=== PATIENT | male | born 1950 | race American Indian/Alaskan Native ===

== ENCOUNTER → 2016-10-12 | Outpatient (CLI) | payer MEDICARE ==
[~2016-10-12] MED LIST: ALPR.5T PO; ASP81CT PO; CARV12.53; CARV3.12 PO; CLPD75T PO; HYDR-3583 PO; KCL; LASIX; LISI10TA PO; LISINOPRIL; METO-333 PO; NTR.4SL SL; OMEP40CA36 PO; PNT40TEC PO; PRAV80TA PO; SPRN25T PO; TICA90TA PO; [UNRECOGNIZED DRUG - OTHER]
== END ==
LOC: CARD 10:45
PROVIDERS: ATTEND Nurse Practitioner Family
DX: I25.5 Ischemic cardiomyopathy (principal); I25.10 Atherosclerotic heart disease of native coronary artery without angina pectoris; E78.4 Other hyperlipidemia; N18.2 Chronic kidney disease, stage 2 (mild)
CPT/HCPCS: 93306

== ENCOUNTER → 2017-02-06 | Outpatient (CLI) | payer MEDICARE | LOC: CARD 11:31 | PROVIDERS: ATTEND Nurse Practitioner Family | DX: I25.10 Atherosclerotic heart disease of native coronary artery without angina pectoris (principal); I25.5 Ischemic cardiomyopathy; E78.4 Other hyperlipidemia; N18.2 Chronic kidney disease, stage 2 (mild) | CPT/HCPCS: 93306 ==

== ENCOUNTER → 2017-02-28 | Outpatient (CLI) | payer MEDICARE ==
[~2017-02-28] MED LIST changes: +CATHETER FLUSH 10 ML SYR IV PRN; +HEParin (CENTRAL IV FLUSH) 500 UNIT/5 ML SYR ONE
--- NOTE | 2017-03-02 17:07 | STRESS TEST ---
DATE OF SERVICE: 02/28/2017 RADIONUCLIDE VENTRICULOGRAPHY CLINICAL DIAGNOSIS: Ischemic cardiomyopathy. Autologous red blood cells tagged with 27.1 mCi of [id number] were used for the study. The left ventricular ejection fraction is calculated to be 40%. There is justice-apical and septal hypokinesis. CONCLUSIONS: 1. Left ventricular ejection fraction 40%. 2. Justice-apical and septal hypokinesis. Job ID: [id number] DocumentID: [id number] Dictated Date: 03/01/2017 12:44:16 Bitumen Plant Operator Date: 03/01/2017 13:25:29 Dictated By: MARY SIMS MD, MA, FACP, FACC,
== END ==
LOC: CARD 13:38
PROVIDERS: ATTEND Nurse Practitioner Family
DX: I25.5 Ischemic cardiomyopathy (principal); I25.10 Atherosclerotic heart disease of native coronary artery without angina pectoris; E78.4 Other hyperlipidemia; N18.2 Chronic kidney disease, stage 2 (mild)
CPT/HCPCS: 78472

== ENCOUNTER 2018-04-08 03:40 | Emergency (ER) | payer MEDICARE ==
[~2018-04-08] VITALS: Ht 182.9 cm; Wt 105.7 kg
[~2018-04-08 03:40] MED LIST changes: -CATHETER FLUSH 10 ML SYR IV PRN; -HEParin (CENTRAL IV FLUSH) 500 UNIT/5 ML SYR ONE
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
--- OUTSIDE RECORDS SUMMARY | 2018-04-08 03:46 | XMS REPORT | Continuity of Care Document ---
Author Author [facility] Organization [facility] Address Unknown Phone Unavailable Allergies Active Description Code Type Severity Reaction Onset Reported/Identified Relationship to Patient Clinical Status Yes KEFLEX SEVERE DERMATOLOGICAL - JOSE LUIS Yes [id number] REDUCTASE INHIBITORS SEVERE IRREGULAR HEART RATE Yes cephalexin [id number] Drug Allergy Mild N/A 03/05/2009 Yes tramadol [id number] Drug Allergy Moderate N/A 08/16/2011 Medications There is no data. Problems Date Dx Coded Attending Type Code Diagnosis Diagnosed By 04/14/2011 Ot 272.4 04/14/2011 Ot 401.9 04/14/2011 Ot 414.00 04/14/2011 Ot 786.50 04/14/2011 Ot V45.81 04/18/2011 Ot 272.4 04/18/2011 Ot 401.9 04/18/2011 Ot 414.01 04/18/2011 Ot 786.50 04/18/2011 Ot V45.81 04/18/2011 Ot V58.66 04/18/2011 Ot V58.69 08/17/2011 Ot 427.89 CARDIAC DYSRHYTHMIAS NEC 08/17/2011 Ot 429.9 HEART DISEASE NOS 08/17/2011 Ot 458.9 HYPOTENSION NOS 08/17/2011 Ot 530.19 OTHER ESOPHAGITIS 08/17/2011 Ot 535.40 OT SPECIFIED GASTRITIS,W/O MENTION OF H 08/17/2011 Ot 574.00 CHOLELITH W AC CHOLECYST 08/17/2011 Ot 574.10 CHOLELITH W CHOLECYS NEC 2012 Ot 414.01 CORONARY ATHEROSCLEROSIS OF [place] CORON 2012 Ot 786.50 CHEST PAIN NOS 2012 Ot V45.81 AORTOCORONARY BYPASS 2012 Ot V45.82 PERCUTANEOUS TRANSLUM CORON ANGIOPLASTY 2012 Ot V58.66 LONG-TERM ( CURRENT) USE OF ASPIRIN 2012 Ot V58.69 OT MED,LT, CURRENT USE 10/21/2012 DORON ROSARIO FACC, [facility] CCDS Ot 272.4 HYPERLIPIDEMIA NEC/NOS 10/21/2012 [facility]ON [facility]ARIO FACC, [facility] Ot 401.9 HYPERTENSION NOS 10/21/2012 DORON ALFORD, [facility] Ot 530.81 ESOPHAGEAL REFLUX 10/21/[address] [facility] Ot 786.59 CHEST PAIN NEC 03/03/2013 PATRICK HUYNH APRN Ot 786.50 CHEST PAIN NOS 05/17/2015 Ot 414.00 05/17/2015 Ot V45.81 05/17/2015 Ot 530.81 05/17/2015 Ot 574.20 05/17/2015 Ot V72.63 05/17/2015 Ot V74.8 05/17/2015 Ot 429.2 05/17/2015 Ot 414.00 05/17/2015 Ot V45.81 05/17/2015 Ot 780.4 05/17/2015 Ot 786.05 05/17/2015 LAVELLE CRYSTAL M SCRAP DROP CRANE OPERATOR Ot 396.3 05/17/2015 LAVELLE, CRYSTAL M SCRAP DROP CRANE OPERATOR Ot 397.0 05/17/2015 LAVELLE, CRYSTAL M SCRAP DROP CRANE OPERATOR Ot 427.89 05/17/2015 LAVELLE, CRYSTAL M SCRAP DROP CRANE OPERATOR Ot 428.0 05/17/2015 LAVELLE, CRYSTAL M SCRAP DROP CRANE OPERATOR Ot 429.3 05/17/2015 LAVELLE, CRYSTAL M SCRAP DROP CRANE OPERATOR Ot 785.1 05/17/2015 LAVELLE, CRYSTAL M SCRAP DROP CRANE OPERATOR Ot 427.89 05/17/2015 LAVELLE, CRYSTAL M SCRAP DROP CRANE OPERATOR Ot 780.79 06/07/2015 SAFIA ESCOBAR L SCRAP DROP CRANE OPERATOR Ot E78.5 06/07/2015 PATEL ESCOBARHER L SCRAP DROP CRANE OPERATOR Ot I25.10 06/07/2015 SHAWN SAFIA L SCRAP DROP CRANE OPERATOR Ot I25.5 06/07/2015 SHAWN SAFIA L SCRAP DROP CRANE OPERATOR Ot I44.7 06/07/2015 PATEL ESCOBARHER L SCRAP DROP CRANE OPERATOR Ot R06.00 07/06/2015 SAFIA ESCOBAR L SCRAP DROP CRANE OPERATOR Ot E78.5 HYPERLIPIDEMIA, UNSPECIFIED 07/06/2015 SAFIA ESCOBAR L SCRAP DROP CRANE OPERATOR Ot I10 ESSENTIAL (PRIMARY) HYPERTENSION 07/06/2015 SAFIA ESCOBAR L SCRAP DROP CRANE OPERATOR Ot I25.10 ATHSCL HEART DISEASE OF [place] CORONARY 07/06/2015 SAFIA ESCOBAR SCRAP DROP CRANE OPERATOR Ot I25.5 ISCHEMIC CARDIOMYOPATHY 07/06/2015 SAFIA ESCOBAR SCRAP DROP CRANE OPERATOR Ot R06.09 OTHER FORMS OF DYSPNEA 07/26/2015 SAFIA ESCOBAR SCRAP DROP CRANE OPERATOR Ot E78.5 HYPERLIPIDEMIA, UNSPECIFIED 07/26/2015 SAFIA ESCOBAR SCRAP DROP CRANE OPERATOR Ot I10 ESSENTIAL (PRIMARY) HYPERTENSION 07/26/2015 SAFIA ESCOBAR L SCRAP DROP CRANE OPERATOR Ot I25.10 ATHSCL HEART DISEASE OF [place] CORONARY 07/26/2015 SAFIA ESCOBAR SCRAP DROP CRANE OPERATOR Ot I25.5 ISCHEMIC CARDIOMYOPATHY 07/26/2015 SAFIA ESCOBAR SCRAP DROP CRANE OPERATOR Ot R06.09 OTHER FORMS OF DYSPNEA 10/08/2016 Ot 414.00 CORON ATHEROSCLER NOS TYPE VESSEL, NATIV 10/08/2016 Ot V45.81 AORTOCORONARY BYPASS 10/08/2016 Ot 530.81 ESOPHAGEAL REFLUX 10/08/2016 Ot 574.20 CHOLELITHIASIS NOS 10/08/2016 Ot V72.63 PRE- PROCEDURAL LABORATORY EXAMINATION 10/08/2016 Ot V74.8 SCREEN- BACTERIAL DIS NEC 10/08/2016 Ot 429.2 ASCVD 10/08/2016 Ot 414.00 CORON ATHEROSCLER NOS TYPE VESSEL, NATIV 10/08/2016 Ot V45.81 AORTOCORONARY BYPASS 10/08/2016 Ot 780.4 DIZZINESS AND GIDDINESS 10/08/2016 Ot 786.05 SHORTNESS OF BREATH 10/08/2016 KADE VALDERRAMA SCRAP DROP CRANE OPERATOR Ot 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 10/08/2016 KADE VALDERRAMA SCRAP DROP CRANE OPERATOR Ot 397.0 TRICUSPID VALVE DISEASE 10/08/2016 KADE VALDERRAMA SCRAP DROP CRANE OPERATOR Ot 427.89 CARDIAC DYSRHYTHMIAS NEC 10/08/2016 KADE VALDERRAMA SCRAP DROP CRANE OPERATOR Ot 428.0 CONGESTIVE HEART FAILURE NOS 10/08/2016 KADE VALDERRAMA SCRAP DROP CRANE OPERATOR Ot 429.3 CARDIOMEGALY 10/08/2016 KADE VALDERRAMA SCRAP DROP CRANE OPERATOR Ot 785.1 PALPITATIONS 10/08/2016 KADE VALDERRAMA SCRAP DROP CRANE OPERATOR Ot 427.89 CARDIAC DYSRHYTHMIAS NEC 10/08/2016 KADE VALDERRAMA SCRAP DROP CRANE OPERATOR Ot 780.79 OTH MALAISE FATIGUE 10/08/2016 SAFIA ESCOBAR SCRAP DROP CRANE OPERATOR Ot E78.5 HYPERLIPIDEMIA, UNSPECIFIED 10/08/2016 FABRICESAFIA SAAB SCRAP DROP CRANE OPERATOR Ot I25.10 ATHSCL HEART DISEASE OF [place] CORONARY 10/08/2016 SAFIA ESCOBAR L SCRAP DROP CRANE OPERATOR Ot I25.5 ISCHEMIC CARDIOMYOPATHY 10/08/2016 SAFIA ESCOBAR SCRAP DROP CRANE OPERATOR Ot I44.7 LEFT BUNDLE-BRANCH BLOCK, UNSPECIFIED 10/08/2016 SAFIA ESCOBAR L SCRAP DROP CRANE OPERATOR Ot R06.00 DYSPNEA, UNSPECIFIED 10/08/2016 SAFIA ESCOBAR L SCRAP DROP CRANE OPERATOR Ot E78.5 HYPERLIPIDEMIA, UNSPECIFIED 10/08/2016 SHAWN SAFIA L SCRAP DROP CRANE OPERATOR Ot I10 ESSENTIAL (PRIMARY) HYPERTENSION 10/08/2016 SHAWN SAFIA L SCRAP DROP CRANE OPERATOR Ot I25.10 ATHSCL HEART DISEASE OF [place] CORONARY 10/08/2016 SAFIA ESCOBAR SCRAP DROP CRANE OPERATOR Ot I25.5 ISCHEMIC CARDIOMYOPATHY 10/08/2016 SAFIA ESCOBAR SCRAP DROP CRANE OPERATOR Ot R06.09 OTHER FORMS OF DYSPNEA 10/12/2016 Ot 414.00 CORON ATHEROSCLER NOS TYPE VESSEL, NATIV 10/12/2016 Ot V45.81 AORTOCORONARY BYPASS 10/12/2016 Ot 530.81 ESOPHAGEAL REFLUX 10/12/2016 Ot 574.20 CHOLELITHIASIS NOS 10/12/2016 Ot V72.63 PRE- PROCEDURAL LABORATORY EXAMINATION 10/12/2016 Ot V74.8 SCREEN- BACTERIAL DIS NEC 10/12/2016 Ot 429.2 ASCVD 10/12/2016 Ot 414.00 CORON ATHEROSCLER NOS TYPE VESSEL, NATIV 10/12/2016 Ot V45.81 AORTOCORONARY BYPASS 10/12/2016 Ot 780.4 DIZZINESS AND GIDDINESS 10/12/2016 Ot 786.05 SHORTNESS OF BREATH 10/12/2016 LAVELLE KADE Karlene SCRAP DROP CRANE OPERATOR Ot 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 10/12/2016 LAVELLE KADE Karlene SCRAP DROP CRANE OPERATOR Ot 397.0 TRICUSPID VALVE DISEASE 10/12/2016 LAVELLE KADE Karlene SCRAP DROP CRANE OPERATOR Ot 427.89 CARDIAC DYSRHYTHMIAS NEC 10/12/2016 KADE VALDERRAMA SCRAP DROP CRANE OPERATOR Ot 428.0 CONGESTIVE HEART FAILURE NOS 10/12/2016 KADE VALDERRAMA SCRAP DROP CRANE OPERATOR Ot 429.3 CARDIOMEGALY 10/12/2016 KADE VALDERRAMA SCRAP DROP CRANE OPERATOR Ot 785.1 PALPITATIONS 10/12/2016 LAVELLE KADE Karlene SCRAP DROP CRANE OPERATOR Ot 427.89 CARDIAC DYSRHYTHMIAS NEC 10/12/2016 LAVELLE KADE Karlene SCRAP DROP CRANE OPERATOR Ot 780.79 OTH MALAISE FATIGUE 10/12/2016 BAIMA, SAFIA L SCRAP DROP CRANE OPERATOR Ot E78.5 HYPERLIPIDEMIA, UNSPECIFIED 10/12/2016 BAIMA, SAFIA L SCRAP DROP CRANE OPERATOR Ot I25.10 ATHSCL HEART DISEASE OF [place] CORONARY 10/12/2016 BAIMA, SAFIA L SCRAP DROP CRANE OPERATOR Ot I25.5 ISCHEMIC CARDIOMYOPATHY 10/12/2016 BAIMA, SAFIA L SCRAP DROP CRANE OPERATOR Ot I44.7 LEFT BUNDLE-BRANCH BLOCK, UNSPECIFIED 10/12/2016 BAIMA, SAFIA L SCRAP DROP CRANE OPERATOR Ot R06.00 DYSPNEA, UNSPECIFIED 10/12/2016 BAIMA, SAFIA L SCRAP DROP CRANE OPERATOR Ot E78.5 HYPERLIPIDEMIA, UNSPECIFIED 10/12/2016 BAIMA, SAFIA L SCRAP DROP CRANE OPERATOR Ot I10 ESSENTIAL (PRIMARY) HYPERTENSION 10/12/2016 BAIMA, SAFIA L SCRAP DROP CRANE OPERATOR Ot I25.10 ATHSCL HEART DISEASE OF [place] CORONARY 10/12/2016 BAIMA, SAFIA L SCRAP DROP CRANE OPERATOR Ot I25.5 ISCHEMIC CARDIOMYOPATHY 10/12/2016 BAIMA, SAFIA L SCRAP DROP CRANE OPERATOR Ot R06.09 OTHER FORMS OF DYSPNEA 10/15/2016 BAIMA, SAFIA L SCRAP DROP CRANE OPERATOR Ot E78.4 OTHER HYPERLIPIDEMIA 10/15/2016 BAIMA, SAFIA L SCRAP DROP CRANE OPERATOR Ot I25.10 ATHSCL HEART DISEASE OF [place] CORONARY 10/15/2016 BAIMA, SAFIA L SCRAP DROP CRANE OPERATOR Ot I25.5 ISCHEMIC CARDIOMYOPATHY 10/15/2016 BAIMA, SAFIA L SCRAP DROP CRANE OPERATOR Ot N18.2 CHRONIC KIDNEY DISEASE, STAGE 2 (MILD) 10/16/2016 BAIMA, SAFIA L SCRAP DROP CRANE OPERATOR Ot E78.4 OTHER HYPERLIPIDEMIA 10/16/2016 BAIMA, SAFIA L SCRAP DROP CRANE OPERATOR Ot I25.10 ATHSCL HEART DISEASE OF [place] CORONARY 10/16/2016 BAIMA, SAFIA L SCRAP DROP CRANE OPERATOR Ot I25.5 ISCHEMIC CARDIOMYOPATHY 10/16/2016 BAIMA, SAFIA L SCRAP DROP CRANE OPERATOR Ot N18.2 CHRONIC KIDNEY DISEASE, STAGE 2 (MILD) 10/16/2016 BAIMA, SAFIA L SCRAP DROP CRANE OPERATOR Ot E78.4 OTHER HYPERLIPIDEMIA 10/16/2016 BAIMA, SAFIA L SCRAP DROP CRANE OPERATOR Ot I25.10 ATHSCL HEART DISEASE OF [place] CORONARY 10/16/2016 BAIMA, SAFIA L SCRAP DROP CRANE OPERATOR Ot I25.5 ISCHEMIC CARDIOMYOPATHY 10/16/2016 BAIMA, SAFIA L SCRAP DROP CRANE OPERATOR Ot N18.2 CHRONIC KIDNEY DISEASE, STAGE 2 (MILD) 10/16/2016 BAIMA, SAFIA L SCRAP DROP CRANE OPERATOR Ot E78.4 OTHER HYPERLIPIDEMIA 10/16/2016 BAIMA, SAFIA L SCRAP DROP CRANE OPERATOR Ot I25.10 ATHSCL HEART DISEASE OF [place] CORONARY 10/16/2016 BAIMA, SAFIA L SCRAP DROP CRANE OPERATOR Ot I25.5 ISCHEMIC CARDIOMYOPATHY 10/16/2016 BAIMA, SAFIA L SCRAP DROP CRANE OPERATOR Ot N18.2 CHRONIC KIDNEY DISEASE, STAGE 2 (MILD) 11/09/2016 BAIMA, SAFIA L SCRAP DROP CRANE OPERATOR Ot E78.4 OTHER HYPERLIPIDEMIA 11/09/2016 BAIMA, SAFIA L SCRAP DROP CRANE OPERATOR Ot I25.10 ATHSCL HEART DISEASE OF [place] CORONARY 11/09/2016 BAIMA, SAFIA L SCRAP DROP CRANE OPERATOR Ot I25.5 ISCHEMIC CARDIOMYOPATHY 11/09/2016 BAIMA, SAFIA L SCRAP DROP CRANE OPERATOR Ot N18.2 CHRONIC KIDNEY DISEASE, STAGE 2 (MILD) 02/08/2017 BAIMA, SAFIA L SCRAP DROP CRANE OPERATOR Ot E78.4 OTHER HYPERLIPIDEMIA 02/08/2017 BAIMA, SAFIA L SCRAP DROP CRANE OPERATOR Ot I25.10 ATHSCL HEART DISEASE OF [place] CORONARY 02/08/2017 BAIMA, SAFIA L SCRAP DROP CRANE OPERATOR Ot I25.5 ISCHEMIC CARDIOMYOPATHY 02/08/2017 BAIMA, SAFIA L SCRAP DROP CRANE OPERATOR Ot N18.2 CHRONIC KIDNEY DISEASE, STAGE 2 (MILD) 02/12/2017 BAIMA, SAFIA L SCRAP DROP CRANE OPERATOR Ot E78.4 OTHER HYPERLIPIDEMIA 02/12/2017 BAIMA, SAFIA L SCRAP DROP CRANE OPERATOR Ot I25.10 ATHSCL HEART DISEASE OF [place] CORONARY 02/12/2017 BAIMA, SAFIA L SCRAP DROP CRANE OPERATOR Ot I25.5 ISCHEMIC CARDIOMYOPATHY 02/12/2017 BAIMA, SAFIA L SCRAP DROP CRANE OPERATOR Ot N18.2 CHRONIC KIDNEY DISEASE, STAGE 2 (MILD) 02/27/2017 BAIMA, SAFIA L SCRAP DROP CRANE OPERATOR Ot I25.5 ISCHEMIC CARDIOMYOPATHY 02/28/2017 BAIMA, SAFIA L SCRAP DROP CRANE OPERATOR Ot E78.4 OTHER HYPERLIPIDEMIA 02/28/2017 BAIMA, SAFIA L SCRAP DROP CRANE OPERATOR Ot I25.10 ATHSCL HEART DISEASE OF [place] CORONARY 02/28/2017 BAIMA, SAFIA L SCRAP DROP CRANE OPERATOR Ot I25.5 ISCHEMIC CARDIOMYOPATHY 02/28/2017 BAIMA, SAFIA L SCRAP DROP CRANE OPERATOR Ot N18.2 CHRONIC KIDNEY DISEASE, STAGE 2 (MILD) 03/03/2017 BAIMA, SAFIA L SCRAP DROP CRANE OPERATOR Ot E78.4 OTHER HYPERLIPIDEMIA 03/03/2017 BAIMA, SAFIA L SCRAP DROP CRANE OPERATOR Ot I25.10 ATHSCL HEART DISEASE OF [place] CORONARY 03/03/2017 BAIMA, SAFIA L SCRAP DROP CRANE OPERATOR Ot I25.5 ISCHEMIC CARDIOMYOPATHY 03/03/2017 BAIMA, SAFIA L SCRAP DROP CRANE OPERATOR Ot N18.2 CHRONIC KIDNEY DISEASE, STAGE 2 (MILD) 03/21/2017 BAIMA, SAFIA L SCRAP DROP CRANE OPERATOR Ot E78.4 OTHER HYPERLIPIDEMIA 03/21/2017 BAIMA, SAFIA L SCRAP DROP CRANE OPERATOR Ot I25.10 ATHSCL HEART DISEASE OF [place] CORONARY 03/21/2017 BAIMA, SAFIA L SCRAP DROP CRANE OPERATOR Ot I25.5 ISCHEMIC CARDIOMYOPATHY 03/21/2017 BAIMA, SAFIA L SCRAP DROP CRANE OPERATOR Ot N18.2 CHRONIC KIDNEY DISEASE, STAGE 2 (MILD) 05/31/2017 Jada Steiner R89.9 UNSPECIFIED ABNORMAL FINDING IN SPECIMENS FROM OTHER ORGANS, SYSTEMS AND TISSUES 05/31/2017 Jada Steiner 250.80 DIABETES MELLITUS WITH OTHER SPECIFIED MANIFESTATIONS, TYPE II OR UNSPECIFIED TYPE, NOT STATED UNCONTROLLED 05/31/2017 Jada Steiner E11.65 TYPE 2 DIABETES MELLITUS WITH HYPERGLYCEMIA 05/31/2017 Jada Steiner R89.9 UNSPECIFIED ABNORMAL FINDING IN SPECIMENS FROM OTHER ORGANS, SYSTEMS AND TISSUES 05/31/2017 Jada Steiner 250.80 DIABETES MELLITUS WITH OTHER SPECIFIED MANIFESTATIONS, TYPE II OR UNSPECIFIED TYPE, NOT STATED UNCONTROLLED 05/31/2017 Jada Steiner E11.65 TYPE 2 DIABETES MELLITUS WITH HYPERGLYCEMIA 05/31/2017 Jada Steiner R89.9 UNSPECIFIED ABNORMAL FINDING IN SPECIMENS FROM OTHER ORGANS, SYSTEMS AND TISSUES 01/31/2018 Jada Steiner 401.0 MALIGNANT ESSENTIAL HYPERTENSION 01/31/2018 Jada Steiner 429.2 CARDIOVASCULAR DISEASE, UNSPECIFIED 01/31/2018 Jada Steiner I10 ESSENTIAL (PRIMARY) HYPERTENSION 01/31/2018 Jada Steiner I25.10 ATHEROSCLEROTIC HEART DISEASE OF [place] CORONARY ARTERY WITHOUT ANGINA PECTORIS 01/31/2018 Jada Steiner 250.80 DIABETES MELLITUS WITH OTHER SPECIFIED MANIFESTATIONS, TYPE II OR UNSPECIFIED TYPE, NOT STATED UNCONTROLLED 01/31/2018 Jada Steiner 401.0 MALIGNANT ESSENTIAL HYPERTENSION 01/31/2018 Jada Steiner 429.2 CARDIOVASCULAR DISEASE, UNSPECIFIED 01/31/2018 Jada Steiner E11.65 TYPE 2 DIABETES MELLITUS WITH HYPERGLYCEMIA 01/31/2018 Jada Steiner I10 ESSENTIAL (PRIMARY) HYPERTENSION 01/31/2018 Jada Steiner I25.10 ATHEROSCLEROTIC HEART DISEASE OF [place] CORONARY ARTERY WITHOUT ANGINA PECTORIS 01/31/2018 Jada Steiner 250.80 DIABETES MELLITUS WITH OTHER SPECIFIED MANIFESTATIONS, TYPE II OR UNSPECIFIED TYPE, NOT STATED UNCONTROLLED 01/31/2018 Jada Steiner 401.0 MALIGNANT ESSENTIAL HYPERTENSION 01/31/2018 Jada Steiner 429.2 CARDIOVASCULAR DISEASE, UNSPECIFIED 01/31/2018 Jada Steiner E11.65 TYPE 2 DIABETES MELLITUS WITH HYPERGLYCEMIA 01/31/2018 Jada Steiner I10 ESSENTIAL (PRIMARY) HYPERTENSION 01/31/2018 Jada Steiner I25.10 ATHEROSCLEROTIC HEART DISEASE OF [place] CORONARY ARTERY WITHOUT ANGINA PECTORIS Procedures There is no data. Results Test Result Range PSA Yearly Screen - 03/28/16 06:50 PSA TOTAL 0.6 ng/mL 0.0-4.0 Comprehensive Metabolic Panel - 07/04/16 12:01 Albumin 4.0 g/dL 3.6-5.1 ALP 92 U/L 35-130 ALT 31 U/L 6-45 Anion Gap 15 6-14 AST 20 U/L 2-40 BUN 26 mg/dL 5-25 Calcium 9.5 mg/dL 8.3-10.4 Chloride 102 mmol/L 95-114 CO2 25 mEq/L 22-33 Creat 1.30 mg/dL 0.50-1.50 eGFR 55 mL/min/1.73m2 >59 Globulin 2.7 g/dL 2.3-3.5 Glucose 256 mg/dL 70-110 Osmo 295 280-295 Potassium 4.7 mmol/L 3.5-5.3 Sodium 137 mmol/L 134-148 TBil 0.5 mg/dL 0.2-1.2 TP 6.7 g/dL 6.0-8.3 Thyroid Stimulating Hormone - 11/13/16 09:44 TSH 1.64 mIU/mL 0.32-5.00 Hemoglobin A1C - 11/13/16 09:44 % A1C 7.50 % 5.40-6.60 AvGlu 190 mg/dL 70-110 BNP - 01/03/17 08:38 BNP 90.10 pg/ml 0.00-100.00 BMP - 03/22/17 08:58 Anion Gap 13 6-14 BUN 21 mg/dL 5-25 Calcium 9.7 mg/dL 8.3-10.4 Chloride 103 mmol/L 95-114 CO2 29 mEq/L 22-33 Creat 1.45 mg/dL 0.50-1.50 eGFR 48 mL/min/1.73m2 >59 Glucose 202 mg/dL 70-110 Osmo 297 280-295 Potassium 5.1 mmol/L 3.5-5.3 Sodium 140 mmol/L 134-148 Magnesium - 05/16/17 08:57 Mg++ 2.1 mg/dL 1.6-2.6 BMP - 05/31/17 07:05 Anion Gap 17 6-14 BUN 31 mg/dL 5-25 Calcium 9.6 mg/dL 8.3-10.4 Chloride 103 mmol/L 95-114 CO2 26 mEq/L 22-33 Creat 1.56 mg/dL 0.50-1.50 eGFR 44 mL/min/1.73m2 >59 Glucose 155 mg/dL 70-110 Osmo 300 280-295 Potassium 4.5 mmol/L 3.5-5.3 Sodium 141 mmol/L 134-148 Hemoglobin A1C - 01/31/18 06:59 % A1C 7.40 % 5.40-6.60 AvGlu 186 mg/dL 70-110 Encounters ACCT No. Visit Date/Time Discharge Status Pt. Type Provider Facility Loc./Unit Complaint [id number] 02/28/2017 13:38:00 02/28/2017 23:59:59 CLS Outpatient SAFIA ESCOBAR SCRAP DROP CRANE OPERATOR [facility] CARD I25.5 ISCHEMIC CARDIOMYOPATHY [id number] 02/06/2017 11:31:00 02/06/2017 23:59:59 CLS Outpatient BAISAFIA SAAB L SCRAP DROP CRANE OPERATOR [facility] CARD I25.10 CAD [id number] 10/12/2016 10:45:00 10/12/2016 23:59:59 CLS Outpatient SAFIA ESCOBAR L SCRAP DROP CRANE OPERATOR [facility] CARD CAD I25.10,HLP E78.4 [id number] 07/05/2015 07:16:00 07/05/2015 23:59:59 CLS Outpatient SAFIA ESCOBAR SCRAP DROP CRANE OPERATOR [facility] CARD ISCHEMIC CARDIOMYOPATHY [id number] 06/23/2015 07:45:00 06/23/2015 23:59:59 CLS Preadmit SAFIA ESCOBAR [employer] [facility] CARD [id number] 05/17/2015 14:42:00 05/17/2015 23:59:59 CLS Outpatient SAFIA ESCOBAR [employer]PER[employer] [facility] CARD CAD,ISCHMIC CARDIOPATHY [id number] 03/03/2013 16:39:00 03/03/2013 18:34:00 DIS Emergency PATRICK HUYNH [employer]ATE [facility] ER CHEST PAIN [id number] 10/21/2012 11:13:00 10/21/2012 18:45:00 DIS Inpatient DORON ROSARIO FACCMARIO FACP CCDS [facility] CSD CHEST PAIN [id number] 10/20/2012 07:43:00 10/20/2012 23:59:59 CLS Outpatient KADE VALDERRAMA [employer] [facility] CARD CRADYCARDIA, PALPITATIONS,CHF [id number] 08/21/2012 08:18:00 08/21/2012 23:59:59 CLS Outpatient KADE VALDERRAMA [employer] [facility] CARD BRADYCARDIA,FATIGUE [id number] 05/17/2015 14:42:00 Document Registration [id number] 05/17/2015 14:42:00 Document Registration [id number] 05/27/2012 14:07:00 Document Registration [id number] 04/21/2012 06:54:00 Document Registration [id number] 04/04/2012 07:37:00 Document Registration [id number] 08/21/2011 12:21:00 Document Registration [id number] 08/16/2011 05:51:00 Document Registration [id number] 08/09/2011 09:42:00 Document Registration [id number] 04/24/2011 13:30:00 Document Registration [id number] 04/18/2011 09:22:00 Document Registration [id number] 04/13/2011 21:48:00 Document Registration [id number] 01/31/2018 06:50:00 01/31/2018 23:59:00 DIS Outpatient Jatin, Jada [id number] 05/31/2017 07:01:00 05/31/2017 23:59:00 DIS Outpatient Jatin, Jada [id number] 05/16/2017 08:47:00 05/16/2017 23:59:00 DIS Outpatient Jatin, Jada [id number] 03/22/2017 08:39:00 03/22/2017 23:59:00 DIS Outpatient JatinJada [id number] 01/03/2017 08:34:00 01/03/2017 23:59:00 DIS Outpatient DoronMario [id number] 11/13/2016 09:40:00 11/13/2016 23:59:00 DIS Outpatient JatinJada [id number] 07/04/2016 11:46:00 07/04/2016 23:59:00 DIS Outpatient Jatin Jada [id number] 03/28/2016 06:49:00 03/28/2016 23:59:00 DIS Outpatient Jatin, Jada [id number] 05/16/2017 08:47:00 Document Registration
[2018-04-08] MEDS ORDERED: RT-ALBUTEROL/IPRATROPIUM 3 ML (DUONEB) VIAL INH ONE ×2 (04:00→04:45)
[2018-04-08 04:07] LABS: BASOPHILS % (AUTO) 0 % (0-10); EOSINOPHILS # (AUTO) 0.1 10^3/uL (0.0-0.3); EOSINOPHILS % (AUTO) 1 % (0-10); HEMATOCRIT 45 % (40-54); HEMOGLOBIN 15.8 G/DL (13.3-17.7); LYMPHOCYTES # (AUTO) 1.2 X 10^3 (1.0-4.0); LYMPHOCYTES % (AUTO) 16 % (12-44); MEAN CORPUSCULAR HEMOGLOBIN 32 PG (25-34); MEAN CORPUSCULAR HGB CONC 35 G/DL (32-36); MEAN CORPUSCULAR VOLUME 92 FL (80-99); MEAN PLATELET VOLUME 11.1 FL (7.4-10.4); MONOCYTES # (AUTO) 0.9 X 10^3 (0.0-1.0); MONOCYTES % (AUTO) 12 % (0-12); NEUTROPHILS # (AUTO) 5.4 X 10^3 (1.8-7.8); NEUTROPHILS % (AUTO) 72 % (42-75); PLATELET COUNT 122 10^3/uL (130-400); RED CELL DISTRIBUTION WIDTH 12.8 % (10.0-14.5); WHITE BLOOD COUNT 7.5 10^3/uL (4.3-11.0)
[2018-04-08 04:25] LABS: ALBUMIN 4.2 GM/DL (3.2-4.5); CALCIUM 9.2 MG/DL (8.5-10.1); CREATININE SERUM 1.23 MG/DL (0.60-1.30); POTASSIUM 4.3 MMOL/L (3.6-5.0); TOTAL PROTEIN 6.6 GM/DL (6.4-8.2)
[2018-04-08] MEDS ORDERED: methylPREDNISolone 125 MG (Solu-MEDROL) VIAL IVP ONE (04:45)
[2018-04-08] MEDS ORDERED: OXYMETAZOLINE (AFRIN) 0.05% NA 15 ML BTL ONE (04:48)
--- NOTE | 2018-04-08 04:54 | ED General ---
General Chief Complaint: Cough/Cold/Flu Symptoms Stated Complaint: CONGESTION,COUGH Nursing Triage Note: AMBULATORY TO ED C/O FEELING "HARD TO BREATHE FOR 3 DAYS AND LUNGS FEEL LIKE THEY'RE ON FIRE." Nursing Sepsis Screen: No Definite Risk Source of Information: Patient, EMS Notes Reviewed Exam Limitations: No Limitations History of Present Illness Date Seen by Provider: Apr 08, 2018 Time Seen by Provider: 03:46 Initial Comments This 67-year-old gentleman presents to the emergency room accompanied by his via private vehicle with complaints of dyspnea for the past few days. Part of his difficulty breathing is due to nasal congestion. He has pleuritic chest discomfort as well. He denies fever or significant cough. He does have COPD and uses a Ventolin inhaler. He also has history of diabetes and heart disease. He is on Lasix and spironolactone therapy. He has chronic fluctuating lower extremity edema without any exacerbation recently. Allergies and Home Medications Allergies Coded Allergies: cephalexin (Unverified Allergy, Mild, 03/05/09) tramadol (Unverified Adverse Reaction, Intermediate, 08/16/11) medication caused pt to experience hypertensive episodes Home Medications Albuterol Sulfate 2.5 Mg/3 Ml Vial.neb, 2.5 MG INH Q4H PRN for SHORTNESS OF BREATH Prescribed by: EDGAR LI on 04/08/18456 Aspirin 81 Mg Chew, 81 MG PO DAILY, (Reported) Clopidogrel 75 Mg Tablet, 75 MG PO DAILY, (Reported) Lisinopril 10 Mg Tablet, 5 MG PO BID, (Reported) TAKES 1/2 TAB IN AM AND 1/2 TAB AT HS Pantoprazole Sodium 40 Mg Tablet.dr, 40 MG PO DAILY, (Reported) Pravastatin Sodium 80 Mg Tablet, 80 MG PO HS, (Reported) Prednisone 20 Mg Tab, 1 TAB PO DAILY Prescribed by: EDGAR LI on 04/08/18 0455 Patient Home Medication List Home Medication List Reviewed: Yes Review of Systems Review of Systems Constitutional: no symptoms reported EENTM: see HPI Respiratory: see HPI Cardiovascular: no symptoms reported Gastrointestinal: no symptoms reported Genitourinary: no symptoms reported Musculoskeletal: no symptoms reported Skin: no symptoms reported Psychiatric/Neurological: No Symptoms Reported Hematologic/Lymphatic: No Symptoms Reported Immunological/Allergic: no symptoms reported Past Eymapde-Lwfypd-Cxisqm Hx Past Med/Social Hx: Reviewed and Corrections made Patient Social History Alcohol Use: Denies Use Recreational Drug Use: No Smoking Status: Never a Smoker Recent Foreign Travel: No Contact w/Someone Who Travel: No Recent Infectious Disease Expo: No Recent Hopitalizations: No Immunizations Up To Date Date of Pneumonia Vaccine: Apr 03, 2018 Date of Influenza Vaccine: Nov 18, 2017 Past Medical History Surgeries: Yes (R SHOULDER ) CABG, Coronary Stent Respiratory: Yes COPD Cardiac: Yes (CHF, L BBB, 3 CORONARY STENTS) Coronary Artery Disease Neurological: No Reproductive Disorders: No Kidney Stones Gastrointestinal: Yes Hemorrhoids, Gall Bladder Disease Musculoskeletal: Yes Rheumatoid Arthritis Endocrine: Yes Diabetes, Non-Insulin dep HEENT: No Cancer: No Psychosocial: No Integumentary: No Blood Disorders: No Family Medical History No Pertinent Family Hx Physical Exam Vital Signs Vital Signs - First Documented 04/08/18 04:00 Pulse Ox 96 O2 Delivery Room Air Capillary Refill : Less Than 3 Seconds Height, Weight, BMI Height: 6'0.00" Weight: 233lbs. 0oz. 105.684022dx; 34.0 BMI Method:Stated General Appearance: WD/WN, Mild Distress HEENT: PERRL/EOMI, Normal ENT Inspection Neck: Normal Inspection Respiratory: No Accessory Muscle Use, No Respiratory Distress, Decreased Breath Sounds, Wheezing Cardiovascular: Regular Rate, Rhythm, No Murmur Gastrointestinal: Non Tender, Soft Extremity: Normal Capillary Refill, Normal Inspection Neurologic/Psychiatric: Alert, Oriented x3, No Motor/Sensory Deficits, Normal Mood/Affect, first leveler II-XII Norm as Tested Skin: Normal Color, Warm/Dry Progress/Results/Core Measures Suspected Sepsis Recent Fever Within 48 Hours: No Infection Criteria Present: Suspected New Infection New/Unexplained Altered Menta: No Sepsis Screen: No Definite Risk SIRS Temperature:99.8 Pulse: 87 Respiratory Rate: 20 Laboratory Tests 04/08/18 03:55: White Blood Count 7.5 Blood Pressure 149 /89 Mean: 109 Laboratory Tests 04/08/18 03:55: Creatinine 1.23, Platelet Count 122L, Total Bilirubin 1.0 Results/Orders Lab Results Laboratory Tests Test 04/08/18 03:55 Range/Units White Blood Count 7.5 4.3-11.0 10^3/uL Red Blood Count 4.90 4.35-5.85 10^6/uL Hemoglobin 15.8 13.3-17.7 G/DL Hematocrit 45 40-54 % Mean Corpuscular Volume 92 80-99 FL Mean Corpuscular Hemoglobin 32 25-34 PG Mean Corpuscular Hemoglobin Concent 35 32-36 G/DL Red Cell Distribution Width 12.8 10.0-14.5 % Platelet Count 122 L 130-400 10^3/uL Mean Platelet Volume 11.1 H 7.4-10.4 FL Neutrophils (%) (Auto) 72 42-75 % Lymphocytes (%) (Auto) 16 12-44 % Monocytes (%) (Auto) 12 0-12 % Eosinophils (%) (Auto) 1 0-10 % Basophils (%) (Auto) 0 0-10 % Neutrophils # (Auto) 5.4 1.8-7.8 X 10^3 Lymphocytes # (Auto) 1.2 1.0-4.0 X 10^3 Monocytes # (Auto) 0.9 0.0-1.0 X 10^3 Eosinophils # (Auto) 0.1 0.0-0.3 10^3/uL Basophils # (Auto) 0.0 0.0-0.1 10^3/uL Sodium Level 137 135-145 MMOL/L Potassium Level 4.3 3.6-5.0 MMOL/L Chloride Level 102 98-107 MMOL/L Carbon Dioxide Level 24 21-32 MMOL/L Anion Gap 11 5-14 MMOL/L Blood Urea Nitrogen 15 7-18 MG/DL Creatinine 1.23 0.60-1.30 MG/DL Estimat Glomerular Filtration Rate 59 BUN/Creatinine Ratio 12 Glucose Level 152 H 70-105 MG/DL Calcium Level 9.2 8.5-10.1 MG/DL Corrected Calcium 9.0 8.5-10.1 MG/DL Total Bilirubin 1.0 0.1-1.0 MG/DL Aspartate Amino Transf (AST/SGOT) 22 5-34 U/L Alanine Aminotransferase (ALT/SGPT) 32 0-55 U/L Alkaline Phosphatase 69 40-136 U/L C-Reactive Protein High Sensitivity 0.89 H 0.00-0.50 MG/DL B-Type Natriuretic Peptide 251.0 H <100.0 PG/ML Total Protein 6.6 6.4-8.2 GM/DL Albumin 4.2 3.2-4.5 GM/DL Micro Results Microbiology 04/08/18 Influenza Types A,B Antigen (BERT) - Final, Complete My Orders Orders - EDGAR ZHANG MD BNP (04/08/18 03:52) Cbc With Automated Diff (04/08/18 03:52) Comprehensive Metabolic Panel (04/08/18 03:52) Hs C Reactive Protein (04/08/18 03:52) Influenza A And B Antigens (04/08/18 03:52) Saline Lock/Iv-Start (04/08/18 03:52) Chest Pa/Lat (2 View) (04/08/18 03:52) Albuterol/Ipra Inhalation Soln (Duoneb I (04/08/18 04:00) Svn Small Volume Nebulizer (04/08/18 03:52) Oxymetazoline 0.05% Nasal [place] (Afrin 0. (04/08/18 09:00) Methylprednisolone Sod Succ (Solu-Medrol (04/08/18 04:45) Albuterol/Ipra Inhalation Soln (Duoneb I (04/08/18 04:45) Svn Small Volume Nebulizer (04/08/18 04:45) Oxymetazoline 0.05% Nasal [place] (Afrin 0. (04/08/18 04:48) Medications Given in ED Current Medications Medications Dose Ordered Sig/Eusebio Route Start Time Stop Time Status Last Admin Dose Admin Albuterol/ Ipratropium 3 ml ONCE ONCE INH 04/08/18 04:00 04/08/18 04:01 DC 04/08/18 04:09 3 ML Albuterol/ Ipratropium 3 ml ONCE ONCE INH 04/08/18 04:45 04/08/18 04:48 DC 04/08/18 05:08 3 ML Methylprednisolone Sodium Succinate 62.5 mg ONCE ONCE IVP 04/08/18 04:45 04/08/18 04:48 DC 04/08/18 04:51 62.5 MG Vital Signs/I&O 04/08/18 04/08/18 04/08/18 04/08/18 04:00 04:05 04:05 04:55 Temp 99.8 Pulse 87 Resp 20 B/P (MAP) 149/89 (109) Pulse Ox 96 94 O2 Delivery Room Air Room Air Room Air 04/08/18 05:04 Temp 99.8 Pulse 95 Resp 20 B/P (MAP) 125/85 (98) Pulse Ox 96 O2 Delivery Room Air Capillary Refill : Less Than 3 Seconds Blood Pressure Mean: 109 Progress Note : Progress Note Patient was given DuoNeb treatment 2 with acceptable improvement in wheezing and respiratory effort. Chest x-ray showed some increased pulmonary venous congestion when compared with prior. There were no focal infiltrates or consolidations. Labs were unremarkable. Solu-Medrol 62.5 mg was administered by IV route. See discharge instructions. Patient was thought to be mildly fluid overloaded based on appearance of chest x-ray and mildly elevated BNP. He was advised to take a double dose of Lasix (80 mg) this morning. He was given a prescription for nebulizer machine. Afrin was dispensed for treatment of his nasal congestion. Diagnostic Imaging Diagonstic Imaging: Xray Plain Films/CT/US/NM/MRI: chest Comments Chest x-ray viewed by me. Report not yet available. There appears to be increased pulmonary venous congestion when compared with prior. No focal infiltrate or consolidation appreciated. Departure Impression Primary Impression: COPD exacerbation Additional Impressions: Fluid overload Qualified Codes: E87.70 - Fluid overload, unspecified Nasal congestion Disposition: 01 HOME, SELF-CARE Condition: Improved Departure-Patient Inst. Decision time for Depature: 04:49 Referrals: SOPHIA JACKSON MD (PCP/Family) Primary Care Physician Patient Instructions: Chronic Obstructive Pulmonary Disease (COPD), Including Emphysema Add. Discharge Instructions: Take a double dose of Lasix (80 mg) this morning promptly upon returning home. Take prednisone as prescribed and watch your blood sugars closely while taking prednisone. If your blood sugars are consistently over 200, increase glimepiride to 4 mg daily. You may divide this dose into 2 mg doses, once in the morning and once in the evening. Obtain a nebulizer machine and use your albuterol in the nebulizer every 4 hours as needed for shortness of breath. Follow-up with your primary care provider within 48 hours. For nasal congestion you may use the Afrin provided up to 2 sprays in each side twice daily. Do not use for more than 3 days. Return to the emergency room if symptoms worsen. All discharge instructions reviewed with patient and/or family. Voiced understanding. Scripts Albuterol Sulfate (Albuterol Sulfate) 2.5 Mg/3 Ml Vial.neb 2.5 MG INH Q4H PRN for SHORTNESS OF BREATH, #20 EA Prov: EDGAR ZHANG MD 04/08/18 Prednisone (Prednisone) 20 Mg Tab 1 TAB PO DAILY, #4 TAB Prov: EDGAR ZHANG MD 04/08/18 Copy Copies To 1: SOPHIA JACKSON MD, JOSHUA T MD Apr 08, 2018 04:54
[2018-04-08] MEDS ORDERED: PRD20T PO (04:55)
[2018-04-08] MEDS ORDERED: ALBU2.5V4 INH (04:57)
[2018-04-08 05:04] VITALS: BP 125/85
--- NOTE | 2018-04-08 07:25 | Diagnostic Imaging Report ---
Indication: Cough and congestion. Comparison: 03/03/2013. Findings: Cardiomegaly is again noted status post CABG. Central vascular congestion has developed. Ill-defined nodular opacity in the right apex is more conspicuous. No pleural effusion. No pneumothorax. Impression: Cardiomegaly with worsening interstitial edema and new ill-defined nodular opacity in the right apex. Findings may relate to pulmonary edema. Infectious process could be present in the appropriate setting. Dictated by: Dictated on workstation # [id number]
[2018-04-08] MEDS ORDERED: OXYMETAZOLINE (AFRIN) 0.05% NA 15 ML BTL SCH (09:00)
== END 2018-04-08 05:05 | disposition home or self-care (01) ==
LOC: EDUNIT# 03:40 → ER 03:42
DX: J44.1 Chronic obstructive pulmonary disease with (acute) exacerbation (principal); E87.70 Fluid overload, unspecified; I25.10 Atherosclerotic heart disease of native coronary artery without angina pectoris; E11.9 Type 2 diabetes mellitus without complications; I50.9 Heart failure, unspecified; M06.9 Rheumatoid arthritis, unspecified; Z88.6 Allergy status to analgesic agent; Z88.1 Allergy status to other antibiotic agents; Z79.51 Long term (current) use of inhaled steroids; Z87.19 Personal history of other diseases of the digestive system; Z79.82 Long term (current) use of aspirin; Z79.52 Long term (current) use of systemic steroids; Z79.02 Long term (current) use of antithrombotics/antiplatelets; Z95.5 Presence of coronary angioplasty implant and graft; Z95.1 Presence of aortocoronary bypass graft
CPT/HCPCS: 36415; 71046; 80053; 83880; 85025; 86141; 87804; 94640

== ENCOUNTER → 2019-03-16 | Outpatient (CLI) | payer MEDICARE ==
[~2019-03-16] MED LIST changes: +ALBU2.5V4 INH; +PRD20T PO
== END ==
LOC: CARD 08:28
PROVIDERS: ATTEND Internal Medicine Cardiovascular Disease
DX: I25.10 Atherosclerotic heart disease of native coronary artery without angina pectoris (principal); N18.2 Chronic kidney disease, stage 2 (mild); E11.9 Type 2 diabetes mellitus without complications; K21.9 Gastro-esophageal reflux disease without esophagitis; E78.5 Hyperlipidemia, unspecified; I25.5 Ischemic cardiomyopathy
CPT/HCPCS: 93306

== ENCOUNTER → 2019-04-03 | Outpatient (CLI) | payer MEDICARE ==
[~2019-04-03] MED LIST changes: +CATHETER FLUSH 10 ML SYR IV PRN; +HEParin (CENTRAL IV FLUSH) 500 UNIT/5 ML SYR ONE
--- NOTE | 2019-04-07 15:16 | STRESS TEST ---
DATE OF SERVICE: 04/03/2019 RADIONUCLIDE VENTRICULOGRAPHY ORDERING PHYSICIAN: Veronica Velasco APRN PRIMARY PHYSICIAN: Dr. Steiner. CLINICAL DIAGNOSIS: Ischemic cardiomyopathy. Autologous red blood cells tagged with 30.1 mCi of technetium-99m were used for the study. Review of images indicates anteroseptal akinesis. There is impairment of global left ventricular systolic function. Ejection fraction is calculated to be 24%. CONCLUSIONS: 1. Impairment of left ventricular systolic function with a calculated ejection fraction of 24%. 2. Anteroseptal akinesis. Job ID: [id number] DocumentID: [id number] Dictated Date: 04/07/2019 12:34:41 Media Sales Consultant Date: 04/07/2019 14:58:50 Dictated By: MARY SIMS MD, MA, FACP, FACC,
== END ==
LOC: CARD 08:41
PROVIDERS: ATTEND Nurse Practitioner Family
DX: I25.5 Ischemic cardiomyopathy (principal); R29.898 Other symptoms and signs involving the musculoskeletal system
CPT/HCPCS: 78472

== ENCOUNTER 2019-05-05 07:46 | Day surgery (SDC) | payer MEDICARE ==
[~2019-05-05] VITALS: Ht 182 cm; Wt 105.0 kg
[2019-05-05] VITALS (11 sets, daily range): BP systolic 104–123; BP diastolic 53–75
[~2019-05-05 07:46] MED LIST changes: -CATHETER FLUSH 10 ML SYR IV PRN; -HEParin (CENTRAL IV FLUSH) 500 UNIT/5 ML SYR ONE
[2019-05-05] MEDS ORDERED: LIDOCAINE 1% INJ 20 ML 20 ML VIAL ONE (07:47)
[2019-05-05] MEDS ORDERED: NS IV 1000 ML 1,000 ML ONE (07:47)
[2019-05-05] MEDS ORDERED: HEParin (CATH LAB) 2,000 ML IV ONE (07:47)
[2019-05-05] MEDS ORDERED: NS IV 1000 ML 1,000 ML IV SCH (08:00)
[2019-05-05 08:39] LABS: HEMOGLOBIN 15.6 G/DL (13.3-17.7); MEAN PLATELET VOLUME 11.9 FL (7.4-10.4); RED CELL DISTRIBUTION WIDTH 12.6 % (10.0-14.5); WHITE BLOOD COUNT 7.9 10^3/uL (4.3-11.0)
[2019-05-05] MEDS ORDERED: FURO40TA4 PO (08:53)
[2019-05-05] MEDS ORDERED: MTP25TSR PO (08:53)
[2019-05-05] MEDS ORDERED: SPIR25TA PO (08:53)
[2019-05-05] MEDS ORDERED: ALPR0.5T PO (08:53)
[2019-05-05] MEDS ORDERED: GLIM2TAB2 PO (08:53)
[2019-05-05 08:59] LABS: PROTHROMBIN TIME PATIENT 13.2 SEC (12.2-14.7)
[2019-05-05 09:03] LABS: ALBUMIN 4.1 GM/DL (3.2-4.5); BILIRUBIN,TOTAL 0.8 MG/DL (0.1-1.0); CALCIUM 9.3 MG/DL (8.5-10.1); CREATININE SERUM 1.33 MG/DL (0.60-1.30); TOTAL PROTEIN 6.9 GM/DL (6.4-8.2)
[2019-05-05] MEDS ORDERED: MIDAZOLAM 5 MG/5 ML (VERSED) VIAL ONE (09:09)
[2019-05-05] MEDS ORDERED: fentaNYL INJECTION 100 MCG/2 ML AMP ONE (09:09)
[2019-05-05] MEDS ORDERED: HEParin 1000 UNIT/ML (10ML VIAL) FOR BOLUS ONE (09:47)
[2019-05-05] MEDS ORDERED: EPTIFIBATIDE BOLUS 10 ML IV ONE ×2 (09:48)
[2019-05-05] MEDS ORDERED: NITRO DRIP 25000 MCG/D5W 250 ML IV ONE (09:51)
[2019-05-05] MEDS ORDERED: CLOPIDOGREL 300 MG (PLAVIX) TABLET PO ONE (10:07)
--- NOTE | 2019-05-05 10:42 | Cardiac Procedure Note-CS/ASA ---
Pre-Procedure Note Pre-Op Procedure Note H&P Reviewed The H&P was reviewed, patient examined and no changes noted. Date H&P Reviewed: May 05, 2019 Time H&P Reviewed: 09:30 Conscious Sedation Pre-Proced Time 09:30 ASA Score 3 For ASA 3 and 4: Consider anesthesia and medical clearance. Also, for patients with a history of failed moderate sedation consider anesthesia. Airway Lungs Heart ASA score ASA 1: a normal healthy patient ASA 2: a patient with a mild systemic disease (mid diabetes, controlled hypertension, obesity ASA 3: a patient with a severe systemic disease that limits activity (angina, COPD, prior Myocardial infarction) ASA 4: a patient with an incapacitating disease that is a constant threat to life (CHF, renal failure) ASA 5: a moribund patient not expected to survive 24 hrs. (ruptured aneurysm) ASA 6: a declared brain- patient whose organs are being harvested. For emergent operations, add the letter E after the classification Mallampati Classification Grade 2 Sedation Plan Analgesia, Amnesia, Plan communicated to team members, Discussed options with patient/fam, Discussed risks with patient/fam The patient is an appropriate candidate to undergo the planned procedure, sedation, and anesthesia. The patient immediately re-assessed prior to indication. MARY SIMS MD FACP FAC CCDS May 05, 2019 10:42
[2019-05-05] MEDS ORDERED: PATIENT MAY USE OWN MEDS, ALL PO SCH (10:45)
--- NOTE | 2019-05-05 11:28 | OPERATIVE REPORT ---
DATE OF SERVICE: 05/05/2019 CARDIAC CATHETERIZATION CORONARY INTERVENTION REPORT The patient is a 69-year-old man who is known to have coronary artery disease and who has had a bypass surgery to the left anterior descending artery and subsequent percutaneous interventions to the left circumflex and the right coronary artery. He has ischemic cardiomyopathy. A recent MUGA scan showed an ejection fraction of 24% and anteroseptal akinesis. He refuses defibrillator. He did agree to optimization of the coronary status. He has been experiencing increasing shortness of breath, which appears to be related to ischemic cardiomyopathy and to an angina equivalent. Informed consent was obtained for cardiac catheterization and ad hoc coronary intervention, if needed. DESCRIPTION OF PROCEDURE: He was brought to the cardiac catheterization laboratory in a fasting state. Right groin was prepared and draped in the usual sterile fashion. Lidocaine 1% for local anesthesia. Modified Seldinger technique was used to advance a 5-[place] sheath in right femoral artery, 5-[place] JL4 catheter for left coronary angiography, 5-[place] JR4 catheter for right coronary angiography, 5-[place] IM catheter was used for angiography of the left internal mammary artery graft to left anterior descending. Subsequently, percutaneous intervention was carried out through the left anterior descending artery beyond the insertion of the left internal mammary artery graft that is described below. Following completion of that procedure, we carried out left ventricular angiography with 5-[place]ine[place] pigtail catheter. At the end of the procedure, angiography of the right femoral artery was carried out through the sheath. Mynx was used to achieve hemostasis. He tolerated the procedure well. PERCUTANEOUS INTERVENTION TO THE DISTAL LEFT ANTERIOR DESCENDING: The distal left anterior descending artery was exhibiting 80% stenosis beyond the insertion of the left internal mammary artery graft to the left anterior descending. This portion of the vessel then bifurcates and one limb of the bifurcation is very small in caliber and has severe disease, but is not amenable to intervention because of the small vessel caliber size. We did carry out intervention to the lesion proximal to the bifurcation, which was approximately 80% stenosis. We exchanged the sheath over a wire for a 6-[place]inean sheath and used a 6-[place] [facility] guide catheter to engage the left internal mammary artery graft to left anterior descending. We advanced a [employer] floppy wire across the lesion in the left anterior descending. We carried out balloon angioplasty with Emerge 2.0 x 20 mm balloon. Multiple balloon inflations were carried out up to 10 atmospheres. The balloon was then removed. Subsequent angiography revealed less than 30% stenosis at the previous site of 80% stenosis in the distal left anterior descending artery at the site of balloon angioplasty. As stated, a smaller limb of a bifurcation distal to the angioplasty site is of a small caliber and not amenable to intervention that was not intervened on. HEMODYNAMICS: Left ventricular end-diastolic pressure following coronary angiography was 15 mmHg. There is no significant pressure gradient on pullback across the aortic valve. Ascending aortic pressure was 104/55 with a mean of 73 mmHg. LEFT VENTRICULAR ANGIOGRAPHY: Left ventricular angiography was carried out in the right anterior oblique projection only. There is anterolateral hypokinesis. Ejection fraction is approximately 40%. CORONARY ANGIOGRAPHY: Left main coronary artery is free of significant disease. Left anterior descending artery is occluded in its midportion following the origin of a diagonal branch. Left circumflex artery has a widely patent stent in its main obtuse marginal branch. This is known to be Taxus 3.0 x 20 mm and a Taxus 3.0 x 32 mm stents. The right coronary artery is dominant and has a patent stent in its proximal portion that is known to be Promus element 2.75 x 20 mm stent. The distal right coronary artery has 40% to 50% stenosis. LEFT INTERNAL MAMMARY ARTERY GRAFT ANGIOGRAPHY: Left internal mammary artery graft to left anterior descending artery is widely patent. There was 80% stenosis in the left anterior descending just following the insertion of the graft into the distal left anterior descending. To this, successful balloon angioplasty was carried out, which reduced the stenosis to less than 30%. Further distally, the vessel bifurcates into smaller limb has severe disease, but is not amenable to intervention on account of small vessel caliber size. CONCLUSIONS: 1. Mid vessel occlusion of the left anterior descending. The distal vessel is protected by a patent left internal mammary artery graft, but there was 80% stenosis distal to the insertion of the graft to which successful balloon angioplasty was carried out with reduction of stenosis to 30% . More distally, the vessel bifurcates and the smaller limb has severe disease, but is not amenable to intervention on account of small vessel caliber. 2. Long patent stented segment in the main obtuse marginal branch of the left circumflex. These stents are known to be Taxus 3.0 x 20 and 3.0 x 32 mm stents. 3. Dominant right coronary with a patent stented segment in the proximal portion. This is known to be Promus element 2.75 x 20 mm stent. 4. Impairment of global left ventricular systolic function with anterolateral hypokinesis and left ventricular ejection fraction of approximately 40%. 5. Mild elevation of left ventricular end-diastolic pressure. DISCUSSION AND RECOMMENDATIONS: His coronary regimen is being continued. He is being hospitalized for overnight observation. Job ID: [id number] DocumentID: [id number] Dictated Date: 05/05/2019 10:30:13 Auditing Control Clerk Date: 05/05/2019 11:27:29 Dictated By: MARY SIMS MD, MA, FACP, FACC, MTDD
[2019-05-05] MEDS: NS IV 1000 ML 1,000 ML IV SCH (12:38)
[2019-05-05] MEDS ORDERED: ALPRAZolam 0.5 MG (XANAX) TAB PO SCH (21:00)
[2019-05-05] MEDS: lisINopril 5 MG (PRINIVIL) TABLET PO SCH (21:11)
[2019-05-06] MEDS: NS IV 1000 ML 1,000 ML IV SCH (00:07)
[2019-05-06 03:53] LABS: HEMOGLOBIN 13.5 G/DL (13.3-17.7); MEAN PLATELET VOLUME 11.5 FL (7.4-10.4); RED CELL DISTRIBUTION WIDTH 12.1 % (10.0-14.5); WHITE BLOOD COUNT 6.7 10^3/uL (4.3-11.0)
[2019-05-06 04:00] VITALS: BP 132/73
[2019-05-06 04:14] LABS: BUN/CREATININE RATIO 15; CALCIUM 8.4 MG/DL (8.5-10.1); CARBON DIOXIDE 22 MMOL/L (21-32); CHLORIDE 106 MMOL/L (98-107); GFR ESTIMATED > 60; GLUCOSE 119 MG/DL (70-105); POTASSIUM 3.9 MMOL/L (3.6-5.0); SODIUM 139 MMOL/L (135-145)
[2019-05-06 07:38] VITALS: BP 132/68
--- NOTE | 2019-05-06 08:16 | Progress Note - Cardiology ---
Cardiology SOAP Progress Note Subjective: Sitting up in a recliner at the bedside. States he feels well. No c/o groin discomfort. No c/o CP, dyspnea, palpitations, syncope or near syncope. Objective: I&O/Vital Signs Weight (Pounds): 233 Weight (Ounces): 0 Weight (Calculated Kilograms): 105.475727 Side: right Condition: DP/PT pulses palpable, extremity w/d/p Bruising: mild bruising Constitutional: AAO x 3 Respiratory: No accessory muscle use, No respiratory distress; chest expansion is symmetric, chest is bilaterally symmetric, lungs clear to auscultation, other (prolonged expiratory phase) Cardiovascular: regular rate-rhythm; No JVD; S1 and S2 Gastrointestional: No tender; soft, audible bowel sounds Extremities: no lower extremity edema bilateral Neurologic/Psychiatric: grossly intact (moves all extremities) Skin: No rash on exposed areas, No ulcerations on exposed areas Results/Procedures: Labs Microbiology 05/05/19 MRSA Screen - Final, Complete MRSA not isolated A/P: Assessment: Card cath of April 2019 Mid vessel occlusion of the left anterior descending. The distal vessel is protected by a patent left internal mammary artery graft, but there was 80% stenosis distal to the insertion of the graft to which successful balloon angioplasty was carried out with reduction of stenosis to 30% . More distally, the vessel bifurcates and the smaller limb has severe disease, but is not amenable to intervention on account of small vessel caliber. Long patent stented segment in the main obtuse marginal branch of the left circumflex. These stents are known to be Taxus 3.0 x 20 and 3.0 x 32 mm stents. Dominant right coronary with a patent stented segment in the proximal portion. This is known to be Promus element 2.75 x 20 mm stent. Impairment of global left ventricular systolic function with anterolateral hypokinesis and left ventricular ejection fraction of approximately 40%. Mild elevation of left ventricular end-diastolic pressure. Persistent ischemic cardiomyopathy Coronary artery disease with a history of coronary artery bypass surgery. He has left internal mammary to left anterior descending placed several years ago. MPI of 07/05/15 showed LVEF 23%, global hypo, more marked in the anteroapical wall Echocardiogram of Mar 16, 2019 showed LVEF 25-30%. Akinesis of the anteroseptal myocardium and apical myocardium. LA mod dilated. Trivial MR. RVSP 28 mmHg MUGA scan of April 03, 2019 shows LVEF 24%; anteroseptal akinesis Refuses defib implant; aware of the implications of his decision DM II CKD stage 3 No evidence of decompensated CHF. NYHA class I Hyperlipidemia Quit smoking in Feb 2009. Advised to continue to refrain from smoking Intolerance to statins on account of muscle cramps. He also reports nonspecific intolerance to fibrates but does not recall the symptoms. Followed by Dr. Steiner Gastroesophageal reflux. Hypertension, under good control. History of mild intermittent anxiety, currently stable. History of carotid artery disease, reportedly mild, being followed by Dr. mSith office. Reports considerable bruising on dual antiplatelet therapy. Exertional dyspnea Chronic intermittent LBBB TSH normal on 11/13/16 Plan: Ok to discharge home today Renal function improved following IVF hydration Continue current medication regimen Out pt f/u SAFIA ESCOBAR May 06, 2019 08:16
--- NOTE | 2019-05-06 08:42 | Discharge Inst-Cardiology ---
Discharge Inst-Cardiac Discharge Medications Continued Medications: Alprazolam (Xanax) 0.5 Mg Tablet 0.5 MG PO HS, TAB Aspirin (Aspirin 81 Mg Chew Tab) 81 Mg Chew 81 MG PO DAILY, 0 Refills Clopidogrel (Plavix) 75 Mg Tablet 75 MG PO DAILY Furosemide (Furosemide) 40 Mg Tablet 40 MG PO DAILY, TAB Glimepiride (Glimepiride) 2 Mg Tablet 2 MG PO DAILY, TAB Lisinopril (Zestril) 10 Mg Tablet 5 MG PO BID TAKES 1/2 TAB IN AM AND 1/2 TAB AT HS Metoprolol Succinate (Metoprolol Succinate) 25 Mg Tab.er.24h 25 MG PO DAILY, TAB Pantoprazole Sodium (Protonix) 40 Mg Tablet.dr 40 MG PO DAILY Spironolactone (Aldactone) 25 Mg Tablet 25 MG PO DAILY, TAB Patient Instructions Patient Instructions: Please schedule follow up appointment to see Dr. Sal next week SAFIA ESCOBAR May 06, 2019 08:42
[2019-05-06] MEDS ORDERED: FUROSEMIDE 40 MG (LASIX) TAB PO SCH (09:00)
[2019-05-06] MEDS ORDERED: ASPIRIN 81 MG CHEW (CHILDREN'S ASA) PO SCH (09:00)
[2019-05-06] MEDS ORDERED: CLOPIDOGREL 75 MG (PLAVIX) TABLET PO SCH (09:00)
[2019-05-06] MEDS ORDERED: SPIRONOLACTONE 25 MG (ALDACTONE) TAB PO SCH (09:00)
[2019-05-06] MEDS ORDERED: GLIMEPIRIDE 2 MG (AMARYL) TAB PO SCH (09:00)
[2019-05-06] MEDS ORDERED: PANTOPRAZOLE 40 MG (PROTONIX) TAB PO SCH (09:00)
[2019-05-06] MEDS: lisINopril 5 MG (PRINIVIL) TABLET PO SCH (09:35)
--- NOTE | 2019-05-06 10:45 | NUR ---
pt dc to pov. pt refused wc. pt had all belongings with self
--- NOTE | 2019-05-06 19:02 | Progress Note - Cardiology ---
Cardiology SOAP Progress Note Subjective: No cp or palp or syncope or shortness of breath or leg/groin discomfort No leg swelling No n/v/d No weakness/malaise/focal weakness Objective: I&O/Vital Signs 05/06/19 05/06/19 07:38 08:00 Temp 36.2 Pulse 80 Resp 18 B/P (MAP) 132/68 (89) Pulse Ox 97 O2 Delivery Room Air Room Air 05/06/19 00:00 Intake Total 500 ml Balance 500 ml Weight (Pounds): 233 Weight (Ounces): 0 Weight (Calculated Kilograms): [id number] Side: right Condition: DP/PT pulses palpable, extremity w/d/p Bruising: mild bruising Constitutional: AAO x 3 Respiratory: No accessory muscle use, No respiratory distress; chest expansion is symmetric, chest is bilaterally symmetric, lungs clear to auscultation, other (prolonged expiratory phase) Cardiovascular: regular rate-rhythm; No JVD; S1 and S2 Gastrointestional: No tender; soft, audible bowel sounds Extremities: no lower extremity edema bilateral Neurologic/Psychiatric: grossly intact (moves all extremities) Skin: No rash on exposed areas, No ulcerations on exposed areas Results/Procedures: Labs Laboratory Tests 05/06/19 03:38: White Blood Count 6.7, Red Blood Count 4.27L, Hemoglobin 13.5, Hematocrit 39L, Mean Corpuscular Volume 92, Mean Corpuscular Hemoglobin 32, Mean Corpuscular Hemoglobin Concent 34, Red Cell Distribution Width 12.1, Platelet Count 119L, Mean Platelet Volume 11.5H, Sodium Level 139, Potassium Level 3.9, Chloride Level 106, Carbon Dioxide Level 22, Anion Gap 11, Blood Urea Nitrogen 17, Creatinine 1.10, Estimat Glomerular Filtration Rate > 60, BUN/Creatinine Ratio 15, Glucose Level 119H, Calcium Level 8.4L Microbiology 05/05/19 MRSA Screen - Final, Complete MRSA not isolated Laboratory Tests 05/05/19 08:17 05/06/19 03:38 A/P: Assessment: Card cath of April 2019 Mid vessel occlusion of the left anterior descending. The distal vessel is protected by a patent left internal mammary artery graft, but there was 80% stenosis distal to the insertion of the graft to which successful balloon angioplasty was carried out with reduction of stenosis to 30% . More distally, the vessel bifurcates and the smaller limb has severe disease, but is not amenable to intervention on account of small vessel caliber. Long patent stented segment in the main obtuse marginal branch of the left circumflex. These stents are known to be Taxus 3.0 x 20 and 3.0 x 32 mm stents. Dominant right coronary with a patent stented segment in the proximal portion. This is known to be Promus element 2.75 x 20 mm stent. Impairment of global left ventricular systolic function with anterolateral hypokinesis and left ventricular ejection fraction of approximately 40%. Mild elevation of left ventricular end-diastolic pressure Ischemic cardiomyopathy Coronary artery disease with a history of coronary artery bypass surgery. He has left internal mammary to left anterior descending placed several years ago. MPI of 07/05/15 showed LVEF 23%, global hypo, more marked in the anteroapical wall Echocardiogram of Mar 16, 2019 showed LVEF 25-30%. Akinesis of the anteroseptal myocardium and apical myocardium. LA mod dilated. Trivial MR. RVSP 28 mmHg MUGA scan of April 03, 2019 shows LVEF 24%; anteroseptal akinesis Refuses defib implant; aware of the implications of his decision DM II CKD stage 3 No evidence of decompensated CHF. NYHA class I Hyperlipidemia Quit smoking in Feb 2009. Advised to continue to refrain from smoking Intolerance to statins on account of muscle cramps. He also reports nonspecific intolerance to fibrates but does not recall the symptoms. Followed by Dr. Steiner Gastroesophageal reflux. Hypertension, under good control. History of mild intermittent anxiety, currently stable. History of carotid artery disease, reportedly mild, being followed by Dr. Page ers office. Reports considerable bruising on dual antiplatelet therapy. Exertional dyspnea Chronic intermittent LBBB TSH normal on 11/13/16 Plan: * I discussed cath findings and intervention undertaken and further treatment plan in detail with him and his family and answered questions * Ok to discharge home today * Renal function improved following IVF hydration * Continue current medication regimen MARY SIMS MD FACP FAC CCDS May 06, 2019 19:02
== END 2019-05-06 10:45 | disposition home or self-care (01) ==
LOC: CATH 07:46 → CSD 10:52 → CATH 05-06 10:45
PROVIDERS: ATTEND Nurse Practitioner Family
DX: I25.10 Atherosclerotic heart disease of native coronary artery without angina pectoris (principal); I77.1 Stricture of artery; I44.7 Left bundle-branch block, unspecified; I12.9 Hypertensive chronic kidney disease with stage 1 through stage 4 chronic kidney disease, or unspecified chronic kidney disease; I25.5 Ischemic cardiomyopathy; K21.9 Gastro-esophageal reflux disease without esophagitis; M19.90 Unspecified osteoarthritis, unspecified site; E66.9 Obesity, unspecified; E11.22 Type 2 diabetes mellitus with diabetic chronic kidney disease; E78.5 Hyperlipidemia, unspecified; N18.3 Chronic kidney disease, stage 3 (moderate); F41.9 Anxiety disorder, unspecified; Z68.31 Body mass index [BMI] 31.0-31.9, adult; Z88.8 Allergy status to other drugs, medicaments and biological substances; Z87.891 Personal history of nicotine dependence; Z79.02 Long term (current) use of antithrombotics/antiplatelets; Z88.5 Allergy status to narcotic agent; Z79.899 Other long term (current) drug therapy; Z79.82 Long term (current) use of aspirin; Z82.49 Family history of ischemic heart disease and other diseases of the circulatory system; Z80.9 Family history of malignant neoplasm, unspecified
CPT/HCPCS: 36415; 80048; 80053; 80061; 85027; 85610; 85730; 87081; 93005; 93459

== ENCOUNTER → 2019-05-11 | Outpatient (CLI) | payer MEDICARE ==
[~2019-05-11] MED LIST changes: +ALPR0.5T PO; +FURO40TA4 PO; +GLIM2TAB4 PO; +MTP25TSR PO; +SPIR25TA PO
[2019-05-11 09:38] LABS: BASOPHILS % (AUTO) 1 % (0-10); EOSINOPHILS # (AUTO) 0.2 10^3/uL (0.0-0.3); EOSINOPHILS % (AUTO) 2 % (0-10); HEMATOCRIT 45 % (40-54); HEMOGLOBIN 15.8 G/DL (13.3-17.7); LYMPHOCYTES # (AUTO) 2.9 X 10^3 (1.0-4.0); LYMPHOCYTES % (AUTO) 33 % (12-44); MEAN CORPUSCULAR HEMOGLOBIN 32 PG (25-34); MEAN CORPUSCULAR HGB CONC 35 G/DL (32-36); MEAN CORPUSCULAR VOLUME 90 FL (80-99); MEAN PLATELET VOLUME 11.8 FL (7.4-10.4); MONOCYTES # (AUTO) 0.7 X 10^3 (0.0-1.0); MONOCYTES % (AUTO) 8 % (0-12); NEUTROPHILS # (AUTO) 4.9 X 10^3 (1.8-7.8); NEUTROPHILS % (AUTO) 57 % (42-75); PLATELET COUNT 158 10^3/uL (130-400); RED CELL DISTRIBUTION WIDTH 12.6 % (10.0-14.5); WHITE BLOOD COUNT 8.7 10^3/uL (4.3-11.0)
[2019-05-11 09:58] LABS: CALCIUM 9.7 MG/DL (8.5-10.1); CREATININE SERUM 1.33 MG/DL (0.60-1.30); POTASSIUM 3.9 MMOL/L (3.6-5.0)
== END ==
LOC: LAB 09:18
PROVIDERS: ATTEND Nurse Practitioner Family
DX: D69.6 Thrombocytopenia, unspecified (principal); N18.2 Chronic kidney disease, stage 2 (mild)
CPT/HCPCS: 36415; 80048; 85025

== ENCOUNTER 2020-09-30 08:49 | Outpatient (RCR) | payer MEDICARE ==
[2020-09-06 14:31] LABS: BASOPHILS # (AUTO) 0.1 10^3/uL (0.0-0.1); BASOPHILS % (AUTO) 1 % (0-10); EOSINOPHILS # (AUTO) 0.1 10^3/uL (0.0-0.3); EOSINOPHILS % (AUTO) 1 % (0-10); HEMATOCRIT 41 % (40-54); LYMPHOCYTES # (AUTO) 2.9 X 10^3 (1.0-4.0); LYMPHOCYTES % (AUTO) 32 % (12-44); MEAN CORPUSCULAR HEMOGLOBIN 31 pg (25-34); MEAN CORPUSCULAR HGB CONC 34 g/dL (32-36); MEAN CORPUSCULAR VOLUME 91 fL (80-99); MEAN PLATELET VOLUME 11.3 fL (9.0-12.2); MONOCYTES # (AUTO) 0.6 X 10^3 (0.0-1.0); MONOCYTES % (AUTO) 7 % (0-12); NEUTROPHILS # (AUTO) 5.3 X 10^3 (1.8-7.8); NEUTROPHILS % (AUTO) 59 % (42-75); PLATELET COUNT 142 10^3/uL (130-400)
[2020-09-06 14:51] LABS: ALANINE AMINOTRANSFERASE 15 U/L (0-55); ALBUMIN 3.8 GM/DL (3.2-4.5); ALKALINE PHOSPHATASE 58 U/L (40-136); BILIRUBIN,TOTAL 0.9 MG/DL (0.1-1.0); BUN/CREATININE RATIO 16; CALCIUM 8.9 MG/DL (8.5-10.1); CARBON DIOXIDE 29 MMOL/L (21-32); CHLORIDE 105 MMOL/L (98-107); GFR ESTIMATED > 60; GLUCOSE 88 MG/DL (70-105); POTASSIUM 3.3 MMOL/L (3.6-5.0); SODIUM 141 MMOL/L (135-145); TOTAL PROTEIN 6.4 GM/DL (6.4-8.2)
[2020-09-14 15:05] LABS: BASOPHILS % (AUTO) 0 % (0-10); EOSINOPHILS % (AUTO) 0 % (0-10); HEMATOCRIT 42 % (40-54); HEMOGLOBIN 14.7 g/dL (13.3-17.7); LYMPHOCYTES # (AUTO) 1.1 10^3/uL (1.0-4.0); LYMPHOCYTES % (AUTO) 11 % (12-44); MEAN CORPUSCULAR HEMOGLOBIN 32 pg (25-34); MEAN CORPUSCULAR HGB CONC 35 g/dL (32-36); MEAN CORPUSCULAR VOLUME 91 fL (80-99); MEAN PLATELET VOLUME 12.4 fL (9.0-12.2); MONOCYTES # (AUTO) 0.2 10^3/uL (0.0-1.0); MONOCYTES % (AUTO) 2 % (0-12); NEUTROPHILS # (AUTO) 8.8 10^3/uL (1.8-7.8); NEUTROPHILS % (AUTO) 87 % (42-75); PLATELET COUNT 143 10^3/uL (130-400); WHITE BLOOD COUNT 10.1 10^3/uL (4.3-11.0)
[2020-09-14 15:25] LABS: ALANINE AMINOTRANSFERASE 18 U/L (0-55); ALBUMIN 3.9 GM/DL (3.2-4.5); ALKALINE PHOSPHATASE 59 U/L (40-136); BILIRUBIN,TOTAL 0.5 MG/DL (0.1-1.0); BUN/CREATININE RATIO 19; CARBON DIOXIDE 23 MMOL/L (21-32); CHLORIDE 105 MMOL/L (98-107); CREATININE SERUM 1.06 MG/DL (0.60-1.30); GFR ESTIMATED > 60; GLUCOSE 271 MG/DL (70-105); POTASSIUM 3.7 MMOL/L (3.6-5.0); SODIUM 140 MMOL/L (135-145); TOTAL PROTEIN 6.8 GM/DL (6.4-8.2)
[2020-09-14 15:34] LABS: MAGNESIUM 1.1 MG/DL (1.6-2.4)
[2020-09-21 09:14] LABS: BASOPHILS % (AUTO) 0 % (0-10); EOSINOPHILS % (AUTO) 0 % (0-10); HEMATOCRIT 43 % (40-54); HEMOGLOBIN 14.4 g/dL (13.3-17.7); LYMPHOCYTES # (AUTO) 0.5 10^3/uL (1.0-4.0); LYMPHOCYTES % (AUTO) 10 % (12-44); MEAN CORPUSCULAR HEMOGLOBIN 32 pg (25-34); MEAN CORPUSCULAR HGB CONC 34 g/dL (32-36); MEAN CORPUSCULAR VOLUME 94 fL (80-99); MEAN PLATELET VOLUME 12.2 fL (9.0-12.2); MONOCYTES % (AUTO) 1 % (0-12); NEUTROPHILS # (AUTO) 4.5 10^3/uL (1.8-7.8); NEUTROPHILS % (AUTO) 88 % (42-75); PLATELET COUNT 150 10^3/uL (130-400); WHITE BLOOD COUNT 5.1 10^3/uL (4.3-11.0)
[2020-09-21 09:38] LABS: ALANINE AMINOTRANSFERASE 23 U/L (0-55); ALKALINE PHOSPHATASE 64 U/L (40-136); BILIRUBIN,TOTAL 0.7 MG/DL (0.1-1.0); BUN/CREATININE RATIO 23; CALCIUM 9.3 MG/DL (8.5-10.1); CARBON DIOXIDE 23 MMOL/L (21-32); CHLORIDE 105 MMOL/L (98-107); CREATININE SERUM 1.08 MG/DL (0.60-1.30); GFR ESTIMATED > 60; GLUCOSE 281 MG/DL (70-105); MAGNESIUM 1.5 MG/DL (1.6-2.4); POTASSIUM 4.6 MMOL/L (3.6-5.0); SODIUM 137 MMOL/L (135-145); TOTAL PROTEIN 6.9 GM/DL (6.4-8.2)
[2020-09-27 08:34] LABS: BASOPHILS % (AUTO) 0 % (0-10); EOSINOPHILS % (AUTO) 0 % (0-10); MONOCYTES % (AUTO) 2 % (0-12); NEUTROPHILS # (AUTO) 2.1 10^3/uL (1.8-7.8)
[2020-09-27 08:36] LABS: HEMATOCRIT 41 % (40-54); LYMPHOCYTES # (AUTO) 0.4 10^3/uL (1.0-4.0); LYMPHOCYTES % (AUTO) 17 % (12-44); MEAN CORPUSCULAR HEMOGLOBIN 32 pg (25-34); MEAN CORPUSCULAR HGB CONC 34 g/dL (32-36); MEAN CORPUSCULAR VOLUME 93 fL (80-99); MEAN PLATELET VOLUME 11.6 fL (9.0-12.2); NEUTROPHILS % (AUTO) 81 % (42-75); PLATELET COUNT 134 10^3/uL (130-400); WHITE BLOOD COUNT 2.6 10^3/uL (4.3-11.0)
[2020-09-27 09:10] LABS: BILIRUBIN,TOTAL 0.8 MG/DL (0.1-1.0); CALCIUM 9.2 MG/DL (8.5-10.1); CREATININE SERUM 1.2 MG/DL (0.60-1.30); MAGNESIUM 1.3 MG/DL (1.6-2.4); POTASSIUM 4.9 MMOL/L (3.6-5.0); TOTAL PROTEIN 6.9 GM/DL (6.4-8.2)
[~2020-09-30] VITALS: Ht 182.9 cm; Wt 90.3 kg
[~2020-09-30 08:49] MED LIST changes: +CARBOPLATIN IV SCH; +D5W IV SCH; +FAMOTIDINE 20MG/2ML IV (CANCER CTR) IV SCH; +MAGNESIUM SULFATE (CANCER CTR) 2 GM in NS (IVPB) CANCER CENTER 50 ML IV ONE; +NORMAL SALINE IV SCH; +NS IV 1000 ML (CANCER CTR) IV SCH; +PACLITAXEL IV SCH; +diphenhydrAMINE 25 MG TAB (BENADRYL) CANCER CENTER PO ONE; +diphenhydrAMINE 50 MG/ML INJ (CANCER CENTER) IV PRN
== END 2020-09-30 13:05 | disposition home or self-care (01) ==
LOC: ONC 08:49
PROVIDERS: ATTEND Internal Medicine Hematology & Oncology
DX: C34.11 Malignant neoplasm of upper lobe, right bronchus or lung (principal); I25.10 Atherosclerotic heart disease of native coronary artery without angina pectoris; E11.9 Type 2 diabetes mellitus without complications; E78.5 Hyperlipidemia, unspecified; E66.01 Morbid (severe) obesity due to excess calories
CPT/HCPCS: 36415; 77280; 77290; 77295; 77300; 77307; 77334; 77336; 77417; 77470; 80053; 83735; 85025; 96365; 96375; 96413; 96417; 99204; 99213; 99214

== ENCOUNTER 2020-10-14 19:11 | Inpatient (IN) | payer MEDICARE ==
[~2020-10-14] VITALS: Ht 183 cm; Wt 87.7 kg
[~2020-10-14 19:11] MED LIST changes: -CARBOPLATIN IV SCH; -D5W IV SCH; -FAMOTIDINE 20MG/2ML IV (CANCER CTR) IV SCH; -MAGNESIUM SULFATE (CANCER CTR) 2 GM in NS (IVPB) CANCER CENTER 50 ML IV ONE; -NORMAL SALINE IV SCH; -NS IV 1000 ML (CANCER CTR) IV SCH; -PACLITAXEL IV SCH; -diphenhydrAMINE 25 MG TAB (BENADRYL) CANCER CENTER PO ONE; -diphenhydrAMINE 50 MG/ML INJ (CANCER CENTER) IV PRN
[2020-10-14] MEDS ORDERED: ACETAMINOPHEN 325 MG TABLET PO ONE (19:30)
[2020-10-14] MEDS ORDERED: NS IV 1000 ML 1,000 ML IV SCH ×2 (19:30→21:15)
[2020-10-14] MEDS ORDERED: ASPIRIN 81 MG CHEW (CHILDREN'S ASA) PO ONE (19:30)
[2020-10-14 19:56] LABS: BASOPHILS % (AUTO) 1 % (0-10); EOSINOPHILS % (AUTO) 1 % (0-10); HEMATOCRIT 34 % (40-54); HEMOGLOBIN 11.9 g/dL (13.3-17.7); LYMPHOCYTES # (AUTO) 0.7 10^3/uL (1.0-4.0); LYMPHOCYTES % (AUTO) 21 % (12-44); MEAN CORPUSCULAR HEMOGLOBIN 32 pg (25-34); MEAN CORPUSCULAR HGB CONC 35 g/dL (32-36); MEAN CORPUSCULAR VOLUME 91 fL (80-99); MEAN PLATELET VOLUME 11.9 fL (9.0-12.2); MONOCYTES # (AUTO) 0.3 10^3/uL (0.0-1.0); MONOCYTES % (AUTO) 9 % (0-12); NEUTROPHILS # (AUTO) 2.4 10^3/uL (1.8-7.8); NEUTROPHILS % (AUTO) 69 % (42-75); PLATELET COUNT 93 10^3/uL (130-400); WHITE BLOOD COUNT 3.5 10^3/uL (4.3-11.0)
[2020-10-14 20:00] LABS: ALBUMIN 3.8 GM/DL (3.2-4.5); POTASSIUM 4.9 MMOL/L (3.6-5.0)
[2020-10-14 20:01] LABS: CALCIUM 8.8 MG/DL (8.5-10.1)
[2020-10-14 20:03] LABS: TOTAL PROTEIN 6.5 GM/DL (6.4-8.2)
[2020-10-14 20:04] LABS: BILIRUBIN,TOTAL 0.5 MG/DL (0.1-1.0); MAGNESIUM 1.5 MG/DL (1.6-2.4)
[2020-10-14 20:06] LABS: CREATININE SERUM 1.37 MG/DL (0.60-1.30)
[2020-10-14 20:09] LABS: FIBRIN DEGRADATION PRODUCTS 1.27 UG/ML (0.00-0.49); INR 0.9 (0.8-1.4); PROTHROMBIN TIME PATIENT 12.9 SEC (12.2-14.7)
--- NOTE | 2020-10-14 20:09 | Diagnostic Imaging Report ---
INDICATION: Chest pain. COMPARISON: 03/03/2013. TECHNIQUE: Single frontal radiograph of the chest dated October 14, 2020. FINDINGS: Postsurgical changes of a CABG. The cardiac silhouette is within normal limits in size. No significant pulmonary vascular congestion. The left lung is clear. Mild opacities are noted within the right upper lung with associated 1.6 cm nodular density. No significant pleural effusion. No pneumothorax. No acute osseous abnormality. IMPRESSION: Right upper lung opacities with associated more focal 1.6 cm nodular density. Findings may relate to an underlying infectious infiltrate. However, radiographic follow-up in 7-10 days is recommended to ensure resolution. If this does not resolve, then a CT of the chest would be indicated for further evaluation as this could relate to a pulmonary nodule/neoplasm. Dictated by: Dictated on workstation # [id number]
--- NOTE | 2020-10-14 20:22 | Consultation-Cardiology ---
HPI-Cardiology Cardiology Consultation: Date of Consultation 10/14/2020 Date of Admission 10/14/2020 Attending Physician Laurent Wells Jr, MD Admitting Physician Jada Steiner MD Consulting Physician LAURENT WELLS JR, MD HPI: Time Seen by a Provider: 20:16 Chief Complaint: Reason for consultation: Possible STEMIIzabela Roy is a 70-year-old male with an extensive past cardiac history with previous coronary stents as well as coronary bypass surgery with a single left internal mammary artery graft to his left anterior descending coronary artery as well as ischemic cardiomyopathy with chronic systolic heart failure coupled with paroxysmal atrial fibrillation. He also has metastatic lung cancer and is curr ently undergoing radiation and chemotherapy. The main tumor is in the right upper lung. For the past week or so he has been having with problems with his blood pressures going up and down. For about the past 4 days he has been having some intermittent left-sided chest pain. He thought this was related to the lung cancer and his labile blood pressures. He was actually seen in our office yesterday by his regular foreign exchange position clerk, Dr. Sal. He told Dr. Sal about the labile blood pressures and he was instructed to decrease his dose of metoprolol and stop his spironolactone. However, he did not tell Dr. Sal that he had been having chest pain. Since receiving chemotherapy and radiation he has had increasing dyspnea. He also has dyspnea when he gets the chest pain. He has not taken any nitroglycerin because he does not have a fresh bottle at home. He denies paroxysmal nocturnal dyspnea, orthopnea, palpitations, lightheadedness, syncope, or lower extremity edema. Certain portions of this document may have been dictated utilizing voice recognition technology. Inherent to this technology, typographical and grammatical errors may exist. As much as I am diligent to identify and correct these mistakes, some errors may remain in the document. Review of Systems-Cardiology Review of Systems Other comments Review of 10 organ systems is as per the history of present illness, otherwise negative. HNI-Xnzhaa-Mhpnqe Hx Patient Social History Smoking Status: Former Smoker Have you traveled recently?: No Alcohol Use?: No Pt feels they are or have been: No Immunizations Up To Date Tetanus Booster (TDap): Unknown Date of Pneumonia Vaccine: Apr 03, 2018 Date of Influenza Vaccine: Nov 18, 2017 Past Medical History PMH As described under Assessment. Family Medical History Family Medical History: The patient does not know of any family history of premature coronary artery disease. Allergies and Home Medications Allergies Coded Allergies: cephalexin (Unverified Allergy, Mild, 03/05/09) tramadol (Unverified Adverse Reaction, Intermediate, 08/16/11) medication caused pt to experience hypertensive episodes Home Medications Alprazolam 0.5 Mg Tablet, 0.5 MG PO HS, (Reported) Aspirin 81 Mg Chew, 81 MG PO DAILY, (Reported) Clopidogrel 75 Mg Tablet, 75 MG PO DAILY, (Reported) Furosemide 40 Mg Tablet, 40 MG PO DAILY, (Reported) Glimepiride 2 Mg Tablet, 2 MG PO DAILY, (Reported) Lisinopril 10 Mg Tablet, 5 MG PO BID, (Reported) TAKES 1/2 TAB IN AM AND 1/2 TAB AT HS Metoprolol Succinate 25 Mg Tab.er.24h, 25 MG PO DAILY, (Reported) Pantoprazole Sodium 40 Mg Tablet.dr, 40 MG PO DAILY, (Reported) Spironolactone 25 Mg Tablet, 25 MG PO DAILY, (Reported) Patient Home Medication List Home Medication List Reviewed: Yes Exam Vital Signs Vital Signs Date Time Temp Pulse Resp B/P (MAP) Pulse Ox O2 Delivery O2 Flow Rate FiO2 10/14/20 19:16 36.1 110 16 84/58 (67) 100 Room Air Physical Exam General: Alert. He appears to be in mild distress from the chest pain. Well nourished and appears stated age. He is tremulous. Eye: Extraocular movements are intact. Conjunctivae are clear. There are no xanthelasma. HENT: Normocephalic. Atraumatic. Carotid pulsations 2/2 without bruits. Neck: Jugular venous pressure does not appear elevated. No thyromegaly appreciated. Respiratory: Lungs are clear to auscultation. Respirations are non-labored. Breath sounds are equal. Symmetrical chest wall expansion. Cardiovascular: Normal rate. Regular rhythm. No murmur. No gallop. Point of maximal impulse is not appear displaced. Good pulses equal in all extremities. No edema. Gastrointestinal: Soft. Normal bowel sounds. Skin: Skin turgor is normal. There is no pallor. Musculoskeletal: No kyphosis or scoliosis appreciated. Neurologic: Alert and oriented to person, place, time. Cranial nerves 3-12 appear grossly intact. The patient has good motor tone strength in the upper and lower extremities bilaterally. Psychiatric: Cooperative. Appropriate mood & affect. Labs Laboratory Tests Test 10/14/20 19:25 Range/Units White Blood Count 3.5 L 4.3-11.0 10^3/uL Red Blood Count 3.71 L 4.30-5.52 10^6/uL Hemoglobin 11.9 L 13.3-17.7 g/dL Hematocrit 34 L 40-54 % Mean Corpuscular Volume 91 80-99 fL Mean Corpuscular Hemoglobin 32 25-34 pg Mean Corpuscular Hemoglobin Concent 35 32-36 g/dL Red Cell Distribution Width 12.4 10.0-14.5 % Platelet Count 93 L 130-400 10^3/uL Mean Platelet Volume 11.9 9.0-12.2 fL Immature Granulocyte % (Auto) 0 % Neutrophils (%) (Auto) 69 42-75 % Lymphocytes (%) (Auto) 21 12-44 % Monocytes (%) (Auto) 9 0-12 % Eosinophils (%) (Auto) 1 0-10 % Basophils (%) (Auto) 1 0-10 % Neutrophils # (Auto) 2.4 1.8-7.8 10^3/uL Lymphocytes # (Auto) 0.7 L 1.0-4.0 10^3/uL Monocytes # (Auto) 0.3 0.0-1.0 10^3/uL Eosinophils # (Auto) 0.0 0.0-0.3 10^3/uL Basophils # (Auto) 0.0 0.0-0.1 10^3/uL Immature Granulocyte # (Auto) 0.0 0.0-0.1 10^3/uL Sodium Level 138 135-145 MMOL/L Potassium Level 4.9 3.6-5.0 MMOL/L Chloride Level 102 98-107 MMOL/L Carbon Dioxide Level 22 21-32 MMOL/L Anion Gap 14 5-14 MMOL/L Blood Urea Nitrogen 32 H 7-18 MG/DL Creatinine 1.37 H 0.60-1.30 MG/DL Estimat Glomerular Filtration Rate 51 BUN/Creatinine Ratio 23 Glucose Level 199 H 70-105 MG/DL Lactic Acid Level 1.68 0.50-2.00 MMOL/L Calcium Level 8.8 8.5-10.1 MG/DL Corrected Calcium 9.0 8.5-10.1 MG/DL Magnesium Level 1.5 L 1.6-2.4 MG/DL Total Bilirubin 0.5 0.1-1.0 MG/DL Aspartate Amino Transf (AST/SGOT) 11 5-34 U/L Alanine Aminotransferase (ALT/SGPT) 15 0-55 U/L Alkaline Phosphatase 66 40-136 U/L Lactate Dehydrogenase 144 125-220 U/L Total Creatine Kinase 28 L 30-200 U/L Myoglobin 62.2 10.0-92.0 NG/ML C-Reactive Protein High Sensitivity 0.41 0.00-0.50 MG/DL Total Protein 6.5 6.4-8.2 GM/DL Albumin 3.8 3.2-4.5 GM/DL ECG Impression ECG Comment Sinus rhythm with left bundle branch block with profound anterior ST elevation V1-V3. He does have chronic anterior ST elevation but today's ST elevation appears much more pronounced. Diagnosis/Problems Diagnosis/Problems (1) ST elevation myocardial infarction (STEMI) of anterior wall Assessment & Plan: He appears to be having a possible anterior ST elevation myocardial infarction. His first troponin level is borderline elevated. He continues to have chest pain in the emergency room. As such, we will proceed with emergency cardiac catheterization. I have explained the benefits and risks of the procedure to the patient and his and both are in agreement to proceed. (2) Cardiomyopathy Assessment & Plan: His most recent echocardiogram from March 2019 showed severe left ventricular systolic dysfunction. He then underwent a cardiac catheterization in April 2019 and his left ventriculogram showed an ejection fraction of 40%. He has chronic systolic heart failure. He did have to recently adjust his medications for the cardiomyopathy due to low blood pressures. We will need to monitor his blood pressures closely. (3) Chronic systolic (congestive) heart failure Assessment & Plan: His chest x-ray does not show any overt pulmonary edema. We will resume his outpatient medications with the recent adjustments that were made yesterday. (4) Chronic kidney disease, stage 3 Assessment & Plan: We will need to watch his renal function closely after the cardiac catheterization. He did receive 1 L of normal saline in the emergency room prior to my arrival. (5) Coronary artery disease with unstable angina pectoris Assessment & Plan: As above. (6) Essential hypertension Assessment & Plan: He had been having some low blood pressures at home and on arrival had very low blood pressure here in the emergency room. His blood pressure is now improved after 1 L of normal saline. We will need to watch his blood pressures closely and for the time being, I will hold off on resuming his outpatient medication. (7) Metastatic malignant neoplasm to lung Assessment & Plan: Despite this diagnosis, he wants to proceed with emergency cardiac catheterization. LAURENT WELLS JR, MD Oct 14, 2020 20:22
[2020-10-14] MEDS ORDERED: VERAPAMIL 5 MG/2 ML (CALAN) VIAL IV ONE (20:27)
[2020-10-14] MEDS ORDERED: fentaNYL INJ 100 MCG/2 ML AMP ONE (20:28)
[2020-10-14] MEDS ORDERED: morphine INJ 10 MG/ML 1ML (SYR OR VIAL) IVP STA (20:30)
[2020-10-14] MEDS ORDERED: HEParin 1000 UNIT/ML (10ML VIAL) FOR BOLUS ONE (20:30)
[2020-10-14] MEDS ORDERED: MIDAZOLAM 5 MG/5 ML (VERSED) VIAL ONE (20:30)
[2020-10-14] MEDS ORDERED: LIDOCAINE 1% INJ 20 ML 20 ML VIAL ONE (20:30)
[2020-10-14] MEDS ORDERED: HEParin (CATH LAB) 2,000 ML IV ONE (20:31)
[2020-10-14] MEDS ORDERED: NS IV 1000 ML 1,000 ML ONE (20:31)
[2020-10-14] MEDS ORDERED: NITRO DRIP 25000 MCG/D5W 250 ML IV ONE (20:31)
[2020-10-14] MEDS ORDERED: NS IV 1000 ML 1,000 ML IV ONE (20:45)
[2020-10-14] MEDS ORDERED: PATIENT MAY USE OWN MEDS, ALL PO SCH (21:15)
--- NOTE | 2020-10-14 21:27 | Cardiac Cath Report ---
CARDIAC CATHETERIZATION DATE OF PROCEDURE: 10/14/2020 INDICATION: Possible anterior ST elevation myocardial infarction. HISTORY: The patient is a 70 year old male With a known history of coronary artery disease with previous coronary stents in the left anterior descending, left circumflex, and right coronary arteries, as well as coronary artery bypass surgery with a left internal mammary artery graft to left anterior descending coronary artery followed by plain old balloon angioplasty to the distal left anterior descending coronary artery in March 2019. He has been having chest pain off and on for the past 4 days. This evening he finally decided to come to the emergency room for further evaluation. He has a chronic left bundle on his electrocardiogram with some anterior ST elevation. However, today's electrocardiogram and emergency room showed much more pronounced anterior ST elevation. As such, a code STEMI was called. We subsequently elected to proceed with emergency cardiac catheterization. PROCEDURES PERFORMED: 1. Diagnostic minto coronary angiography. 2. Diagnostic bypass graft angiography. PROCEDURE DESCRIPTION: Left heart catheterization was performed through the right femoral artery utilizing a 6 Romanian system by percutaneous approach. Standard Sheyla catheters were utilized for the diagnostic portion of the procedure. All catheters were exchanged over a guidewire. RESULTS: HEMODYNAMICS: The aortic pressure was 83/44 mmHg. The aortic valve was not crossed. CORONARY ANGIOGRAPHY: Left main coronary artery: Free of significant disease. Left anterior descending coronary artery: There was a stent in the proximal segment which was widely patent. The vessel was totally occluded in the mid segment just distal to the takeoff of a large diagonal branch. The large diagonal branch was free of significant disease. Left circumflex coronary artery: This was effectively a very large first obtuse marginal branch which contained a stent from the proximal down to the midportion of the vessel and was widely patent. Right coronary artery: Dominant and there was a stent in the proximal segment which was widely patent. There was a 50% stenosis in the midsegment with ISIDRA-3 flow. GRAFT ANGIOGRAPHY: Left internal mammary artery graft to left anterior descending coronary artery: Widely patent with good distal runoff. IMPRESSION: 1. Cardiogenic shock. 2. Patent stents in the first obtuse marginal branch and proximal right coronary arteries outlined above. 3. Patent stent in the proximal left anterior descending coronary artery followed by a chronic total occlusion in the midsegment with a widely patent melisa gonal branch just proximal to the occlusion of the main branch. 4. Patent left internal mammary artery graft to left anterior descending coronary artery. MELISSA ESPINAL JR, MD Oct 14, 2020 21:27
[2020-10-14 21:30] VITALS: BP 100/33
[2020-10-14] MEDS: DOPamine DRIP 250 ML IV SCH (21:30)
[2020-10-14] MEDS ORDERED: ALPRAZolam 0.5 MG (XANAX) TAB PO SCH (21:30)
[2020-10-14] MEDS ORDERED: PANTOPRAZOLE 40 MG (PROTONIX) TAB PO ONE (21:30)
--- NOTE | 2020-10-14 21:54 | ED Chest Pain ---
General Chief Complaint: Cardiac/General Problems Stated Complaint: CORONARY ARTERY DISEASE WITH UNSTABLE ANGINA Nursing Triage Note: c/o intermittant hypotension x5 days with intermittant chest pain x3 days. Source: patient Exam Limitations: no limitations History of Present Illness Date Seen by Provider: Oct 14, 2020 Time Seen by Provider: 19:22 Initial Comments This is a 70 yo male who presented to the ER with c/o intermittent left-sided chest pain x4 days. States he is currently being treated at the cancer center for lung cancer with radiation 5x a week and chemo. Over the past week he has been experiencing multiple episodes of low BP. 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 Chest pain is intermittent, describes as a "bruised" feeling in his chest. States pain is worse after radiation. No fever, chills, cough, shortness of breath, nausea/vomiting, abdominal pain. Allergies and Home Medications Allergies Coded Allergies: cephalexin (Unverified Allergy, Mild, Angioedema, 10/14/20) Ucooair-Uzv-Ksi Reductase Inhibitor (Verified Allergy, Unknown, 10/14/20) tramadol (Unverified Adverse Reaction, Intermediate, 08/16/11) medication caused pt to experience hypertensive episodes Home Medications Alprazolam 0.5 Mg Tablet, 0.5 MG PO HS, (Reported) Aspirin 81 Mg Chew, 81 MG PO DAILY, (Reported) Last Action: Last Taken Edited Furosemide 40 Mg Tablet, 40 MG PO DAILY, (Reported) Last Action: Last Taken Edited Glimepiride 2 Mg Tablet, 2 MG PO DAILY, (Reported) Last Action: Last Taken Edited Lisinopril 10 Mg Tablet, 5 MG PO BID, (Reported) TAKES 1/2 TAB IN AM AND 1/2 TAB AT HS Last Action: Last Taken Edited Metoprolol Succinate 25 Mg Tab.er.24h, 25 MG PO DAILY, (Reported) Last Action: Last Taken Edited Pantoprazole Sodium 40 Mg Tablet.dr, 40 MG PO DAILY, (Reported) Last Action: Last Taken Edited Patient Home Medication List Home Medication List Reviewed: Yes Review of Systems Review of Systems Constitutional: no symptoms reported EENTM: No Symptoms Reported Respiratory: See HPI Cardiovascular: See HPI Genitourinary: No Symptoms Reported Musculoskeletal: no symptoms reported Skin: no symptoms reported Psychiatric/Neurological: No Symptoms Reported Endocrine: No Symptoms Reported Hematologic/Lymphatic: Easy Bruising Past Sesggdo-Xydyot-Tymoae Hx Patient Social History Tobacco Use?: No Smoking Status: Former Smoker Substance use?: No Alcohol Use?: No Pt feels they are or have been: No Immunizations Up To Date Tetanus Booster (TDap): Unknown Past Medical History Surgeries: Yes (R SHOULDER ) CABG, Coronary Stent, Gallbladder Respiratory: Yes COPD Cardiac: Yes (CHF, L BBB, 3 CORONARY STENTS) Coronary Artery Disease Neurological: No Reproductive Disorders: No Genitourinary: Yes Kidney Stones Gastrointestinal: Yes Hemorrhoids, Gall Bladder Disease Musculoskeletal: Yes Rheumatoid Arthritis Endocrine: Yes Diabetes, Non-Insulin dep HEENT: No Cancer: No Psychosocial: No Integumentary: No Blood Disorders: No Family Medical History No Pertinent Family Hx Physical Exam Vital Signs Vital Signs - First Documented 10/14/20 19:16 Temp 36.1 Pulse 110 Resp 16 B/P (MAP) 84/58 (67) Pulse Ox 100 O2 Delivery Room Air Capillary Refill : Less Than 3 Seconds Height, Weight, BMI Height: 6'0.00" Weight: 233lbs. 0oz. 105.348637la; 24.00 BMI Method:Stated General Appearance: WD/WN, Anxious HEENT: PERRL/EOMI, Normal ENT Inspection, Moist Mucous Membranes Neck: Full Range of Motion, Normal Inspection, Supple Respiratory: Lungs Clear, Normal Breath Sounds Cardiovascular: Regular Rate, Rhythm, No Edema, No Gallop, Normal Peripheral Pulses Gastrointestinal: Normal Bowel Sounds, Non Tender, Soft Extremity: Normal Inspection, Normal Range of Motion, No Pedal Edema Neurologic/Psychiatric: Alert, Oriented x3, No Motor/Sensory Deficits, Normal Mood/Affect Skin: Normal Color, Warm/Dry Focused Exam Lactate Level 10/14/20 19:25: Lactic Acid Level 1.68 Lactic Acid Level Laboratory Tests Test 10/14/20 19:25 Lactic Acid Level 1.68 MMOL/L (0.50-2.00) Progress/Results/Core Measures Results/Orders Lab Results Laboratory Tests Test 10/14/20 19:25 Range/Units White Blood Count 3.5 L 4.3-11.0 10^3/uL Red Blood Count 3.71 L 4.30-5.52 10^6/uL Hemoglobin 11.9 L 13.3-17.7 g/dL Hematocrit 34 L 40-54 % Mean Corpuscular Volume 91 80-99 fL Mean Corpuscular Hemoglobin 32 25-34 pg Mean Corpuscular Hemoglobin Concent 35 32-36 g/dL Red Cell Distribution Width 12.4 10.0-14.5 % Platelet Count 93 L 130-400 10^3/uL Mean Platelet Volume 11.9 9.0-12.2 fL Immature Granulocyte % (Auto) 0 % Neutrophils (%) (Auto) 69 42-75 % Lymphocytes (%) (Auto) 21 12-44 % Monocytes (%) (Auto) 9 0-12 % Eosinophils (%) (Auto) 1 0-10 % Basophils (%) (Auto) 1 0-10 % Neutrophils # (Auto) 2.4 1.8-7.8 10^3/uL Lymphocytes # (Auto) 0.7 L 1.0-4.0 10^3/uL Monocytes # (Auto) 0.3 0.0-1.0 10^3/uL Eosinophils # (Auto) 0.0 0.0-0.3 10^3/uL Basophils # (Auto) 0.0 0.0-0.1 10^3/uL Immature Granulocyte # (Auto) 0.0 0.0-0.1 10^3/uL Prothrombin Time 12.9 12.2-14.7 SEC INR Comment 0.9 0.8-1.4 Activated Partial Thromboplast Time 27 24-35 SEC D-Dimer 1.27 H 0.00-0.49 UG/ML Sodium Level 138 135-145 MMOL/L Potassium Level 4.9 3.6-5.0 MMOL/L Chloride Level 102 98-107 MMOL/L Carbon Dioxide Level 22 21-32 MMOL/L Anion Gap 14 5-14 MMOL/L Blood Urea Nitrogen 32 H 7-18 MG/DL Creatinine 1.37 H 0.60-1.30 MG/DL Estimat Glomerular Filtration Rate 51 BUN/Creatinine Ratio 23 Glucose Level 199 H 70-105 MG/DL Lactic Acid Level 1.68 0.50-2.00 MMOL/L Calcium Level 8.8 8.5-10.1 MG/DL Corrected Calcium 9.0 8.5-10.1 MG/DL Magnesium Level 1.5 L 1.6-2.4 MG/DL Total Bilirubin 0.5 0.1-1.0 MG/DL Aspartate Amino Transf (AST/SGOT) 11 5-34 U/L Alanine Aminotransferase (ALT/SGPT) 15 0-55 U/L Alkaline Phosphatase 66 40-136 U/L Lactate Dehydrogenase 144 125-220 U/L Total Creatine Kinase 28 L 30-200 U/L Myoglobin 62.2 10.0-92.0 NG/ML Troponin I 0.029 H <0.028 NG/ML C-Reactive Protein High Sensitivity 0.41 0.00-0.50 MG/DL Total Protein 6.5 6.4-8.2 GM/DL Albumin 3.8 3.2-4.5 GM/DL My Orders Orders - REBECA OSAMN APRN Vital Signs: Every 4 Hours (Or (10/14/20 19:22) Monitor-Rhythm Ecg Trace Only (10/14/20 19:22) Cbc With Automated Diff (10/14/20 19:22) Comprehensive Metabolic Panel (10/14/20 19:22) Ferritin (10/14/20 19:22) LDH (10/14/20 19:22) Hs C Reactive Protein (10/14/20 19:22) Troponin I (10/14/20 19:22) Lactic Acid Analyzer (10/14/20 19:22) Protime With Inr (10/14/20 19:22) Partial Thromboplastin Time (10/14/20 19:22) Fibrin Degradation Products (10/14/20 19:22) Ekg Tracing (10/14/20 19:22) Chest 1 View, Ap/Pa Only (10/14/20 19:22) Acetaminophen Tablet/Caplet (Tylenol T (10/14/20 19:30) Magnesium (10/14/20 19:22) Myoglobin Serum (10/14/20 19:22) O2 (10/14/20 19:22) Creatine Kinase (10/14/20 19:22) Aspirin Chewable Tablet (Baby Aspirin Ch (10/14/20 19:30) Blood Culture (10/14/20 19:22) Urinalysis (10/14/20 19:22) Urine Culture (10/14/20 19:22) Ns Iv 1000 Ml (Sodium Chloride 0.9%) (10/14/20 19:30) Medications Given in ED Vital Signs/I&O 10/14/20 19:16 Temp 36.1 Pulse 110 Resp 16 B/P (MAP) 84/58 (67) Pulse Ox 100 O2 Delivery Room Air 10/15/20 00:00 Intake Total 1000 ml Balance 1000 ml Blood Pressure Mean: 67 Progress Progress Note : Progress Note Patient examined. He is grabbing at his left chest, breathing fast, and complaining of chest pain. Cardiac workup initiated. Initial EKG shows LBBB and possible anterior STEMI. EKG reviewed with Dr. Wells with cardiology, requested laboratory manager activation for STEMI. concession supervisor notified and laboratory manager activated. Orders placed for ASA 324mg PO and NS 1L, no nitro given at this time d/t severe hypotension. Reviewed findings with patient and recommendations for cardiac cath, he is agreeable with procedure. Dr. Wells presented to ED to further evaluate patient. Orders given for MS 2mg IVP for pain. Initial ECG Impression Date: Oct 14, 2020 Initial ECG Impression Time: 19:31 Initial ECG Rate: 105 Initial ECG Rhythm: S.Tach Initial ECG Intervals Sinus Tach, LBBB, ST elevation anterior leads. Initial ECG Impression: Acute [place] CP/AMI: Aspirin, ECG Departure Communication (Admissions) Time/Spoke to Admitting Phy: 19:39 Impression Primary Impression: Acute ST elevation myocardial infarction (STEMI) Additional Impressions: Chest pain Hypotension Disposition: ADMITTED INPATIENT Condition: Stable Admissions Decision to Admit Reason: Admit from ER (General) Decision to Admit/Date: Oct 14, 2020 Time/Decision to Admit Time: 19:38 Departure-Patient Inst. Referrals: SOPHIA JACKSON MD (PCP) Primary Care Physician REBECA OSMAN BUSINESS DATABASE ANALYST Oct 14, 2020 21:53
--- NOTE | 2020-10-14 22:05 | Tele-ICU Consult ---
Progress Note Patient appears to have stemi and was taken to [facility] that demonstrated vessels/stents where patent with exception of chronic blockage per cardiology cath report, patient diagnosis was then cardiogenic shock Currently resting in ICU on dobutamine awake Vital Signs Date Time Temp Pulse Resp B/P (MAP) Pulse Ox O2 Delivery O2 Flow Rate FiO2 10/14/20 19:16 36.1 110 16 84/58 (67) 100 Room Air Laboratory Tests 10/14/20 19:25 Vital Signs Date Time Temp Pulse Resp B/P (MAP) Pulse Ox O2 Delivery O2 Flow Rate FiO2 10/14/20 20:35 36.7 94 24 73/50 95 Room Air 10/14/20 19:16 36.1 110 16 84/58 (67) 100 Room Air Laboratory Tests 10/14/20 19:25: Troponin I 0.029 Laboratory Tests 10/14/20 19:25: Prothrombin Time 12.9, INR Comment 0.9, Activated Partial Thromboplast Time 27, D-Dimer 1.27 Allergies Coded Allergies cephalexin (Unverified Allergy, Mild, 03/05/09) tramadol (Unverified Adverse Reaction, Intermediate, 08/16/11) medication caused pt to experience hypertensive episodes PE PATIENT CURRENTLY RESTING COMFORTABLY, NO ACUTE DISTRESS PATIENT HEART RATE 105, 119/65, SATS 99, RESP RATE 17, ON DOBUTAMINE OF 5 A/P PAITENT CARDIOGENIC SHOCK CONTINUE DOBUTAMINE CARDIOLOGY ON CONSULT Focused Exam Lactate Level 10/14/20 19:25: Lactic Acid Level 1.68 Height, Weight, BMI Height: 6'0.00" Weight: 233lbs. 0oz. 105.384548dk; 24.00 BMI Method:Stated Lactic Acid Level Laboratory Tests Test 10/14/20 19:25 Lactic Acid Level 1.68 MMOL/L (0.50-2.00) DEIDRE VELAZCO MD Oct 14, 2020 22:05
[2020-10-14] MEDS ORDERED: ONDANSETRON 4 MG/2 ML (SDV) Z0FRAN ONE (22:35)
[2020-10-14] MEDS ORDERED: ONDANSETRON 4 MG/2 ML (SDV) Z0FRAN IVP PRN (22:45)
[2020-10-15 03:39] LABS: HEMOGLOBIN 10.4 g/dL (13.3-17.7); MEAN PLATELET VOLUME 10.7 fL (9.0-12.2); WHITE BLOOD COUNT 2.7 10^3/uL (4.3-11.0)
[2020-10-15 03:52] LABS: POTASSIUM 4.6 MMOL/L (3.6-5.0)
[2020-10-15 03:53] LABS: CALCIUM 8.3 MG/DL (8.5-10.1)
[2020-10-15 03:58] LABS: CREATININE SERUM 0.97 MG/DL (0.60-1.30)
[2020-10-15 05:15] LABS: PHOSPHORUS 2.9 MG/DL (2.3-4.7)
[2020-10-15 05:17] LABS: MAGNESIUM 1.5 MG/DL (1.6-2.4)
--- NOTE | 2020-10-15 06:10 | Diagnostic Imaging Report ---
EXAMINATION: Chest 1 view HISTORY: Heart failure COMPARISON: 10/14/2020 FINDINGS: The lungs are clear without edema or pneumonia. No pleural effusion or pneumothorax. Heart size is normal. Median sternotomy wires are aligned. IMPRESSION: 1. Clear lungs. Dictated by: Dictated on workstation # [id number]
[2020-10-15] MEDS ORDERED: MAGNESIUM 1 GM/100 ML IVPB 200 ML IV ONE (06:42)
[2020-10-15] MEDS: MAGNESIUM 1 GM/100 ML IVPB 100 ML IV SCH ×2 (06:54→08:43)
[2020-10-15] MEDS: PANTOPRAZOLE 40 MG (PROTONIX) TAB PO SCH (08:43)
[2020-10-15] MEDS: ASPIRIN E.C. 81 MG (ECOTRIN) TAB PO SCH (08:43)
--- NOTE | 2020-10-15 09:12 | Cardiology Progress Note ---
Progress Note-Cardiology Events since last exam Date Seen by Provider: Oct 15, 2020 Time Seen by Provider: 09:06 Events since last exam Overnight his chest discomfort improved but did not completely resolve. He is sitting up in bed. His shortness of breath is improved. He denies palpitations, syncope, or ankle edema. I spoke to the patient's and also his nurse at the bedside. Certain portions of this document may have been dictated utilizing voice recognition technology. Inherent to this technology, typographical and grammatical errors may exist. As much as I am diligent to identify and correct these mistakes, some errors may remain in the document. Vitals Last set of Vitals Signs Vital Signs 10/15/20 10/15/20 10/15/20 10/15/20 06:00 08:00 08:08 08:15 Temp 36.0 Resp 22 B/P (MAP) 134/107 (114) Pulse Ox 98 O2 Delivery Room Air Labs Labs Laboratory Tests 10/14/20 19:25 10/15/20 03:18 Exam Vital Signs Vital Signs Date Time Temp Pulse Resp B/P (MAP) Pulse Ox O2 Delivery O2 Flow Rate FiO2 10/15/20 08:15 36.0 10/15/20 08:08 98 Room Air 10/15/20 08:00 134/107 (114) 10/15/20 07:00 94 10/15/20 06:00 22 Physical Exam General: Alert. No acute distress. Eye: No xanthelasma. HENT: Normocephalic. Neck: Jugular venous pressure does not appear elevated. Respiratory: Lungs have scattered wheezes. Respirations are non-labored. Breath sounds are equal. Symmetrical chest wall expansion. Cardiovascular: Normal rate. Regular rhythm. No murmur. No gallop. No edema. Gastrointestinal: Soft. Normal bowel sounds. Skin: Warm. Dry. Neurologic: Alert and oriented to person, place, time. Cranial nerves 3-11 grossly intact. Psychiatric: Cooperative. Appropriate mood & affect. Labs Laboratory Tests Test 10/14/20 19:25 10/15/20 03:18 Range/Units White Blood Count 3.5 L 2.7 L 4.3-11.0 10^3/uL Red Blood Count 3.71 L 3.28 L 4.30-5.52 10^6/uL Hemoglobin 11.9 L 10.4 L 13.3-17.7 g/dL Hematocrit 34 L 30 L 40-54 % Mean Corpuscular Volume 91 91 80-99 fL Mean Corpuscular Hemoglobin 32 32 25-34 pg Mean Corpuscular Hemoglobin Concent 35 35 32-36 g/dL Red Cell Distribution Width 12.4 12.4 10.0-14.5 % Platelet Count 93 L 73 L 130-400 10^3/uL Mean Platelet Volume 11.9 10.7 9.0-12.2 fL Immature Granulocyte % (Auto) 0 % Neutrophils (%) (Auto) 69 42-75 % Lymphocytes (%) (Auto) 21 12-44 % Monocytes (%) (Auto) 9 0-12 % Eosinophils (%) (Auto) 1 0-10 % Basophils (%) (Auto) 1 0-10 % Neutrophils # (Auto) 2.4 1.8-7.8 10^3/uL Lymphocytes # (Auto) 0.7 L 1.0-4.0 10^3/uL Monocytes # (Auto) 0.3 0.0-1.0 10^3/uL Eosinophils # (Auto) 0.0 0.0-0.3 10^3/uL Basophils # (Auto) 0.0 0.0-0.1 10^3/uL Immature Granulocyte # (Auto) 0.0 0.0-0.1 10^3/uL Prothrombin Time 12.9 12.2-14.7 SEC INR Comment 0.9 0.8-1.4 Activated Partial Thromboplast Time 27 24-35 SEC D-Dimer 1.27 H 0.00-0.49 UG/ML Sodium Level 138 140 135-145 MMOL/L Potassium Level 4.9 4.6 3.6-5.0 MMOL/L Chloride Level 102 108 H 98-107 MMOL/L Carbon Dioxide Level 22 21 21-32 MMOL/L Anion Gap 14 11 5-14 MMOL/L Blood Urea Nitrogen 32 H 27 H 7-18 MG/DL Creatinine 1.37 H 0.97 0.60-1.30 MG/DL Estimat Glomerular Filtration Rate 51 76 BUN/Creatinine Ratio 23 28 Glucose Level 199 H 108 H 70-105 MG/DL Lactic Acid Level 1.68 0.50-2.00 MMOL/L Calcium Level 8.8 8.3 L 8.5-10.1 MG/DL Corrected Calcium 9.0 8.5-10.1 MG/DL Magnesium Level 1.5 L 1.5 L 1.6-2.4 MG/DL Total Bilirubin 0.5 0.1-1.0 MG/DL Aspartate Amino Transf (AST/SGOT) 11 5-34 U/L Alanine Aminotransferase (ALT/SGPT) 15 0-55 U/L Alkaline Phosphatase 66 40-136 U/L Lactate Dehydrogenase 144 125-220 U/L Total Creatine Kinase 28 L 30-200 U/L Myoglobin 62.2 10.0-92.0 NG/ML Troponin I 0.029 H 0.036 H <0.028 NG/ML C-Reactive Protein High Sensitivity 0.41 0.00-0.50 MG/DL Total Protein 6.5 6.4-8.2 GM/DL Albumin 3.8 3.2-4.5 GM/DL Percent Immature Platelet Fraction 5.1 0.0-7.6 % Phosphorus Level 2.9 2.3-4.7 MG/DL Triglycerides Level 130 <150 MG/DL Cholesterol Level 110 < 200 MG/DL LDL Cholesterol Direct 66 1-129 MG/DL VLDL Cholesterol 26 5-40 MG/DL HDL Cholesterol 28 L 40-60 MG/DL Radiology PORTABLE CHEST X-RAY: Lungs are clear. Diagnosis/Problems Diagnosis/Problems (1) Cardiogenic shock Assessment & Plan: He remains on low-dose dopamine infusion. We will attempt to wean this off this morning. If we cannot get this weaned to off in the next few hours, I will start him on low-dose midodrine. (2) Non-ST elevation myocardial infarction (NSTEMI), initial care episode Assessment & Plan: His cardiac catheterization from last night did not show any acute thrombotic occlusion. This is a probable type II NSTEMI related to chronic respiratory failure. I have resumed aspirin. He is intolerant to statin medications. No beta-farzaneh due to cardiogenic shock. (3) Cardiomyopathy Assessment & Plan: His most recent echocardiogram from March 2019 showed severe left ventricular systolic dysfunction. He then underwent a cardiac catheterization in April 2019 and his left ventriculogram showed an ejection fraction of 40%. I will obtain a follow-up echocardiogram this morning. We cannot give him any of his guideline directed medical therapy until his blood pressure improves. He is not a candidate for a biventricular pacemaker or defibrillator or other advanced left ventricular support measures due to his metastatic lung cancer. (4) Chronic systolic (congestive) heart failure Assessment & Plan: His chest x-ray from this morning was clear. I will stop his IV fluids. As above, we cannot give him any guideline directed medical therapy until his cardiogenic shock resolves. (5) Coronary artery disease with unstable angina pectoris Assessment & Plan: As above. (6) Essential hypertension Assessment & Plan: All antihypertensive medication is now on hold due to persistent cardiogenic shock. (7) Metastatic malignant neoplasm to lung Assessment & Plan: Despite this diagnosis, he wants to continue full supportive measures. (8) Acute kidney injury superimposed on chronic kidney disease Assessment & Plan: Improved with IV fluids. We will need to follow his renal function closely. (9) Type 2 diabetes mellitus with complication Assessment & Plan: I will restart his glimepiride and order fingersticks for monitoring. MELISSA ESPINAL JR, MD Oct 15, 2020 09:12
[2020-10-15] MEDS ORDERED: GLIMEPIRIDE 2 MG (AMARYL) TAB PO ONE (09:15)
[2020-10-15] MEDS: ENOXAPARIN 40 MG/0.4 ML (LOVENOX) SYR SC SCH (09:53)
--- NOTE | 2020-10-15 11:03 | Tele-ICU Progress Note ---
Subjective Date Seen by a Provider: Oct 15, 2020 Time Seen by a Provider: 08:00 Subjective/Events-last exam This is a virtual visit which was conducted using real time audio/video. Thank you for asking us to see this patient for respiratory distress due to recent cardiogenic shock.. HPC: Recent events: Dobutamine stopped earlier. Cardiac cath w chronic blockages. PMH: CAD HTN CKD. metastatic lung CA S/P 5 cycles of chemo. SH: smoking history Y FH: Non-contributory ROS: no new complaints per RN. PE: resting comfortably in bed. VSS HR 78 BP 122/60 RR 18 97% O2 sat on RA HEENT: No obvious masses, adenopathy or JVD. Chest: clear to auscultation. CV: RRR S1 S2 No murmur or added sounds. Abd: Non-tender. Bowel sounds Y. : Unremarkable. Pires N. BARTENDER/psychiatric: Alert and oriented, grossly intact. No obvious focal findings. Extremities: No edema. Capillary refill < 3 seconds. Skin: unremarkable. Results: Elevated BUN 27. Decreased WCC 2.7, Hb 10.4. A/P: Respiratory insufficiency/distress: resolved Available chart/ vitals / labs /images reviewed. Video assessment done using teleICU camera, rest of exam as per RN. Monitor for low BP off Dobutamine. Possible transfer in AM if bed available. Critical Care: critically ill patient. Discussed with LIANET Swenson. Asked RN to reach out to eICU if any questions or concerns later. Time spent with patient/coordination of care with other health professionals (mins): 15 Sepsis Event Evaluation Height, Weight, BMI Height: 6'0.00" Weight: 233lbs. 0oz. 105.740246ss; 24.90 BMI Method:Stated Focused Exam Lactate Level 10/14/20 19:25: Lactic Acid Level 1.68 Exam Exam Patient acknowledged, consented, and participated in this virtual visit which was conducted using real time audio/video Vital Signs Date Time Temp Pulse Resp B/P (MAP) Pulse Ox O2 Delivery O2 Flow Rate FiO2 10/15/20 10:00 83 11 104/73 (83) 95 Room Air 10/15/20 09:00 83 26 112/91 (98) 99 Room Air 10/15/20 08:15 36.0 10/15/20 08:08 98 Room Air 10/15/20 08:00 134/107 (114) 99 Room Air 10/15/20 07:00 94 10/15/20 07:00 96 129/89 (110) 97 Room Air 10/15/20 06:00 90 22 121/62 (81) 99 Room Air 10/15/20 05:00 91 24 135/89 (104) 99 Room Air 10/15/20 04:00 92 20 116/64 (81) 95 Room Air 10/15/20 04:00 36.2 10/15/20 03:00 91 12 90/59 (69) 94 Room Air 10/15/20 02:00 104 12 114/58 (76) 97 Room Air 10/15/20 01:37 102 10/15/20 01:00 97 9 125/84 (98) 99 Room Air 10/15/20 00:00 100 Room Air 10/15/20 00:00 92 21 94/63 (73) 98 Room Air 10/14/20 23:17 36.3 10/14/20 23:00 108 20 118/74 (89) 98 Room Air 10/14/20 22:30 106 18 103/67 (79) 95 Room Air 10/14/20 22:15 109 26 124/68 (86) 95 Room Air 10/14/20 22:00 103 17 119/69 (86) 97 Room Air 10/14/20 21:45 93 15 131/79 (96) 100 Room Air 10/14/20 21:30 94 Room Air 10/14/20 21:30 100/33 10/14/20 21:30 36.4 20 100/33 (55) 100 Room Air 10/14/20 21:22 69 10/14/20 20:35 36.7 94 24 73/50 95 Room Air 10/14/20 19:16 36.1 110 16 84/58 (67) 100 Room Air I & O 10/15/20 07:00 Intake Total 1150 ml Output Total 750 ml Balance 400 ml Height & Weight Height: 6'0.00" Weight: 233lbs. 0oz. 105.326782gv; 24.90 BMI Method:Stated General Appearance: WD/WN, Anxious HEENT: PERRL/EOMI, Normal ENT Inspection, Moist Mucous Membranes Neck: Full Range of Motion, Normal Inspection, Supple Respiratory: Lungs Clear, Normal Breath Sounds Cardiovascular: Regular Rate, Rhythm, No Edema, No Gallop, Normal Peripheral Pulses Capillary Refill: Less Than 3 Seconds Extremity: Normal Inspection, Normal Range of Motion, No Pedal Edema Neurologic/Psychiatric: Alert, Oriented x3, No Motor/Sensory Deficits, Normal Mood/Affect Skin: Normal Color, Warm/Dry Results Lab Laboratory Tests 10/14/20 19:25 10/15/20 03:18 Assessment/Plan Assessment/Plan see free text Critical Care: Critically Ill Patient Time spent on discussion(mins): 0 CASSIUS RAMÍREZ MD Oct 15, 2020 11:03
[2020-10-15] MEDS: DOPamine DRIP 250 ML IV SCH (23:07)
[2020-10-16 04:31] LABS: BASOPHILS % (AUTO) 0 % (0-10); EOSINOPHILS % (AUTO) 2 % (0-10); HEMATOCRIT 28 % (40-54); HEMOGLOBIN 9.8 g/dL (13.3-17.7); LYMPHOCYTES # (AUTO) 0.7 X 10^3 (1.0-4.0); LYMPHOCYTES % (AUTO) 25 % (12-44); MEAN CORPUSCULAR HEMOGLOBIN 33 pg (25-34); MEAN CORPUSCULAR HGB CONC 36 g/dL (32-36); MEAN CORPUSCULAR VOLUME 93 fL (80-99); MEAN PLATELET VOLUME 11.3 fL (9.0-12.2); MONOCYTES # (AUTO) 0.2 X 10^3 (0.0-1.0); MONOCYTES % (AUTO) 6 % (0-12); NEUTROPHILS # (AUTO) 1.8 X 10^3 (1.8-7.8); NEUTROPHILS % (AUTO) 67 % (42-75); PLATELET COUNT 63 10^3/uL (130-400); WHITE BLOOD COUNT 2.7 10^3/uL (4.3-11.0)
[2020-10-16 04:54] LABS: CALCIUM 8.5 MG/DL (8.5-10.1); CREATININE SERUM 0.81 MG/DL (0.60-1.30); POTASSIUM 4.6 MMOL/L (3.6-5.0)
[2020-10-16] MEDS ORDERED: MAGNESIUM 1 GM/100 ML IVPB 100 ML IV SCH (06:00)
[2020-10-16] MEDS ORDERED: KCL 20 MEQ TAB (K-DUR) PO SCH (06:00)
[2020-10-16] MEDS ORDERED: POTASSIUM CL 10MEQ/50ML IVPB 50 ML IV SCH (06:00)
[2020-10-16] MEDS ORDERED: GLIMEPIRIDE 2 MG (AMARYL) TAB PO SCH (06:30)
[2020-10-16 07:26] LABS: MAGNESIUM 1.5 MG/DL (1.6-2.4); PHOSPHORUS 3.1 MG/DL (2.3-4.7)
[2020-10-16] MEDS ORDERED: DOPamine DRIP 250 ML IV ONE (07:26)
[2020-10-16] MEDS: ASPIRIN E.C. 81 MG (ECOTRIN) TAB PO SCH (08:05)
[2020-10-16] MEDS: PANTOPRAZOLE 40 MG (PROTONIX) TAB PO SCH (08:05)
[2020-10-16] MEDS: ENOXAPARIN 40 MG/0.4 ML (LOVENOX) SYR SC SCH (08:06)
--- NOTE | 2020-10-16 08:53 | Cardiology Discharge Summary ---
Discharge Summary Hospital Course Problems Reviewed?: Yes Hospital Course Date of Admission: Oct 14, 2020 at 21:00 Admission Diagnosis : Family Physician/Provider: Jada Steiner MD Date of Discharge: 10/16/20 Discharge Diagnosis: [ ] Hospital Course: [ ] Labs and Pending Lab Test: Laboratory Tests 10/15/20 11:20: Glucometer 117H 10/15/20 15:21: Glucometer 144H 10/15/20 23:21: Glucometer 109 10/16/20 04:04: White Blood Count 2.7L, Red Blood Count 2.98L, Hemoglobin 9.8L, Hematocrit 28L, Mean Corpuscular Volume 93, Mean Corpuscular Hemoglobin 33, Mean Corpuscular Hemoglobin Concent 36, Red Cell Distribution Width 12.6, Platelet Count 63L, Mean Platelet Volume 11.3, Immature Granulocyte % (Auto) 0, Neutrophils (%) (Auto) 67, Lymphocytes (%) (Auto) 25, Monocytes (%) (Auto) 6, Eosinophils (%) (Auto) 2, Basophils (%) (Auto) 0, Neutrophils # (Auto) 1.8, Lymphocytes # (Auto) 0.7L, Monocytes # (Auto) 0.2, Eosinophils # (Auto) 0.0, Basophils # (Auto) 0.0, Immature Granulocyte # (Auto) 0.0, Sodium Level 135, Potassium Level 4.6, Chloride Level 109H, Carbon Dioxide Level 20L, Anion Gap 6, Blood Urea Nitrogen 20H, Creatinine 0.81, Estimat Glomerular Filtration Rate 94, BUN/Creatinine Ratio 25, Glucose Level 64L, Calcium Level 8.5, Phosphorus Level 3.1, Magnesium Level 1.5L 10/16/20 06:36: Glucometer 89 Microbiology 10/14/20 MRSA Screen - Final, Complete 10/14/20 Blood Culture - Preliminary, Resulted No growth Home Meds Active Reported Xanax (Alprazolam) 0.5 Mg Tablet 0.5 Mg PO HS Glimepiride 2 Mg Tablet 2 Mg PO DAILY Metoprolol Succinate 25 Mg Tab.er.24h 25 Mg PO DAILY Furosemide 40 Mg Tablet 40 Mg PO DAILY Protonix (Pantoprazole Sodium) 40 Mg Tablet.dr 40 Mg PO DAILY Zestril (Lisinopril) 10 Mg Tablet 5 Mg PO BID TAKES 1/2 TAB IN AM AND 1/2 TAB AT HS Aspirin 81 Mg Chew Tab (Aspirin) 81 Mg Chew 81 Mg PO DAILY The patient presented to the emergency room with chest pain. He was found to have anterior ST elevation more prominent than his resting electrocardiogram. His first troponin level was elevated. As such, a code STEMI was called and the patient was taken for emergent cardiac catheterization. He was not found to have any acute thrombotic coronary occlusions. As such, it was determined that this was a non-ST elevation myocardial infarction, probably type II related to acute on chronic respiratory failure from his chronic systolic heart failure. He was also in cardiogenic shock in the emergency room and dopamine was started in the cardiac catheterization laboratory. This was weaned by the following day. A follow-up chest x-ray at this following day showed clear lungs. His guideline directed medical therapy for heart failure was held due to hypotension. On the day of discharge, he was ambulating without any significant shortness of breath. He denied recurrent chest discomfort. He denied palpitations, syncope, or lower extremity edema. FINAL DIAGNOSES: 1.Cardiogenic shock. 2. Non-ST elevation myocardial infarction, acute. 3. Cardiomyopathy. 4. Chronic systolic heart failure. 5. Coronary artery disease with unstable angina. 6. Essential hypertension. 7. Metastatic malignant neoplasm to lung. 8. Acute kidney injury superimposed on chronic kidney disease. 9. Type 2 diabetes mellitus with complications. 10. Overweight. 11. Thrombocytopenia. Over 30 minutes was spent in direct mhfe-uu-xrug contact with the patient and his and preparing this discharge summary. Assessment/Pt DC Instructions See discharge instructions. Discharge Diet: ADA Diet, Cardiac Diet Activity as Tolerated: Yes Discharge Physical Examination Allergies: Coded Allergies: cephalexin (Unverified Allergy, Mild, Angioedema, 10/14/20) Dxefqwg-Anl-Vdl Reductase Inhibitor (Verified Allergy, Unknown, 10/14/20) tramadol (Unverified Adverse Reaction, Intermediate, 08/16/11) medication caused pt to experience hypertensive episodes Vitals & I&Os General: Alert. No acute distress. Eye: No xanthelasma. HENT: Normocephalic. Neck: Jugular venous pressure does not appear elevated. Respiratory: Lungs are clear to auscultation. Respirations are non-labored. Breath sounds are equal. Symmetrical chest wall expansion. Cardiovascular: Normal rate. Regular rhythm. No murmur. No gallop. No edema. Gastrointestinal: Soft. Normal bowel sounds. Skin: Warm. Dry. Neurologic: Alert and oriented to person, place, time. Cranial nerves 3-11 gr ossly intact. Psychiatric: Cooperative. Appropriate mood & affect. Clinical Quality Measures End of Life/Advance Care Plan: Advance Care discuss with: patient, family member (s), surrogate Admission Status Admission Dx Non-ST elevation myocardial infarction. Admission Status: Inpatient Order (span 2 midnights) Reason for Inpatient Admission: Non-ST elevation myocardial infarction. AMI/AHF: Ejection Fraction %: 25 Ejection Fraction: <40 (ARTHUR/ARB Indicated) D/C Inst. for HF given: Yes MELISSA ESPINAL JR, MD Oct 16, 2020 08:53
== END 2020-10-16 10:35 | disposition home or self-care (01) | DRG 280 ==
LOC: EDUNIT# 19:11 → ER 19:13 → CATH 20:04 → ICU 21:00
PROVIDERS: ADMIT Internal Medicine Cardiovascular Disease; ATTEND Internal Medicine Cardiovascular Disease
PROC: 4A023N7 Measurement of Cardiac Sampling and Pressure, Left Heart, Percutaneous Approach (ICD-10-PCS; principal; 2020-10-14)
PROC: B2111ZZ Fluoroscopy of Multiple Coronary Arteries using Low Osmolar Contrast (ICD-10-PCS; 2020-10-14)
PROC: B2131ZZ Fluoroscopy of Multiple Coronary Artery Bypass Grafts using Low Osmolar Contrast (ICD-10-PCS; 2020-10-14)
DX: I21.09 ST elevation (STEMI) myocardial infarction involving other coronary artery of anterior wall (principal); R57.0 Cardiogenic shock; J96.20 Acute and chronic respiratory failure, unspecified whether with hypoxia or hypercapnia; I13.0 Hypertensive heart and chronic kidney disease with heart failure and stage 1 through stage 4 chronic kidney disease, or unspecified chronic kidney disease; C34.90 Malignant neoplasm of unspecified part of unspecified bronchus or lung; I50.22 Chronic systolic (congestive) heart failure; N17.9 Acute kidney failure, unspecified; I42.9 Cardiomyopathy, unspecified; I25.110 Atherosclerotic heart disease of native coronary artery with unstable angina pectoris; J44.9 Chronic obstructive pulmonary disease, unspecified; M06.9 Rheumatoid arthritis, unspecified; I95.9 Hypotension, unspecified; E11.22 Type 2 diabetes mellitus with diabetic chronic kidney disease; I48.0 Paroxysmal atrial fibrillation; N18.30 Chronic kidney disease, stage 3 unspecified; E66.3 Overweight; D69.6 Thrombocytopenia, unspecified; Z92.21 Personal history of antineoplastic chemotherapy; Z79.82 Long term (current) use of aspirin; Z79.899 Other long term (current) drug therapy; Z87.891 Personal history of nicotine dependence; Z95.1 Presence of aortocoronary bypass graft; Z95.5 Presence of coronary angioplasty implant and graft; Z68.26 Body mass index [BMI] 26.0-26.9, adult
CPT/HCPCS: 36415; 71045; 80048; 80053; 80061; 82550; 82728; 82947; 83605; 83615; 83735; 83874; 83880; 84100; 84484; 85025; 85027; 85379; 85610; 85730; 86141; 87040; 87081; 93005; 93041; 93306; 93454

== ENCOUNTER → 2020-12-13 | Outpatient (CLI) | payer MEDICARE, MEDICAID ==
[~2020-12-13] MED LIST changes: +CATHETER FLUSH 10 ML SYR IV PRN; +HOLD METFORMIN - RECEIVED CONTRAST 20 ML VIAL IV SCH; +IOHEXOL 350 MG/ML 100 ML (OMNIPAQUE 350) VIAL IV ONE; +NS 100 ML (IVPB) BAG IV ONE
[2020-12-13] MEDS: CATHETER FLUSH 10 ML SYR IV PRN ×2 (12:08→12:25)
--- NOTE | 2020-12-13 14:44 | Diagnostic Imaging Report ---
PROCEDURE: CT chest with contrast, CT abdomen and pelvis with and without contrast. TECHNIQUE: Pre and post intravenous contrast axial imaging of the abdomen and pelvis and post contrast axial imaging of the chest were performed. Auto Exposure Controls were utilized during the CT exam to meet ALARA standards for radiation dose reduction. INDICATION: Lung cancer in right upper lobe with metastatic disease to the left adrenal gland. COMPARISON: Exam is compared with an outside chest CT performed on 07/26/2020 at [facility]. FINDINGS: CHEST: An irregular mass in the right upper lobe today is 2.9 x 1.8 cm, previously measuring 3.3 x 2.5 cm. Its central gaseous cavitary component is no longer found. Lower right paratracheal adenopathy is much less dense and more fatty with the abnormal tissue measuring 1.9 x 1.3 cm. I was unable to measure this on the prior but it is at least somewhat smaller and clearly much less dense. Subcarinal tissue now measures short axis 1 cm, previously about 2 cm and also less dense. Subsegmental atelectatic changes in the medial right middle lobe have improved. We now visualize a small nodule within that segment measuring 7 mm, previously likely obscured. Few scattered benign calcified pulmonary granulomata, chronic. No other noncalcified chest mass. No effusion. No pneumothorax. No suspicious lytic or sclerotic bony lesion. Supraclavicular fossa is unremarkable. ABDOMEN AND PELVIS: Left adrenal nodule today is 2.3 x 1.8 cm, previously approximately 2.7 x 2.1 cm, decreased. The right adrenal is negative. No liver mass. The gallbladder is surgically absent. No pathological distention of bile ducts. There are bilateral simple benign renal cortical cysts showing no obvious complexity or change. There are nonobstructing calcifications within left renal lower pole, unchanged. The atherosclerotic aorta shows fusiform mild aneurysmal dilatation of 3 cm, unchanged and unruptured. Pelvic sidewalls and ilioinguinal lymph node chains are unremarkable. There is no suspicious lytic or sclerotic bony lesion. IMPRESSION: 1. When correlated with the available images from outside chest CT, right upper lobe lung mass and thoracic lymphadenopathy have improved and there is reduction in left adrenal mass. 2. No adverse interval development. 3. Unruptured 3 cm atherosclerotic fusiform infrarenal abdominal aortic aneurysm, coronary atherosclerotic calcifications, and benign renal cysts. Dictated by: Dictated on workstation # [id number]
--- NOTE | 2020-12-13 15:47 | Diagnostic Imaging Report ---
INDICATION: Lung carcinoma. TECHNIQUE: The patient was administered 26.4 mCi of technetium 99m MDP intravenously and whole-body imaging was performed after a 3 hour delay. COMPARISON: No prior bone scans are available for comparison. FINDINGS: There is normal uptake of radio labeled phosphate into the axial and appendicular skeleton. There is uptake by both kidneys with excretion into the urinary bladder. No suspicious foci of tracer accumulation is seen to suggest osseous metastatic disease. IMPRESSION: No scintigraphic evidence of osseous metastatic disease. Dictated by: Dictated on workstation # [id number]
== END ==
LOC: CARD 12:00
PROVIDERS: ATTEND Nurse Practitioner Adult Health
DX: I71.4 Abdominal aortic aneurysm, without rupture (principal); I25.10 Atherosclerotic heart disease of native coronary artery without angina pectoris; N28.1 Cyst of kidney, acquired; C34.11 Malignant neoplasm of upper lobe, right bronchus or lung; C79.72 Secondary malignant neoplasm of left adrenal gland
CPT/HCPCS: 71260; 74178; 78306; A9503

== ENCOUNTER 2020-12-27 09:31 | Outpatient (RCR) | payer MEDICARE, MEDICAID, OTHER ==
[2020-10-05 09:24] LABS: BASOPHILS % (AUTO) 1 % (0-10); EOSINOPHILS # (AUTO) 0.1 10^3/uL (0.0-0.3); EOSINOPHILS % (AUTO) 1 % (0-10); HEMATOCRIT 38 % (40-54); HEMOGLOBIN 12.8 g/dL (13.3-17.7); LYMPHOCYTES # (AUTO) 1.1 10^3/uL (1.0-4.0); LYMPHOCYTES % (AUTO) 27 % (12-44); MEAN CORPUSCULAR HEMOGLOBIN 32 pg (25-34); MEAN CORPUSCULAR HGB CONC 34 g/dL (32-36); MEAN CORPUSCULAR VOLUME 95 fL (80-99); MEAN PLATELET VOLUME 11.5 fL (9.0-12.2); MONOCYTES # (AUTO) 0.6 10^3/uL (0.0-1.0); MONOCYTES % (AUTO) 15 % (0-12); NEUTROPHILS # (AUTO) 2.3 10^3/uL (1.8-7.8); NEUTROPHILS % (AUTO) 55 % (42-75); PLATELET COUNT 131 10^3/uL (130-400); WHITE BLOOD COUNT 4.2 10^3/uL (4.3-11.0)
[2020-10-05 09:42] LABS: CALCIUM 9.2 MG/DL (8.5-10.1); CREATININE SERUM 1.36 MG/DL (0.60-1.30); MAGNESIUM 1.7 MG/DL (1.6-2.4)
[2020-10-11 09:29] LABS: MEAN CORPUSCULAR VOLUME 94 fL (80-99)
[2020-10-11 09:31] LABS: BASOPHILS # (AUTO) 0.1 10^3/uL (0.0-0.1); BASOPHILS % (AUTO) 1 % (0-10); EOSINOPHILS % (AUTO) 1 % (0-10); HEMATOCRIT 37 % (40-54); HEMOGLOBIN 12.7 g/dL (13.3-17.7); LYMPHOCYTES # (AUTO) 0.9 10^3/uL (1.0-4.0); LYMPHOCYTES % (AUTO) 21 % (12-44); MEAN CORPUSCULAR HEMOGLOBIN 33 pg (25-34); MEAN CORPUSCULAR HGB CONC 35 g/dL (32-36); MEAN PLATELET VOLUME 11.2 fL (9.0-12.2); MONOCYTES # (AUTO) 0.5 10^3/uL (0.0-1.0); MONOCYTES % (AUTO) 12 % (0-12); NEUTROPHILS # (AUTO) 2.6 10^3/uL (1.8-7.8); NEUTROPHILS % (AUTO) 64 % (42-75); PLATELET COUNT 107 10^3/uL (130-400)
[2020-10-11 09:48] LABS: ALBUMIN 3.9 GM/DL (3.2-4.5); CALCIUM 9.7 MG/DL (8.5-10.1); CREATININE SERUM 1.33 MG/DL (0.60-1.30); MAGNESIUM 1.4 MG/DL (1.6-2.4); POTASSIUM 5.4 MMOL/L (3.6-5.0); TOTAL PROTEIN 6.9 GM/DL (6.4-8.2)
[2020-10-12 09:55] LABS: CALCIUM 9.1 MG/DL (8.5-10.1); CREATININE SERUM 1.13 MG/DL (0.60-1.30); MAGNESIUM 1.3 MG/DL (1.6-2.4); POTASSIUM 5.2 MMOL/L (3.6-5.0)
[2020-10-18 10:09] LABS: MEAN CORPUSCULAR HEMOGLOBIN 32 pg (25-34); MEAN CORPUSCULAR HGB CONC 36 g/dL (32-36)
[2020-10-18 10:10] LABS: BASOPHILS % (AUTO) 1 % (0-10); EOSINOPHILS % (AUTO) 1 % (0-10); HEMATOCRIT 29 % (40-54); HEMOGLOBIN 10.5 g/dL (13.3-17.7); LYMPHOCYTES # (AUTO) 0.7 10^3/uL (1.0-4.0); LYMPHOCYTES % (AUTO) 20 % (12-44); MEAN CORPUSCULAR VOLUME 91 fL (80-99); MEAN PLATELET VOLUME 11.4 fL (9.0-12.2); MONOCYTES # (AUTO) 0.4 10^3/uL (0.0-1.0); MONOCYTES % (AUTO) 10 % (0-12); NEUTROPHILS # (AUTO) 2.3 10^3/uL (1.8-7.8); NEUTROPHILS % (AUTO) 67 % (42-75); PLATELET COUNT 83 10^3/uL (130-400); WHITE BLOOD COUNT 3.5 10^3/uL (4.3-11.0)
[2020-10-18 10:25] LABS: ALBUMIN 3.6 GM/DL (3.2-4.5); BILIRUBIN,TOTAL 0.7 MG/DL (0.1-1.0); CALCIUM 9.1 MG/DL (8.5-10.1); CREATININE SERUM 1.06 MG/DL (0.60-1.30); MAGNESIUM 1.7 MG/DL (1.6-2.4); POTASSIUM 4.2 MMOL/L (3.6-5.0); TOTAL PROTEIN 6.2 GM/DL (6.4-8.2)
[2020-10-26 09:16] LABS: BASOPHILS % (AUTO) 1 % (0-10); EOSINOPHILS # (AUTO) 0.1 10^3/uL (0.0-0.3); EOSINOPHILS % (AUTO) 2 % (0-10); HEMATOCRIT 32 % (40-54); HEMOGLOBIN 11.1 g/dL (13.3-17.7); LYMPHOCYTES # (AUTO) 0.7 10^3/uL (1.0-4.0); LYMPHOCYTES % (AUTO) 21 % (12-44); MEAN CORPUSCULAR HEMOGLOBIN 33 pg (25-34); MEAN CORPUSCULAR HGB CONC 35 g/dL (32-36); MEAN CORPUSCULAR VOLUME 96 fL (80-99); MEAN PLATELET VOLUME 10.8 fL (9.0-12.2); MONOCYTES # (AUTO) 0.4 10^3/uL (0.0-1.0); MONOCYTES % (AUTO) 14 % (0-12); NEUTROPHILS % (AUTO) 62 % (42-75); PLATELET COUNT 106 10^3/uL (130-400); WHITE BLOOD COUNT 3.2 10^3/uL (4.3-11.0)
[2020-10-26 09:43] LABS: ALBUMIN 3.7 GM/DL (3.2-4.5); BILIRUBIN,TOTAL 0.6 MG/DL (0.1-1.0); CALCIUM 9.4 MG/DL (8.5-10.1); CREATININE SERUM 0.93 MG/DL (0.60-1.30); MAGNESIUM 2.2 MG/DL (1.6-2.4); TOTAL PROTEIN 6.7 GM/DL (6.4-8.2)
[2020-11-02 09:27] LABS: BASOPHILS % (AUTO) 1 % (0-10); EOSINOPHILS # (AUTO) 0.1 10^3/uL (0.0-0.3); EOSINOPHILS % (AUTO) 1 % (0-10); HEMATOCRIT 30 % (40-54); HEMOGLOBIN 10.5 g/dL (13.3-17.7); LYMPHOCYTES # (AUTO) 0.8 10^3/uL (1.0-4.0); LYMPHOCYTES % (AUTO) 22 % (12-44); MEAN CORPUSCULAR HEMOGLOBIN 34 pg (25-34); MEAN CORPUSCULAR HGB CONC 35 g/dL (32-36); MEAN CORPUSCULAR VOLUME 96 fL (80-99); MEAN PLATELET VOLUME 10.6 fL (9.0-12.2); MONOCYTES # (AUTO) 0.4 10^3/uL (0.0-1.0); MONOCYTES % (AUTO) 12 % (0-12); NEUTROPHILS # (AUTO) 2.2 10^3/uL (1.8-7.8); NEUTROPHILS % (AUTO) 63 % (42-75); PLATELET COUNT 149 10^3/uL (130-400); WHITE BLOOD COUNT 3.5 10^3/uL (4.3-11.0)
[2020-11-02 09:44] LABS: ALBUMIN 3.8 GM/DL (3.2-4.5); BILIRUBIN,TOTAL 0.6 MG/DL (0.1-1.0); CALCIUM 9.6 MG/DL (8.5-10.1); CREATININE SERUM 0.93 MG/DL (0.60-1.30); POTASSIUM 4.4 MMOL/L (3.6-5.0); TOTAL PROTEIN 6.3 GM/DL (6.4-8.2)
[2020-11-09 09:44] LABS: BASOPHILS % (AUTO) 1 % (0-10); EOSINOPHILS % (AUTO) 1 % (0-10); HEMATOCRIT 30 % (40-54); HEMOGLOBIN 10.6 g/dL (13.3-17.7); LYMPHOCYTES # (AUTO) 0.7 10^3/uL (1.0-4.0); LYMPHOCYTES % (AUTO) 18 % (12-44); MEAN CORPUSCULAR HEMOGLOBIN 34 pg (25-34); MEAN CORPUSCULAR HGB CONC 35 g/dL (32-36); MEAN CORPUSCULAR VOLUME 98 fL (80-99); MONOCYTES # (AUTO) 0.6 10^3/uL (0.0-1.0); MONOCYTES % (AUTO) 15 % (0-12); NEUTROPHILS # (AUTO) 2.4 10^3/uL (1.8-7.8); NEUTROPHILS % (AUTO) 65 % (42-75); PLATELET COUNT 163 10^3/uL (130-400); WHITE BLOOD COUNT 3.8 10^3/uL (4.3-11.0)
[2020-11-09 10:02] LABS: ALBUMIN 3.7 GM/DL (3.2-4.5); BILIRUBIN,TOTAL 0.6 MG/DL (0.1-1.0); CALCIUM 9.6 MG/DL (8.5-10.1); CREATININE SERUM 1.4 MG/DL (0.60-1.30); MAGNESIUM 1.6 MG/DL (1.6-2.4); POTASSIUM 4.5 MMOL/L (3.6-5.0); TOTAL PROTEIN 6.2 GM/DL (6.4-8.2)
[2020-11-22 13:04] LABS: HEMOGLOBIN 11.1 g/dL (13.3-17.7); MEAN CORPUSCULAR VOLUME 103 fL (80-99)
[2020-11-22 13:05] LABS: BASOPHILS % (AUTO) 1 % (0-10); EOSINOPHILS % (AUTO) 1 % (0-10); HEMATOCRIT 33 % (40-54); LYMPHOCYTES # (AUTO) 0.9 10^3/uL (1.0-4.0); LYMPHOCYTES % (AUTO) 16 % (12-44); MEAN CORPUSCULAR HEMOGLOBIN 35 pg (25-34); MEAN CORPUSCULAR HGB CONC 33 g/dL (32-36); MEAN PLATELET VOLUME 11.2 fL (9.0-12.2); MONOCYTES # (AUTO) 0.8 10^3/uL (0.0-1.0); MONOCYTES % (AUTO) 13 % (0-12); NEUTROPHILS % (AUTO) 69 % (42-75); PLATELET COUNT 108 10^3/uL (130-400); WHITE BLOOD COUNT 5.9 10^3/uL (4.3-11.0)
[2020-11-22 13:29] LABS: ALBUMIN 3.6 GM/DL (3.2-4.5); BILIRUBIN,TOTAL 0.4 MG/DL (0.1-1.0); CALCIUM 9.5 MG/DL (8.5-10.1); CREATININE SERUM 0.91 MG/DL (0.60-1.30); MAGNESIUM 1.5 MG/DL (1.6-2.4); POTASSIUM 3.8 MMOL/L (3.6-5.0); TOTAL PROTEIN 6.1 GM/DL (6.4-8.2)
[2020-12-16 14:57] LABS: BASOPHILS % (AUTO) 0 % (0-10); EOSINOPHILS # (AUTO) 0.1 10^3/uL (0.0-0.3); EOSINOPHILS % (AUTO) 1 % (0-10); HEMATOCRIT 37 % (40-54); HEMOGLOBIN 12.7 g/dL (13.3-17.7); LYMPHOCYTES # (AUTO) 1.1 10^3/uL (1.0-4.0); LYMPHOCYTES % (AUTO) 12 % (12-44); MEAN CORPUSCULAR HEMOGLOBIN 35 pg (25-34); MEAN CORPUSCULAR HGB CONC 34 g/dL (32-36); MEAN CORPUSCULAR VOLUME 102 fL (80-99); MEAN PLATELET VOLUME 11.4 fL (9.0-12.2); MONOCYTES # (AUTO) 0.8 10^3/uL (0.0-1.0); MONOCYTES % (AUTO) 9 % (0-12); NEUTROPHILS # (AUTO) 6.7 10^3/uL (1.8-7.8); NEUTROPHILS % (AUTO) 77 % (42-75); PLATELET COUNT 117 10^3/uL (130-400); WHITE BLOOD COUNT 8.7 10^3/uL (4.3-11.0)
[2020-12-16 15:14] LABS: ALBUMIN 3.8 GM/DL (3.2-4.5); BILIRUBIN,TOTAL 0.7 MG/DL (0.1-1.0); CALCIUM 9.6 MG/DL (8.5-10.1); CREATININE SERUM 1.18 MG/DL (0.60-1.30); TOTAL PROTEIN 6.5 GM/DL (6.4-8.2)
[~2020-12-27] VITALS: Ht 182.9 cm; Wt 87.1 kg
[~2020-12-27 09:31] MED LIST changes: +CARBOPLATIN IV SCH; +CARBOplatin 420 MG in D5W 50 ML IV(CANCER CTR) 50 ML IV SCH; -CATHETER FLUSH 10 ML SYR IV PRN; +CYANOCOBALAMIN INJ 1000 MCG/ML (CANCER CENTER) ONE; +D5W IV SCH; +FAMOTIDINE 20MG/2ML IV (CANCER CTR) IV SCH; +FOSAPREPITANT (CANCER CENTER) 150 MG in NS (IVPB) CANCER CENTER ONLY 150 ML IV SCH; -HOLD METFORMIN - RECEIVED CONTRAST 20 ML VIAL IV SCH; -IOHEXOL 350 MG/ML 100 ML (OMNIPAQUE 350) VIAL IV ONE; +MAGNESIUM SULFATE (CANCER CTR) 2 GM in NS (IVPB) CANCER CENTER 100 ML IV ONE; +NORMAL SALINE IV SCH; -NS 100 ML (IVPB) BAG IV ONE; +NS IV 1000 ML (CANCER CTR) IV SCH; +NS IV 500 ML (CANCER CENTER) 500 ML ONE; +PACLITAXEL IV SCH; +PEMBROLIZUMAB 200 MG in NS (IVPB) CANCER CENTER 50 ML IV SCH; +PEMETREXED DISODIUM 1,000 MG in NS (IVPB) CANCER CENTER 100 ML IV SCH; +diphenhydrAMINE 25 MG TAB (BENADRYL) CANCER CENTER PO ONE; +diphenhydrAMINE 50 MG/ML INJ (CANCER CENTER) IV PRN
[2020-12-27 09:50] LABS: BASOPHILS % (AUTO) 1 % (0-10); EOSINOPHILS # (AUTO) 0.2 10^3/uL (0.0-0.3); EOSINOPHILS % (AUTO) 4 % (0-10); HEMATOCRIT 36 % (40-54); HEMOGLOBIN 12.5 g/dL (13.3-17.7); LYMPHOCYTES # (AUTO) 0.7 10^3/uL (1.0-4.0); LYMPHOCYTES % (AUTO) 15 % (12-44); MEAN CORPUSCULAR HEMOGLOBIN 35 pg (25-34); MEAN CORPUSCULAR HGB CONC 34 g/dL (32-36); MEAN CORPUSCULAR VOLUME 103 fL (80-99); MEAN PLATELET VOLUME 10.9 fL (9.0-12.2); MONOCYTES # (AUTO) 0.3 10^3/uL (0.0-1.0); MONOCYTES % (AUTO) 6 % (0-12); NEUTROPHILS # (AUTO) 3.5 10^3/uL (1.8-7.8); NEUTROPHILS % (AUTO) 75 % (42-75); PLATELET COUNT 83 10^3/uL (130-400); WHITE BLOOD COUNT 4.7 10^3/uL (4.3-11.0)
[2020-12-27 10:01] LABS: CALCIUM 9.5 MG/DL (8.5-10.1); CREATININE SERUM 0.87 MG/DL (0.60-1.30); MAGNESIUM 1.6 MG/DL (1.6-2.4)
== END 2021-01-01 | disposition home or self-care (01) ==
LOC: ONC 09:31
PROVIDERS: ATTEND Internal Medicine Hematology & Oncology
DX: Z51.11 Encounter for antineoplastic chemotherapy (principal); Z51.0 Encounter for antineoplastic radiation therapy; C34.11 Malignant neoplasm of upper lobe, right bronchus or lung; E83.42 Hypomagnesemia; I25.10 Atherosclerotic heart disease of native coronary artery without angina pectoris; E11.9 Type 2 diabetes mellitus without complications; E78.5 Hyperlipidemia, unspecified; E66.9 Obesity, unspecified
CPT/HCPCS: 36415; 36591; 77280; 77307; 77334; 77336; 77417; 80048; 80053; 83735; 85025; 96360; 96361; 96365; 96367; 96372; 96375; 96411; 96413; 96417; 99213

== ENCOUNTER 2021-02-27 14:03 | Observation (INO) | payer MEDICARE, MEDICAID ==
[~2021-02-27] VITALS: Ht 183 cm; Wt 90.7 kg
[~2021-02-27 14:03] MED LIST changes: -CARBOPLATIN IV SCH; -CARBOplatin 420 MG in D5W 50 ML IV(CANCER CTR) 50 ML IV SCH; -CYANOCOBALAMIN INJ 1000 MCG/ML (CANCER CENTER) ONE; -D5W IV SCH; -FAMOTIDINE 20MG/2ML IV (CANCER CTR) IV SCH; -FOSAPREPITANT (CANCER CENTER) 150 MG in NS (IVPB) CANCER CENTER ONLY 150 ML IV SCH; -MAGNESIUM SULFATE (CANCER CTR) 2 GM in NS (IVPB) CANCER CENTER 100 ML IV ONE; -NORMAL SALINE IV SCH; -NS IV 1000 ML (CANCER CTR) IV SCH; -NS IV 500 ML (CANCER CENTER) 500 ML ONE; -PACLITAXEL IV SCH; -PEMBROLIZUMAB 200 MG in NS (IVPB) CANCER CENTER 50 ML IV SCH; -PEMETREXED DISODIUM 1,000 MG in NS (IVPB) CANCER CENTER 100 ML IV SCH; -diphenhydrAMINE 25 MG TAB (BENADRYL) CANCER CENTER PO ONE; -diphenhydrAMINE 50 MG/ML INJ (CANCER CENTER) IV PRN
[2021-02-27 15:11] LABS: BASOPHILS % (AUTO) 0 % (0-10); EOSINOPHILS # (AUTO) 0.1 10^3/uL (0.0-0.3); EOSINOPHILS % (AUTO) 1 % (0-10); HEMATOCRIT 32 % (40-54); HEMOGLOBIN 10.9 g/dL (13.3-17.7); LYMPHOCYTES # (AUTO) 0.7 X 10^3 (1.0-4.0); LYMPHOCYTES % (AUTO) 13 % (12-44); MEAN CORPUSCULAR HEMOGLOBIN 35 pg (25-34); MEAN CORPUSCULAR HGB CONC 35 g/dL (32-36); MEAN CORPUSCULAR VOLUME 102 fL (80-99); MEAN PLATELET VOLUME 11.4 fL (9.0-12.2); MONOCYTES # (AUTO) 0.2 X 10^3 (0.0-1.0); MONOCYTES % (AUTO) 4 % (0-12); NEUTROPHILS # (AUTO) 4.1 X 10^3 (1.8-7.8); NEUTROPHILS % (AUTO) 81 % (42-75); PLATELET COUNT 92 10^3/uL (130-400)
[2021-02-27 15:12] VITALS: BP_SYST 74; BP_SYST 85; BP_SYST 86; BP_DIAS 55; BP_DIAS 60
[2021-02-27 15:15] LABS: ALBUMIN 3.8 GM/DL (3.2-4.5); POTASSIUM 4.5 MMOL/L (3.6-5.0)
[2021-02-27] MEDS ORDERED: ASPIRIN 81 MG CHEW (CHILDREN'S ASA) PO ONE (15:15)
[2021-02-27 15:16] LABS: CALCIUM 9.6 MG/DL (8.5-10.1)
[2021-02-27 15:17] LABS: INR 0.9 (0.8-1.4)
[2021-02-27 15:18] LABS: TOTAL PROTEIN 6.4 GM/DL (6.4-8.2)
[2021-02-27 15:19] LABS: BILIRUBIN,TOTAL 0.8 MG/DL (0.1-1.0)
[2021-02-27 15:21] LABS: CREATININE SERUM 1.42 MG/DL (0.60-1.30)
[2021-02-27 15:24] LABS: MAGNESIUM 1.4 MG/DL (1.6-2.4)
--- NOTE | 2021-02-27 15:26 | ED Chest Pain ---
General Chief Complaint: Cardiac/General Problems Stated Complaint: LOW BP Nursing Triage Note: PT AMB TO RM 6 W REPORTS OF LOW BP, FATIGUE, GENERALIZED NOT FEELING WELL, DIZZINESS, AND CP ACROSS CHEST SX APPROX 1300 TODAY. PT A&OX4. Source: patient Exam Limitations: no limitations ([employer] STUDENT) History of Present Illness Date Seen by Provider: Feb 27, 2021 Time Seen by Provider: 15:10 Initial Comments Kirill is a 70 yo M with a history of lung cancer who presents to the ED for an episode of chest pain, headache, photophobia, and pre-syncope. Pt states he was out working on his car and about 15 minutes after going inside he had an onset of headache, photophobia, chest pain, and dizziness. His took his temperature and said it was 50/30 during the episode. Pt states he has had simil ar episodes in the past after his chemo, and last chemo was last Saturday. Pt also admits to only having 2 cups of coffee to drink today and feeling dehydrated. His only symptom currently is weakness, and he is also concerned about his low blood pressure which has persisted. Timing/Duration: resolved prior to arrival Severity/Quality: moderate Location: substernal Radiation: no radiation Activities at Onset: none Associated Symptoms: dizziness, fatigue, weakness ([employer] STUDENT) Allergies and Home Medications Allergies Coded Allergies: cephalexin (Unverified Allergy, Mild, Angioedema, 10/14/20) Igrjuig-Brk-Nwm Reductase Inhibitor (Verified Allergy, Unknown, 10/14/20) tramadol (Unverified Adverse Reaction, Intermediate, 08/16/11) medication caused pt to experience hypertensive episodes Patient Home Medication List Home Medication List Reviewed: Yes (LUIS FREGOSO) Alprazolam (Xanax) 0.5 Mg Tablet, 0.5 MG PO HS, (Reported) Entered as Reported by: KINGSLEY FREEMAN on 05/05/19 0853 Aspirin (Aspirin 81 Mg Chew Tab) 81 Mg Chew, 81 MG PO DAILY, (Reported) Entered as Reported by: ANAHY RANDOLPH on 03/05/09 2336 Furosemide (Furosemide) 40 Mg Tablet, 40 MG PO DAILY, (Reported) Entered as Reported by: KINGSLEY FREEMAN on 05/05/19 0853 Glimepiride (Glimepiride) 2 Mg Tablet, 2 MG PO DAILY, (Reported) Entered as Reported by: KINGSLEY FREEMAN on 05/05/19 0853 Lisinopril (Zestril) 10 Mg Tablet, 5 MG PO BID, (Reported) Entered as Reported by: ANAHY RANDOLPH on 04/13/111932 Metoprolol Succinate (Metoprolol Succinate) 25 Mg Tab.er.24h, 25 MG PO DAILY, (Reported) Entered as Reported by: KINGSLEY FREEMAN on 05/05/19 0853 Pantoprazole Sodium (Protonix) 40 Mg Tablet.dr, 40 MG PO DAILY, (Reported) Entered as Reported by: UMM REZA on 10/21/12 1700 Review of Systems Review of Systems Constitutional: No chills, No fever EENTM: No Blurred Vision, No Double Vision; Other (photophobia) Respiratory: Denies Cough, Denies Orthopnea Cardiovascular: Chest Pain, Lightheadedness Gastrointestinal: Denies Abdomen Distended, Denies Abdominal Pain Genitourinary: Denies Burning, Denies Discharge Musculoskeletal: No back pain, No joint pain Skin: No change in color, No change in hair/nails Psychiatric/Neurological: Headache, Weakness Endocrine: Denies Excessive Sweating, Denies Flushing ([employer] STUDENT) Past Kchwstf-Jypqko-Vyhfgp Hx Patient Social History Tobacco Use?: No Smoking Status: Former Smoker Use of E-Cig and/or Vaping dev: No Substance use?: No Alcohol Use?: No ([employer] STUDENT) Immunizations Up To Date Tetanus Booster (TDap): Unknown Influenza Vaccine Up-to-Date: Yes; Up-to-Date First/Initial COVID19 Vaccinat: 2020 Second COVID19 Vaccination Lyle: 2020 Third COVID19 Vaccination Date: 2020 COVID19 Vaccine Medical Cash Poster: MODERNA ([employer] STUDENT) Past Medical History Surgery/Hospitalization HX: LBBB, LUNG CA, BEGAN CHEMO 4 MONTHS AGO, AFIB, 3 STENTS Surgeries: Yes (R SHOULDER ) CABG, Coronary Stent, Gallbladder Respiratory: Yes COPD Cardiac: Yes (CHF, L BBB, 3 CORONARY STENTS) Coronary Artery Disease Neurological: No Reproductive Disorders: No Genitourinary: Yes Kidney Stones Gastrointestinal: Yes Hemorrhoids, Gall Bladder Disease Musculoskeletal: Yes Rheumatoid Arthritis Endocrine: Yes Diabetes, Non-Insulin dep HEENT: No Cancer: No Psychosocial: No Integumentary: No Blood Disorders: No ([employer] STUDENT) Family Medical History No Pertinent Family Hx ([employer] STUDENT) Physical Exam Vital Signs Vital Signs - First Documented 02/27/21 14:18 Temp 36.0 Pulse 88 Resp 20 B/P (MAP) 79/66 (70) Pulse Ox 97 O2 Delivery Room Air (LUIS FREGOSO) Vital Signs Capillary Refill : Less Than 3 Seconds ([employer] STUDENT) Height, Weight, BMI Height: 6'0.00" Weight: 233lbs. 0oz. 105.137393ut; 27.00 BMI Method:Stated General Appearance: No Apparent Distress, Chronically ill HEENT: PERRL/EOMI, TMs Normal, Normal ENT Inspection Neck: Full Range of Motion, Normal Inspection, Non Tender, Supple Respiratory: Chest Non Tender, Lungs Clear, Normal Breath Sounds, No Accessory Muscle Use, No Respiratory Distress Cardiovascular: Regular Rate, Rhythm, No Edema, No Gallop, No JVD, No Murmur, Normal Peripheral Pulses Gastrointestinal: Normal Bowel Sounds, No Organomegaly, No Pulsatile Mass, Non Tender, Soft Extremity: Normal Capillary Refill, Normal Inspection, Normal Range of Motion, Non Tender, No Calf Tenderness Neurologic/Psychiatric: Alert, Oriented x3, No Motor/Sensory Deficits, Normal Mood/Affect Skin: Normal Color, Warm/Dry ([employer] STUDENT) Progress/Results/Core Measures Results/Orders Lab Results Laboratory Tests Test 02/27/21 14:30 Range/Units White Blood Count 5.0 4.3-11.0 10^3/uL Red Blood Count 3.10 L 4.30-5.52 10^6/uL Hemoglobin 10.9 L 13.3-17.7 g/dL Hematocrit 32 L 40-54 % Mean Corpuscular Volume 102 H 80-99 fL Mean Corpuscular Hemoglobin 35 H 25-34 pg Mean Corpuscular Hemoglobin Concent 35 32-36 g/dL Red Cell Distribution Width 15.4 H 10.0-14.5 % Platelet Count 92 L 130-400 10^3/uL Mean Platelet Volume 11.4 9.0-12.2 fL Immature Granulocyte % (Auto) 0 % Neutrophils (%) (Auto) 81 H 42-75 % Lymphocytes (%) (Auto) 13 12-44 % Monocytes (%) (Auto) 4 0-12 % Eosinophils (%) (Auto) 1 0-10 % Basophils (%) (Auto) 0 0-10 % Neutrophils # (Auto) 4.1 1.8-7.8 X 10^3 Lymphocytes # (Auto) 0.7 L 1.0-4.0 X 10^3 Monocytes # (Auto) 0.2 0.0-1.0 X 10^3 Eosinophils # (Auto) 0.1 0.0-0.3 10^3/uL Basophils # (Auto) 0.0 0.0-0.1 10^3/uL Immature Granulocyte # (Auto) 0.0 0.0-0.1 10^3/uL Prothrombin Time 13.0 12.2-14.7 SEC INR Comment 0.9 0.8-1.4 Activated Partial Thromboplast Time 25 24-35 SEC D-Dimer 1.66 H 0.00-0.49 UG/ML Sodium Level 138 135-145 MMOL/L Potassium Level 4.5 3.6-5.0 MMOL/L Chloride Level 101 98-107 MMOL/L Carbon Dioxide Level 27 21-32 MMOL/L Anion Gap 10 5-14 MMOL/L Blood Urea Nitrogen 26 H 7-18 MG/DL Creatinine 1.42 H 0.60-1.30 MG/DL Estimat Glomerular Filtration Rate 49 BUN/Creatinine Ratio 18 Glucose Level 134 H 70-105 MG/DL Calcium Level 9.6 8.5-10.1 MG/DL Corrected Calcium 9.8 8.5-10.1 MG/DL Magnesium Level 1.4 L 1.6-2.4 MG/DL Total Bilirubin 0.8 0.1-1.0 MG/DL Aspartate Amino Transf (AST/SGOT) 18 5-34 U/L Alanine Aminotransferase (ALT/SGPT) 21 0-55 U/L Alkaline Phosphatase 66 40-136 U/L Myoglobin 93.8 H 10.0-92.0 NG/ML Troponin I 0.029 H <0.028 NG/ML B-Type Natriuretic Peptide 199.5 H <100.0 PG/ML Total Protein 6.4 6.4-8.2 GM/DL Albumin 3.8 3.2-4.5 GM/DL Lipase 30 8-78 U/L (LUIS FREGOSO) My Orders Orders - LUIS FREGOSO Cbc With Automated Diff (02/27/21 15:) Magnesium (02/27/21 15:) Chest 1 View, Ap/Pa Only (02/27/21 15:) Ekg Tracing (02/27/21 15:) Comprehensive Metabolic Panel (02/27/21 15:) Myoglobin Serum (02/27/21:) Protime With Inr (02/27/21:) Partial Thromboplastin Time (02/27/21 15:) O2 (02/27/21:) Monitor-Rhythm Ecg Trace Only (02/27/21:) Lipid Panel (02/28/21 06:00) Ed Iv/Invasive Line Start (02/27/21 15:) Lipase (02/27/21 15:) Bnp [place] (02/27/21 15:) Fibrin Degradation Products (02/27/21:) Troponin I [place] (02/27/21 15:) Aspirin Chewable Tablet (Baby Aspirin Ch (02/27/21 15:15) Orthostatic Vital Signs (Adult (02/27/21 15:01) Ed Iv/Invasive Line Start (02/27/21 15:17) Ns Iv 1000 Ml (Sodium Chloride 0.9%) (02/27/21 15:30) Ns Iv 1000 Ml (Sodium Chloride 0.9%) (02/27/21 15:30) Magnesium 1 Gm/100 Ml Ivpb (Magnesium Ramos (02/27/21 15:45) (LUIS FREGOSO) Medications Given in ED Current Medications Medications Dose Ordered Sig/Eusebio Route Start Time Stop Time Status Last Admin Dose Admin Aspirin 324 mg ONCE ONCE PO 02/27/21 15:15 02/27/21 15:16 DC 02/27/21 15:22 324 MG Magnesium Sulfate/ Dextrose 100 ml @ 100 mls/hr ONCE ONCE IV 02/27/21 15:45 02/27/21 16:44 02/27/21 15:50 100 MLS/HR Sodium Chloride 1,000 ml @ 0 mls/hr Q0M ONCE IV 02/27/21 15:30 02/27/21 15:31 DC 02/27/21 15:22 0 MLS/HR (LUIS FREGOSO) Vital Signs/I&O 02/27/21 02/27/21 14:18 15:12 Temp 36.0 Pulse 88 77 83 91 Resp 20 B/P (MAP) 79/66 (70) 86/60 (69) 85/55 (65) 74/55 (61) Pulse Ox 97 O2 Delivery Room Air (LUIS FREGOSO) Blood Pressure Mean: 61 Progress Progress Note : Time: 15:50 Progress Note I attest that I saw this patient alongside the medical student and agree with his documented history, physical exam and review of systems except as otherwise noted. Patient missed only drinking couple cups of coffee today has had poor fluid intake over the past couple days and has been working in the garage. 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 He comes in with transiently low blood pressures so we will give him a liter of fluids. He takes furosemide so we will give him a liter. He has an LATONIA and some electrolyte derangements which we will address. We will discuss the case with cardiology about an observation for his hypotension. (LUIS FREGOSO) Initial ECG Impression Date: Feb 27, 2021 Initial ECG Impression Time: 14:21 Initial ECG Rate: 86 Initial ECG Rhythm: Normal Sinus Initial ECG Intervals: Normal Initial ECG Impression: Normal Comment Normal sinus rhythm without clinically relevant ST elevation or depression. (LUIS FREGOSO) Diagnostic Imaging Diagonstic Imaging: Xray Plain Films/CT/US/NM/MRI: chest Comments [facility], [place] NAME: KIRILL CAREY [facility] REC#: [id number] PT STATUS: REG ER : 1950 PHYSICIAN: LUIS FREGOSO MD ADMIT DATE: 02/27/21/ER Draft Date of Exam:02/27/21 CHEST 1 VIEW, AP/PA ONLY INDICATION: Chest pain. COMPARISON: CT chest dated 11/23/2020. FINDINGS: A single frontal view of the chest demonstrates normal heart size and pulmonary vascularity. Evaluation of the lung edward demonstrates a 2.4 cm subtle nodular opacity within the right upper lung. This is felt to correspond to the soft tissue nodule seen on the previous CT. Otherwise, the lungs are clear. There is no large effusion or pneumothorax. Sternotomy wires are noted. IMPRESSION: 1. Redemonstration of a nodular lesion in the right upper lobe. 2. No evidence of failure or focal infiltrate. Dictated on workstation # [id number] Dict: 02/27/21 1525 Trans: 02/27/21 1528 [id number] Interpreted by: CATHY SANABRIA MD Electronically signed by: Reviewed: Reviewed by Me (LUIS FREGOSO) Departure Communication (Admissions) Time/Spoke to Admitting Phy: 16:[address] Christine 1610: Discussed the case with Dr. Christine she agrees to accept the patient on observation with a call to eICU. eICU would asked that if his pressures are not improving after the first couple liters of fluid then they would like to have a central line placement Time/Spoke to Consulting Phy: 15:55 Discussed the case with Dr. Sal who agrees with holding onto him overnight on an observation with medicine and IV fluids. (LUIS FREGOSO) Impression Primary Impression: Chest pain Qualified Codes: R07.9 - Chest pain, unspecified Additional Impressions: ACS (acute coronary syndrome) Near syncope Dehydration LATONIA (acute kidney injury) Disposition: ADMITTED INPATIENT Condition: Stable Admissions Decision to Admit Reason: Admit from ER (General) Decision to Admit/Date: Feb 27, 2021 Time/Decision to Admit Time: 15:55 (LUIS FREGOSO) Departure-Patient Inst. Referrals: SOPHIA JACKSON MD (PCP/Family) Primary Care Physician [employer] STUDENT Feb 27, 2021 15:26 LUIS FREGOSO Feb 27, 2021 15:55
--- NOTE | 2021-02-27 15:29 | Diagnostic Imaging Report ---
INDICATION: Chest pain. COMPARISON: CT chest dated 11/23/2020. FINDINGS: A single frontal view of the chest demonstrates normal heart size and pulmonary vascularity. Evaluation of the lung edward demonstrates a 2.4 cm subtle nodular opacity within the right upper lung. This is felt to correspond to the soft tissue nodule seen on the previous CT. Otherwise, the lungs are clear. There is no large effusion or pneumothorax. Sternotomy wires are noted. IMPRESSION: 1. Redemonstration of a nodular lesion in the right upper lobe. 2. No evidence of failure or focal infiltrate. Dictated by: Dictated on workstation # [id number]
[2021-02-27] MEDS ORDERED: NS IV 1000 ML 1,000 ML IV ONE (15:30)
[2021-02-27] MEDS ORDERED: NS IV 1000 ML 1,000 ML IV SCH ×2 (15:30→17:45)
[2021-02-27] MEDS ORDERED: MAGNESIUM 1 GM/100 ML IVPB 100 ML IV ONE (15:45)
--- NOTE | 2021-02-27 16:07 | Consultation-Cardiology ---
HPI-Cardiology Cardiology Consultation: Date of Consultation 02/27/21 Time Seen by a Provider: 16:05 Date of Admission 02-27-21 Attending Physician Admitting Physician Jada Steiner MD Consulting Physician Mario Sal MD HPI: Chief Complaint: Hypotension Mr. Carey is a 70 yr old male being admitted from the ED with hypotension. He reports he was sitting in his chair at home when he had a sudden onset of dizziness. He reports he felt as though he may "pass out", but did not. He reports he developed pressure across his chest which lasted for approx 10 minutes. No assoc symptoms. He reports the discomfort eased up gradually on its own and has since resolved. He reports feeling tired and weak. No c/o palpitations. He has chronic mild to mod SOB with occ productive cough. This is unchanged. No c/o fever or chills. No c/o LE swelling. No c/o n/v/d. He is currently sitting up on the side of the bed and feels ok, other than being tired. He reports his took his BP at home and noted it to be 50 systolic. He reports his last chemo dose was a a week ago. He reports he has had multiple changes in his antihypertensive regimen recently. Review of Systems-Cardiology Review of Systems Constitutional: No chills, No fever; lightheadedness, malaise Eyes: No vision change Ears/Nose/Throat: No epistaxis, No recent hearing loss Respiratory: As described under HPI Cardiovascular: As described under HPI Gastrointestinal: As described under HPI Genitourinary: No dysuria, No hematuria Musculoskeletal: no symptoms reported Skin: No rash on exposed areas, No ulcerations on exposed areas Psychiatric/Neurological: No anxiety, No depression, No seizure, No focal weakness, No syncope Hematologic: No bleeding abnormalities EAK-Noyaxs-Qvzxhs Hx Patient Social History Smoking Status: Former Smoker Have you traveled recently?: No Alcohol Use?: No Immunizations Up To Date Tetanus Booster (TDap): Unknown Date of Pneumonia Vaccine: Apr 03, 2018 Date of Influenza Vaccine: Nov 18, 2017 Past Medical History PMH As described under Assessment. Family Medical History Family Medical History: The patient does not know of any family history of premature coronary artery disease. Allergies and Home Medications Allergies Coded Allergies: cephalexin (Unverified Allergy, Mild, Angioedema, 10/14/20) Ckflbrt-HOS-FkB Reductase Inhibitor (Verified Allergy, Unknown, 10/14/20) tramadol (Unverified Adverse Reaction, Intermediate, 08/16/11) medication caused pt to experience hypertensive episodes Patient Home Medication List Alprazolam (Xanax) 0.5 Mg Tablet, 0.5 MG PO HS, (Reported) Entered as Reported by: KINGSLEY FREEMAN on 05/05/19 0853 Aspirin (Aspirin 81 Mg Chew Tab) 81 Mg Chew, 81 MG PO DAILY, (Reported) Entered as Reported by: ANAHY RANDOLPH on 03/05/09 2336 Furosemide (Furosemide) 40 Mg Tablet, 40 MG PO DAILY, (Reported) Entered as Reported by: KINGSLEY FREEMAN on 05/05/19 0853 Glimepiride (Glimepiride) 2 Mg Tablet, 2 MG PO DAILY, (Reported) Entered as Reported by: KINGSLEY FREEMAN on 05/05/19 0853 Lisinopril (Zestril) 10 Mg Tablet, 5 MG PO BID, (Reported) Entered as Reported by: ANAHY RANDOLPH on 04/13/11 1933 Metoprolol Succinate (Metoprolol Succinate) 25 Mg Tab.er.24h, 25 MG PO DAILY, (Reported) Entered as Reported by: KINGSLEY FREEMAN on 05/05/19 0853 Pantoprazole Sodium (Protonix) 40 Mg Tablet.dr, 40 MG PO DAILY, (Reported) Entered as Reported by: UMM REZA on 10/21/12 1700 Physical Exam-Cardiology Physical Exam Vital Signs/I&O 02/27/21 02/27/21 02/27/21 02/27/21 21:00 21:58 22:00 23:00 Pulse 63 75 65 Resp 20 31 16 B/P (MAP) 94/58 104/51 86/32 Pulse Ox 94 97 93 O2 Delivery Room Air Room Air Room Air Room Air 02/28/21 02/28/21 02/28/21 02/28/21 00:00 00:00 00:00 01:00 Temp 36.8 Pulse 63 80 Resp 12 B/P (MAP) 100/43 Pulse Ox 93 O2 Delivery Room Air Room Air 02/28/21 02/28/21 02/28/21 02/28/21 01:00 02:00 03:00 04:00 Pulse 59 61 62 61 Resp 16 10 25 15 B/P (MAP) 118/69 109/63 109/55 96/43 Pulse Ox 99 98 99 90 O2 Delivery Room Air Room Air Room Air Room Air 02/28/21 02/28/21 02/28/21 02/28/21 04:00 05:00 06:00 07:45 Temp 36.6 Pulse 63 75 Resp 11 21 B/P (MAP) 118/66 113/56 Pulse Ox 99 97 O2 Delivery Room Air Room Air Room Air 02/28/21 00:00 Intake Total 2322 ml Output Total 300 ml Balance 2022 ml Capillary Refill : Less Than 3 Seconds Constitutional: AAO x 3, well-developed, well-nourished HEENT: hearing is well preserved, oral hygience is good Neck: No carotid bruit; carotid pulses are 2 + bilaterally Respiratory: No accessory muscle use, No respiratory distress; chest expansion is symmetric, chest is bilaterally symmetric, rhonchi (scattered), other (prolonged expiratory phase) Cardiovascular: regular rate-rhythm; No JVD; S1 and S2 Gastrointestinal: audible bowel sounds Extremities: no lower extremity edema bilateral Neurologic/Psychiatric: grossly intact (moves all extremities) Data Review Labs Laboratory Tests 02/27/21 14:30: White Blood Count 5.0, Red Blood Count 3.10L, Hemoglobin 10.9L, Hematocrit 32L, Mean Corpuscular Volume 102H, Mean Corpuscular Hemoglobin 35H, Mean Corpuscular Hemoglobin Concent 35, Red Cell Distribution Width 15.4H, Platelet Count 92L, Mean Platelet Volume 11.4, Immature Granulocyte % (Auto) 0, Neutrophils (%) (Auto) 81H, Lymphocytes (%) (Auto) 13, Monocytes (%) (Auto) 4, Eosinophils (%) (Auto) 1, Basophils (%) (Auto) 0, Neutrophils # (Auto) 4.1, Lymphocytes # (Auto) 0.7L, Monocytes # (Auto) 0.2, Eosinophils # (Auto) 0.1, Basophils # (Auto) 0.0, Immature Granulocyte # (Auto) 0.0, Prothrombin Time 13.0, INR Comment 0.9, Activated Partial Thromboplast Time 25, D-Dimer 1.66H, Sodium Level 138, Potassium Level 4.5, Chloride Level 101, Carbon Dioxide Level 27, Anion Gap 10, Blood Urea Nitrogen 26H, Creatinine 1.42H, Estimat Glomerular Filtration Rate 49, BUN/Creatinine Ratio 18, Glucose Level 134H, Calcium Level 9.6, Corrected Calcium 9.8, Magnesium Level 1.4L, Total Bilirubin 0.8, Aspartate Amino Transf (AST/SGOT) 18, Alanine Aminotransferase (ALT/SGPT) 21, Alkaline Phosphatase 66, Myoglobin 93.8H, Troponin I 0.029H, B-Type Natriuretic Peptide 199.5H, Total Protein 6.4, Albumin 3.8, Lipase 30 02/27/21 18:53: Troponin I < 0.028, Lactic Acid Level 0.71 02/27/21 22:09: Urine Color YELLOW, Urine Clarity CLEAR, Urine pH 5.5, Urine Specific [place] 1.020, Urine Protein NEGATIVE, Urine Glucose (UA) NEGATIVE, Urine Ketones NEGATIVE, Urine Nitrite NEGATIVE, Urine Bilirubin NEGATIVE, Urine Urobilinogen 0.2, Urine Leukocyte Esterase NEGATIVE, Urine RBC (Auto) NEGATIVE, Urine RBC NONE, Urine WBC 2-5, Urine Crystals NONE, Urine Bacteria FEWH, Urine Casts PRESENT, Urine Hyaline Casts 5-10H, Urine Granular Casts 0-2H, Urine Mucus LARGEH, Urine Culture Indicated YES 02/28/21 04:21: White Blood Count 2.4L, Red Blood Count 2.63L, Hemoglobin 9.1#L, Hematocrit 27L, Mean Corpuscular Volume 102H, Mean Corpuscular Hemoglobin 35H, Mean Corpuscular Hemoglobin Concent 34, Red Cell Distribution Width 15.0H, Platelet Count 60L, Mean Platelet Volume 11.6, Immature Granulocyte % (Auto) 0, Neutrophils (%) (Auto) 58, Lymphocytes (%) (Auto) 30, Monocytes (%) (Auto) 8, Eosinophils (%) (Auto) 2, Basophils (%) (Auto) 1, Neutrophils # (Auto) 1.4L, Lymphocytes # (Auto) 0.7L, Monocytes # (Auto) 0.2, Eosinophils # (Auto) 0.1, Basophils # (Auto) 0.0, Immature Granulocyte # (Auto) 0.0, Sodium Level 137, Potassium Level 4.4, Chloride Level 106, Carbon Dioxide Level 21, Anion Gap 10, Blood Urea Nitrogen 27H, Creatinine 1.00, Estimat Glomerular Filtration Rate 74, BUN/Creatinine Ratio 27, Glucose Level 82, Calcium Level 8.3L, Corrected Calcium 9.0, Total Bilirubin 0.6, Aspartate Amino Transf (AST/SGOT) 17, Alanine Aminotransferase (ALT/SGPT) 16, Alkaline Phosphatase 56, Total Protein 5.2L, Albumin 3.1L, Percent Immature Platelet Fraction 4.6, Triglycerides Level 93, Cholesterol Level 127, LDL Cholesterol Direct 80, VLDL Cholesterol 19, HDL Cholesterol 38L Radiology NAME: NICOLETTE CAREY MED REC#: [id number] PT STATUS: REG ER : 1950 PHYSICIAN: LUIS FREGOSO MD ADMIT DATE: 02/27/21/ER Draft Date of Exam:02/27/21 CHEST 1 VIEW, AP/PA ONLY INDICATION: Chest pain. COMPARISON: CT chest dated 11/23/2020. FINDINGS: A single frontal view of the chest demonstrates normal heart size and pulmonary vascularity. Evaluation of the lung edward demonstrates a 2.4 cm subtle nodular opacity within the right upper lung. This is felt to correspond to the soft tissue nodule seen on the previous CT. Otherwise, the lungs are clear. There is no large effusion or pneumothorax. Sternotomy wires are noted. IMPRESSION: 1. Redemonstration of a nodular lesion in the right upper lobe. 2. No evidence of failure or focal infiltrate. Dictated on workstation # [id number] Dict: 02/27/21 1525 Trans: 02/27/21 1528 [id number] Interpreted by: CATHY SANABRIA MD Electronically signed by: ECG Impression ECG Comment SR with LBBB and PAC's A/P-Cardiology Assessment/Admission Diagnosis Hypotension - etiology unclear - consider sepsis Minimal troponin elevation - likely Type 2 SC secondary to hypotension CAD - Coronary artery disease with a history of coronary artery bypass surgery. He has left internal mammary to left anterior descending placed several years ago. 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 The distal vessel is protected by a patent left internal mammary artery graft, but there was 80% stenosis distal to the insertion of the graft to which successful balloon angioplasty was carried out with reduction of stenosis to 30% . More distally, the vessel bifurcates and the smaller limb has severe disease, but is not amenable to intervention on account of small vessel caliber. Long patent stented segment in the main obtuse marginal branch of the left circumflex. These stents are known to be Taxus 3.0 x 20 and 3.0 x 32 mm stents. Dominant right coronary with a patent stented segment in the proximal portion. This is known to be Promus element 2.75 x 20 mm stent. Impairment of global left ventricular systolic function with anterolateral hypokinesis and left ventricular ejection fraction of approximately 40%. Mild elevation of left ventricular end-diastolic pressure Ischemic cardiomyopathy. - No evidence of decompensated CHF. NYHA class I - Echocardiogram of Mar 16, 2019 showed LVEF 25-30%. Akinesis of the anteroseptal myocardium and apical myocardium. LA mod dilated. Trivial MR. RVSP 28 mmHg - MUGA scan of April 03, 2019 shows LVEF 24%; anteroseptal akinesis - Refuses defib implant; aware of the implications of his decision DM II - followed by PCP CKD stage 3 Hyperlipidemia - Intolerance to statins on account of muscle cramps. - He also reports nonspecific intolerance to fibrates but does not recall the symptoms. - Followed by Dr. Steiner H/O tobaccoism: - Quit smoking in Feb 2009. - Advised to continue to refrain from smoking Gastroesophageal reflux. -managed by PCP Hypertension - under good control. History of mild intermittent anxiety - currently stable. Carotid dz: - History of carotid artery disease, reportedly mild, being followed by Dr. Smith office. Reports considerable bruising on dual antiplatelet therapy. Chronic intermittent LBBB Lung cancer (adenoCA) with mets - managed by Cancer center Discussion and Recomendations Hypotension etiology unclear - consider sepsis Hold all antihypertensives Continue ASA Monitor lab Replace electrolytes - hypomag at this time Echocardiogram Further recs will be based on his hospital course We would like to thank medical services for this consult SAFIA ESCOBAR Feb 27, 2021 16:07
--- NOTE | 2021-02-27 16:53 | Consultation-Cardiology ---
HPI-Cardiology Cardiology Consultation: Date of Consultation 02/27/21 Time Seen by a Provider: 16:25 Date of Admission Attending Physician Admitting Physician Jada Steiner MD Consulting Physician MARY SIMS MD, MA, FACP, FACC, [facility], [facility] HPI: Chief Complaint: Reason for Cardiology consultation: Mildly elevated troponin, hypotension Mr. Hoffman is a 70 yr old male being admitted from the ED with hypotension. He reports he was sitting in his chair at home when he had a sudden onset of dizziness. He reports he felt as though he may "pass out", but did not. He reports he developed pressure across his chest which lasted for approx 10 minutes. No assoc symptoms. He reports the discomfort eased up gradually on its own and has since resolved. He reports feeling tired and weak. No c/o palpitations. He has chronic mild to mod SOB with occ productive cough. This is unchanged. No c/o fever or chills. No c/o LE swelling. No c/o n/v/d. He is currently sitting up on the side of the bed and feels ok, other than being tired. He reports his took his BP at home and noted it to be 50 systolic. He reports his last chemo dose was a a week ago. He reports he has had multiple changes in his antihypertensive regimen recently. Review of Systems-Cardiology Review of Systems Constitutional: No chills, No fever; lightheadedness, malaise Eyes: No vision change Ears/Nose/Throat: No epistaxis, No recent hearing loss Respiratory: As described under HPI Cardiovascular: As described under HPI Gastrointestinal: As described under HPI Genitourinary: No dysuria, No hematuria Musculoskeletal: no symptoms reported Skin: No rash on exposed areas, No ulcerations on exposed areas Psychiatric/Neurological: No anxiety, No depression, No seizure, No focal weakness, No syncope Hematologic: No bleeding abnormalities XLS-Esenam-Lvthei Hx Patient Social History Smoking Status: Former Smoker Have you traveled recently?: No Alcohol Use?: No Immunizations Up To Date Tetanus Booster (TDap): Unknown Date of Pneumonia Vaccine: Apr 03, 2018 Date of Influenza Vaccine: Nov 18, 2017 Past Medical History PMH As described under Assessment. Family Medical History Family Medical History: The patient does not know of any family history of premature coronary artery disease. Allergies and Home Medications Allergies Coded Allergies: cephalexin (Unverified Allergy, Mild, Angioedema, 10/14/20) Pmwudft-KMF-EjB Reductase Inhibitor (Verified Allergy, Unknown, 10/14/20) tramadol (Unverified Adverse Reaction, Intermediate, 08/16/11) medication caused pt to experience hypertensive episodes Patient Home Medication List Home Medication List Reviewed: Yes Alprazolam (Xanax) 0.5 Mg Tablet, 0.5 MG PO HS, (Reported) Entered as Reported by: KINGSLEY FREEMAN on 05/05/19 0853 Aspirin (Aspirin 81 Mg Chew Tab) 81 Mg Chew, 81 MG PO DAILY, (Reported) Entered as Reported by: ANAHY RANDOLPH on 03/05/09 2336 Furosemide (Furosemide) 40 Mg Tablet, 40 MG PO DAILY, (Reported) Entered as Reported by: KINGSLEY FREEMAN on 05/05/19 0853 Glimepiride (Glimepiride) 2 Mg Tablet, 2 MG PO DAILY, (Reported) Entered as Reported by: KINGSLEY FREEMAN on 05/05/19 0853 Lisinopril (Zestril) 10 Mg Tablet, 5 MG PO BID, (Reported) Entered as Reported by: ANAHY RANDOLPH on 04/13/11 1933 Metoprolol Succinate (Metoprolol Succinate) 25 Mg Tab.er.24h, 25 MG PO DAILY, (Reported) Entered as Reported by: KINGSLEY FREEMAN on 05/05/19 0853 Pantoprazole Sodium (Protonix) 40 Mg Tablet.dr, 40 MG PO DAILY, (Reported) Entered as Reported by: UMM REZA on 10/21/12 1700 Physical Exam-Cardiology Physical Exam Vital Signs/I&O 02/27/21 02/27/21 14:18 15:12 Temp 36.0 Pulse 88 77 83 91 Resp 20 B/P (MAP) 79/66 (70) 86/60 (69) 85/55 (65) 74/55 (61) Pulse Ox 97 O2 Delivery Room Air Capillary Refill : Less Than 3 Seconds Constitutional: AAO x 3, well-developed, well-nourished HEENT: hearing is well preserved, oral hygience is good Neck: No carotid bruit; carotid pulses are 2 + bilaterally Respiratory: No accessory muscle use, No respiratory distress; chest expansion is symmetric, chest is bilaterally symmetric, rhonchi (scattered), other (prolonged expiratory phase) Cardiovascular: regular rate-rhythm; No JVD; S1 and S2 Gastrointestinal: audible bowel sounds Extremities: no lower extremity edema bilateral Neurologic/Psychiatric: grossly intact (moves all extremities) Data Review Labs Laboratory Tests 02/27/21 14:30: White Blood Count 5.0, Red Blood Count 3.10L, Hemoglobin 10.9L, Hematocrit 32L, Mean Corpuscular Volume 102H, Mean Corpuscular Hemoglobin 35H, Mean Corpuscular Hemoglobin Concent 35, Red Cell Distribution Width 15.4H, Platelet Count 92L, Mean Platelet Volume 11.4, Immature Granulocyte % (Auto) 0, Neutrophils (%) (Auto) 81H, Lymphocytes (%) (Auto) 13, Monocytes (%) (Auto) 4, Eosinophils (%) (Auto) 1, Basophils (%) (Auto) 0, Neutrophils # (Auto) 4.1, Lymphocytes # (Auto) 0.7L, Monocytes # (Auto) 0.2, Eosinophils # (Auto) 0.1, Basophils # (Auto) 0.0, Immature Granulocyte # (Auto) 0.0, Prothrombin Time 13.0, INR Comment 0.9, Activated Partial Thromboplast Time 25, D-Dimer 1.66H, Sodium Level 138, Potassium Level 4.5, Chloride Level 101, Carbon Dioxide Level 27, Anion Gap 10, Blood Urea Nitrogen 26H, Creatinine 1.42H, Estimat Glomerular Filtration Rate 49, BUN/Creatinine Ratio 18, Glucose Level 134H, Calcium Level 9.6, Corrected Calcium 9.8, Magnesium Level 1.4L, Total Bilirubin 0.8, Aspartate Amino Transf (AST/SGOT) 18, Alanine Aminotransferase (ALT/SGPT) 21, Alkaline Phosphatase 66, Myoglobin 93.8H, Troponin I 0.029H, B-Type Natriuretic Peptide 199.5H, Total Protein 6.4, Albumin 3.8, Lipase 30 A/P-Cardiology Assessment/Admission Diagnosis Hypotension - etiology unclear - consider sepsis Minimal troponin elevation - likely Type 2 TN secondary to hypotension CAD - Coronary artery disease with a history of coronary artery bypass surgery. He has left internal mammary to left anterior descending placed several years ago. - MPI of 07/05/15 showed LVEF 23%, global hypo, more marked in the anteroapical wall - Card cath of April 2019 Mid vessel occlusion of the left anterior descen ding. The distal vessel is protected by a patent left internal mammary artery graft, but there was 80% stenosis distal to the insertion of the graft to which successful balloon angioplasty was carried out with reduction of stenosis to 30% . More distally, the vessel bifurcates and the smaller limb has severe disease, but is not amenable to intervention on account of small vessel caliber. Long patent stented segment in the main obtuse marginal branch of the left circumflex. These stents are known to be Taxus 3.0 x 20 and 3.0 x 32 mm stents. Dominant right coronary with a patent stented segment in the proximal portion. This is known to be Promus element 2.75 x 20 mm stent. Impairment of global left ventricular systolic function with anterolateral hypokinesis and left ventricular ejection fraction of approximately 40%. Mild elevation of left ventricular end-diastolic pressure Ischemic cardiomyopathy. - No evidence of decompensated CHF. NYHA class I - Echocardiogram of Mar 16, 2019 showed LVEF 25-30%. Akinesis of the anteroseptal myocardium and apical myocardium. LA mod dilated. Trivial MR. RVSP 28 mmHg - MUGA scan of April 03, 2019 shows LVEF 24%; anteroseptal akinesis - Refuses defib implant; aware of the implications of his decision DM II - followed by PCP CKD stage 3 Hyperlipidemia - Intolerance to statins on account of muscle cramps. - He also reports nonspecific intolerance to fibrates but does not recall the symptoms. - Followed by Dr. Steiner H/O tobaccoism: - Quit smoking in Feb 2009. - Advised to continue to refrain from smoking Gastroesophageal reflux. -managed by PCP History of mild intermittent anxiety - currently stable. Carotid dz: - History of carotid artery disease, reportedly mild, being followed by Dr. Smith office. Reports considerable bruising on dual antiplatelet therapy. Chronic intermittent LBBB Lung cancer (adenoCA) with mets - managed by Cancer center Discussion and Recomendations Hypotension etiology unclear - consider sepsis Hold all antihypertensives Continue ASA Monitor lab Replace electrolytes - hypomag at this time Echocardiogram Further recs will be based on his hospital course We would like to thank Medical services for this consult MARY SIMS MD FACP [facility] Feb 27, 2021 16:53
[2021-02-27] MEDS ORDERED: ONDANSETRON 4 MG (ZOFRAN) ORAL DISSOLVE TAB PO PRN (17:45)
[2021-02-27] MEDS ORDERED: ALPRAZolam 0.25 MG (XANAX) TAB PO PRN (17:45)
[2021-02-27] MEDS ORDERED: ACETAMINOPHEN 500 MG TAB (TYLENOL) PO PRN (17:45)
[2021-02-27] MEDS ORDERED: DOCUSATE SODIUM 100 MG (COLACE) CAP PO PRN (17:45)
[2021-02-27] MEDS ORDERED: diphenhydrAMINE 25 MG TAB (BENADRYL) PO PRN (17:45)
[2021-02-27] MEDS ORDERED: CALCIUM CARBONATE 500 MG (TUMS) TAB.CHEW PO PRN (17:45)
[2021-02-27] MEDS ORDERED: MELATONIN 3 MG TABLET PO PRN (17:45)
[2021-02-27] MEDS ORDERED: HYDROcodone/APAP 5 MG/325 MG (LORTAB) TAB PO PRN (17:45)
[2021-02-27] MEDS: SENNA W/DOCUSATE (SENOKOT S) TABLET PO SCH (17:58)
[2021-02-27] MEDS: polyethylene glycoL POWDER 17 GM (MIRALAX) PACK PO SCH (17:58)
[2021-02-27] MEDS ORDERED: ACETAMINOPHEN 325 MG TABLET PO PRN (18:00)
[2021-02-27] MEDS ORDERED: ENOXAPARIN 40 MG/0.4 ML (LOVENOX) SYR SC SCH (18:00)
[2021-02-27] MEDS: NS IV 1000 ML 1,000 ML IV SCH (18:03)
[2021-02-27 18:22] VITALS: BP 79/66
[2021-02-27] MEDS ORDERED: RT-ALBUTEROL/IPRATROPIUM 3 ML (DUONEB) VIAL INH PRN (18:30)
--- NOTE | 2021-02-27 20:56 | History & Physical-Hospitalist ---
History of Present Illness HPI/Chief Complaint Chief complaint: Chest pain with hypotension History present illness: This is a 70-year-old white male with history of bypass surgery and lung cancer undergoing chemotherapy most recent session was last week by Dr. Pickering who presented to the ER with abrupt onset of chest pain after a very heated phone conversation with the dealership about something wrong with his car. His is at the bedside. He is a former smoker. He was found to be hypotensive requiring aggressive IV fluid. Dr. 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 He was placed in the ICU and given IV fluid resuscitation. Source: patient, family Exam Limitations: no limitations Date Seen 02/27/21 Time Seen by a Provider: 19:00 Attending Physician Yuliana Sunshine Lisa A MD Referring Physician Date of Admission Feb 27, 2021 at 16:32 Home Medications & Allergies Home Medications Reviewed patient Home Medication Reconciliation performed by pharmacy medication reconciliations integration technician and/or nursing. Patients Allergies have been reviewed. 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) Tobacco Use?: No Tobacco type used: Cigarettes Smoking Status: Former Smoker Use of E-Cig and/or Vaping dev: No Substance use?: No Alcohol Use?: No Pt feels they are or have been: No Immunizations Up To Date Date of Influenza Vaccine: Nov 18, 2017 First/Initial COVID19 Vaccinat: 2020 Second COVID19 Vaccination Lyle: 2020 Tetanus Booster (TDap): Unknown Date of Pneumonia Vaccine: Apr 03, 2018 Current Status Advance Directives: No Communicates: Verbally Primary Language: Montserratian Preferred Spoken Language: Montserratian Is interpretation needed?: No Implanted or Applied Medical D: Stents Past Medical History Surgeries: CABG, Coronary Stent, Gallbladder COPD Coronary Artery Disease Kidney Stones Hemorrhoids, Gall Bladder Disease Rheumatoid Arthritis Diabetes, Non-Insulin dep Blood Disorders: No Family Medical History No Pertinent Family Hx Review of Systems Constitutional: see HPI EENTM: no symptoms reported Respiratory: no symptoms reported Cardiovascular: chest pain Gastrointestinal: no symptoms reported Genitourinary: decreased output Musculoskeletal: no symptoms reported Skin: no symptoms reported Psychiatric/Neurological: No Symptoms Reported All Other Systems Reviewed Negative Unless Noted: Yes Physical Exam Physical Exam Vital Signs Vital Signs - First Documented 02/27/21 02/27/21 14:18 18:22 Temp 36.0 Pulse 88 Resp 20 B/P (MAP) 79/66 (70) Pulse Ox 97 O2 Delivery Room Air FiO2 21 Capillary Refill : Less Than 3 Seconds Height, Weight, BMI Height: 6'0.00" Weight: 233lbs. 0oz. 105.248467zy; 27.08 BMI Method:Stated General Appearance: Anxious, Chronically ill, Obese Eyes: Right Eye Normal Inspection, Right Eye PERRL HEENT: PERRL/EOMI, Normal ENT Inspection, Pharynx Normal, Moist Mucous Me mbranes Neck: Full Range of Motion, Normal Inspection, Non Tender Respiratory: Chest Non Tender, Lungs Clear, Normal Breath Sounds, No Accessory Muscle Use, No Respiratory Distress Cardiovascular: Regular Rate, Rhythm, No Edema, No Gallop, No JVD, No Murmur, Normal Peripheral Pulses Gastrointestinal: Normal Bowel Sounds, No Organomegaly, No Pulsatile Mass, Non Tender, Soft Back: Normal Inspection, No CVA Tenderness, No Vertebral Tenderness Extremity: Normal Capillary Refill, Normal Inspection, Normal Range of Motion, Non Tender, No Calf Tenderness, No Pedal Edema Neurologic/Psychiatric: Alert, Oriented x3, No Motor/Sensory Deficits, Normal Mood/Affect Skin: Normal Color, Warm/Dry Lymphatic: No Adenopathy Results Results/Procedures Labs Laboratory Tests 02/27/21 14:30 02/28/21 04:21 Patient resulted labs reviewed. Assessment/Plan Admission Diagnosis Assessment: Chest pain Hypertension Plan depletion Lung cancer on chemotherapy most recent session last week Acute kidney injury CABG Pretension COPD Former smoker Plan: ICU admission Cardiology consult IV fluids Admission Status: Observation Diagnosis/Problems Diagnosis/Problems (1) Chest pain Status: Acute Qualifiers: Chest pain type: unspecified Qualified Codes: R07.9 - Chest pain, unspecified (2) Hypotension Status: Acute YULIANA SUNSHINE DO Feb 27, 2021 20:56
[2021-02-27] MEDS: inSUlin ASPART (NovoLOG) 1 UNIT/0.01 ML (CHARGE PER UNIT) SC SCH (21:01)
--- NOTE | 2021-02-27 21:27 | Tele-ICU Progress Note ---
Progress Note (Tele-ICU Physician , consultation) Available chart/ vitals / labs / Images reviewed H&P is from ER notes Patient's information available about PMH, Shx, Fhx allergy reviewed in EMR. ROS as per chart and RN report Video assessment done using teleICU camera, rest of exam as per RN Discussed with RN. Consultants: deisi Hospital course: 02/27 - presented with CP , hypotension A/P Hypotension, presyncope -dehydration suspected - cont IVF fluid , with CM will need carefully assess needs for pressors. Currently HD stable off pressors. Will monitor for recurrence of hypotension. -with h/o chemo - monitor for possible infection Elevated trop -Ischemic cardiomyopathy - LVEF 24% - card on consult Lung CA - chemo recently CKD- monitor DM II - ISS Focused Exam Lactate Level 02/27/21 18:53: Lactic Acid Level 0.71 Height, Weight, BMI Height: 6'0.00" Weight: 233lbs. 0oz. 105.099601pl; 27.08 BMI Method:Stated Lactic Acid Level Laboratory Tests Test 02/27/21 18:53 Lactic Acid Level 0.71 MMOL/L (0.50-2.00) ALFONZO MORENO MD Feb 27, 2021 21:27
[2021-02-27 22:24] LABS: BILIRUBIN,URINE NEGATIVE (NEGATIVE); CLARITY,URINE CLEAR; COLOR,URINE YELLOW; GLUCOSE, URINE (UA) NEGATIVE (NEGATIVE); KETONES,URINE NEGATIVE (NEGATIVE); LEUKOCYTE ESTERASE ,URINE NEGATIVE (NEGATIVE); NITRITE,URINE NEGATIVE (NEGATIVE); PH,URINE 5.5 (5-9); PROTEIN,URINE NEGATIVE (NEGATIVE)
[2021-02-27 22:39] LABS: BACTERIA,URINE FEW /HPF; GRANULAR CASTS,URINE 0-2 /LPF
[2021-02-28] MEDS: NS IV 1000 ML 1,000 ML IV SCH (02:01)
[2021-02-28 04:36] LABS: MEAN CORPUSCULAR VOLUME 102 fL (80-99)
[2021-02-28 04:38] LABS: BASOPHILS % (AUTO) 1 % (0-10); EOSINOPHILS # (AUTO) 0.1 10^3/uL (0.0-0.3); EOSINOPHILS % (AUTO) 2 % (0-10); HEMATOCRIT 27 % (40-54); HEMOGLOBIN 9.1 g/dL (13.3-17.7); LYMPHOCYTES # (AUTO) 0.7 10^3/uL (1.0-4.0); LYMPHOCYTES % (AUTO) 30 % (12-44); MEAN CORPUSCULAR HEMOGLOBIN 35 pg (25-34); MEAN CORPUSCULAR HGB CONC 34 g/dL (32-36); MEAN PLATELET VOLUME 11.6 fL (9.0-12.2); MONOCYTES # (AUTO) 0.2 10^3/uL (0.0-1.0); MONOCYTES % (AUTO) 8 % (0-12); NEUTROPHILS # (AUTO) 1.4 10^3/uL (1.8-7.8); NEUTROPHILS % (AUTO) 58 % (42-75); PLATELET COUNT 60 10^3/uL (130-400); WHITE BLOOD COUNT 2.4 10^3/uL (4.3-11.0)
[2021-02-28 04:52] LABS: ALBUMIN 3.1 GM/DL (3.2-4.5); POTASSIUM 4.4 MMOL/L (3.6-5.0)
[2021-02-28 04:54] LABS: CALCIUM 8.3 MG/DL (8.5-10.1)
[2021-02-28 04:55] LABS: TOTAL PROTEIN 5.2 GM/DL (6.4-8.2)
[2021-02-28 04:57] LABS: BILIRUBIN,TOTAL 0.6 MG/DL (0.1-1.0)
[2021-02-28] MEDS: inSUlin ASPART (NovoLOG) 1 UNIT/0.01 ML (CHARGE PER UNIT) SC SCH ×2 (06:20→11:53)
[2021-02-28] MEDS: SENNA W/DOCUSATE (SENOKOT S) TABLET PO SCH (08:35)
[2021-02-28] MEDS: polyethylene glycoL POWDER 17 GM (MIRALAX) PACK PO SCH (08:35)
[2021-02-28] MEDS ORDERED: FOLI1TAB33 PO (08:57)
[2021-02-28] MEDS ORDERED: DEXA4TAB PO (08:57)
[2021-02-28] MEDS ORDERED: LISI5TAB20 PO (08:57)
[2021-02-28] MEDS ORDERED: ALPR0.5T7 PO (08:57)
[2021-02-28] MEDS ORDERED: MGX400T PO (08:57)
[2021-02-28] MEDS ORDERED: PANT40TA52 PO (08:57)
[2021-02-28] MEDS ORDERED: ASPI-1238 PO (08:57)
[2021-02-28] MEDS ORDERED: ASPIRIN 81 MG CHEW (CHILDREN'S ASA) PO SCH (09:00)
[2021-02-28] MEDS ORDERED: FOLIC ACID 1 MG TAB PO SCH (09:37)
[2021-02-28] MEDS ORDERED: PANTOPRAZOLE 40 MG (PROTONIX) TAB PO SCH (09:38)
--- NOTE | 2021-02-28 09:42 | Progress Note - Cardiology ---
Cardiology SOAP Progress Note Subjective: Sitting up in bed States he feels much better today No c/o CP, palpitations, syncope or near syncope Objective: I&O/Vital Signs 02/27/21 02/27/21 02/27/21 02/28/21 21:58 22:00 23:00 00:00 Temp 36.8 Pulse 75 65 Resp 31 16 B/P (MAP) 104/51 86/32 Pulse Ox 97 93 O2 Delivery Room Air Room Air Room Air 02/28/21 02/28/21 02/28/21 02/28/21 00:00 00:00 01:00 01:00 Pulse 63 80 59 Resp 12 16 B/P (MAP) 100/43 118/69 Pulse Ox 93 99 O2 Delivery Room Air Room Air Room Air 02/28/21 02/28/21 02/28/21 02/28/21 02:00 03:00 04:00 04:00 Pulse 61 62 61 Resp 10 25 15 B/P (MAP) 109/63 109/55 96/43 Pulse Ox 98 99 90 O2 Delivery Room Air Room Air Room Air Room Air 02/28/21 02/28/21 02/28/21 02/28/21 05:00 06:00 07:45 08:00 Temp 36.6 Pulse 63 75 Resp 11 21 B/P (MAP) 118/66 113/56 Pulse Ox 99 97 O2 Delivery Room Air Room Air Room Air 02/28/21 00:00 Intake Total 2322 ml Output Total 300 ml Balance 2022 ml Weight (Pounds): 233 Weight (Ounces): 0 Weight (Calculated Kilograms): 105.050380 Constitutional: AAO x 3, well-developed, well-nourished Respiratory: No accessory muscle use, No respiratory distress; chest expansion is symmetric, chest is bilaterally symmetric, rhonchi (scattered), other (prolonged expiratory phase) Cardiovascular: regular rate-rhythm; No JVD; S1 and S2 Gastrointestional: audible bowel sounds Extremities: no lower extremity edema bilateral Neurologic/Psychiatric: grossly intact (moves all extremities) Results/Procedures: Labs Laboratory Tests 02/27/21 14:30: White Blood Count 5.0, Red Blood Count 3.10L, Hemoglobin 10.9L, Hematocrit 32L, Mean Corpuscular Volume 102H, Mean Corpuscular Hemoglobin 35H, Mean Corpuscular Hemoglobin Concent 35, Red Cell Distribution Width 15.4H, Platelet Count 92L, Mean Platelet Volume 11.4, Immature Granulocyte % (Auto) 0, Neutrophils (%) (Auto) 81H, Lymphocytes (%) (Auto) 13, Monocytes (%) (Auto) 4, Eosinophils (%) (Auto) 1, Basophils (%) (Auto) 0, Neutrophils # (Auto) 4.1, Lymphocytes # (Auto) 0.7L, Monocytes # (Auto) 0.2, Eosinophils # (Auto) 0.1, Basophils # (Auto) 0.0, Immature Granulocyte # (Auto) 0.0, Prothrombin Time 13.0, INR Comment 0.9, Activated Partial Thromboplast Time 25, D-Dimer 1.66H, Sodium Level 138, Potassium Level 4.5, Chloride Level 101, Carbon Dioxide Level 27, Anion Gap 10, Blood Urea Nitrogen 26H, Creatinine 1.42H, Estimat Glomerular Filtration Rate 49, BUN/Creatinine Ratio 18, Glucose Level 134H, Calcium Level 9.6, Corrected Calcium 9.8, Magnesium Level 1.4L, Total Bilirubin 0.8, Aspartate Amino Transf (AST/SGOT) 18, Alanine Aminotransferase (ALT/SGPT) 21, Alkaline Phosphatase 66, Myoglobin 93.8H, Troponin I 0.029H, B-Type Natriuretic Peptide 199.5H, Total Protein 6.4, Albumin 3.8, Lipase 30 02/27/21 18:53: Troponin I < 0.028, Lactic Acid Level 0.71 02/27/21 22:09: Urine Color YELLOW, Urine Clarity CLEAR, Urine pH 5.5, Urine Specific [place] 1.020, Urine Protein NEGATIVE, Urine Glucose (UA) NEGATIVE, Urine Ketones NEGATIVE, Urine Nitrite NEGATIVE, Urine Bilirubin NEGATIVE, Urine Urobilinogen 0.2, Urine Leukocyte Esterase NEGATIVE, Urine RBC (Auto) NEGATIVE, Urine RBC NONE, Urine WBC 2-5, Urine Crystals NONE, Urine Bacteria FEWH, Urine Casts PRESENT, Urine Hyaline Casts 5-10H, Urine Granular Casts 0-2H, Urine Mucus LARGEH, Urine Culture Indicated YES 02/28/21 04:21: White Blood Count 2.4L, Red Blood Count 2.63L, Hemoglobin 9.1#L, Hematocrit 27L, Mean Corpuscular Volume 102H, Mean Corpuscular Hemoglobin 35H, Mean Corpuscular Hemoglobin Concent 34, Red Cell Distribution Width 15.0H, Platelet Count 60L, Mean Platelet Volume 11.6, Immature Granulocyte % (Auto) 0, Neutrophils (%) (Au to) 58, Lymphocytes (%) (Auto) 30, Monocytes (%) (Auto) 8, Eosinophils (%) (Auto) 2, Basophils (%) (Auto) 1, Neutrophils # (Auto) 1.4L, Lymphocytes # (Auto) 0.7L, Monocytes # (Auto) 0.2, Eosinophils # (Auto) 0.1, Basophils # (Auto) 0.0, Immature Granulocyte # (Auto) 0.0, Sodium Level 137, Potassium Level 4.4, Chloride Level 106, Carbon Dioxide Level 21, Anion Gap 10, Blood Urea Nitrogen 27H, Creatinine 1.00, Estimat Glomerular Filtration Rate 74, BUN/Creatinine Ratio 27, Glucose Level 82, Calcium Level 8.3L, Corrected Calcium 9.0, Total Bilirubin 0.6, Aspartate Amino Transf (AST/SGOT) 17, Alanine Aminotransferase (ALT/SGPT) 16, Alkaline Phosphatase 56, Total Protein 5.2L, Alb umin 3.1L, Percent Immature Platelet Fraction 4.6, Triglycerides Level 93, Cholesterol Level 127, LDL Cholesterol Direct 80, VLDL Cholesterol 19, HDL Cholesterol 38L Laboratory Tests 02/27/21 14:30 02/28/21 04:21 A/P: Assessment: Hypotension - etiology unclear - consider sepsis UTI - management per medical services Minimal troponin elevation - likely Type 2 [place] secondary to hypotension CAD - Coronary artery disease with a history of coronary artery bypass surgery. He has left internal mammary to left anterior descending placed several years ago. 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 The distal vessel is protected by a patent left internal mammary artery graft, but there was 80% stenosis distal to the insertion of the graft to which successful balloon angioplasty was carried out with reduction of stenosis to 30% . More distally, the vessel bifurcates and the smaller limb has severe disease, but is not amenable to intervention on account of small vessel caliber. Long patent stented segment in the main obtuse marginal branch of the left circumflex. These stents are known to be Taxus 3.0 x 20 and 3.0 x 32 mm stents. Dominant right coronary with a patent stented segment in the proximal portion. This is known to be Promus element 2.75 x 20 mm stent. Impairment of global left ventricular systolic function with anterolateral hypokinesis and left ventricular ejection fraction of approximately 40%. Mild elevation of left ventricular end-diastolic pressure Ischemic cardiomyopathy. - No evidence of decompensated CHF. NYHA class I - Echocardiogram of Mar 16, 2019 showed LVEF 25-30%. Akinesis of the anteroseptal myocardium and apical myocardium. LA mod dilated. Trivial MR. RVSP 28 mmHg - MUGA scan of April 03, 2019 shows LVEF 24%; anteroseptal akinesis - Refuses defib implant; aware of the implications of his decision DM II - followed by PCP CKD stage 3 Hyperlipidemia - Intolerance to statins on account of muscle cramps. - He also reports nonspecific intolerance to fibrates but does not recall the symptoms. - Followed by Dr. Steiner H/O tobaccoism: - Quit smoking in Feb 2009. - Advised to continue to refrain from smoking Gastroesophageal reflux. -managed by PCP History of mild intermittent anxiety - currently stable. Carotid dz: - History of carotid artery disease, reportedly mild, being followed by Dr. Smith office. Reports considerable bruising on dual antiplatelet therapy. Chronic intermittent LBBB Lung cancer (adenoCA) with mets - managed by Cancer center Plan: Hypotension etiology unclear - consider sepsis UTI - management per medical services Continue to hold all antihypertensives Continue ASA Monitor lab Replace electrolytes as indicated Echocardiogram today SAFIA ESCOBAR Feb 28, 2021 09:42
--- NOTE | 2021-02-28 12:17 | Progress Note - Hospitalist ---
JARON QUINTANA MED STUDENT 02/28/21 1217: Subjective HPI/CC On Admission Date Seen by Provider: Feb 28, 2021 Time Seen by Provider: 08:35 Chief complaint: Chest pain with hypotension History present illness: This is a 70-year-old white male with history of bypass surgery and lung cancer undergoing chemotherapy most recent session was last week by Dr. Pickering who presented to the ER with abrupt onset of chest pain after a very heated phone conversation with the dealership about something wrong with his car. His is at the bedside. He is a former smoker. He was found to be hypotensive requiring aggressive IV fluid. 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 He was placed in the ICU and given IV fluid resuscitation. Subjective/Events-last exam Mr. Hoffman is a 70 yo male with a hx of lung ca that was admitted to ICU yesterday from ER due to CP, BUNN, Photophobia, and presyncope that he was experiencing. He stated that he had been working on his car and had also gotten off a heated phone call with the car dealership and that is when he started to feel this way. He has had similar episodes in the past after he has gotten chemo treatments and his last one was last Saturday. His checked his blood pressure and reported it to be 50/30 He states that he does feel dehydrated. Cardiology has been consulted and plan to work him up and get an echo. In the meantime, he has his antihypertensives stopped and is taking ASA. This morning he reports that he is feeling much better and his not having any more symptoms and does has not had another episode. He has been eating without any difficulties, LBM was yesterday and he does not report and bowel/bladder problem s. Has not had PT but can walk around on his own. He does not have any concerns this morning. Review of Systems General: No Chills, No Night Sweats HEENT: No Head Aches, No Visual Changes, No Dysphasia Pulmonary: No Dyspnea, No Cough Cardiovascular: No: Chest Pain, Palpitations, Edema Gastrointestinal: No: Nausea, Vomiting, Abdominal Pain, Diarrhea, Constipation, Melena, Hematochezia Genitourinary: No Dysuria, No Frequency, No Hematuria Musculoskeletal: No: leg pain Neurological: No: Weakness, Numbness Focused Exam Lactate Level 02/27/21 18:53: Lactic Acid Level 0.71 Objective Exam Vital Signs Vital Signs Date Time Temp Pulse Resp B/P (MAP) Pulse Ox O2 Delivery O2 Flow Rate FiO2 02/28/21 11:48 36.2 66 20 125/65 99 Room Air 02/27/21 18:22 21 Capillary Refill : Less Than 3 Seconds General Appearance: No Apparent Distress, WD/WN HEENT: PERRL/EOMI, Moist Mucous Membranes Neck: Supple Respiratory: Chest Non Tender, Lungs Clear, Normal Breath Sounds, No Accessory Muscle Use, No Respiratory Distress Cardiovascular: Regular Rate, Rhythm, No Edema, No Murmur, Normal Peripheral Pulses Gastrointestinal: Normal Bowel Sounds, No Organomegaly, No Pulsatile Mass, Non Tender, Soft Rectal: Deferred Extremity: Normal Capillary Refill, Normal Inspection, Non Tender, No Calf Tenderness, No Pedal Edema Neurologic/Psychiatric: Alert, Oriented x3, Normal Mood/Affect Skin: Normal Color, Warm/Dry Results/Procedures Lab Laboratory Tests 02/27/21 14:30 02/28/21 04:21 Patient resulted labs reviewed. Assessment/Plan Assessment and Plan Assess & Plan/Chief Complaint Chest Pain Presyncope Hypertension -Had elevated troponin -Cardiology consulted -Holding his HTN meds and has echo scheduled -BP was 113/56 this morning LATONIA -Improved today -Creat 1 today from 1.42 -Continue to monitor, daily labs Thrombocytopenia Lung Ca -Likely low due to chemo -last chemo was about a week ago Pt was stable enough to move to 4th floor Supervisory-Addendum Brief Verification & Attestation Participated in pt care: history, physical Personally performed: exam Care discussed with: Medical Student Procedures: n/a n/a YULIANA SUNSHINE DO 03/01/21 0517: Subjective Subjective/Events-last exam See discharge summary Review of Systems General: Fatigue, Malaise Objective Exam General Appearance: No Apparent Distress, WD/WN, Anxious, Chronically ill Respiratory: Lungs Clear Cardiovascular: Regular Rate, Rhythm Assessment/Plan Assessment and Plan Assess & Plan/Chief Complaint Discharge home Supervisory-Addendum Brief Verification & Attestation Participated in pt care: history, MDM, physical Personally performed: exam, history, MDM, supervision of care Care discussed with: Medical Student Procedures: n/a Results interpretation: Verified all documentation Verification and Attestation of Medical Student E/M Service A medical student performed and documented this service in my presence. I reviewed and verified all information documented by the medical student and made modifications to such information, when appropriate. I personally performed the physical exam and medical decision making. Yuliana Sunshine, Mar 01, 2021,05:17 JARON QUINTANA MED STUDENT Feb 28, 2021 12:17 YULIANA SUNSHINE DO Mar 01, 2021 05:17
[2021-02-28] MEDS ORDERED: LISI2.5T13 PO (14:35)
--- NOTE | 2021-02-28 14:47 | Progress Note - Cardiology ---
Cardiology SOAP Progress Note Subjective: No cp or palp or syncope or shortness of breath No n/v/d Weakness has resolved. Wishes to go home Objective: I&O/Vital Signs 02/28/21 02/28/21 02/28/21 02/28/21 03:00 04:00 04:00 05:00 Pulse 62 61 63 Resp 25 15 11 B/P (MAP) 109/55 96/43 118/66 Pulse Ox 99 90 99 O2 Delivery Room Air Room Air Room Air Room Air 02/28/21 02/28/21 02/28/21 02/28/21 06:00 07:00 07:45 08:00 Temp 36.6 Pulse 75 64 Resp 21 B/P (MAP) 113/56 Pulse Ox 97 O2 Delivery Room Air Room Air 02/28/21 11:48 Temp 36.2 Pulse 66 Resp 20 B/P (MAP) 125/65 Pulse Ox 99 O2 Delivery Room Air 02/28/21 00:00 Intake Total 2322 ml Output Total 300 ml Balance 2022 ml Weight (Pounds): 233 Weight (Ounces): 0 Weight (Calculated Kilograms): 105.160195 Constitutional: AAO x 3, well-developed, well-nourished Respiratory: No accessory muscle use, No respiratory distress; chest expansion is symmetric, chest is bilaterally symmetric, rhonchi (scattered), other (prolonged expiratory phase) Cardiovascular: regular rate-rhythm; No JVD; S1 and S2 Gastrointestional: audible bowel sounds Extremities: no lower extremity edema bilateral Neurologic/Psychiatric: grossly intact (moves all extremities) Results/Procedures: Labs Laboratory Tests 02/27/21 18:53: Lactic Acid Level 0.71, Troponin I < 0.028 02/27/21 22:09: Urine Color YELLOW, Urine Clarity CLEAR, Urine pH 5.5, Urine Specific [place] 1.020, Urine Protein NEGATIVE, Urine Glucose (UA) NEGATIVE, Urine Ketones NEGATIVE, Urine Nitrite NEGATIVE, Urine Bilirubin NEGATIVE, Urine Urobilinogen 0.2, Urine Leukocyte Esterase NEGATIVE, Urine RBC (Auto) NEGATIVE, Urine RBC NONE, Urine WBC 2-5, Urine Crystals NONE, Urine Bacteria FEWH, Urine Casts PRESENT, Urine Hyaline Casts 5-10H, Urine Granular Casts 0-2H, Urine Mucus LARGEH, Urine Culture Indicated YES 02/28/21 04:21: White Blood Count 2.4L, Red Blood Count 2.63L, Hemoglobin 9.1#L, Hematocrit 27L, Mean Corpuscular Volume 102H, Mean Corpuscular Hemoglobin 35H, Mean Corpuscular Hemoglobin Concent 34, Red Cell Distribution Width 15.0H, Platelet Count 60L, Mean Platelet Volume 11.6, Immature Granulocyte % (Auto) 0, Neutrophils (%) (Auto) 58, Lymphocytes (%) (Auto) 30, Monocytes (%) (Auto) 8, Eosinophils (%) (Auto) 2, Basophils (%) (Auto) 1, Neutrophils # (Auto) 1.4L, Lymphocytes # (Auto) 0.7L, Monocytes # (Auto) 0.2, Eosinophils # (Auto) 0.1, Basophils # (Auto) 0.0, Immature Granulocyte # (Auto) 0.0, Percent Immature Platelet Fraction 4.6, Sodium Level 137, Potassium Level 4.4, Chloride Level 106, Carbon Dioxide Level 21, Anion Gap 10, Blood Urea Nitrogen 27H, Creatinine 1.00, Estimat Glomerular Filtration Rate 74, BUN/Creatinine Ratio 27, Glucose Level 82, Calcium Level 8.3L, Corrected Calcium 9.0, Total Bilirubin 0.6, Aspartate Amino Transf (AST/SGOT) 17, Alanine Aminotransferase (ALT/SGPT) 16, Alkaline Phosphatase 56, Total Protein 5.2L, Albumin 3.1L, Triglycerides Level 93, Cholesterol Level 127, LDL Cholesterol Direct 80, VLDL Cholesterol 19, HDL Cholesterol 38L 02/28/21 10:24: Glucometer 98 Microbiology 02/27/21 Urine Culture - Preliminary, Resulted Culture In Progress 02/27/21 MRSA Screen - Final, Complete MRSA not isolated Laboratory Tests 02/27/21 14:30 02/28/21 04:21 A/P: Assessment: Hypotension - etiology unclear - resolved with careful hydration Possible UTI - management per Dr Christine Minimal troponin elevation - likely Type 2 [place] secondary to hypotension CAD - Coronary artery disease with a history of coronary artery bypass surgery. He has left internal mammary to left anterior descending placed several years ago. 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 The distal vessel is protected by a patent left internal mammary artery graft, but there was 80% stenosis distal to the insertion of the graft to which successful balloon angioplasty was carried out with reduction of stenosis to 30% . More distally, the vessel bifurcates and the smaller limb has severe disease, but is not amenable to intervention on account of small vessel caliber. Long patent stented segment in the main obtuse marginal branch of the left circumflex. These stents are known to be Taxus 3.0 x 20 and 3.0 x 32 mm stents. Dominant right coronary with a patent stented segment in the proximal portion. This is known to be Promus element 2.75 x 20 mm stent. Impairment of global left ventricular systolic function with anterolateral hypokinesis and left ventricular ejection fraction of approximately 40%. Mild elevation of left ve ntricular end-diastolic pressure Ischemic cardiomyopathy. - No evidence of decompensated CHF. NYHA class I - Echocardiogram of Mar 16, 2019, unchanged on 02/28/21: LVEF 25-30%. Akinesis of the anteroseptal myocardium and apical myocardium. LA mod dilated. Trivial MR - MUGA scan of April 03, 2019 shows LVEF 24%; anteroseptal akinesis - Refuses defib implant; aware of the implications of his decision DM II - followed by PCP CKD stage 3 Hyperlipidemia - Intolerance to statins on account of muscle cramps. - He also reports nonspecific intolerance to fibrates but does not recall the symptoms. - Followed by Dr. Steiner H/O tobaccoism: - Quit smoking in Feb 2009. - Advised to continue to refrain from smoking Gastroesophageal reflux. -managed by PCP History of mild intermittent anxiety - currently stable. Carotid dz: - History of carotid artery disease, reportedly mild, being followed by Dr. Smith office. Reports considerable bruising on dual antiplatelet therapy. Chronic intermittent LBBB Lung cancer (adenoCA) with mets - managed by Cancer center Plan: Ok to d/c from cardiac standpoint Outpt cardiac f/u advised MARY SIMS MD FACP [facility] Feb 28, 2021 14:47
--- NOTE | 2021-02-28 15:51 | Discharge Summary ---
Discharge Summary Hospital Course Was the Problem List Reviewed?: Yes Problems/Dx: (1) Chest pain Status: Acute Qualifiers: Qualified Codes: R07.9 - Chest pain, unspecified (2) Hypotension Status: Acute Hospital Course Date of Admission: Feb 27, 2021 at 16:32 Admission Diagnosis : Family Physician/Provider: Jada Steiner MD Date of Discharge: 02/28/21 Discharge Diagnosis: Chest pain without evidence of ACS, profound dehydration, hypotension, acute kidney injury Hospital Course: Hospital course: Pt had an uneventful hospital course, he was admitted for hypotension and acute kidney injury, required IV fluids and cardiology consult for chest pain. Echocardiogram obtained, IV fluids completed with resolution of kidney injury, creatinine 1.0. Overall he did very well and was able to discharged with cardiology approval. Labs and Pending Lab Test: Laboratory Tests 02/27/21 18:53: Lactic Acid Level 0.71, Troponin I < 0.028 02/27/21 22:09: Urine Color YELLOW, Urine Clarity CLEAR, Urine pH 5.5, Urine Specific [place] 1.020, Urine Protein NEGATIVE, Urine Glucose (UA) NEGATIVE, Urine Ketones NE GATIVE, Urine Nitrite NEGATIVE, Urine Bilirubin NEGATIVE, Urine Urobilinogen 0.2, Urine Leukocyte Esterase NEGATIVE, Urine RBC (Auto) NEGATIVE, Urine RBC NONE, Urine WBC 2-5, Urine Crystals NONE, Urine Bacteria FEWH, Urine Casts PRESENT, Urine Hyaline Casts 5-10H, Urine Granular Casts 0-2H, Urine Mucus LARGEH, Urine Culture Indicated YES 02/28/21 04:21: White Blood Count 2.4L, Red Blood Count 2.63L, Hemoglobin 9.1#L, Hematocrit 27L, Mean Corpuscular Volume 102H, Mean Corpuscular Hemoglobin 35H, Mean Corpuscular Hemoglobin Concent 34, Red Cell Distribution Width 15.0H, Platelet Count 60L, Mean Platelet Volume 11.6, Immature Granulocyte % (Auto) 0, Neutrophils (%) (Auto) 58, Lymphocytes (%) (Auto) 30, Monocytes (%) (Auto) 8, Eosinophils (%) (Auto) 2, Basophils (%) (Auto) 1, Neutrophils # (Auto) 1.4L, Lymphocytes # (Auto) 0.7L, Monocytes # (Auto) 0.2, Eosinophils # (Auto) 0.1, Basophils # (Auto) 0.0, Immature Granulocyte # (Auto) 0.0, Percent Immature Platelet Fraction 4.6, Sodium Level 137, Potassium Level 4.4, Chloride Level 106, Carbon Dioxide Level 21, Anion Gap 10, Blood Urea Nitrogen 27H, Creatinine 1.00, Estimat Glomerular Filtration Rate 74, BUN/Creatinine Ratio 27, Glucose Level 82, Calcium Level 8.3L, Corrected Calcium 9.0, Total Bilirubin 0.6, Aspartate Amino Transf (AST/SGOT) 17, Alanine Aminotransferase (ALT/SGPT) 16, Alkaline Phosphatase 56, Total Protein 5.2L, Albumin 3.1L, Triglycerides Level 93, Cholesterol Level 127, LDL Cholesterol Direct 80, VLDL Cholesterol 19, HDL Cholesterol 38L 02/28/21 10:24: Glucometer 98 Microbiology 02/27/21 Urine Culture - Preliminary, Resulted Culture In Progress 02/27/21 MRSA Screen - Final, Complete MRSA not isolated Home Meds Active Lisinopril 2.5 Mg Tablet 2.5 Mg PO DAILY Reported Pantoprazole Sodium 40 Mg Tablet.dr 40 Mg PO DAILY Dexamethasone 4 Mg Tablet 4 Mg PO BID PRN Lisinopril 5 Mg Tablet 5 Mg PO DAILY Magnesium Oxide 400 Mg Tablet 400 Mg PO BID Folic Acid 1 Mg Tablet 1 Mg PO DAILY Alprazolam 0.5 Mg Tablet 0.5 Mg PO HS Aspirin EC (Aspirin) 81 Mg Tablet.dr 81 Mg PO DAILY Glimepiride 2 Mg Tablet 1 Mg PO BID TAKES OF A 2MG TAB Metoprolol Succinate 25 Mg Tab.er.24h 12.5 Mg PO DAILY TAKES OF A 25MG TAB Furosemide 40 Mg Tablet 40 Mg PO Q72H Assessment/Pt Instructions PCP in 1 week Discharge Planning: <30 minutes discharge planning Discharge Instructions Discharge Diet: No Restrictions Activity as Tolerated: Yes Discharge Physical Examination Vital Signs Vital Signs Date Time Temp Pulse Resp B/P (MAP) Pulse Ox O2 Delivery O2 Flow Rate FiO2 02/28/21 11:48 36.2 66 20 125/65 99 Room Air 02/27/21 18:22 21 General Appearance: No Apparent Distress, WD/WN, Chronically ill Allergies: Coded Allergies: cephalexin (Unverified Allergy, Mild, Angioedema, 10/14/20) Hwcimae-GST-DmM Reductase Inhibitor (Verified Allergy, Unknown, 10/14/20) tramadol (Unverified Adverse Reaction, Intermediate, 08/16/11) medication caused pt to experience hypertensive episodes Discharge Summary Date of Admission Feb 27, 2021 at 16:32 Date of Discharge Discharge Date: Feb 28, 2021 Admission Diagnosis Assessment: Chest pain Hypertension Plan depletion Lung cancer on chemotherapy most recent session last week Acute kidney injury CABG Pretension COPD Former smoker Plan: ICU admission Cardiology consult IV fluids Discharge Diagnosis (1) Chest pain Status: Acute Qualifiers: Qualified Codes: R07.9 - Chest pain, unspecified (2) Hypotension Status: Acute REJI SUNSHINE DO Feb 28, 2021 15:51
[2021-02-28] MEDS ORDERED: MAGNESIUM OXIDE (MAG-OX)400 MG TAB PO SCH (18:00)
[2021-02-28] MEDS ORDERED: ALPRAZolam 0.5 MG (XANAX) TAB PO SCH (21:00)
[2021-03-01] MEDS ORDERED: ASPIRIN E.C. 81 MG (ECOTRIN) TAB PO SCH (09:00)
== END 2021-02-28 16:00 | disposition home or self-care (01) ==
LOC: EDUNIT# 14:03 → ER 14:04 → ICU 16:32 → 4TH 02-28 10:42
PROVIDERS: ADMIT Internal Medicine; ATTEND Internal Medicine
DX: R07.9 Chest pain, unspecified (principal); I95.9 Hypotension, unspecified; I12.9 Hypertensive chronic kidney disease with stage 1 through stage 4 chronic kidney disease, or unspecified chronic kidney disease; N17.9 Acute kidney failure, unspecified; E86.0 Dehydration; C34.90 Malignant neoplasm of unspecified part of unspecified bronchus or lung; J44.9 Chronic obstructive pulmonary disease, unspecified; I49.1 Atrial premature depolarization; I44.7 Left bundle-branch block, unspecified; I25.10 Atherosclerotic heart disease of native coronary artery without angina pectoris; I25.5 Ischemic cardiomyopathy; E11.22 Type 2 diabetes mellitus with diabetic chronic kidney disease; N18.30 Chronic kidney disease, stage 3 unspecified; E78.5 Hyperlipidemia, unspecified; K21.9 Gastro-esophageal reflux disease without esophagitis; F41.9 Anxiety disorder, unspecified; I65.29 Occlusion and stenosis of unspecified carotid artery; D69.6 Thrombocytopenia, unspecified; M06.9 Rheumatoid arthritis, unspecified; I24.9 Acute ischemic heart disease, unspecified; Z79.899 Other long term (current) drug therapy; Z79.82 Long term (current) use of aspirin; Z79.84 Long term (current) use of oral hypoglycemic drugs; Z95.1 Presence of aortocoronary bypass graft; Z87.891 Personal history of nicotine dependence
CPT/HCPCS: 36415; 71045; 80053; 80061; 81000; 82947; 83605; 83690; 83735; 83874; 83880; 84484; 85025; 85379; 85610; 85730; 87081; 87088; 93005; 93041; 93306; G0378

== ENCOUNTER 2021-03-14 13:06 | Outpatient (RCR) | payer MEDICARE, MEDICAID, OTHER ==
[2021-01-03 11:37] LABS: BASOPHILS % (AUTO) 0 % (0-10); EOSINOPHILS # (AUTO) 0.1 10^3/uL (0.0-0.3); EOSINOPHILS % (AUTO) 2 % (0-10); HEMATOCRIT 33 % (40-54); HEMOGLOBIN 11.6 g/dL (13.3-17.7); LYMPHOCYTES # (AUTO) 0.8 10^3/uL (1.0-4.0); LYMPHOCYTES % (AUTO) 21 % (12-44); MEAN CORPUSCULAR HEMOGLOBIN 36 pg (25-34); MEAN CORPUSCULAR HGB CONC 35 g/dL (32-36); MEAN CORPUSCULAR VOLUME 103 fL (80-99); MEAN PLATELET VOLUME 11.8 fL (9.0-12.2); MONOCYTES # (AUTO) 0.5 10^3/uL (0.0-1.0); MONOCYTES % (AUTO) 15 % (0-12); NEUTROPHILS # (AUTO) 2.3 10^3/uL (1.8-7.8); NEUTROPHILS % (AUTO) 62 % (42-75); PLATELET COUNT 63 10^3/uL (130-400); WHITE BLOOD COUNT 3.7 10^3/uL (4.3-11.0)
[2021-01-03 11:54] LABS: CALCIUM 9.5 MG/DL (8.5-10.1); CREATININE SERUM 1.11 MG/DL (0.60-1.30); MAGNESIUM 1.5 MG/DL (1.6-2.4); POTASSIUM 4.1 MMOL/L (3.6-5.0)
[2021-01-10 15:07] LABS: BASOPHILS % (AUTO) 0 % (0-10); EOSINOPHILS % (AUTO) 0 % (0-10); HEMATOCRIT 31 % (40-54); HEMOGLOBIN 10.6 g/dL (13.3-17.7); LYMPHOCYTES # (AUTO) 0.5 X 10^3 (1.0-4.0); LYMPHOCYTES % (AUTO) 9 % (12-44); MEAN CORPUSCULAR HEMOGLOBIN 36 pg (25-34); MEAN CORPUSCULAR HGB CONC 35 g/dL (32-36); MEAN CORPUSCULAR VOLUME 103 fL (80-99); MONOCYTES # (AUTO) 0.6 X 10^3 (0.0-1.0); MONOCYTES % (AUTO) 10 % (0-12); NEUTROPHILS % (AUTO) 80 % (42-75); PLATELET COUNT 122 10^3/uL (130-400); WHITE BLOOD COUNT 6.2 10^3/uL (4.3-11.0)
[2021-01-10 15:27] LABS: ALBUMIN 3.6 GM/DL (3.2-4.5); BILIRUBIN,TOTAL 0.2 MG/DL (0.1-1.0); CALCIUM 9.1 MG/DL (8.5-10.1); CREATININE SERUM 0.87 MG/DL (0.60-1.30); MAGNESIUM 1.9 MG/DL (1.6-2.4); POTASSIUM 3.9 MMOL/L (3.6-5.0); TOTAL PROTEIN 6.1 GM/DL (6.4-8.2)
[2021-01-17 09:55] LABS: BASOPHILS % (AUTO) 0 % (0-10); EOSINOPHILS % (AUTO) 1 % (0-10); HEMATOCRIT 35 % (40-54); HEMOGLOBIN 12.2 g/dL (13.3-17.7); LYMPHOCYTES # (AUTO) 0.8 10^3/uL (1.0-4.0); LYMPHOCYTES % (AUTO) 27 % (12-44); MEAN CORPUSCULAR HEMOGLOBIN 35 pg (25-34); MEAN CORPUSCULAR HGB CONC 35 g/dL (32-36); MEAN CORPUSCULAR VOLUME 102 fL (80-99); MEAN PLATELET VOLUME 10.7 fL (9.0-12.2); MONOCYTES # (AUTO) 0.2 10^3/uL (0.0-1.0); MONOCYTES % (AUTO) 7 % (0-12); NEUTROPHILS # (AUTO) 1.9 10^3/uL (1.8-7.8); NEUTROPHILS % (AUTO) 65 % (42-75); PLATELET COUNT 75 10^3/uL (130-400); WHITE BLOOD COUNT 2.9 10^3/uL (4.3-11.0)
[2021-01-17 10:07] LABS: CALCIUM 9.2 MG/DL (8.5-10.1); CREATININE SERUM 1.02 MG/DL (0.60-1.30); MAGNESIUM 1.5 MG/DL (1.6-2.4); POTASSIUM 4.1 MMOL/L (3.6-5.0)
[2021-01-24 10:01] LABS: HEMATOCRIT 31 % (40-54); LYMPHOCYTES # (AUTO) 0.8 10^3/uL (1.0-4.0); MEAN CORPUSCULAR VOLUME 101 fL (80-99)
[2021-01-24 10:03] LABS: BASOPHILS % (AUTO) 0 % (0-10); EOSINOPHILS % (AUTO) 1 % (0-10); HEMOGLOBIN 10.9 g/dL (13.3-17.7); LYMPHOCYTES % (AUTO) 23 % (12-44); MEAN CORPUSCULAR HEMOGLOBIN 35 pg (25-34); MEAN CORPUSCULAR HGB CONC 35 g/dL (32-36); MEAN PLATELET VOLUME 11.9 fL (9.0-12.2); MONOCYTES # (AUTO) 0.7 10^3/uL (0.0-1.0); MONOCYTES % (AUTO) 19 % (0-12); NEUTROPHILS # (AUTO) 2.1 10^3/uL (1.8-7.8); NEUTROPHILS % (AUTO) 57 % (42-75); PLATELET COUNT 51 10^3/uL (130-400); WHITE BLOOD COUNT 3.6 10^3/uL (4.3-11.0)
[2021-01-24 10:21] LABS: CALCIUM 9.2 MG/DL (8.5-10.1); CREATININE SERUM 0.92 MG/DL (0.60-1.30); MAGNESIUM 1.5 MG/DL (1.6-2.4); POTASSIUM 3.8 MMOL/L (3.6-5.0)
[2021-01-31 11:25] LABS: BASOPHILS % (AUTO) 0 % (0-10); EOSINOPHILS % (AUTO) 0 % (0-10); HEMATOCRIT 31 % (40-54); HEMOGLOBIN 11.1 g/dL (13.3-17.7); LYMPHOCYTES # (AUTO) 0.3 10^3/uL (1.0-4.0); LYMPHOCYTES % (AUTO) 8 % (12-44); MEAN CORPUSCULAR HEMOGLOBIN 36 pg (25-34); MEAN CORPUSCULAR HGB CONC 36 g/dL (32-36); MEAN CORPUSCULAR VOLUME 101 fL (80-99); MONOCYTES # (AUTO) 0.2 10^3/uL (0.0-1.0); MONOCYTES % (AUTO) 6 % (0-12); NEUTROPHILS # (AUTO) 3.4 10^3/uL (1.8-7.8); NEUTROPHILS % (AUTO) 85 % (42-75); PLATELET COUNT 141 10^3/uL (130-400)
[2021-01-31 11:42] LABS: ALBUMIN 3.8 GM/DL (3.2-4.5); BILIRUBIN,TOTAL 0.4 MG/DL (0.1-1.0); CALCIUM 9.4 MG/DL (8.5-10.1); CREATININE SERUM 0.99 MG/DL (0.60-1.30); MAGNESIUM 1.6 MG/DL (1.6-2.4); POTASSIUM 4.3 MMOL/L (3.6-5.0); TOTAL PROTEIN 6.5 GM/DL (6.4-8.2)
[2021-02-07 09:52] LABS: EOSINOPHILS % (AUTO) 1 % (0-10); MEAN CORPUSCULAR VOLUME 102 fL (80-99); MONOCYTES # (AUTO) 0.4 10^3/uL (0.0-1.0)
[2021-02-07 09:54] LABS: BASOPHILS % (AUTO) 1 % (0-10); HEMATOCRIT 34 % (40-54); HEMOGLOBIN 11.8 g/dL (13.3-17.7); LYMPHOCYTES # (AUTO) 0.9 10^3/uL (1.0-4.0); LYMPHOCYTES % (AUTO) 26 % (12-44); MEAN CORPUSCULAR HEMOGLOBIN 36 pg (25-34); MEAN CORPUSCULAR HGB CONC 35 g/dL (32-36); MONOCYTES % (AUTO) 12 % (0-12); NEUTROPHILS % (AUTO) 59 % (42-75); PLATELET COUNT 78 10^3/uL (130-400); WHITE BLOOD COUNT 3.4 10^3/uL (4.3-11.0)
[2021-02-07 10:15] LABS: CALCIUM 9.6 MG/DL (8.5-10.1); CREATININE SERUM 0.88 MG/DL (0.60-1.30)
[2021-02-07 10:29] LABS: MAGNESIUM 1.2 MG/DL (1.6-2.4)
[2021-02-14 10:06] LABS: EOSINOPHILS % (AUTO) 1 % (0-10); LYMPHOCYTES # (AUTO) 0.9 10^3/uL (1.0-4.0); LYMPHOCYTES % (AUTO) 20 % (12-44)
[2021-02-14 10:08] LABS: BASOPHILS % (AUTO) 1 % (0-10); HEMATOCRIT 31 % (40-54); HEMOGLOBIN 10.8 g/dL (13.3-17.7); MEAN CORPUSCULAR HEMOGLOBIN 35 pg (25-34); MEAN CORPUSCULAR HGB CONC 35 g/dL (32-36); MEAN CORPUSCULAR VOLUME 101 fL (80-99); MEAN PLATELET VOLUME 11.6 fL (9.0-12.2); MONOCYTES # (AUTO) 0.8 10^3/uL (0.0-1.0); MONOCYTES % (AUTO) 20 % (0-12); NEUTROPHILS # (AUTO) 2.5 10^3/uL (1.8-7.8); NEUTROPHILS % (AUTO) 59 % (42-75); PLATELET COUNT 46 10^3/uL (130-400); WHITE BLOOD COUNT 4.3 10^3/uL (4.3-11.0)
[2021-02-14 10:30] LABS: CALCIUM 9.5 MG/DL (8.5-10.1); CREATININE SERUM 1.02 MG/DL (0.60-1.30); MAGNESIUM 1.5 MG/DL (1.6-2.4); POTASSIUM 3.9 MMOL/L (3.6-5.0)
[2021-02-21 13:21] LABS: BASOPHILS % (AUTO) 1 % (0-10); HEMOGLOBIN 11.4 g/dL (13.3-17.7); MEAN PLATELET VOLUME 10.9 fL (9.0-12.2)
[2021-02-21 13:23] LABS: EOSINOPHILS # (AUTO) 0.1 10^3/uL (0.0-0.3); EOSINOPHILS % (AUTO) 2 % (0-10); HEMATOCRIT 33 % (40-54); LYMPHOCYTES # (AUTO) 0.8 10^3/uL (1.0-4.0); LYMPHOCYTES % (AUTO) 17 % (12-44); MEAN CORPUSCULAR HEMOGLOBIN 36 pg (25-34); MEAN CORPUSCULAR HGB CONC 35 g/dL (32-36); MEAN CORPUSCULAR VOLUME 103 fL (80-99); MONOCYTES # (AUTO) 0.8 10^3/uL (0.0-1.0); MONOCYTES % (AUTO) 17 % (0-12); NEUTROPHILS % (AUTO) 63 % (42-75); PLATELET COUNT 126 10^3/uL (130-400); WHITE BLOOD COUNT 4.8 10^3/uL (4.3-11.0)
[2021-02-21 13:46] LABS: ALBUMIN 3.8 GM/DL (3.2-4.5); BILIRUBIN,TOTAL 0.4 MG/DL (0.1-1.0); CALCIUM 9.5 MG/DL (8.5-10.1); CREATININE SERUM 1.09 MG/DL (0.60-1.30); MAGNESIUM 1.6 MG/DL (1.6-2.4); TOTAL PROTEIN 6.6 GM/DL (6.4-8.2)
[2021-03-07 08:53] LABS: BASOPHILS % (AUTO) 0 % (0-10); MEAN CORPUSCULAR VOLUME 105 fL (80-99); MONOCYTES # (AUTO) 0.7 10^3/uL (0.0-1.0)
[2021-03-07 08:54] LABS: EOSINOPHILS % (AUTO) 1 % (0-10); HEMATOCRIT 30 % (40-54); HEMOGLOBIN 10.1 g/dL (13.3-17.7); LYMPHOCYTES # (AUTO) 0.9 10^3/uL (1.0-4.0); LYMPHOCYTES % (AUTO) 23 % (12-44); MEAN CORPUSCULAR HEMOGLOBIN 35 pg (25-34); MEAN CORPUSCULAR HGB CONC 34 g/dL (32-36); MEAN PLATELET VOLUME 11.8 fL (9.0-12.2); MONOCYTES % (AUTO) 19 % (0-12); NEUTROPHILS # (AUTO) 2.3 10^3/uL (1.8-7.8); NEUTROPHILS % (AUTO) 57 % (42-75)
[2021-03-07 08:58] LABS: PLATELET COUNT 37 10^3/uL (130-400)
[2021-03-07 09:10] LABS: CALCIUM 9.1 MG/DL (8.5-10.1); CREATININE SERUM 1.06 MG/DL (0.60-1.30); POTASSIUM 3.9 MMOL/L (3.6-5.0)
[~2021-03-14 13:06] MED LIST changes: +ALPR0.5T7 PO; +ASPI-1238 PO; +CARBOPLATIN IV SCH; +CARBOplatin 420 MG in D5W 50 ML IV(CANCER CTR) 50 ML IV SCH; +CYANOCOBALAMIN INJ 1000 MCG/ML (CANCER CENTER) ONE; +D5W IV SCH; +DEXA4TAB PO; +FOLI1TAB33 PO; +FOSAPREPITANT (CANCER CENTER) 150 MG in NS (IVPB) CANCER CENTER ONLY 150 ML IV SCH; +LISI2.5T13 PO; +LISI5TAB20 PO; +MAGNESIUM SULFATE IV ONE; +MGX400T PO; +NS IV 1000 ML (CANCER CTR) IV SCH; +NS IV ONE; +PANT40TA52 PO; +PEMBROLIZUMAB 200 MG in NS (IVPB) CANCER CENTER 50 ML IV SCH; +PEMETREXED DISODIUM 1,000 MG in NS (IVPB) CANCER CENTER 100 ML IV SCH; +PEMETREXED DISODIUM 500 MG, PEMETREXED DISODIUM 400 MG in NS (IVPB) CANCER CENTER 100 ML IV SCH
[2021-03-14 13:40] LABS: BASOPHILS % (AUTO) 0 % (0-10); EOSINOPHILS % (AUTO) 0 % (0-10); HEMATOCRIT 30 % (40-54); HEMOGLOBIN 10.2 g/dL (13.3-17.7); LYMPHOCYTES # (AUTO) 0.6 10^3/uL (1.0-4.0); LYMPHOCYTES % (AUTO) 11 % (12-44); MEAN CORPUSCULAR HEMOGLOBIN 36 pg (25-34); MEAN CORPUSCULAR HGB CONC 34 g/dL (32-36); MEAN CORPUSCULAR VOLUME 104 fL (80-99); MEAN PLATELET VOLUME 11.6 fL (9.0-12.2); MONOCYTES # (AUTO) 0.6 10^3/uL (0.0-1.0); MONOCYTES % (AUTO) 12 % (0-12); NEUTROPHILS # (AUTO) 4.2 10^3/uL (1.8-7.8); NEUTROPHILS % (AUTO) 76 % (42-75); PLATELET COUNT 100 10^3/uL (130-400); WHITE BLOOD COUNT 5.5 10^3/uL (4.3-11.0)
[2021-03-14 14:08] LABS: ALBUMIN 4.1 GM/DL (3.2-4.5); BILIRUBIN,TOTAL 0.4 MG/DL (0.1-1.0); CALCIUM 9.8 MG/DL (8.5-10.1); CREATININE SERUM 1.02 MG/DL (0.60-1.30); MAGNESIUM 1.5 MG/DL (1.6-2.4); POTASSIUM 4.2 MMOL/L (3.6-5.0)
== END 2021-03-17 | disposition home or self-care (01) ==
LOC: ONC 13:06
PROVIDERS: ATTEND Internal Medicine Hematology & Oncology
DX: Z51.11 Encounter for antineoplastic chemotherapy (principal); C34.11 Malignant neoplasm of upper lobe, right bronchus or lung; E83.42 Hypomagnesemia; I25.10 Atherosclerotic heart disease of native coronary artery without angina pectoris; E11.9 Type 2 diabetes mellitus without complications; E78.5 Hyperlipidemia, unspecified; E66.9 Obesity, unspecified; Z92.21 Personal history of antineoplastic chemotherapy; Z92.3 Personal history of irradiation
CPT/HCPCS: 36415; 80048; 80053; 83735; 84443; 85025; 96365; 96367; 96375; 96411; 96413; 96417; 99213

== ENCOUNTER → 2021-03-21 | Outpatient (CLI) | payer MEDICARE, MEDICAID ==
[~2021-03-21] MED LIST changes: -CARBOPLATIN IV SCH; -CARBOplatin 420 MG in D5W 50 ML IV(CANCER CTR) 50 ML IV SCH; -CYANOCOBALAMIN INJ 1000 MCG/ML (CANCER CENTER) ONE; -D5W IV SCH; -FOSAPREPITANT (CANCER CENTER) 150 MG in NS (IVPB) CANCER CENTER ONLY 150 ML IV SCH; +HOLD METFORMIN - RECEIVED CONTRAST 20 ML VIAL IV SCH; +IOHEXOL 350 MG/ML 100 ML (OMNIPAQUE 350) VIAL IV ONE; -MAGNESIUM SULFATE IV ONE; +NS 100 ML (IVPB) BAG IV ONE; -NS IV 1000 ML (CANCER CTR) IV SCH; -NS IV ONE; -PEMBROLIZUMAB 200 MG in NS (IVPB) CANCER CENTER 50 ML IV SCH; -PEMETREXED DISODIUM 1,000 MG in NS (IVPB) CANCER CENTER 100 ML IV SCH; -PEMETREXED DISODIUM 500 MG, PEMETREXED DISODIUM 400 MG in NS (IVPB) CANCER CENTER 100 ML IV SCH
[2021-03-21] MEDS: CATHETER FLUSH 10 ML SYR IV PRN ×2 (12:04→12:16)
--- NOTE | 2021-03-21 13:42 | Diagnostic Imaging Report ---
EXAMINATION: CT chest with intravenous contrast, CT abdomen and pelvis without and with intravenous contrast. TECHNIQUE: Pre and post intravenous contrast axial imaging of the abdomen and pelvis and post contrast axial imaging of the chest were performed. All CT scans use one or more of the following dose optimizing techniques: automated exposure control, MA and/or KvP adjustment based on patient size and exam type or iterative reconstruction. HISTORY: Lung cancer. COMPARISON: 12/13/2020 FINDINGS: There is no edema or pneumonia. No pleural effusion. No pneumothorax. A 2.7 x 1.8 cm right upper lobe nodule is unchanged previously measuring 2.8 x 1.7 cm. A 12 x 7 mm right middle lobe nodule is stable. There is no axillary or supraclavicular lymphadenopathy. Soft tissue thickening in the mediastinum and right hilum is similar to prior exam. The right lower paratracheal lymph node measuring 16 mm in short axis is unchanged. There has been coronary artery bypass grafting. Left ventricle is dilated. There are severe coronary artery calcifications. No pericardial effusion. Aorta is normal in caliber. The liver is normal without focal lesion. There is no biliary ductal dilation. Gallbladder is surgically absent. Pancreas is normal. Spleen is normal. There is a stable 18 x 23 mm left adrenal nodule. There are simple cysts in the kidneys. There are bilateral nonobstructing renal stones. There is no hydronephrosis. Urinary bladder is normal. Bowel is normal in caliber without obstruction or inflammation. There is diverticulosis without diverticulitis. No free fluid or air. No abdominal or pelvic lymphadenopathy. There is a stable 3.1 cm infrarenal abdominal aortic aneurysm. There are no suspicious osseous lesions. IMPRESSION: 1. Stable right upper lobe and right middle lobe nodules and stable mediastinal lymphadenopathy and left adrenal nodule. Dictated by: Dictated on workstation # [id number]
--- NOTE | 2021-03-21 17:12 | Diagnostic Imaging Report ---
INDICATION: New onset right shoulder pain. History of lung carcinoma. TECHNIQUE: The patient was administered 25.0 mCi technetium 99m MDP intravenously. After an approximately three-hour delay, anterior and posterior whole-body planar images are obtained. CORRELATION STUDY: 12/13/2020. FINDINGS: Very slight asymmetric uptake over the maxilla may be periodontal in nature and likely of no significance. Bony calvarium is unremarkable. There is asymmetrically elevated left shoulder compared to the right shoulder. There is no asymmetric regional uptake along either shoulder girdles, which appears symmetric and unremarkable. The ribs and sternum are unremarkable. The cervical, thoracic, and lumbar spine are overall unremarkable. Bilateral hemipelves appear symmetric. Bilateral hip joints and lower extremities are unremarkable. IMPRESSION: 1. Negative appearing bone scan. Dictated by: Dictated on workstation # [id number]
== END ==
LOC: CARD 12:00
PROVIDERS: ATTEND Nurse Practitioner Adult Health
DX: C34.11 Malignant neoplasm of upper lobe, right bronchus or lung (principal); M25.011 Hemarthrosis, right shoulder; C79.52 Secondary malignant neoplasm of bone marrow; E27.8 Other specified disorders of adrenal gland; R91.8 Other nonspecific abnormal finding of lung field; R59.0 Localized enlarged lymph nodes
CPT/HCPCS: 71260; 74178; 78306; A9503

== ENCOUNTER 2021-03-29 09:17 | Outpatient (RCR) | payer MEDICARE, MEDICAID, OTHER ==
[2021-03-22 10:02] LABS: BASOPHILS % (AUTO) 0 % (0-10); EOSINOPHILS % (AUTO) 0 % (0-10); HEMATOCRIT 34 % (40-54); HEMOGLOBIN 11.8 g/dL (13.3-17.7); LYMPHOCYTES # (AUTO) 0.4 10^3/uL (1.0-4.0); LYMPHOCYTES % (AUTO) 6 % (12-44); MEAN CORPUSCULAR HEMOGLOBIN 36 pg (25-34); MEAN CORPUSCULAR HGB CONC 35 g/dL (32-36); MEAN CORPUSCULAR VOLUME 105 fL (80-99); MEAN PLATELET VOLUME 11.5 fL (9.0-12.2); MONOCYTES # (AUTO) 0.3 10^3/uL (0.0-1.0); MONOCYTES % (AUTO) 5 % (0-12); NEUTROPHILS % (AUTO) 89 % (42-75); PLATELET COUNT 110 10^3/uL (130-400); WHITE BLOOD COUNT 6.7 10^3/uL (4.3-11.0)
[2021-03-22 10:20] LABS: ALBUMIN 4.2 GM/DL (3.2-4.5); BILIRUBIN,TOTAL 0.6 MG/DL (0.1-1.0); CALCIUM 9.6 MG/DL (8.5-10.1); CREATININE SERUM 1.02 MG/DL (0.60-1.30); MAGNESIUM 1.7 MG/DL (1.6-2.4); POTASSIUM 4.2 MMOL/L (3.6-5.0); TOTAL PROTEIN 7.1 GM/DL (6.4-8.2)
[~2021-03-29 09:17] MED LIST changes: +CARBOPLATIN IV SCH; +CYANOCOBALAMIN INJ 1000 MCG/ML (CANCER CENTER) ONE; +D5W IV SCH; +FOSAPREPITANT (CANCER CENTER) 150 MG in NS (IVPB) CANCER CENTER ONLY 150 ML IV SCH; -HOLD METFORMIN - RECEIVED CONTRAST 20 ML VIAL IV SCH; -IOHEXOL 350 MG/ML 100 ML (OMNIPAQUE 350) VIAL IV ONE; -NS 100 ML (IVPB) BAG IV ONE; +NS IV 1000 ML (CANCER CTR) IV SCH; +PEMBROLIZUMAB 200 MG in NS (IVPB) CANCER CENTER 50 ML IV SCH; +PEMETREXED DISODIUM 500 MG, PEMETREXED DISODIUM 400 MG in NS (IVPB) CANCER CENTER 100 ML IV SCH
[2021-03-29 09:44] LABS: EOSINOPHILS % (AUTO) 0 % (0-10); HEMATOCRIT 33 % (40-54)
[2021-03-29 09:46] LABS: BASOPHILS % (AUTO) 1 % (0-10); LYMPHOCYTES # (AUTO) 0.9 10^3/uL (1.0-4.0); LYMPHOCYTES % (AUTO) 17 % (12-44); MEAN CORPUSCULAR HEMOGLOBIN 36 pg (25-34); MEAN CORPUSCULAR HGB CONC 34 g/dL (32-36); MEAN CORPUSCULAR VOLUME 108 fL (80-99); MEAN PLATELET VOLUME 11.5 fL (9.0-12.2); MONOCYTES # (AUTO) 0.6 10^3/uL (0.0-1.0); MONOCYTES % (AUTO) 12 % (0-12); NEUTROPHILS # (AUTO) 3.6 10^3/uL (1.8-7.8); NEUTROPHILS % (AUTO) 70 % (42-75); PLATELET COUNT 75 10^3/uL (130-400); WHITE BLOOD COUNT 5.1 10^3/uL (4.3-11.0)
[2021-03-29 10:01] LABS: CALCIUM 9.4 MG/DL (8.5-10.1); POTASSIUM 3.9 MMOL/L (3.6-5.0)
== END 2021-04-17 | disposition home or self-care (01) ==
LOC: ONC 09:17
PROVIDERS: ATTEND Internal Medicine Hematology & Oncology
DX: Z51.11 Encounter for antineoplastic chemotherapy (principal); Z45.2 Encounter for adjustment and management of vascular access device; C34.11 Malignant neoplasm of upper lobe, right bronchus or lung; E83.42 Hypomagnesemia; I25.10 Atherosclerotic heart disease of native coronary artery without angina pectoris; E11.9 Type 2 diabetes mellitus without complications; E78.5 Hyperlipidemia, unspecified; E89.0 Postprocedural hypothyroidism; E66.9 Obesity, unspecified; K21.9 Gastro-esophageal reflux disease without esophagitis; Z92.21 Personal history of antineoplastic chemotherapy; Z92.3 Personal history of irradiation
CPT/HCPCS: 80053; 83735; 84443; 85025; 96372; 96375; 96409; 96413; G0463; 80048

== ENCOUNTER 2021-05-30 05:30 | Outpatient (CLI) | payer MEDICARE, MEDICAID ==
[~2021-05-30] VITALS: Ht 182.9 cm; Wt 94.0 kg
[~2021-05-30 05:30] MED LIST changes: -CARBOPLATIN IV SCH; -CYANOCOBALAMIN INJ 1000 MCG/ML (CANCER CENTER) ONE; -D5W IV SCH; -FOSAPREPITANT (CANCER CENTER) 150 MG in NS (IVPB) CANCER CENTER ONLY 150 ML IV SCH; -NS IV 1000 ML (CANCER CTR) IV SCH; -PEMBROLIZUMAB 200 MG in NS (IVPB) CANCER CENTER 50 ML IV SCH; -PEMETREXED DISODIUM 500 MG, PEMETREXED DISODIUM 400 MG in NS (IVPB) CANCER CENTER 100 ML IV SCH
[2021-05-30] MEDS ORDERED: MTP25TSR PO (10:18)
[2021-05-30] MEDS ORDERED: LEVO25TA5 PO (10:18)
== END 2021-05-30 10:44 ==
LOC: PREOP 05:30
PROVIDERS: ATTEND Surgery
DX: Z01.818 Encounter for other preprocedural examination (principal)

== ENCOUNTER 2021-06-01 08:11 | Day surgery (SDC) | payer MEDICARE, MEDICAID ==
[2021-06-01] VITALS (8 sets, daily range): BP systolic 98–121; BP diastolic 65–86
[~2021-06-01] VITALS: Ht 182.9 cm; Wt 94.0 kg
[~2021-06-01 08:11] MED LIST changes: +LEVO25TA5 PO
[2021-06-01] MEDS ORDERED: 0.9% SODIUM CHLORIDE PF INJ 20 ML VIAL ONE (08:22)
[2021-06-01] MEDS ORDERED: HEParin (CENTRAL IV FLUSH) 500 UNIT/5 ML SYR ONE (08:22)
[2021-06-01] MEDS ORDERED: LIDOCAINE/EPI 1%-1:200,000 (XYLOCAINE) 30 ML VIAL ONE (08:22)
--- NOTE | 2021-06-01 08:50 | Progress Note-Pre Operative ---
Pre-Operative Progress Note H&P Reviewed The H&P was reviewed, patient examined and no changes noted. Date Seen by Provider: Jun 01, 2021 Time Seen by Provider: 08:50 Date H&P Reviewed: Jun 01, 2021 Time H&P Reviewed: 08:45 Pre-Operative Diagnosis: Right lung cancer MYLES ZAPATA APRN Jun 01, 2021 08:50
[2021-06-01] MEDS ORDERED: HYDR-3817 PO (08:53)
--- NOTE | 2021-06-01 08:54 | Discharge Inst-Surgical ---
D/C Lap Instructions-KIDO Reconcile Patient Problems Problems Reviewed?: Yes New, Converted, or Re-Newed RX: RX on Chart Follow Up Appt as needed Activity as tolerated No driving for 24 hours No driving while on pain medications Incentive Spirometry use every 2 hours while awake Regular Diet Symptoms to Report: Fever over 101 degree F, Nausea/Vomiting Infection Signs and Symptoms to report: Increased redness, Foul odor of wound, Increased drainage Bathing instructions: May shower Operative Area Clean/Dry; Keep incision clean/dry If any problems/questions: Contact your physician or go to Emergency Room MYLES ZAPATA APRN Jun 01, 2021 08:54
[2021-06-01] MEDS ORDERED: LACTATED RINGERS 1,000 ML IV PRN (09:00)
[2021-06-01] MEDS ORDERED: ONDANSETRON 4 MG/2 ML (SDV) Z0FRAN IVP PRN ×2 (09:00→11:15)
[2021-06-01] MEDS ORDERED: morphine INJ 10 MG/ML 1ML (SYR OR VIAL) IVP PRN (09:00)
[2021-06-01] MEDS ORDERED: ACETAMINOPHEN 325 MG TABLET PO PRN (09:00)
[2021-06-01] MEDS ORDERED: CLINDAMYCIN 600 MG/50 ML IVPB 50 ML IV ONE (09:00)
[2021-06-01] MEDS ORDERED: HYDROcodone/APAP 5 MG/325 MG (LORTAB) TAB PO ONE (09:00)
[2021-06-01] MEDS ORDERED: MIDAZOLAM 2 MG/2 ML (VERSED) VIAL ONE (09:57)
[2021-06-01] MEDS ORDERED: LIDOCAINE PF 2% 5 ML (XYLOCAINE) VIAL ONE (10:15)
[2021-06-01] MEDS ORDERED: proPOfol 200 MG/20 ML (DIPRIVAN) VIAL IV ONE (10:15)
--- NOTE | 2021-06-01 10:39 | Progress Note-Post Operative ---
Post-Operative Progess Note Surgeon (s)/House Manager (s) Surgeon CADE DIMAS MD House Manager: mary ann diaz [employer] Pre-Operative Diagnosis Right lung cancer Post-Operative Diagnosis same Procedure & Operative Findings Date of Procedure 06/01/21 Procedure Performed/Findings placement left subclavian groshong implantable catheter under flouroscopy. Anesthesia Type mac with local Estimated Blood Loss Estimated blood loss (mL): minimal Specimens/Packing Specimens Removed none CADE DIMAS MD Jun 01, 2021 10:38
--- NOTE | 2021-06-01 11:05 | Anesthesia-General Post-Op ---
MAC Patient Condition Mental Status/LOC: Same as Preop Cardiovascular: Satisfactory Nausea/Vomiting: Absent Respiratory: Satisfactory Pain: Controlled Complications: Absent Post Op Complications Complications None Follow Up Care/Instructions Patient Instructions None needed. Anesthesiology Discharge Order Discharge Order Patient is doing well, no complaints, stable vital signs, no apparent adverse anesthesia problems. ABILIO SAXENA DO Jun 01, 2021 11:05
--- NOTE | 2021-06-01 11:10 | Diagnostic Imaging Report ---
INDICATION: Fluoroscopy for Groshong catheter placement. Fluoroscopy was provided in the OR during Groshong catheter placement. 17 seconds of fluoroscopic time was utilized. A single image was obtained demonstrating a left-sided catheter with tip overlying the upper SVC. IMPRESSION: Fluoroscopy for Groshong catheter placement. Dictated by: Dictated on workstation # [id number]
[2021-06-01] MEDS ORDERED: morphine INJ 10 MG/ML 1ML (SYR OR VIAL) IVP ONE (11:15)
--- NOTE | 2021-06-01 11:23 | Diagnostic Imaging Report ---
INDICATION: Groshong catheter placement. TECHNIQUE/COMPARISON: A frontal chest was obtained at 11:22 AM and compared to 02/27/2021. FINDINGS: There is post sternotomy change. The heart is mildly enlarged. There is central vascular congestion with chronic appearing increased interstitial markings. There is a nodular density overlying the right upper lobe which is similar to the prior study. There is a new Port-A-Cath over the left chest with the catheter entering the left subclavian vein and catheter tip overlying the mid SVC. There is no pneumothorax or pleural fluid. IMPRESSION: Cardiomegaly with central vascular congestion and chronic changes. Unchanged nodular density overlying the right upper lobe. New Port-A-Cath in place as above. There is no pneumothorax or pleural fluid following device placement. Dictated by: Dictated on workstation # [id number]
--- NOTE | 2021-06-01 15:21 | OPERATIVE REPORT ---
DATE OF SERVICE: 06/01/2021 ATTENDING PRIMARY CARE PHYSICIAN: aJda Steiner MD PREOPERATIVE DIAGNOSIS: Metastatic right lung cancer. POSTOPERATIVE DIAGNOSIS: Metastatic right lung cancer. PROCEDURE: Placement of left subclavian Groshong implantable catheter under fluoroscopy. SURGEON: Cade Dimas MD VIDEO COORDINATOR: Wesley Chicas APRN ANESTHESIA: Monitored anesthesia care with local. ESTIMATED BLOOD LOSS: Minimal. FINDINGS: Catheter tip at superior vena cava -- right atrial junction. DISPOSITION: The patient tolerated the procedure well. INDICATIONS: The patient is a 71-year-old male who had pulmonary issues and was eventually found to have a lesion of the right lung, which was consistent with lung cancer. Upon further examination, he was found to have lymph node involvement as well as metastasis to the right adrenal gland. Since his diagnosis, he has undergone radiation therapy as well as chemotherapy. He will require a Groshong implantable catheter for further IV access for chemotherapy as well as for frequent blood draws. DESCRIPTION OF PROCEDURE: The patient was brought to the operating room, laid supine on the table. After adequate IV pain and sedative medications and monitored anesthesia care, the chest and neck were prepped and draped in standard surgical fashion. A 0.5% Marcaine with epinephrine was then used to anesthetize the overlying skin in the left upper abdominal quadrant. The left subclavian vein was then cannulated with drawing of venous blood. The guidewire was then inserted under fluoroscopy. The cannulating needle removed and a skin incision made using a 15 blade. The dilator and sheath were then introduced over the guidewire. The guidewire and dilator were then removed and the Groshong catheter placed until the catheter tip was at the superior vena caval -- right atrial junction. The sheath was then removed. Inner wire within the catheter was then removed. The catheter cut down to size and port placed onto the catheter. The chest reservoir was then created by extending the incision laterally after the skin and subcutaneous tissue were anesthetized using 0.5% Marcaine with epinephrine. A plane was created between the subcutaneous fat and the anterior pectoralis fascia using blunt dissection as well as electrocautery. Good hemostasis was observed and the port was placed into the chest reservoir and sutured to the anterior pectoralis fascia using interrupted 3-0 Vicryl sutures. Subcutaneous tissue was then reapproximated using 3-0 Vicryl interrupted sutures. Skin was closed using 4-0 Monocryl running subcuticular suture. Wound was then cleaned and covered with Dermabond. Port was accessed and venous blood drawn and heparinized saline pushed in without any resistance. The patient tolerated the procedure well. We will get a post-procedure chest x-ray once confirmation of placement of the port may be accessed and used any time. Job ID: [id number] DocumentID: [id number] Dictated Date: 06/01/2021 10:50:44 [employer] Date: 06/01/2021 15:20:07 Dictated By: CADE DIMAS MD MTD
== END 2021-06-01 12:05 | disposition home or self-care (01) ==
LOC: SDC 08:11
PROVIDERS: ATTEND Surgery
DX: C34.91 Malignant neoplasm of unspecified part of right bronchus or lung (principal); C79.71 Secondary malignant neoplasm of right adrenal gland; C77.9 Secondary and unspecified malignant neoplasm of lymph node, unspecified; Z87.891 Personal history of nicotine dependence
CPT/HCPCS: 36561; 71045; 76000; 82947; 87081; C1788

== ENCOUNTER 2021-06-29 11:43 | Outpatient (CLI) | payer MEDICARE, MEDICAID ==
[~2021-06-29] VITALS: Ht 182.9 cm; Wt 94.5 kg
[~2021-06-29 11:43] MED LIST changes: +HYDR-3817 PO
[2021-06-29 12:44] VITALS: BP 111/74
--- NOTE | 2021-06-29 12:44 | Diagnostic Imaging Report ---
INDICATION: Right pleural effusion. FINDINGS: Sonographic interrogation of the right hemithorax was performed demonstrating a large right pleural effusion. Marking was provided on the posterior right thorax prior to performance of a thoracentesis by Dr. Naqvi. IMPRESSION: Large right pleural effusion. A marking was provided. Dictated by: Dictated on workstation # [id number]
--- NOTE | 2021-06-29 14:15 | Diagnostic Imaging Report ---
INDICATION: Status post thoracentesis. COMPARISON: 02/27/2021. FINDINGS: A single frontal radiographic view of the chest was obtained and demonstrates no pneumothorax status post thoracentesis. There are areas of spiculated opacity within the right perihilar and right apical regions. No large residual effusion or pneumothorax is seen on either side. The left lung is clear. The cardiac silhouette and pulmonary vasculature are within normal limits. Sternotomy wires are noted. IMPRESSION: 1. No pneumothorax status post thoracentesis. 2. Spiculated nodular opacity within the right apex and right perihilar region. Dictated by: Dictated on workstation # [id number]
--- NOTE | 2021-06-29 23:56 | OPERATIVE REPORT ---
DATE OF SERVICE: 06/29/2021 ATTENDING PRIMARY CARE PHYSICIAN: Jada Steiner MD PREOPERATIVE DIAGNOSIS: Metastatic right lung cancer with a symptomatic large right pleural effusion. POSTOPERATIVE DIAGNOSIS: Metastatic right lung cancer with a symptomatic large right pleural effusion. PROCEDURE: Right thoracentesis. SURGEON: Cade Dimas MD ANESTHESIA: Local. ESTIMATED BLOOD LOSS: Minimal. FINDINGS: 1400 mL of straw yellow transudative fluid. DISPOSITION: The patient tolerated the procedure well. INDICATIONS: The patient is a 71-year-old male with a history of metastatic right lung cancer. He underwent chemotherapy as well as radiation and did have a favorable response. We had placed a Groshong implantable catheter on 06/01/2021. He did develop symptomatic shortness of breath and was found to have a significant size right pleural effusion. We were consulted for therapeutic as well as a diagnostic thoracentesis and send the fluid off for cytology. DESCRIPTION OF PROCEDURE: The posterolateral back was then marked by ultrasonography and the back prepped and draped in standard surgical fashion. A 1% lidocaine was then used to anesthetize skin, subcutaneous tissue, muscle layers as well as the parietal pleura. A vertical skin incision was then made using 11 blade. The trocar and sheath were then advanced withdrawing of straw yellow transudative fluid. The catheter was then advanced over the trocar without any resistance. The catheter was then connected to vacuum bottles where 1400 mL of the same type of fluid was evacuated. The catheter was then removed while holding direct pressure on the entry site with visualization of good hemostasis. An Op-Site was placed over the insertion site. The patient tolerated the procedure well. We will get a post-procedure chest x-ray and send the fluid off for cytology. Job ID: [id number] DocumentID: [id number] Dictated Date: 06/29/2021 14:59:03 Rep[employer]r Welding Equipment Date: 06/29/2021 21:01:06 Dictated By: CADE DIMAS MD
--- NOTE | 2021-06-30 06:15 | HISTORY AND PHYSICAL ---
DATE OF SERVICE: DATE OF ADMISSION: 06/29/2021 ATTENDING PRIMARY CARE PHYSICIAN: Dr. Jada Steiner. HISTORY OF PRESENT ILLNESS: The patient is a 71-year-old male known to us. He had pulmonary issues and was eventually found to have a right lung mass consistent with lung cancer, which was also found to be metastatic as well. The metastasis was along the right adrenal gland. Since his diagnosis, he underwent radiation therapy as well as chemotherapy and also had his Groshong implantable catheter placed on 06/01/2021. Followup PET scan as well as CT scan did show a good response to the chemotherapy as well as radiation. A large right pleural effusion was also identified and he does have some symptomatic shortness of breath. We will proceed with thoracentesis and send the fluid off for cytology. PAST MEDICAL HISTORY: Metastatic right lung cancer, diabetes, hypertension, gastroesophageal reflux disease, hypothyroid. PAST SURGICAL HISTORY: Laparoscopic cholecystectomy 2009, coronary artery bypass grafting 2008, shoulder surgery in 1992. ALLERGIES: KEFLEX, STATINS. MEDICATIONS: Xanax 0.5 mg b.i.d., dexamethasone 4 mg b.i.d., levothyroxine daily, glimepiride 2 mg b.i.d., Lasix 40 mg daily, metoprolol 25 mg daily, Protonix 40 mg daily. SOCIAL HISTORY: Previous history of smoking greater than 40 pack years, quit in 2008. Negative alcohol. FAMILY HISTORY: Noncontributory. VITAL SIGNS: Stable, afebrile. REVIEW OF SYSTEMS: Well-nourished male in no acute distress. He is not experiencing any shortness of breath or difficulty in breathing. No chest pain, palpitations, diaphoresis. No nausea, vomiting, no diarrhea or constipation. No fever, chills, no recent inadvertent weight loss. All other review of systems negative. PHYSICAL EXAMINATION: CHEST: Decreased breath sounds right chest with scattered wheezes bilaterally. HEART: Regular, no murmurs. EXTREMITIES: No lower extremity edema, negative Homans sign. HEENT: No scleral icterus. NECK: No cervical lymphadenopathy. ABDOMEN: Soft, nontender, nondistended. SKIN: Warm, dry. ASSESSMENT AND PLAN: A 71-year-old male with metastatic right lung cancer, status post radiation as well as chemotherapy with a favorable response; however, with the development of a symptomatic right pleural effusion, I will proceed with a right thoracentesis and send the fluid off for cytology for further staging purposes. Job ID: [id number] DocumentID: [id number] Dictated Date: 06/27/2021 17:07:20 Nutrition Program Instructor Date: 06/27/2021 17:26:30 Dictated By: CADE DIMAS MD
== END 2021-06-29 14:27 ==
LOC: RAD 11:43 → SDC 14:27
PROVIDERS: ATTEND Surgery
DX: J90 Pleural effusion, not elsewhere classified (principal)
CPT/HCPCS: 32554; 71045; 76942

== ENCOUNTER → 2021-07-20 | Day surgery (SDC) | payer MEDICARE, MEDICAID ==
[2021-07-20] VITALS (11 sets, daily range): BP systolic 96–115; BP diastolic 60–79
[~2021-07-20] MED LIST changes: +HYDROcodone/APAP 5 MG/325 MG (LORTAB) TAB PO PRN; +LIDOCAINE 1% INJ 20 ML VIAL INJ ONE; +MIDAZOLAM 2 MG/2 ML (VERSED) VIAL IVP ONE; +NS IV 1000 ML 1,000 ML IV STA; +fentaNYL INJ 100 MCG/2 ML AMP IVP ONE
[2021-07-20 08:33] LABS: HEMOGLOBIN 13.4 g/dL (13.3-17.7); MEAN PLATELET VOLUME 12.3 fL (9.0-12.2); WHITE BLOOD COUNT 5.9 10^3/uL (4.3-11.0)
[2021-07-20 08:39] LABS: PROTHROMBIN TIME PATIENT 13.1 SEC (12.2-14.7)
--- NOTE | 2021-07-20 10:27 | Pre-Op Note & Conscious Sedat ---
Pre-Operative Progress Note H&P Reviewed The H&P was reviewed, patient examined and no changes noted. Date H&P Reviewed: July 20, 2021 Time H&P Reviewed: 08:00 Pre-Op Diagnosis: adrenal mass Conscious Sedation Pre-Proced Time 08:00 ASA Score 2 For ASA 3 and 4: Consider anesthesia and medical clearance. Also, for patients with a history of failed moderate sedation consider anesthesia. Airway Lungs Heart ASA score ASA 1: a normal healthy patient ASA 2: a patient with a mild systemic disease (mid diabetes, controlled hypertension, obesity ASA 3: a patient with a severe systemic disease that limits activity (angina, COPD, prior Myocardial infarction) ASA 4: a patient with an incapacitating disease that is a constant threat to life (CHF, renal failure) ASA 5: a moribund patient not expected to survive 24 hrs. (ruptured aneurysm) ASA 6: a declared brain- patient whose organs are being harvested. For emergent operations, add the letter E after the classification Mallampati Classification Grade 2 Sedation Plan Analgesia, Amnesia, Plan communicated to team members, Discussed options with patient/fam, Discussed risks with patient/fam The patient is an appropriate candidate to undergo the planned procedure, sedation, and anesthesia. The patient immediately re-assessed prior to indication. DANIELLE RAJPUT MD July 20, 2021 10:27
--- NOTE | 2021-07-20 11:06 | Diagnostic Imaging Report ---
INDICATION: RT ADRENAL MASS BX TECHNIQUE: All CT scans use one or more of the following dose optimizing techniques: automated exposure control, MA and/or KvP adjustment based on patient size and exam type or iterative reconstruction. Patient brought to the CT suite placed on table in the prone position. Axial imaging through the abdomen was performed to evaluate appropriate entry site. Procedure was performed utilizing conscious sedation with radiology nursing and constant monitoring. Patient was given a total of 50 mcg of fentanyl intravenously and 0.5 mg of Versed intravenously. Total procedure time was 13 minutes. An 18-gauge coaxial Temno needle was advanced from a right posterior lateral approach and placed with its tip along the lateral margin of the right adrenal mass. 4 core biopsies were obtained. A blood patch was injected during needle removal. Postprocedure imaging shows no complicating features. IMPRESSION: Successful CT-guided right adrenal mass biopsy, utilizing conscious sedation. Pathology results are currently pending. Dictated by: Dictated on workstation # [id number]
== END ==
LOC: RAD 07:36 → SDC 10:00
PROVIDERS: ATTEND Internal Medicine Hematology & Oncology
DX: C79.71 Secondary malignant neoplasm of right adrenal gland (principal); C34.90 Malignant neoplasm of unspecified part of unspecified bronchus or lung
CPT/HCPCS: 36415; 77012; 85027; 85610; 85730; 88305; 88341; 88342; 88344; 99156

== ENCOUNTER 2021-08-19 23:08 | Emergency (ER) | payer MEDICARE, MEDICAID ==
[~2021-08-19] VITALS: Ht 182 cm; Wt 94.0 kg
[~2021-08-19 23:08] MED LIST changes: -HYDROcodone/APAP 5 MG/325 MG (LORTAB) TAB PO PRN; -LIDOCAINE 1% INJ 20 ML VIAL INJ ONE; -MIDAZOLAM 2 MG/2 ML (VERSED) VIAL IVP ONE; -NS IV 1000 ML 1,000 ML IV STA; -fentaNYL INJ 100 MCG/2 ML AMP IVP ONE
[2021-08-19 23:10] VITALS: BP 98/75
[2021-08-19] MEDS ORDERED: D5 1/2 NS 1000 ML IV SOLUTION 1,000 ML IV ONE (23:30)
[2021-08-19 23:36] LABS: BASOPHILS % (AUTO) 1 % (0-10); MEAN CORPUSCULAR VOLUME 104 fL (80-99); MEAN PLATELET VOLUME 11.8 fL (9.0-12.2)
[2021-08-19 23:38] LABS: EOSINOPHILS # (AUTO) 0.1 10^3/uL (0.0-0.3); EOSINOPHILS % (AUTO) 2 % (0-10); HEMATOCRIT 36 % (40-54); HEMOGLOBIN 12.4 g/dL (13.3-17.7); LYMPHOCYTES # (AUTO) 1.1 10^3/uL (1.0-4.0); LYMPHOCYTES % (AUTO) 20 % (12-44); MEAN CORPUSCULAR HEMOGLOBIN 35 pg (25-34); MEAN CORPUSCULAR HGB CONC 34 g/dL (32-36); MONOCYTES # (AUTO) 0.6 10^3/uL (0.0-1.0); MONOCYTES % (AUTO) 11 % (0-12); NEUTROPHILS # (AUTO) 3.5 10^3/uL (1.8-7.8); NEUTROPHILS % (AUTO) 66 % (42-75); PLATELET COUNT 108 10^3/uL (130-400); WHITE BLOOD COUNT 5.4 10^3/uL (4.3-11.0)
[2021-08-19 23:56] LABS: PROTHROMBIN TIME PATIENT 13.1 SEC (12.2-14.7)
[2021-08-19 23:57] LABS: ALBUMIN 3.6 GM/DL (3.2-4.5); CHLORIDE 99 MMOL/L (98-107); POTASSIUM 4.4 MMOL/L (3.6-5.0); SODIUM 136 MMOL/L (135-145)
[2021-08-19 23:59] LABS: CALCIUM 9.1 MG/DL (8.5-10.1)
[2021-08-20] LABS: GLUCOSE 133 MG/DL (70-105); TOTAL PROTEIN 6.4 GM/DL (6.4-8.2)
[2021-08-20 00:01] LABS: CARBON DIOXIDE 24 MMOL/L (21-32)
[2021-08-20 00:02] LABS: BILIRUBIN,TOTAL 0.4 MG/DL (0.1-1.0)
[2021-08-20 00:03] LABS: ALKALINE PHOSPHATASE 58 U/L (40-136); CREATININE SERUM 1.55 MG/DL (0.60-1.30); GFR ESTIMATED 47
[2021-08-20 00:05] LABS: BUN/CREATININE RATIO 11
[2021-08-20 00:06] LABS: ALANINE AMINOTRANSFERASE 15 U/L (0-55); MAGNESIUM 1.7 MG/DL (1.6-2.4)
[2021-08-20 00:07] LABS: CREATINE KINASE 201 U/L (30-200)
[2021-08-20 00:08] LABS: LIPASE 16 U/L (8-78)
[2021-08-20 00:14] LABS: CREATINE KINASE MB 3.2 NG/ML (<6.6)
[2021-08-20 00:19] LABS: FIBRIN DEGRADATION PRODUCTS 2.34 UG/ML (0.00-0.49)
[2021-08-20 00:36] LABS: AMYLASE 176 U/L (25-125)
[2021-08-20] MEDS ORDERED: NS 100 ML (IVPB) BAG IV ONE (01:45)
[2021-08-20] MEDS ORDERED: CATHETER FLUSH 10 ML SYR IV PRN (01:45)
[2021-08-20] MEDS ORDERED: HOLD METFORMIN - RECEIVED CONTRAST 20 ML VIAL IV SCH (01:45)
[2021-08-20] MEDS ORDERED: IOHEXOL 350 MG/ML 100 ML (OMNIPAQUE 350) VIAL IV ONE (01:45)
--- NOTE | 2021-08-20 02:38 | Diagnostic Imaging Report ---
PROCEDURE: CT angiography of the chest with contrast. TECHNIQUE: Multiple contiguous axial images were obtained through the chest after uneventful bolus administration of intravenous contrast. 3D reconstructed CTA MIP acquisitions were also performed. Auto Exposure Controls were utilized during the CT exam to meet ALARA standards for radiation dose reduction. INDICATION: Cough and shortness of breath There is consolidation present in the right upper lobe. There is adjacent pleural thickening. There is a right pleural effusion measures 8 cm in thickness. There is volume loss in the medial aspect of the right upper lobe. There are no pulmonary emboli. There is coronary atherosclerosis. There is no right ventricular strain. Aorta is unremarkable. IMPRESSION: Right upper lobe consolidation with pleural thickening and right hilar lymphadenopathy and atelectasis that is suspicious for neoplasm. This is progressed since 03/21/2021. There has been interval development of a large right pleural effusion.. There are no pulmonary emboli. Dictated by: Dictated on workstation # [id number]
--- NOTE | 2021-08-20 03:36 | ED General ---
General Chief Complaint: Respiratory Problems Stated Complaint: SOA Nursing Triage Note: Pt presents with shortness of breath that woke him up from sleep. Accompanied by diaphoresis. Brought in by [facility]. EMS report BS was 58 at home. Given D10 in field and continues on arrival. Source of Information: Patient, EMS, Spouse History of Present Illness Date Seen by Provider: Aug 19, 2021 Time Seen by Provider: 23:20 Initial Comments PT ARRIVES VIA EMS FROM HOME PT WOKE UP VERY DIAPHORETIC AND SHORT OF BREATH ACCUCHECK 58 BY EMS, AND GAVE PT 15 GM OF GLUCOSE/D10 INFUSION STARTED BY EMS REPEAT ACCUCHECK 125 BY EMS. O2 SATS WER 96-98% ON ROOM AIR, BUT EMS PLACED ON O2 AND PT STATES HE FELT BETTER WITH THE OXYGEN PT HAS LUNG CANCER AND COPD BUT IS NOT ON ANY HOME O2 PT HAS COMPLETED CHEMO 2 1/2 MONTHS AGO STATES IT WAS NOT HELPING, HAD LUNG MASS RE-BIOPSIED, AND IS TO START RADIATION NEXT WEEK STATES HE WENT TO BED AROUND 1950 TONIGHT AND FELT FINE, WOKE UP JUST PRIOR TO CALLING EMS, WITH THE ABOVE SYMPTOMS NO CHEST PAIN NO SHORTNESS OF BREATH NOW. NO NAUSEA/VOMITING. HAS HAD DECREASED APPETITE THE LAST FEW DAYS, AND HAS BEEN SEVERELY CONSTIPATED HAS HAD SLIGHT ABDOMINAL DISCOMFORT FROM BEING CONSTIPATED. DENIES FEVER/SWEATS/CHILLS NO INCREASED COUGH PT DENIES SWELLING IN LEGS/FEET OR PAIN IN CALVES, BUT ON EXAM HE DOES HAVE SWELLING PT ALSO HAS HISTORY OF CAD AND HAS HAD STENT AND CABG. PCP: DR. JACKSON [employer] TUTOR: DR. SIMS ONCOLOGIST: DR. STATON Allergies and Home Medications Allergies Coded Allergies: cephalexin (Unverified Allergy, Severe, Anaphylaxis, 06/01/21) [id number]-[id number] Reductase Inhibitor (Verified Allergy, Unknown, 10/14/20) tramadol (Unverified Adverse Reaction, Intermediate, 08/16/11) medication caused pt to experience hypertensive episodes Patient Home Medication List Home Medication List Reviewed: Yes Alprazolam (Alprazolam) 0.5 Mg Tablet, 0.5 MG PO HS, (Reported) Entered as Reported by: VISHNU TILLEY on 02/28/21 0857 Aspirin (Aspirin EC) 81 Mg Tablet.dr, 81 MG PO DAILY, (Reported) Entered as Reported by: VISHNU TILLEY on 02/28/21 0857 Dexamethasone (Dexamethasone) 4 Mg Tablet, 4 MG PO BID PRN for DAY BEFORE, OF AND AFTER CHEMO, (Reported) Entered as Reported by: VISHNU TILLEY on 02/28/21 0857 Folic Acid (Folic Acid) 1 Mg Tablet, 1 MG PO DAILY, (Reported) Entered as Reported by: VISHNU TILLEY on 02/28/21 0857 Glimepiride (Glimepiride) 2 Mg Tablet, 1 MG PO BID, (Reported) Entered as Reported by: KINGSLEY FREEMAN on 05/05/19 0853 Hydrocodone/Acetaminophen (Hydrocodone-Acetamin 7.5-325) 1 Each Tablet, 1 EACH PO Q4H PRN for PAIN-BREAKTHROUGH Prescribed by: MYLES ZAPATA on 06/01/21 0853 Levothyroxine Sodium (Levothyroxine Sodium) 25 Mcg Tablet, 25 MCG PO EVERY OTHER DAY, (Reported) Entered as Reported by: RODNEY GALLEGOS on 05/30/21 1018 Magnesium Oxide (Magnesium Oxide) 400 Mg Tablet, 400 MG PO BID, (Reported) Entered as Reported by: VISHNU TILLEY on 02/28/21 0857 Metoprolol Succinate (Metoprolol Succinate) 25 Mg Tab.er.24h, 12.5 MG PO DAILY, (Reported) Entered as Reported by: RODNEY GALLEGOS on 05/30/21 1018 Pantoprazole Sodium (Pantoprazole Sodium) 40 Mg Tablet.dr, 40 MG PO DAILY, (Reported) Entered as Reported by: VISHNU TILLEY on 02/28/21 0857 Review of Systems Review of Systems Constitutional: no symptoms reported; No chills, No diaphoresis, No fever EENTM: no symptoms reported Respiratory: see HPI; No cough; short of breath Cardiovascular: see HPI; No chest pain; edema; No palpitations, No syncope Gastrointestinal: see HPI, abdominal pain, constipation, loss of appetite; No nausea, No vomiting Genitourinary: no symptoms reported Musculoskeletal: no symptoms reported Skin: no symptoms reported Psychiatric/Neurological: No Symptoms Reported Hematologic/Lymphatic: See HPI Immunological/Allergic: see HPI Past Pieizrt-Xpviix-Uozddf Hx Patient Social History Tobacco Use?: Yes (SMOKED , QUIT 2020) Tobacco type used: Cigarettes Smoking Status: Former Smoker Use of E-Cig and/or Vaping dev: No Substance use?: No Alcohol Use?: No Pt feels they are or have been: No Immunizations Up To Date Tetanus Booster (TDap): Unknown Influenza Vaccine Up-to-Date: Yes; Up-to-Date First/Initial COVID19 Vaccinat: 04/2020 Second COVID19 Vaccination Lyle: 05/2020 Third COVID19 Vaccination Date: 2020 Seasonal Allergies Seasonal Allergies: No Past Medical History Surgery/Hospitalization HX: LBBB, LUNG CA, BEGAN CHEMO 4 MONTHS AGO, AFIB, 3 STENTS Surgeries: Yes (R SHOULDER, OPEN HEART 2008) CABG, Coronary Stent, Gallbladder Respiratory: Yes (LUNG CANCER DX 07/2020) COPD Currently Using CPAP: No Currently Using BIPAP: No Cardiac: Yes (CHF, L BBB, 3 CORONARY STENTS, A-FIB YEARS AGO;CABG) Atrial Fibrillation, Coronary Artery Disease, Hypertension Neurological: No Reproductive Disorders: No Genitourinary: Yes Kidney Stones Gastrointestinal: Yes Hemorrhoids, Gall Bladder Disease Musculoskeletal: Yes Arthritis, Rheumatoid Arthritis Endocrine: Yes Diabetes, Non-Insulin dep HEENT: No Cancer: Yes (LEFT ADRENAL GLAND CA, RUL LUNG CA) Lung Did You Recieve Any Treatments: Yes What Type of Treatment Did You: Chemotherapy Psychosocial: No Integumentary: No Blood Disorders: No Adverse Reaction/Blood Tranf: No Family Medical History No Pertinent Family Hx Physical Exam Vital Signs Vital Signs - First Documented 08/19/21 08/19/21 23:10 23:30 Temp 35.0 Pulse 57 Resp 22 B/P (MAP) 98/75 Pulse Ox 100 O2 Delivery Non Rebreather O2 Flow Rate 8.00 FiO2 99 Capillary Refill : Less Than 3 Seconds Height, Weight, BMI Height: 6'0.00" Weight: 233lbs. 0oz. 105.519575ke; 28.00 BMI Method:Stated General Appearance: No Apparent Distress, WD/WN, Other (REEKS OF CIGARETTES-- STATES SHE SMOKES, BUT PT HAS QUIT. ) HEENT: PERRL/EOMI, Other (EDENTULOUS) Respiratory: No Accessory Muscle Use, No Respiratory Distress, Wheezing (MILD E XPIRATORY WHEEZING. PT STATES IS NORMAL AND IS NOT BOTHERED BY IT. 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 II-XII Norm as Tested Skin: Normal Color, Warm/Dry; No Rash Progress/Results/Core Measures Suspected Sepsis Recent Fever Within 48 Hours: No New/Unexplained Altered Menta: No SIRS Temperature: Pulse: 57 Respiratory Rate: 22 Laboratory Tests 08/19/21 23:23: White Blood Count 5.4 Blood Pressure 98 /75 Mean: 83 Laboratory Tests 08/19/21 23:23: Creatinine 1.55H, INR Comment 1.0, Platelet Count 108L, Total Bilirubin 0.4 Results/Orders Lab Results Laboratory Tests Test 08/19/21 23:23 08/20/21 03:20 Range/Units White Blood Count 5.4 4.3-11.0 10^3/uL Red Blood Count 3.51 L 4.30-5.52 10^6/uL Hemoglobin 12.4 L 13.3-17.7 g/dL Hematocrit 36 L 40-54 % Mean Corpuscular Volume 104 H 80-99 fL Mean Corpuscular Hemoglobin 35 H 25-34 pg Mean Corpuscular Hemoglobin Concent 34 32-36 g/dL Red Cell Distribution Width 12.3 10.0-14.5 % Platelet Count 108 L 130-400 10^3/uL Mean Platelet Volume 11.8 9.0-12.2 fL Immature Granulocyte % (Auto) 1 % Neutrophils (%) (Auto) 66 42-75 % Lymphocytes (%) (Auto) 20 12-44 % Monocytes (%) (Auto) 11 0-12 % Eosinophils (%) (Auto) 2 0-10 % Basophils (%) (Auto) 1 0-10 % Neutrophils # (Auto) 3.5 1.8-7.8 10^3/uL Lymphocytes # (Auto) 1.1 1.0-4.0 10^3/uL Monocytes # (Auto) 0.6 0.0-1.0 10^3/uL Eosinophils # (Auto) 0.1 0.0-0.3 10^3/uL Basophils # (Auto) 0.0 0.0-0.1 10^3/uL Immature Granulocyte # (Auto) 0.0 0.0-0.1 10^3/uL Percent Immature Platelet Fraction 8.5 H 0.0-7.6 % Prothrombin Time 13.1 12.2-14.7 SEC INR Comment 1.0 0.8-1.4 Activated Partial Thromboplast Time 31 24-35 SEC D-Dimer 2.34 H 0.00-0.49 UG/ML Sodium Level 136 135-145 MMOL/L Potassium Level 4.4 3.6-5.0 MMOL/L Chloride Level 99 98-107 MMOL/L Carbon Dioxide Level 24 21-32 MMOL/L Anion Gap 13 5-14 MMOL/L Blood Urea Nitrogen 17 7-18 MG/DL Creatinine 1.55 H 0.60-1.30 MG/DL Estimat Glomerular Filtration Rate 47 BUN/Creatinine Ratio 11 Glucose Level 133 H 79 70-105 MG/DL Calcium Level 9.1 8.5-10.1 MG/DL Corrected Calcium 9.4 8.5-10.1 MG/DL Magnesium Level 1.7 1.6-2.4 MG/DL Total Bilirubin 0.4 0.1-1.0 MG/DL Aspartate Amino Transf (AST/SGOT) 28 5-34 U/L Alanine Aminotransferase (ALT/SGPT) 15 0-55 U/L Alkaline Phosphatase 58 40-136 U/L Total Creatine Kinase 201 H 30-200 U/L Creatine Kinase MB 3.2 <6.6 NG/ML Myoglobin 123.8 H 10.0-92.0 NG/ML Troponin I < 0.028 0.029 H <0.028 NG/ML B-Type Natriuretic Peptide 302.2 H <100.0 PG/ML Total Protein 6.4 6.4-8.2 GM/DL Albumin 3.6 3.2-4.5 GM/DL Amylase Level 176 H 25-125 U/L Lipase 16 8-78 U/L Influenza Type A (RT-PCR) Not Detected Not Detecte Influenza Type B (RT-PCR) Not Detected Not Detecte SARS-CoV-2 RNA (RT-PCR) Not Detected Not Detecte My Orders Orders - SOPHIA BUCKLEY DO Ed Iv/Invasive Line Start (08/19/21 23:20) Ekg Tracing (08/19/21 23:20) O2 (08/19/21 23:20) Monitor-Rhythm Ecg Trace Only (08/19/21 23:20) Bnp Earl (08/19/21 23:20) Cbc With Automated Diff (08/19/21 23:20) Comprehensive Metabolic Panel (08/19/21 23:20) Magnesium (08/19/21 23:20) Ua Culture If Indicated (08/19/21 23:20) Ed Iv/Invasive Line Start (08/19/21 23:20) D5 1/2 Ns 1000 Ml Iv Solution (Dextrose (08/19/21 23:30) Chest 1 View, Ap/Pa Only (08/19/21 23:27) Creatine Kinase (08/19/21 23:27) Creatine Kinase Mb (08/19/21:) Protime With Inr (08/19/21:) Partial Thromboplastin Time (08/19/21:) Myoglobin Serum (08/19/21:) Troponin I Earl (08/19/21 23:27) Covid 19 Inhouse Test (08/19/21:) Influenza A And B By Pcr (08/19/21:27) Isolation Central Supply Req (08/19/21 23:27) Fibrin Degradation Products (08/19/21 23:23) Amylase (08/19/21 23:23) Lipase (08/19/21 23:23) Ct Angio Chest W (08/20/21 00:54) Iohexol Injection (Omnipaque 350 Mg/Ml 1 (08/20/21 01:45) Received Contrast (Hold Metformin- Contr (08/20/21 01:45) Sodium Chloride Flush (Catheter Flush Sy (08/20/21 01:45) Ns (Ivpb) (Sodium Chloride 0.9% Ivpb Bag (08/20/21 01:45) Ekg Tracing (08/20/21 02:57) Troponin I Earl (08/20/21 02:57) Glucose (08/20/21 03:02) Medications Given in ED Current Medications Medications Dose Ordered Sig/Eusebio Route Start Time Stop Time Status Last Admin Dose Admin Iohexol 100 ml ONCE ONCE IV 08/20/21 01:45 08/20/21 01:46 DC 08/20/21 01:46 90 ML Sodium Chloride 10 ml NEEDED PRN IV 08/20/21 01:45 08/20/21 05:03 DC 08/20/21 01:46 10 ML Sodium Chloride 100 ml ONCE ONCE IV 08/20/21 01:45 08/20/21 01:46 DC 08/20/21 01:46 80 ML Vital Signs/I&O 08/19/21 08/19/21 08/19/21 23:10 23:10 23:30 Temp 35.0 35.0 Pulse 57 57 Resp 22 22 B/P (MAP) 98/75 98/75 (83) Pulse Ox 100 100 99 O2 Delivery Non Rebreather Non Rebreather Nasal Cannula O2 Flow Rate 8.00 2.00 FiO2 99 08/20/21 00:00 Intake Total 150 ml Balance 150 ml Capillary Refill : Less Than 3 Seconds Blood Pressure Mean: 83 Progress Note : Progress Note NO SYMPTOMS OF ANY KIND DURING ENTIRE ER STAY REPEAT EKG UNCHANGED, REPEAT TROPONIN ESSENTIALLY UNCHANGED REPEAT GLUCOSE 78 VITALS STABLE NO DYSPNEA NO HYPOXIA NO FEVER PT AND FEEL COMFORTABLE GOING HOME. ECG Initial ECG Impression Date: Aug 19, 2021 Initial ECG Impression Time: 23:27 Initial ECG Rate: 55 Initial ECG Rhythm: S.Brooks (LBBB) Initial ECG Impression: 1st Degree AV Block EKG : EKG Time: 03:13 Rate: 54 Rhythm: S.Brooks (LBBB) ECG Comparisson: Unchanged ECG Impression: 1st Degree AV Block Diagnostic Imaging Comments CXR--RIGHT LUNG MASS, PENDING RADIOLOGIST REVIEW CT CHEST ANGIOGRAM--PER RADIOLOGIST REPORT AT 0257 There is consolidation present in the right upper lobe. There is adjacent pleural thickening. There is a right pleural effusion measures 8 cm in thickness. There is volume loss in the medial aspect of the right upper lobe. There are no pulmonary emboli. There is coronary atherosclerosis. There is no right ventricular strain. Aorta is unremarkable. IMPRESSION: Right upper lobe consolidation with pleural thickening and right hilar lymphadenopathy and atelectasis that is suspicious for neoplasm. This is progressed since 03/21/2021. There has been interval development of a large right pleural effusion.. There are no pulmonary emboli. Reviewed: Reviewed by Me Departure Impression Primary Impression: HYPOGLYCEMIC EPISODE Additional Impression: Lung cancer Disposition: HOME, SELF-CARE Condition: Improved Departure-Patient Inst. Decision time for Depature: 04:00 Referrals: SOPHIA JACKSON MD (PCP/Family) Primary Care Physician Patient Instructions: HYPOGLYCEMIA, Lung Cancer (DC) Add. Discharge Instructions: EAT REGULAR HIGH-PROTEIN MEALS, INCREASE YOUR DAILY CALORIE INTAKE CONTINUE YOUR REGULAR MEDICATIONS FOLLOW UP WITH YOUR DR THIS WEEK SCHEDULED, RETURN TO ER IF YOUR SYMPTOMS WORSEN All discharge instructions reviewed with patient and/or family. Voiced understanding. SOPHIA BUCKLEY DO Aug 20, 2021 03:36
--- NOTE | 2021-08-20 07:20 | Diagnostic Imaging Report ---
INDICATION: Dyspnea. Comparison is made with prior exam of 06/29/2021. FINDINGS: There is cardiomegaly. There is right perihilar atelectasis and/or pneumonitis with a right pleural effusion. There is no pneumothorax. Mediastinum is unremarkable. There has been a previous median sternotomy and coronary bypass graft. A left subclavian Nyiukx-N-Anfs catheter is in place IMPRESSION: Cardiomegaly with right perihilar atelectasis and/or pneumonitis and a right pleural effusion. Dictated by: Dictated on workstation # [id number]
== END 2021-08-20 04:35 | disposition home or self-care (01) ==
LOC: EDUNIT# 23:08 → ER 23:12
DX: C34.11 Malignant neoplasm of upper lobe, right bronchus or lung (principal); E11.649 Type 2 diabetes mellitus with hypoglycemia without coma; I44.0 Atrioventricular block, first degree; I25.10 Atherosclerotic heart disease of native coronary artery without angina pectoris; Z87.891 Personal history of nicotine dependence; Z20.822 Contact with and (suspected) exposure to COVID-19; Z95.1 Presence of aortocoronary bypass graft
CPT/HCPCS: 36415; 71045; 71275; 80053; 82150; 82550; 82553; 82947; 83690; 83735; 83874; 83880; 84484; 85025; 85379; 85610; 85730; 87636; 93005

== ENCOUNTER → 2021-08-22 | Outpatient (CLI) | payer MEDICARE, MEDICAID ==
[~2021-08-22] VITALS: Ht 182 cm; Wt 97.1 kg
[~2021-08-22] MED LIST changes: +LIDOCAINE 1% INJ 20 ML VIAL ONE; +OXYC5TAB PO
[2021-08-22 12:15] VITALS: BP 102/70
--- NOTE | 2021-08-22 13:39 | Diagnostic Imaging Report ---
INDICATION: Right-sided pleural effusion. FINDINGS: Sonographic interrogation of the right chest was performed. There is a large right pleural effusion. Marking was provided for Dr. Naqvi for performance of a thoracentesis. IMPRESSION: Large right pleural effusion. Dictated by: Dictated on workstation # [id number]
--- NOTE | 2021-08-22 13:41 | Diagnostic Imaging Report ---
INDICATION: Pleural effusion, status post thoracentesis. TIME OF EXAM: 01:13 p.m. COMPARISON: Correlation is made with prior chest from 08/19/2021. FINDINGS: There has been reduction in right-sided pleural effusion, status post thoracentesis. No pneumothorax is seen. There is some infiltrate or scarring in the right upper lobe. IMPRESSION: No evidence of pneumothorax, status post thoracentesis. Dictated by: Dictated on workstation # [id number]
--- NOTE | 2021-08-22 21:16 | OPERATIVE REPORT ---
DATE OF SERVICE: 08/22/2021 ATTENDING PRIMARY CARE PHYSICIAN: Dr. Jada Steiner. PREOPERATIVE DIAGNOSIS: Recurrent right pleural effusion with history of right metastatic lung cancer. POSTOPERATIVE DIAGNOSIS: Recurrent right pleural effusion with history of right metastatic lung cancer. PROCEDURE: Right thoracentesis. SURGEON: Cade Dimas MD ANESTHESIA: Local. ESTIMATED BLOOD LOSS: Minimal. FINDINGS: A 2.2 liters of straw yellow transudative fluid. DISPOSITION: The patient tolerated the procedure well. INDICATIONS: The patient is a 71-year-old male with history of metastatic right lung cancer. He underwent chemotherapy as well as radiation and did have a favorable response. We did place a Gro[place]ong implantable catheter on him on 06/01/2021. He did develop symptomatic shortness of breath and underwent diagnostic imaging, was found to have a significant size right pleural effusion. He underwent a thoracentesis on 06/29/2021, where 1400 mL of transudative fluid was removed and this was sent to cytology, which was negative for malignancy. He states for the past few weeks, he has had worsening shortness of breath as well as heaviness sensation on the right chest. He underwent diagnostic imaging again, which did show a significant recurrent right pleural effusion. DESCRIPTION OF PROCEDURE: Before the procedure, the posterolateral back was marked by ultrasonography. The back was then prepped and draped in standard surgical fashion. A 1% lidocaine was then used to anesthetize the skin, subcutaneous tissue, muscle layers as well as the parietal pleura. A vertical skin incision was made using 11-blade. The trocar and catheter were then placed withdrawing of straw yellow transudative fluid, and the catheter was advanced over the trocar without any resistance. The catheter was then connected to vacuum containers where 2.2 liters of straw yellow transudative fluid were evacuated. Catheter was then removed while applying direct pressure and Op-Site with visualization of good hemostasis. The patient tolerated the procedure well. We will get a post-procedure chest x-ray. If he does become symptomatic again, we will have him undergo a chest x-ray as well as ultrasonography and repeat thoracentesis. Job ID: [id number] DocumentID: [id number] Dictated Date: 08/22/2021 13:21:52 Type Photography Supervisor Date: 08/22/2021 21:15:40 Dictated By: CADE DIMAS MD
== END ==
LOC: SDC 11:55
PROVIDERS: ATTEND Surgery
DX: J90 Pleural effusion, not elsewhere classified (principal)
CPT/HCPCS: 32554; 71045; 76942

== ENCOUNTER 2021-08-25 13:39 | Emergency (ER) | payer MEDICARE, MEDICAID ==
[~2021-08-25] VITALS: Ht 182.8 cm; Wt 97.1 kg
[~2021-08-25 13:39] MED LIST changes: -LIDOCAINE 1% INJ 20 ML VIAL ONE; -OXYC5TAB PO
--- NOTE | 2021-08-25 14:09 | ED Respiratory ---
General Chief Complaint: Respiratory Problems Stated Complaint: SOA Source: patient, family Exam Limitations: no limitations History of Present Illness Date Seen by Provider: Aug 25, 2021 Time Seen by Provider: 14:00 Initial Comments Patient is a 71-year-old male who presents to the emergency department today with a chief complaint of feeling short of breath and having some right lower rib pain. Patient states that he has a history of lung cancer with some spread to his right adrenal gland. He had a pleurocentesis done on Saturday of this week where they took out "2 quarts" of fluid. He states since that time he has had progressive discomfort in the right lower chest. He cannot lay flat or reclining at all without significant shortness of breath. He is not on home oxygen. He states pain medications do not really help. No fevers, chills, productive cough. He has been constipated as he takes hydrocodone for pain. Patient and his family member spoke with his primary care physician's nurse today as well as the nurse practitioner at the cancer center and they advised him to come to the emergency room for evaluation. All other review of systems reviewed and negative except as stated. Timing/Duration: getting worse Severity: severe Prior Episodes/Possible Cause: other (Recent pleurocentesis) Associated Symptoms: chest pain/soreness, shortness of breath Allergies and Home Medications Allergies Coded Allergies: cephalexin (Unverified Allergy, Severe, Anaphylaxis, 06/01/21) Usbswgx-JZE-EwK Reductase Inhibitor (Verified Allergy, Unknown, 10/14/20) tramadol (Unverified Adverse Reaction, Intermediate, 08/16/11) medication caused pt to experience hypertensive episodes Patient Home Medication List Home Medication List Reviewed: Yes Alprazolam (Alprazolam) 0.5 Mg Tablet, 0.5 MG PO HS, (Reported) Entered as Reported by: VISHNU TILLEY on 02/28/21 0857 Aspirin (Aspirin EC) 81 Mg Tablet.dr, 81 MG PO DAILY, (Reported) Entered as Reported by: VISHNU TILLEY on 02/28/21 0857 Dexamethasone (Dexamethasone) 4 Mg Tablet, 4 MG PO BID PRN for DAY BEFORE, OF AND AFTER CHEMO, (Reported) Entered as Reported by: VISHNU TILLEY on 02/28/21 0857 Folic Acid (Folic Acid) 1 Mg Tablet, 1 MG PO DAILY, (Reported) Entered as Reported by: VISHNU TILLEY on 02/28/21 0857 Glimepiride (Glimepiride) 2 Mg Tablet, 1 MG PO BID, (Reported) Entered as Reported by: KINGSLEY FREEMAN on 05/05/19 0853 Hydrocodone/Acetaminophen (Hydrocodone-Acetamin 7.5-325) 1 Each Tablet, 1 EACH PO Q4H PRN for PAIN-BREAKTHROUGH Prescribed by: MYLES ZAPATA on 06/01/21 0853 Levothyroxine Sodium (Levothyroxine Sodium) 25 Mcg Tablet, 25 MCG PO EVERY OTHER DAY, (Reported) Entered as Reported by: RODNEY GALLEGOS on 05/30/21 1018 Magnesium Oxide (Magnesium Oxide) 400 Mg Tablet, 400 MG PO BID, (Reported) Entered as Reported by: VISHNU TILLEY on 02/28/21 0857 Metoprolol Succinate (Metoprolol Succinate) 25 Mg Tab.er.24h, 12.5 MG PO DAILY, (Reported) Entered as Reported by: RODNEY GALLEGOS on 05/30/21 1018 Oxycodone HCl (Oxycodone HCl) 5 Mg Tablet, 5 MG PO Q6H PRN for PAIN-MODERATE (5- 7) Prescribed by: CLINT RICHARDS on 08/25/21 1512 Pantoprazole Sodium (Pantoprazole Sodium) 40 Mg Tablet.dr, 40 MG PO DAILY, (Reported) Entered as Reported by: VISHNU TILLEY on 02/28/21 0857 Review of Systems Review of Systems Constitutional: see HPI EENTM: no symptoms reported Respiratory: short of breath Cardiovascular: chest pain (Right lower rib) Gastrointestinal: constipation Genitourinary: no symptoms reported Musculoskeletal: no symptoms reported Skin: no symptoms reported All Other Systems Reviewed Negative Unless Noted: Yes Past Mncidar-Rbbxif-Fnwzvv Hx Patient Social History Tobacco Use?: No Use of E-Cig and/or Vaping dev: No Substance use?: No Alcohol Use?: No Pt feels they are or have been: No Immunizations Up To Date Tetanus Booster (TDap): Unknown Influenza Vaccine Up-to-Date: Yes; Up-to-Date First/Initial COVID19 Vaccinat: 04/2020 Second COVID19 Vaccination Lyle: 05/2020 Third COVID19 Vaccination Date: 12/2020 Seasonal Allergies Seasonal Allergies: No Past Medical History Surgery/Hospitalization HX: LBBB, LUNG CA, BEGAN CHEMO 4 MONTHS AGO, AFIB, 3 STENTS Surgeries: Yes (R SHOULDER, OPEN HEART 2008) CABG, Coronary Stent, Gallbladder Respiratory: Yes (LUNG CANCER DX 07/2020) COPD Currently Using CPAP: No Currently Using BIPAP: No Cardiac: Yes (CHF, L BBB, 3 CORONARY STENTS, A-FIB YEARS AGO;CABG) Atrial Fibrillation, Coronary Artery Disease, Hypertension Neurological: No Reproductive Disorders: No Genitourinary: Yes Kidney Stones Gastrointestinal: Yes Hemorrhoids, Gall Bladder Disease Musculoskeletal: Yes Arthritis, Rheumatoid Arthritis Endocrine: Yes Diabetes, Non-Insulin dep HEENT: No Cancer: Yes (LEFT ADRENAL GLAND CA, RUL LUNG CA) Lung Did You Recieve Any Treatments: Yes What Type of Treatment Did You: Chemotherapy Psychosocial: No Integumentary: No Blood Disorders: No Adverse Reaction/Blood Tranf: No Family Medical History No Pertinent Family Hx Physical Exam Vital Signs - First Documented 08/25/21 14:04 Temp 36.8 Pulse 81 Resp 22 B/P (MAP) 106/69 (81) Pulse Ox 98 O2 Delivery Room Air Capillary Refill : Height: 6'0.00" Weight: 233lbs. 0oz. 105.310683bm; 28.00 BMI Method:Stated General Appearance: WD/WN, no apparent distress Eyes: Bilateral Eye Normal Inspection, Bilateral Eye PERRL, Bilateral Eye EOMI HEENT: PERRL/EOMI Neck: normal inspection Respiratory: lungs clear, normal breath sounds, no respiratory distress, no accessory muscle use, other (Tenderness to the right lower ribs anteriorly - pulse ox 99% on room air) Cardiovascular: regular rate, rhythm Gastrointestinal: soft, tenderness (Right upper quadrant) Extremities: normal range of motion Neurologic/Psychiatric: alert, normal mood/affect, oriented x 3 Skin: normal color, warm/dry Progress/Results/Core Measures Suspected Sepsis SIRS Temperature: Pulse: Respiratory Rate: Blood Pressure / Mean: Results/Orders My Orders Orders - CLINT RICHARDS MD Chest Pa/Lat (2 View) (08/25/21 14:06) Vital Signs/I&O 08/25/21 14:04 Temp 36.8 Pulse 81 Resp 22 B/P (MAP) 106/69 (81) Pulse Ox 98 O2 Delivery Room Air Capillary Refill : Progress Note : Time: 15:15 Progress Note Had a discussion with the patient and his regarding his right-sided chest pain. He thinks, and I think that he probably is struggling with some constipation that may be pushing up on his right upper quadrant against the diaphragm increasing the pain that he also has related to the small right pleural effusion that is present. He states that he does not drink a whole lot of water maybe 4 or 5 sips out of the glass daily. He likes to drink coffee more. He has used multiple gndv-hkt-flcpbuq remedies as well as fruits and veggies to try and alleviate his constipation to no avail. He states he only has really small hard bowel movements. We discussed making his goal a gallon of water daily. I talked to him about the physiology of having increased water intake and stool softening. He seems agreeable and receptive to this. His chest x-ray today only shows a small pleural effusion with no evidence of pneumothorax or any other acute pathology. His abdomen is tender in the epigastrium and right upper quadrant but most specifically over the right lower ribs. He does not have fever, tachycardia, hypoxemia, rash, or any other concerns for infection or actual obstruction. I offered because his hydrocodone is not really taking care of his pain to switch him over to some oxycodone. He does not like to take the extended release morphine offered by his oncologist. I gave him 10 tablets of 5 mg oxycodone immediate release. Return precautions discussed. All questions are sought and answered. Diagnostic Imaging Diagonstic Imaging: Xray Plain Films/CT/US/NM/MRI: chest Comments [facility] [place], [place] NAME: NICOLETTE CAREY [facility] REC#: [id number] PT STATUS: REG ER : 1950 PHYSICIAN: CLINT RICHARDS MD ADMIT DATE: 08/25/21/ER Draft Date of Exam:08/25/21 CHEST PA/LAT (2 VIEW) INDICATION: Shortness of breath. PA and lateral chest obtained at 2:46 p.m. and compared to 08/22/2021. FINDINGS: There is post-sternotomy change with mild cardiomegaly. There are chronic appearing increased interstitial markings. There are unchanged right upper lobe opacities which may represent scarring and/or nodule. There is no pneumothorax. There is a small right pleural effusion. There is no left-sided effusion. IMPRESSION: No pneumothorax. Small right-sided pleural effusion, no significant left pleural fluid. Underlying chronic interstitial changes and right apical scarring versus nodule. Dictated on workstation # [id number] Dict: 08/25/21 1448 Trans: 08/25/21 1452 [id number] Interpreted by: YFN POP MD Electronically signed by: Departure Impression Primary Impression: Right-sided chest pain Additional Impressions: Pleural effusion Lung cancer Qualified Codes: C34.90 - Malignant neoplasm of unspecified part of unspecified bronchus or lung Constipation Qualified Codes: K59.00 - Constipation, unspecified Disposition: HOME, SELF-CARE Condition: Stable Departure-Patient Inst. Decision time for Depature: 15:10 Referrals: SOPHIA JACKSON MD (PCP/Family) Primary Care Physician Patient Instructions: Constipation, Adult (DC) Add. Discharge Instructions: Try the oxycodone 1 pill every 6 hours as needed for pain. Try to make you goal 1 gallon of water daily. Continue your stool softeners twice daily. Follow a high-fiber diet. Return to the emergency room for fever, worsening pain or shortness of breath or any other emergent, concerning symptoms. Scripts Oxycodone HCl (Oxycodone HCl) 5 Mg Tablet 5 MG PO Q6H PRN for PAIN-MODERATE (5-7), #10 TAB Prov: CLINT RICHARDS MD 08/25/21 Copy Copies To 1: SOPHIA JACKSON MD, KATHRYN M MD Aug 25, 2021 14:09
--- NOTE | 2021-08-25 14:52 | Diagnostic Imaging Report ---
INDICATION: Shortness of breath. PA and lateral chest obtained at 2:46 p.m. and compared to 08/22/2021. FINDINGS: There is post-sternotomy change with mild cardiomegaly. There are chronic appearing increased interstitial markings. There are unchanged right upper lobe opacities which may represent scarring and/or nodule. There is no pneumothorax. There is a small right pleural effusion. There is no left-sided effusion. IMPRESSION: No pneumothorax. Small right-sided pleural effusion, no significant left pleural fluid. Underlying chronic interstitial changes and right apical scarring versus nodule. Dictated by: Dictated on workstation # [id number]
[2021-08-25] MEDS ORDERED: OXYC5TAB PO (15:11)
[2021-08-25 15:18] VITALS: BP 105/69
== END 2021-08-25 15:17 | disposition home or self-care (01) ==
LOC: EDUNIT# 13:39 → ER 13:40
DX: J90 Pleural effusion, not elsewhere classified (principal); K59.00 Constipation, unspecified; C34.11 Malignant neoplasm of upper lobe, right bronchus or lung; C79.72 Secondary malignant neoplasm of left adrenal gland; Z79.891 Long term (current) use of opiate analgesic
CPT/HCPCS: 71046

== ENCOUNTER 2021-09-08 08:11 | Outpatient (RCR) | payer MEDICARE, MEDICAID, OTHER ==
[2021-08-16 10:29] LABS: CREATININE SERUM 1.45 MG/DL (0.60-1.30)
[~2021-09-08 08:11] MED LIST changes: +OXYC5TAB PO
== END 2021-09-14 | disposition home or self-care (01) ==
LOC: ONC 08:11
PROVIDERS: ATTEND Radiology Radiation Oncology
DX: Z51.0 Encounter for antineoplastic radiation therapy (principal); C34.90 Malignant neoplasm of unspecified part of unspecified bronchus or lung; C79.71 Secondary malignant neoplasm of right adrenal gland
CPT/HCPCS: 82565; 84520; G0463; 77300; 77301; 77334; 77336; 77338; 77386; 77470; 99204; 99214

== ENCOUNTER 2021-11-07 22:25 | Emergency (ER) | payer MEDICARE, MEDICAID ==
[2021-11-07 22:34] VITALS: BP 114/78
[2021-11-07] MEDS ORDERED: RT-ALBUTEROL/IPRATROPIUM 3 ML (DUONEB) VIAL INH ONE (22:45)
[2021-11-07 22:47] LABS: BASOPHILS % (AUTO) 1 % (0-10); EOSINOPHILS # (AUTO) 0.1 10^3/uL (0.0-0.3); EOSINOPHILS % (AUTO) 1 % (0-10); HEMATOCRIT 35 % (40-54); HEMOGLOBIN 11.7 g/dL (13.3-17.7); LYMPHOCYTES # (AUTO) 0.5 10^3/uL (1.0-4.0); LYMPHOCYTES % (AUTO) 12 % (12-44); MEAN CORPUSCULAR HEMOGLOBIN 33 pg (25-34); MEAN CORPUSCULAR HGB CONC 34 g/dL (32-36); MEAN CORPUSCULAR VOLUME 98 fL (80-99); MEAN PLATELET VOLUME 11.4 fL (9.0-12.2); MONOCYTES # (AUTO) 0.9 10^3/uL (0.0-1.0); MONOCYTES % (AUTO) 22 % (0-12); NEUTROPHILS # (AUTO) 2.7 10^3/uL (1.8-7.8); NEUTROPHILS % (AUTO) 64 % (42-75); PLATELET COUNT 116 10^3/uL (130-400); WHITE BLOOD COUNT 4.2 10^3/uL (4.3-11.0)
[2021-11-07 22:55] LABS: POTASSIUM 4.4 MMOL/L (3.6-5.0)
[2021-11-07 22:56] LABS: CALCIUM 9.5 MG/DL (8.5-10.1)
[2021-11-07 23:01] LABS: CREATININE SERUM 1.28 MG/DL (0.60-1.30); LYMPHOCYTES % (MANUAL) 7 %; MONOCYTES % (MANUAL) 32 %; NEUTROPHILS % (MANUAL) 57 %; POLYCHROMASIA SLIGHT
--- NOTE | 2021-11-08 01:16 | ED General ---
General Chief Complaint: Chest Pain Stated Complaint: SOB Nursing Triage Note: PT PRESENTS WITH C/O INTERMITTENT CP AND SOB. REPORTS HAVING AN XRAY DONE AND BEING TOLD HE HAS NOTHER PLEURAL IFFUSION. REPORTS HE BEGAN HAVING THEM AFTER STARTING RADIATION EARLIER IN THE YEAR. REPORTS INCREASED SOB TONIGHT. Source of Information: Patient Exam Limitations: No Limitations History of Present Illness Date Seen by Provider: Nov 07, 2021 Time Seen by Provider: 22:29 Initial Comments This is 71-year-old gentleman presents to the emergency room with complaint of increased shortness of breath. He does not describe any chest pain to me today. He has history of pleural effusions after receiving radiation therapy for cancer. He has had to have multiple thoracentesis procedures by Dr. Naqvi to evacuate the effusions. He denies any fever or increased cough. He is wheezing and has history of COPD. Allergies and Home Medications Allergies Coded Allergies: cephalexin (Unverified Allergy, Severe, Anaphylaxis, 06/01/21) Epsztqq-LUC-PfJ Reductase Inhibitor (Verified Allergy, Unknown, 10/14/20) tramadol (Unverified Adverse Reaction, Intermediate, 08/16/11) medication caused pt to experience hypertensive episodes Patient Home Medication List Home Medication List Reviewed: Yes Alprazolam (Alprazolam) 0.5 Mg Tablet, 0.5 MG PO HS, (Reported) Entered as Reported by: VISHNU TILLEY on 02/28/21 0857 Aspirin (Aspirin EC) 81 Mg Tablet.dr, 81 MG PO DAILY, (Reported) Entered as Reported by: VISHNU TILLEY on 02/28/21 0857 Dexamethasone (Dexamethasone) 4 Mg Tablet, 4 MG PO BID PRN for DAY BEFORE, OF AND AFTER CHEMO, (Reported) Entered as Reported by: VISHNU TILLEY on 02/28/21 0857 Folic Acid (Folic Acid) 1 Mg Tablet, 1 MG PO DAILY, (Reported) Entered as Reported by: VISHNU TILLEY on 02/28/21 0857 Glimepiride (Glimepiride) 2 Mg Tablet, 1 MG PO BID, (Reported) Entered as Reported by: KINGSLEY FREEMAN on 05/05/19 0853 Hydrocodone/Acetaminophen (Hydrocodone-Acetamin 7.5-325) 1 Each Tablet, 1 EACH PO Q4H PRN for PAIN-BREAKTHROUGH Prescribed by: MYLES ZAPATA on 06/01/21 0853 Levothyroxine Sodium (Levothyroxine Sodium) 25 Mcg Tablet, 25 MCG PO EVERY OTHER DAY, (Reported) Entered as Reported by: RODNEY GALLEGOS on 05/30/21 1018 Magnesium Oxide (Magnesium Oxide) 400 Mg Tablet, 400 MG PO BID, (Reported) Entered as Reported by: VISHNU TILLEY on 02/28/21 0857 Metoprolol Succinate (Metoprolol Succinate) 25 Mg Tab.er.24h, 12.5 MG PO DAILY, (Reported) Entered as Reported by: RODNEY GALLEGOS on 05/30/21 1018 Oxycodone HCl (Oxycodone HCl) 5 Mg Tablet, 5 MG PO Q6H PRN for PAIN-MODERATE (5- 7) Prescribed by: CLINT RICHARDS on 08/25/21 1512 Pantoprazole Sodium (Pantoprazole Sodium) 40 Mg Tablet.dr, 40 MG PO DAILY, (Reported) Entered as Reported by: VISHNU TILLEY on 02/28/21 0857 Review of Systems Review of Systems Constitutional: no symptoms reported EENTM: no symptoms reported Respiratory: see HPI Cardiovascular: no symptoms reported Gastrointestinal: no symptoms reported Genitourinary: no symptoms reported Musculoskeletal: no symptoms reported Skin: no symptoms reported Psychiatric/Neurological: No Symptoms Reported Hematologic/Lymphatic: No Symptoms Reported Past Bzgbkjv-Ckvozc-Csqpuz Hx Patient Social History Tobacco Use?: No Use of E-Cig and/or Vaping dev: No Substance use?: No Immunizations Up To Date Tetanus Booster (TDap): Unknown First/Initial COVID19 Vaccinat: 04/2020 Second COVID19 Vaccination Lyle: 05/2020 Third COVID19 Vaccination Date: 12/2020 Seasonal Allergies Seasonal Allergies: No Past Medical History Surgery/Hospitalization HX: LBBB, LUNG CA, BEGAN CHEMO 4 MONTHS AGO, AFIB, 3 STENTS Surgeries: Yes (R SHOULDER, OPEN HEART 2008, thoracentesis) CABG, Coronary Stent, Gallbladder Respiratory: Yes (LUNG CANCER DX 07/2020, pleural effusions) COPD Currently Using CPAP: No Currently Using BIPAP: No Cardiac: Yes (CHF, L BBB, 3 CORONARY STENTS, A-FIB YEARS AGO;CABG) Atrial Fibrillation, Coronary Artery Disease, Hypertension Neurological: No Reproductive Disorders: No Genitourinary: Yes Kidney Stones Gastrointestinal: Yes Hemorrhoids, Gall Bladder Disease Musculoskeletal: Yes Arthritis, Rheumatoid Arthritis Endocrine: Yes Diabetes, Non-Insulin dep HEENT: No Cancer: Yes (LEFT ADRENAL GLAND CA, RUL LUNG CA) Lung Did You Recieve Any Treatments: Yes What Type of Treatment Did You: Chemotherapy Psychosocial: No Integumentary: No Blood Disorders: No Adverse Reaction/Blood Tranf: No Family Medical History No Pertinent Family Hx Physical Exam Vital Signs Vital Signs - First Documented 11/07/21 11/07/21 22:34 23:04 Pulse 90 Resp 22 B/P (MAP) 114/78 (90) Pulse Ox 94 O2 Delivery Room Air O2 Flow Rate 2.00 Capillary Refill : Height, Weight, BMI Height: 6'0.00" Weight: 233lbs. 0oz. 105.480469pn; 29.00 BMI Method:Stated General Appearance: No Apparent Distress, WD/WN HEENT: PERRL/EOMI, Normal ENT Inspection Neck: Normal Inspection Respiratory: No Accessory Muscle Use, No Respiratory Distress, Decreased Breath Sounds (Diminished on both sides, right greater than left), Wheezing Cardiovascular: Regular Rate, Rhythm, No Edema, No Murmur Gastrointestinal: Non Tender, Soft Extremity: Pedal Edema, Swelling Neurologic/Psychiatric: Alert, Oriented x3, No Motor/Sensory Deficits, Normal Mood/Affect Skin: Normal Color, Warm/Dry Progress/Results/Core Measures Suspected Sepsis SIRS Temperature: Pulse: 90 Respiratory Rate: 22 Laboratory Tests 11/07/21 22:33: White Blood Count 4.2L Blood Pressure 114 /78 Mean: 76 Laboratory Tests 11/07/21 22:33: Creatinine 1.28, Platelet Count 116L Results/Orders Lab Results Laboratory Tests Test 11/07/21 22:33 11/08/21 00:04 Range/Units White Blood Count 4.2 L 4.3-11.0 10^3/uL Red Blood Count 3.53 L 4.30-5.52 10^6/uL Hemoglobin 11.7 L 13.3-17.7 g/dL Hematocrit 35 L 40-54 % Mean Corpuscular Volume 98 80-99 fL Mean Corpuscular Hemoglobin 33 25-34 pg Mean Corpuscular Hemoglobin Concent 34 32-36 g/dL Red Cell Distribution Width 13.3 10.0-14.5 % Platelet Count 116 L 130-400 10^3/uL Mean Platelet Volume 11.4 9.0-12.2 fL Immature Granulocyte % (Auto) 0 % Neutrophils (%) (Auto) 64 42-75 % Lymphocytes (%) (Auto) 12 12-44 % Monocytes (%) (Auto) 22 H 0-12 % Eosinophils (%) (Auto) 1 0-10 % Basophils (%) (Auto) 1 0-10 % Neutrophils # (Auto) 2.7 1.8-7.8 10^3/uL Lymphocytes # (Auto) 0.5 L 1.0-4.0 10^3/uL Monocytes # (Auto) 0.9 0.0-1.0 10^3/uL Eosinophils # (Auto) 0.1 0.0-0.3 10^3/uL Basophils # (Auto) 0.0 0.0-0.1 10^3/uL Immature Granulocyte # (Auto) 0.0 0.0-0.1 10^3/uL Neutrophils % (Manual) 57 % Lymphocytes % (Manual) 7 % Monocytes % (Manual) 32 % Percent Immature Platelet Fraction 7.1 0.0-7.6 % Polychromasia SLIGHT Sodium Level 140 135-145 MMOL/L Potassium Level 4.4 3.6-5.0 MMOL/L Chloride Level 99 98-107 MMOL/L Carbon Dioxide Level 27 21-32 MMOL/L Anion Gap 14 5-14 MMOL/L Blood Urea Nitrogen 30 H 7-18 MG/DL Creatinine 1.28 0.60-1.30 MG/DL Estimat Glomerular Filtration Rate 59 BUN/Creatinine Ratio 23 Glucose Level 119 H 70-105 MG/DL Calcium Level 9.5 8.5-10.1 MG/DL B-Type Natriuretic Peptide 609.9 H <100.0 PG/ML Influenza Type A (RT-PCR) Not Detected Not Detecte Influenza Type B (RT-PCR) Not Detected Not Detecte SARS-CoV-2 RNA (RT-PCR) Not Detected Not Detecte My Orders Orders - EDGAR MORROW MD Covid 19 Inhouse Test (11/07/21 22:29) Influenza A And B By Pcr (11/07/21 22:29) Chest 1 View, Ap/Pa Only (11/07/21 22:38) Basic Metabolic Panel (11/07/21 22:38) Bnp [place] (11/07/21 22:38) Cbc With Automated Diff (11/07/21 22:38) Ed Iv/Invasive Line Start (11/07/21 22:38) Albuterol/Ipra Inhalation Soln (Duoneb I (11/07/21 22:45) Svn Small Volume Nebulizer (11/07/21 22:39) O2 (11/07/21 22:39) Manual Differential (11/07/21 22:33) Medications Given in ED Current Medications Medications Dose Ordered Sig/Eusebio Route Start Time Stop Time Status Last Admin Dose Admin Albuterol/ Ipratropium 3 ml ONCE ONCE INH 11/07/21 22:45 11/07/21 22:46 DC 11/07/21 23:03 3 ML Vital Signs/I&O 11/07/21 11/07/21 11/07/21 11/08/21 22:34 23:04 23:07 00:16 Pulse 90 86 93 Resp 22 18 18 B/P (MAP) 114/78 (90) 101/59 94/67 Pulse Ox 94 98 100 96 O2 Delivery Room Air Nasal Cannula Room Air O2 Flow Rate 2.00 Capillary Refill : Blood Pressure Mean: 76 Progress Note : Progress Note An increased dose of Lasix and potassium was suggested for this morning. He should then try to arrange thoracentesis with Dr. Naqvi. He does not require emergent thoracentesis at this time. See discharge instructions. DuoNeb treatment was administered. Given lack of fever, increased cough, or leukocytosis, infection was not felt to be likely. Antibiotics were therefore not administered. ECG Initial ECG Impression Date: Nov 08, 2021 Initial ECG Impression Time: 22:35 Initial ECG Rate: 93 Initial ECG Rhythm: Normal Sinus Comment Sinus rhythm with no acute ST elevation or depression. Chronic left bundle branch block. Diagnostic Imaging Diagonstic Imaging: Xray Plain Films/CT/US/NM/MRI: chest Comments Chest x-ray viewed by me. Report was not available at the time of encounter but was reviewed later. See report below: NAME: NICOLETTE CAREY MED REC#: [id number] PT STATUS: DEP ER : 1950 PHYSICIAN: EDGAR MORROW MD ADMIT DATE: 11/07/21/ER Draft Date of Exam:11/07/21 CHEST 1 VIEW, AP/PA ONLY Clinical indication: Patient with shortness of air. EXAM: Portable chest x-ray upright view. COMPARISON: Chest x-ray dated 08/22/2021. FINDINGS: There is interval development of a small to moderate sized right pleural effusion. There is development of patchy amorphous airspace opacities involving the right lung base. There is slight progression of patchy consolidation involving the right upper lobe. Persistent curvilinear opacities in right upper lobe and superior left perihilar region are again seen. There is no pneumothorax. Pulmonary vasculature is within normal limits. Stable cardiomegaly. Again seen postop change to the chest for sternotomy wires and mediastinal clips. Mbpdri-B-[id number] is again seen overlying left chest. IMPRESSION: 1: There is interval development of a small to moderate size right pleural effusion and right basilar atelectasis versus infiltrate. 2: Slight increased patchy consolidation involving the right upper lobe which is superimposed upon chronic right upper lobe curvilinear and patchy areas of consolidation. 3: The remainder of this exam shows no significant interval change compared to the prior study of comparison. Dictated on workstation # [id number] Dict: 11/08/21 06 Trans: 11/08/2105 [id number] Interpreted by: MURRAY LANZA MD Departure Impression Primary Impression: Recurrent right pleural effusion Additional Impressions: Shortness of breath COPD (chronic obstructive pulmonary disease) Qualified Codes: J44.9 - Chronic obstructive pulmonary disease, unspecified Disposition: 01 HOME, SELF-CARE Condition: Stable Departure-Patient Inst. Referrals: SOPHIA JACKSON MD (PCP/Family) Primary Care Physician Patient Instructions: Pleural Effusion (DC) Add. Discharge Instructions: In the morning take a double dose of your Lasix and potassium. Dr. Morrow will try to expedite your follow-up for outpatient thoracentesis (draining your lung fluid). If you do not hear from either Dr. Morrow or Dr. Naqvi by noon, please call Dr. Naqvi's office. If you have intolerable symptoms or develop other symptoms such as fever, return to the emergency room. Use your inhaled medications as prescribed for wheezing and COPD. All discharge instructions reviewed with patient and/or family. Voiced unde rstanding. Copy Copies To 1: CADE NAQVI MD Copies To 2: SOPHIA JACKSON MD, JOSHUA T MD Nov 08, 2021 01:16
--- NOTE | 2021-11-08 06:05 | Diagnostic Imaging Report ---
Clinical indication: Patient with shortness of air. EXAM: Portable chest x-ray upright view. COMPARISON: Chest x-ray dated 08/22/2021. FINDINGS: There is interval development of a small to moderate sized right pleural effusion. There is development of patchy amorphous airspace opacities involving the right lung base. There is slight progression of patchy consolidation involving the right upper lobe. Persistent curvilinear opacities in right upper lobe and superior left perihilar region are again seen. There is no pneumothorax. Pulmonary vasculature is within normal limits. Stable cardiomegaly. Again seen postop change to the chest for sternotomy wires and mediastinal clips. Sraczb-P-Furq is again seen overlying left chest. IMPRESSION: 1: There is interval development of a small to moderate size right pleural effusion and right basilar atelectasis versus infiltrate. 2: Slight increased patchy consolidation involving the right upper lobe which is superimposed upon chronic right upper lobe curvilinear and patchy areas of consolidation. 3: The remainder of this exam shows no significant interval change compared to the prior study of comparison. Dictated by: Dictated on workstation # [id number]
[2021-11-09] MEDS ORDERED: ALBU2.5V4 NEB (10:19)
[2021-11-09] MEDS ORDERED: FURO40TA4 PO (10:19)
[2021-11-09] MEDS ORDERED: POTA-51 PO (10:19)
[2021-11-09] MEDS ORDERED: OXC5T PO (10:19)
[2021-11-09] MEDS ORDERED: SORB1SOL2 PO (10:19)
[2021-11-09] MEDS ORDERED: LEVO125T PO (10:19)
[2021-11-09] MEDS ORDERED: MAGN400T50 PO (10:20)
[2021-11-09] MEDS ORDERED: PEMB100V IV (10:32)
[2021-11-09] MEDS ORDERED: ALPR0.254 PO (16:39)
[2021-11-09] MEDS ORDERED: OXYC1TAB12 PO (16:39)
== END 2021-11-08 01:23 | disposition home or self-care (01) ==
LOC: EDUNIT# 22:25 → ER 22:27
DX: J44.9 Chronic obstructive pulmonary disease, unspecified (principal); J90 Pleural effusion, not elsewhere classified; Z85.118 Personal history of other malignant neoplasm of bronchus and lung; Z20.822 Contact with and (suspected) exposure to COVID-19
CPT/HCPCS: 36415; 71045; 80048; 83880; 85007; 85027; 87636; 93005; 94640

== ENCOUNTER 2021-11-08 21:19 | Inpatient (IN) | payer MEDICARE, MEDICAID ==
[~2021-11-08] VITALS: Ht 182.9 cm; Wt 86.0 kg
[~2021-11-08 21:19] MED LIST changes: -ALBU2.5V4 NEB; -ALPR0.254 PO; -LEVO125T PO; -LIDOCAINE 1% INJ 20 ML VIAL INJ ONE; -LIDOCAINE 1% INJ 20 ML VIAL ONE; -MAGN400T50 PO; -OXC5T PO; -OXYC1TAB12 PO; -PEMB100V IV; -POTA-51 PO; -SORB1SOL2 PO; -morphine INJ 10 MG/ML 1ML (SYR OR VIAL) IVP STA; -morphine INJ 10 MG/ML 1ML (SYR OR VIAL) ONE
[2021-11-08 21:42] LABS: EOSINOPHILS % (AUTO) 1 % (0-10); HEMOGLOBIN 12.1 g/dL (13.3-17.7)
[2021-11-08 21:44] LABS: BASOPHILS % (AUTO) 1 % (0-10); HEMATOCRIT 36 % (40-54); LYMPHOCYTES # (AUTO) 0.5 10^3/uL (1.0-4.0); LYMPHOCYTES % (AUTO) 11 % (12-44); MEAN CORPUSCULAR HEMOGLOBIN 33 pg (25-34); MEAN CORPUSCULAR HGB CONC 34 g/dL (32-36); MEAN CORPUSCULAR VOLUME 98 fL (80-99); MEAN PLATELET VOLUME 10.9 fL (9.0-12.2); MONOCYTES # (AUTO) 0.8 10^3/uL (0.0-1.0); MONOCYTES % (AUTO) 15 % (0-12); NEUTROPHILS # (AUTO) 3.5 10^3/uL (1.8-7.8); NEUTROPHILS % (AUTO) 72 % (42-75); PLATELET COUNT 121 10^3/uL (130-400); WHITE BLOOD COUNT 4.9 10^3/uL (4.3-11.0)
--- NOTE | 2021-11-08 21:54 | Diagnostic Imaging Report ---
INDICATION: Dyspnea, post Thoravent, pneumothorax followup. TECHNIQUE: Single view chest 9:35 PM. CORRELATION STUDY: 11/08/2021 FINDINGS: Moderate size right basilar pneumothorax is again demonstrated. Overall stable to perhaps minimally reduced from prior. Opacities of the right upper lung field could be reflective of some consolidation with atelectasis. There is an irregular density in the lateral aspect right lung, unchanged. Left lung clear. Poststernotomy changes. Heart size and mediastinum are unremarkable. Left subclavian central line, stable tip of the SVC. IMPRESSION: 1. Right basilar pneumothorax, post thoracentesis. Overall stable to slightly reduced from prior. Dictated by: Dictated on workstation # [id number]
[2021-11-08 21:55] LABS: ALBUMIN 3.8 GM/DL (3.2-4.5)
[2021-11-08 21:56] LABS: POTASSIUM 4.3 MMOL/L (3.6-5.0); PROTHROMBIN TIME PATIENT 13.6 SEC (12.2-14.7)
[2021-11-08 21:57] LABS: CALCIUM 9.4 MG/DL (8.5-10.1)
[2021-11-08 21:58] LABS: TOTAL PROTEIN 6.9 GM/DL (6.4-8.2)
[2021-11-08 22:00] LABS: BILIRUBIN,TOTAL 0.7 MG/DL (0.1-1.0)
[2021-11-08 22:02] LABS: CREATININE SERUM 1.3 MG/DL (0.60-1.30)
--- NOTE | 2021-11-08 22:06 | ED Respiratory ---
General Chief Complaint: Respiratory Problems Stated Complaint: S/P THORACENTESIS 11/08,SOB Source: patient, old records History of Present Illness Date Seen by Provider: Nov 08, 2021 Time Seen by Provider: 21:32 Initial Comments PT ARRIVES VIA POV FROM HOME PT WAS SEEN HERE LAST NIGHT, AND DX WITH RECURRENT RIGHT PLEURAL EFFUSION--PT HAS METASTATIC LUNG CANCER AND IS CURRENTLY BEING TREATED WITH KEYTRUDA ( RECEIVES A DOSE EVERY 3 WEEKS, AND HIS LAST DOSE WAS 1 WEEK AGO) PT HAD AN OUTPATIENT RIGHT THORACENTESIS THIS MORNING BY DR. DIMAS. A MODERATE SIZED PNEUMOTHORAX WAS NOTED POST PROCEDURE. PT WAS DISMISSED TO HOME AFTER THE PROCEDURE. PT STATES HE HAS HAD INCREASED SHORTNESS OF BREATH SINCE HE WAS DISMISSED PT IS HAVING DIFFUSE CHEST PAIN AND PAIN WITH BREATHING, BUT NO SPECIFIC PAIN AT THE THORACENTESIS SITE ON RIGHT MID BACK AREA. HAS HAD INCREASED COUGH WITH CLEAR SPUTUM SINCE THE PROCEDURE NO FEVER + NAUSEA, NO VOMITING STATES THAT HE HAS HAD LEG SWELLING AND ORTHOPNEA FOR THE LAST MONTH OR SO, AND HAS BEEN SLEEPING AT THE KITCHEN TABLE BECAUSE HE CANNOT LAY DOWN. LEG SWELLING IS NOT ANY WORSE TONIGHT PT HAS COPD, BUT DOES NOT HAVE HOME O2 PCP:DR. JACKSON ASSEMBLER WIRE GROUP: DR. SIMS ONCOLOGIST: DR. STATON Allergies and Home Medications Allergies Coded Allergies: cephalexin (Unverified Allergy, Severe, Anaphylaxis, 06/01/21) [id number] Reductase Inhibitor (Verified Allergy, Unknown, 10/14/20) tramadol (Unverified Adverse Reaction, Intermediate, 08/16/11) medication caused pt to experience hypertensive episodes Patient Home Medication List Home Medication List Reviewed: Yes Alprazolam (Alprazolam) 0.5 Mg Tablet, 0.5 MG PO HS, (Reported) Entered as Reported by: VISHNU TILLEY on 02/28/21 08 Aspirin (Aspirin EC) 81 Mg Tablet.dr 81 MG PO DAILY, (Reported) Entered as Reported by: VISHNU TILLEY on 02/28/21 08 Dexamethasone (Dexamethasone) 4 Mg Tablet, 4 MG PO BID PRN for DAY BEFORE, OF AND AFTER CHEMO, (Reported) Entered as Reported by: VISHNU TILLEY on 02/28/21 0857 Folic Acid (Folic Acid) 1 Mg Tablet, 1 MG PO DAILY, (Reported) Entered as Reported by: VISHNU TILLEY on 02/28/21 0857 Glimepiride (Glimepiride) 2 Mg Tablet, 1 MG PO BID, (Reported) Entered as Reported by: KINGSLEY FREEMAN on 05/05/19 0853 Hydrocodone/Acetaminophen (Hydrocodone-Acetamin 7.5-325) 1 Each Tablet, 1 EACH PO Q4H PRN for PAIN-BREAKTHROUGH Prescribed by: MYLES ZAPATA on 06/01/21 0853 Levothyroxine Sodium (Levothyroxine Sodium) 25 Mcg Tablet, 25 MCG PO EVERY OTHER DAY, (Reported) Entered as Reported by: RODNEY GALLEGOS on 05/30/21 1018 Magnesium Oxide (Magnesium Oxide) 400 Mg Tablet, 400 MG PO BID, (Reported) Entered as Reported by: VISHNU TILLEY on 02/28/21 0857 Metoprolol Succinate (Metoprolol Succinate) 25 Mg Tab.er.24h, 12.5 MG PO DAILY, (Reported) Entered as Reported by: RODNEY GALLEGOS on 05/30/21 1018 Oxycodone HCl (Oxycodone HCl) 5 Mg Tablet, 5 MG PO Q6H PRN for PAIN-MODERATE (5- 7) Prescribed by: CLINT RICHARDS on 08/25/21 1512 Pantoprazole Sodium (Pantoprazole Sodium) 40 Mg Tablet.dr, 40 MG PO DAILY, (Reported) Entered as Reported by: VISHNU TILLEY on 02/28/21 0857 Review of Systems Review of Systems Constitutional: no symptoms reported; No fever EENTM: no symptoms reported Respiratory: see HPI, cough, dyspnea on exertion, orthopnea, phlegm, short of breath Cardiovascular: see HPI, chest pain, edema; No palpitations, No syncope Gastrointestinal: see HPI; No abdominal pain; nausea; No vomiting Genitourinary: no symptoms reported Musculoskeletal: see HPI Skin: no symptoms reported Psychiatric/Neurological: No Symptoms Reported Hematologic/Lymphatic: No Symptoms Reported Immunological/Allergic: no symptoms reported Past Dqrysww-Dmeaks-Dvibzs Hx Patient Social History Tobacco Use?: Yes Tobacco type used: Cigarettes Substance use?: No Alcohol Use?: No Immunizations Up To Date Tetanus Booster (TDap): Unknown First/Initial COVID19 Vaccinat: 04/2020 Second COVID19 Vaccination Lyle: 05/2020 Third COVID19 Vaccination Date: 12/2020 Seasonal Allergies Seasonal Allergies: No Past Medical History Surgery/Hospitalization HX: LBBB, LUNG CA, AFIB, 3 STENTS Surgeries: Yes (R SHOULDER, OPEN HEART 2009, STENTS X 3;THORACENTESIS;PORT L CHEST) Cardiac, CABG, Coronary Stent, Gallbladder, Orthopedic Respiratory: Yes (LUNG CANCER DX 07/2020, pleural effusions) COPD Currently Using CPAP: No Currently Using BIPAP: No Cardiac: Yes (CHF, L BBB, 3 CORONARY STENTS, A-FIB YEARS AGO;CABG) Atrial Fibrillation, Chronic Edema/Swelling, Coronary Artery Disease, High Cholesterol, Hypertension Neurological: No Reproductive Disorders: No Genitourinary: Yes Kidney Stones Gastrointestinal: Yes Hemorrhoids, Gall Bladder Disease Musculoskeletal: Yes (CHRONIC PAIN ) Arthritis, Rheumatoid Arthritis Endocrine: Yes Hypothyroidsim, Diabetes, Non-Insulin dep HEENT: No Cancer: Yes (LEFT ADRENAL GLAND CA, RUL LUNG CA) Lung Did You Recieve Any Treatments: Yes What Type of Treatment Did You: Chemotherapy, Radiation LUNG CANCER WITH METS TO ADRENAL GLAND--DX 07/2020--HAS HAD CHEMO AND RADIATION, AND IS CURRENTLY MAINTAINED ON KEYTRUDA Psychosocial: No Integumentary: No Blood Disorders: No Adverse Reaction/Blood Tranf: No Family Medical History No Pertinent Family Hx SOCIAL HISTORY: -SMOKED 1 PPD, QUIT 2020 -ETOH-DENIES USE -DRUGS-DENIES USE PAST SURGICAL HISTORY: -CARDIAC CATHS WITH STENTS X 3 -CABG -RIGHT SHOULDER SURGERY -CHOLECYSTECTOMY -PORT LEFT CHEST 05/2021 -R THORACENTESIS 11/08/21 Physical Exam Vital Signs - First Documented 11/08/21 21:35 Temp 37.0 Pulse 105 Resp 18 B/P (MAP) 116/66 (83) Pulse Ox 93 O2 Delivery Nasal Cannula O2 Flow Rate 2.00 FiO2 93 Capillary Refill : Height: 6'0.00" Weight: 233lbs. 0oz. 105.114593zt; 29.00 BMI Method:Stated General Appearance: no apparent distress (BUT LOOKS UNCOMFORTABLE) Neck: normal inspection Respiratory: other (DECREASED AERATION ON RIGHT, WITH NO LUNG SOUNDS IN RIGHT BASE; DIFFUSE RUB ON LEFT. PT IS MILDLY DYSPNEIC BUT ABLE TO TALK IN FULL SENTENCES. 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 ) Progress/Results/Core Measures Suspected Sepsis SIRS Temperature: Pulse: Respiratory Rate: Laboratory Tests 11/08/21 21:37: White Blood Count 4.9 Blood Pressure / Mean: Laboratory Tests 11/08/21 21:37: Creatinine 1.30, INR Comment 1.0, Platelet Count 121L, Total Bilirubin 0.7 Results/Orders Lab Results Laboratory Tests Test 11/08/21 21:37 Range/Units White Blood Count 4.9 4.3-11.0 10^3/uL Red Blood Count 3.66 L 4.30-5.52 10^6/uL Hemoglobin 12.1 L 13.3-17.7 g/dL Hematocrit 36 L 40-54 % Mean Corpuscular Volume 98 80-99 fL Mean Corpuscular Hemoglobin 33 25-34 pg Mean Corpuscular Hemoglobin Concent 34 32-36 g/dL Red Cell Distribution Width 13.2 10.0-14.5 % Platelet Count 121 L 130-400 10^3/uL Mean Platelet Volume 10.9 9.0-12.2 fL Immature Granulocyte % (Auto) 0 % Neutrophils (%) (Auto) 72 42-75 % Lymphocytes (%) (Auto) 11 L 12-44 % Monocytes (%) (Auto) 15 H 0-12 % Eosinophils (%) (Auto) 1 0-10 % Basophils (%) (Auto) 1 0-10 % Neutrophils # (Auto) 3.5 1.8-7.8 10^3/uL Lymphocytes # (Auto) 0.5 L 1.0-4.0 10^3/uL Monocytes # (Auto) 0.8 0.0-1.0 10^3/uL Eosinophils # (Auto) 0.0 0.0-0.3 10^3/uL Basophils # (Auto) 0.0 0.0-0.1 10^3/uL Immature Granulocyte # (Auto) 0.0 0.0-0.1 10^3/uL Percent Immature Platelet Fraction 6.4 0.0-7.6 % Prothrombin Time 13.6 12.2-14.7 SEC INR Comment 1.0 0.8-1.4 Activated Partial Thromboplast Time 32 24-35 SEC Sodium Level 134 L 135-145 MMOL/L Potassium Level 4.3 3.6-5.0 MMOL/L Chloride Level 96 L 98-107 MMOL/L Carbon Dioxide Level 27 21-32 MMOL/L Anion Gap 11 5-14 MMOL/L Blood Urea Nitrogen 31 H 7-18 MG/DL Creatinine 1.30 0.60-1.30 MG/DL Estimat Glomerular Filtration Rate 58 BUN/Creatinine Ratio 24 Glucose Level 113 H 70-105 MG/DL Calcium Level 9.4 8.5-10.1 MG/DL Corrected Calcium 9.6 8.5-10.1 MG/DL Total Bilirubin 0.7 0.1-1.0 MG/DL Aspartate Amino Transf (AST/SGOT) 25 5-34 U/L Alanine Aminotransferase (ALT/SGPT) 19 0-55 U/L Alkaline Phosphatase 74 40-136 U/L Troponin I 0.043 H <0.028 NG/ML B-Type Natriuretic Peptide 582.9 H <100.0 PG/ML Total Protein 6.9 6.4-8.2 GM/DL Albumin 3.8 3.2-4.5 GM/DL My Orders Orders - SOPHIA BUCKLEY DO Ed Iv/Invasive Line Start (11/08/21 21:32) O2 (11/08/21 21:32) Monitor-Rhythm Ecg Trace Only (11/08/21 21:32) Chest 1 View, Ap/Pa Only (11/08/21 21:32) Bnp Earl (11/08/21 21:32) Cbc With Automated Diff (11/08/21 21:32) Comprehensive Metabolic Panel (11/08/21 21:32) Protime With Inr (11/08/21 21:32) Partial Thromboplastin Time (11/08/21 21:32) Troponin I [place] (11/08/21 21:32) Ekg Tracing (11/08/21 21:32) Vital Signs/I&O 11/08/21 11/08/21 21:35 21:35 Temp 37.0 Pulse 105 Resp 18 B/P (MAP) 116/66 (83) Pulse Ox 93 O2 Delivery Nasal Cannula Room Air O2 Flow Rate 2.00 FiO2 93 Capillary Refill : Progress Note : Progress Note O2 SATS 92-93% ON ROOM AIR, UP TO 96-98% ON O2 AT 2L/NC PT IS STILL ORTHOPNEIC NO DETERIORATION IN PT'S CONDITION DURING ER STAY ECG Initial ECG Impression Date: Nov 08, 2021 Initial ECG Impression Time: 21:46 Initial ECG Rate: 104 Initial ECG Rhythm: S.Tach (LBBB) Initial ECG Comparisson: Unchanged Diagnostic Imaging Comments CXR--PER RADIOLOGIST REPORT AT 2201 FINDINGS: Moderate size right basilar pneumothorax is again demonstrated. Overall stable to perhaps minimally reduced from prior. Opacities of the right upper lung field could be reflective of some consolidation with atelectasis. There is an irregular density in the lateral aspect right lung, unchanged. Left lung clear. Poststernotomy changes. Heart size and mediastinum are unremarkable. Left subclavian central line, stable tip of the SVC. IMPRESSION: 1. Right basilar pneumothorax, post thoracentesis. Overall stable to slightly reduced from prior. Reviewed: Reviewed by Me Departure Communication (Admissions) 2203--SPOKE WITH DR. SCHULER, SURGEON PHARMACOVIGILANCE SPECIALIST. HE ADVISES TO ADMIT TO HOSPITALIST, AND WILL HAVE DR. DIMAS CONSULTED IN THE MORNING Impression Primary Impression: POST THORACENTESIS RIGHT PNEUMOTHORAX Additional Impressions: METASTATIC LUNG CANCER Elevated troponin COPD (chronic obstructive pulmonary disease) NIDDM CAD (coronary artery disease) Bilateral leg edema Disposition: ADMITTED INPATIENT Condition: Stable Admissions Decision to Admit Reason: Admit from ER (General) Decision to Admit/Date: Nov 08, 2021 Time/Decision to Admit Time: 22:10 Departure-Patient Inst. Referrals: SOPHIA JACKSON MD (PCP/Family) Primary Care Physician SOPHIA BUCKLEY DO Nov 08, 2021 22:05
[2021-11-08] MEDS ORDERED: FUROSEMIDE 40 MG/4 ML INJ (LASIX) ONE (23:49)
[2021-11-08 23:58] VITALS: BP 95/63
[2021-11-09] VITALS (17 sets, daily range): BP systolic 89–133; BP diastolic 54–82
[2021-11-09] MEDS ORDERED: OXYMETAZOLINE (AFRIN) 0.05% NA 30 ML BTL PRN
[2021-11-09] MEDS ORDERED: FUROSEMIDE 40 MG/4 ML INJ (LASIX) IV ONE (00:15)
--- NOTE | 2021-11-09 00:26 | Tele-ICU Progress Note ---
Progress Note 71M with metastatic lung ca, malignant effusion had a thoracentesis yesterday for a symptomatic effusion. Despite ultrasound guidance, post procedure film with basilar pneumothorax. Monitored in ER for 6 hrs with follow up film, noted to have a stable to slightly reduced pneumothorax. By my read, has an usual appearance suspicious for trapped lung, which may be scarred in place. If this is the case, he would be at low risk for progression of pneumothorax. May or may not resolve on its own. Will monitor in ICU overnight, repeat CXR in AM. May need intervention, but does not appear urgent or emergent. Focused Exam Height, Weight, BMI Height: 6'0.00" Weight: 233lbs. 0oz. 105.843121jt; 25.58 BMI Method:Stated ALFONZO MORENO MD Nov 09, 2021 00:26
[2021-11-09] MEDS ORDERED: guaiFENesin/DM (ROBITUSSIN DM) 10 ML UDC PO PRN (00:30)
[2021-11-09] MEDS: RT-ALBUTEROL/IPRATROPIUM 3 ML (DUONEB) VIAL INH SCH ×6 (02:34→22:39)
[2021-11-09 04:59] LABS: NEUTROPHILS # (AUTO) 2.7 10^3/uL (1.8-7.8)
[2021-11-09 05:01] LABS: BASOPHILS % (AUTO) 1 % (0-10); EOSINOPHILS % (AUTO) 1 % (0-10); HEMATOCRIT 35 % (40-54); HEMOGLOBIN 12.2 g/dL (13.3-17.7); LYMPHOCYTES # (AUTO) 0.6 10^3/uL (1.0-4.0); LYMPHOCYTES % (AUTO) 14 % (12-44); MEAN CORPUSCULAR HEMOGLOBIN 34 pg (25-34); MEAN CORPUSCULAR HGB CONC 35 g/dL (32-36); MEAN CORPUSCULAR VOLUME 97 fL (80-99); MEAN PLATELET VOLUME 11.6 fL (9.0-12.2); MONOCYTES # (AUTO) 0.7 10^3/uL (0.0-1.0); MONOCYTES % (AUTO) 18 % (0-12); NEUTROPHILS % (AUTO) 67 % (42-75); PLATELET COUNT 110 10^3/uL (130-400); WHITE BLOOD COUNT 4.1 10^3/uL (4.3-11.0)
[2021-11-09 05:07] LABS: POTASSIUM 4.4 MMOL/L (3.6-5.0)
[2021-11-09 05:08] LABS: CALCIUM 9.4 MG/DL (8.5-10.1)
[2021-11-09 05:12] LABS: CREATININE SERUM 1.2 MG/DL (0.60-1.30)
[2021-11-09] MEDS: fentaNYL INJ 100 MCG/2 ML AMP IV PRN ×3 (05:48→10:45)
[2021-11-09] MEDS: CATHETER FLUSH 10 ML SYR IVP SCH ×3 (05:48→20:20)
--- NOTE | 2021-11-09 07:59 | Consultation-Cardiology ---
HPI-Cardiology Cardiology Consultation: Date of Consultation 11/09/21 Time Seen by a Provider: 08:10 Date of Admission 11-08-21 Attending Physician Jada Steiner MD Admitting Physician Admitting Physician: Sophie Salazar MD Attending Physician: Sophie Salazar MD Consulting Physician Mario Sal MD HPI: Chief Complaint: Chest pain Mr. Carey is a 71 yr old male admitted to ICU 11. He reports orthopnea which has been present off and on for several months. He and his spouse report he has been sleeping sitting up at the kitchen table with a pillow. He reports he has has several thoracentesis. His last one was yesterday morning at which time he did feel better, but than once he got home the SOB gradually began to get worse prompting them to come to the ED. He states his SOB is better than yesterday, but still present. He reports he has lung cancer with mets and is receiving Keytruda. He reports he had chest pain which radiated across his ches t at the time of the thoracentesis, but that has gradually been improving. He has bilat LE swelling which has been present for several months. No c/o palpitations, syncope or near syncope. He reports occ prod cough with clear sputum. No report of fever or chills. He is currently sitting up at the bedside laying over the bedside table with a pillow. Review of Systems-Cardiology Review of Systems Constitutional: No chills, No fever; malaise Eyes: No vision change Ears/Nose/Throat: No recent hearing loss Respiratory: As described under HPI Cardiovascular: As described under HPI Gastrointestinal: As described under HPI Genitourinary: No dysuria, No hematuria Musculoskeletal: no symptoms reported Skin: No rash on exposed areas, No ulcerations on exposed areas Psychiatric/Neurological: No anxiety, No depression, No seizure, No focal weakness, No syncope Hematologic: No bleeding abnormalities ZMF-Ukgozh-Hddxmh Hx Patient Social History Smoking Status: Former Smoker Have you traveled recently?: No Alcohol Use?: No Pt feels they are or have been: No Tobacco type used: Cigarettes Immunizations Up To Date Tetanus Booster (TDap): Unknown Date of Pneumonia Vaccine: Apr 03, 2020 Date of Influenza Vaccine: Nov 18, 2020 Past Medical History PMH As described under Assessment. Family Medical History Family Medical History: The patient does not know of any family history of premature coronary artery disease. Allergies and Home Medications Allergies Coded Allergies: cephalexin (Unverified Allergy, Severe, Anaphylaxis, 06/01/21) Psdtmwj-LFJ-OeB Reductase Inhibitor (Verified Allergy, Unknown, 10/14/20) tramadol (Unverified Adverse Reaction, Intermediate, 08/16/11) medication caused pt to experience hypertensive episodes Patient Home Medication List Alprazolam (Alprazolam) 0.5 Mg Tablet, 0.5 MG PO HS, (Reported) Entered as Reported by: VISHNU TILLEY on 02/28/21 0857 Aspirin (Aspirin EC) 81 Mg Tablet.dr, 81 MG PO DAILY, (Reported) Entered as Reported by: VISHNU TILLEY on 02/28/21 0857 Dexamethasone (Dexamethasone) 4 Mg Tablet, 4 MG PO BID PRN for DAY BEFORE, OF AND AFTER CHEMO, (Reported) Entered as Reported by: VISHNU TILLEY on 02/28/21 0857 Folic Acid (Folic Acid) 1 Mg Tablet, 1 MG PO DAILY, (Reported) Entered as Reported by: VISHNU TILLEY on 02/28/21 0857 Glimepiride (Glimepiride) 2 Mg Tablet, 1 MG PO BID, (Reported) Entered as Reported by: KINGSLEY FREEMAN on 05/05/19 0853 Hydrocodone/Acetaminophen (Hydrocodone-Acetamin 7.5-325) 1 Each Tablet, 1 EACH PO Q4H PRN for PAIN-BREAKTHROUGH Prescribed by: MYLES ZAPATA on 06/01/21 0853 Levothyroxine Sodium (Levothyroxine Sodium) 25 Mcg Tablet, 25 MCG PO EVERY OTHER DAY, (Reported) Entered as Reported by: RODNEY GALLEGOS on 05/30/21 1018 Magnesium Oxide (Magnesium Oxide) 400 Mg Tablet, 400 MG PO BID, (Reported) Entered as Reported by: VISHNU TILLEY on 02/28/21 0857 Metoprolol Succinate (Metoprolol Succinate) 25 Mg Tab.er.24h, 12.5 MG PO DAILY, (Reported) Entered as Reported by: RODNEY GALLEGOS on 05/30/21 1018 Oxycodone HCl (Oxycodone HCl) 5 Mg Tablet, 5 MG PO Q6H PRN for PAIN-MODERATE (5- 7) Prescribed by: CLINT RICHARDS on 08/25/21 1512 Pantoprazole Sodium (Pantoprazole Sodium) 40 Mg Tablet.dr, 40 MG PO DAILY, (Reported) Entered as Reported by: VISHNU TILLEY on 02/28/21 0857 Physical Exam-Cardiology Physical Exam Vital Signs/I&O 11/08/21 11/08/21 11/08/21 11/08/21 21:35 21:35 23:00 23:27 Temp 37.0 37.0 Pulse 105 89 Resp 18 20 B/P (MAP) 116/66 (83) 93/60 Pulse Ox 93 97 92 O2 Delivery Nasal Cannula Room Air Nasal Cannula Nasal Cannula O2 Flow Rate 2.00 2.00 2.00 FiO2 93 11/08/21 11/09/21 11/09/21 11/09/21 23:58 00:00 01:00 01:00 Temp 36.0 Pulse 95 93 82 111 Resp 21 5 37 B/P (MAP) 95/63 (74) 90/57 (68) 89/55 (66) Pulse Ox 93 95 92 O2 Delivery High Flow N/C Nasal Cannula Nasal Cannula O2 Flow Rate 2.00 2.00 2.00 11/09/21 11/09/21 11/09/21 11/09/21 02:00 02:37 03:00 03:16 Pulse 92 96 Resp 6 25 B/P (MAP) 89/54 (66) 89/54 (66) Pulse Ox 94 97 94 93 O2 Delivery Nasal Cannula Nasal Cannula Nasal Cannula Nasal Cannula O2 Flow Rate 2.00 2.00 2.00 2.00 11/09/21 11/09/21 11/09/21 11/09/21 04:00 04:00 06:00 06:58 Temp 37.4 Pulse 85 95 Resp 20 24 B/P (MAP) 96/55 (69) 119/82 (94) Pulse Ox 96 93 94 O2 Delivery Nasal Cannula High Flow N/C Nasal Cannula Nasal Cannula O2 Flow Rate 2.00 2.00 2.00 2.00 Capillary Refill : Less Than 3 Seconds Constitutional: AAO x 3, well-developed, well-nourished HEENT: PERRL, hearing is well preserved, oral hygience is good Neck: No carotid bruit; carotid pulses are 2 + bilaterally Respiratory: No accessory muscle use, No respiratory distress; other (RLL with absent breath sounds; diminished LLL; scattered rhonchi) Cardiovascular: regular rate-rhythm; No JVD; S1 and S2 Gastrointestinal: No tender; soft, round, audible bowel sounds Extremities: other (bilat pitting LE swelling) Neurologic/Psychiatric: grossly intact (moves all extremities) Skin: No rash on exposed areas, No ulcerations on exposed areas Data Review Labs Laboratory Tests 11/08/21 21:37: White Blood Count 4.9, Red Blood Count 3.66L, Hemoglobin 12.1L, Hematocrit 36L, Mean Corpuscular Volume 98, Mean Corpuscular Hemoglobin 33, Mean Corpuscular Hemoglobin Concent 34, Red Cell Distribution Width 13.2, Platelet Count 121L, Mean Platelet Volume 10.9, Immature Granulocyte % (Auto) 0, Neutrophils (%) (Auto) 72, Lymphocytes (%) (Auto) 11L, Monocytes (%) (Auto) 15H, Eosinophils (%) (Auto) 1, Basophils (%) (Auto) 1, Neutrophils # (Auto) 3.5, Lymphocytes # (Auto) 0.5L, Monocytes # (Auto) 0.8, Eosinophils # (Auto) 0.0, Basophils # (Auto) 0.0, Immature Granulocyte # (Auto) 0.0, Percent Immature Platelet Fraction 6.4, Prothrombin Time 13.6, INR Comment 1.0, Activated Partial Thromboplast Time 32, Sodium Level 134L, Potassium Level 4.3, Chloride Level 96L, Carbon Dioxide Level 27, Anion Gap 11, Blood Urea Nitrogen 31H, Creatinine 1.30, Estimat Glomerular Filtration Rate 58, BUN/Creatinine Ratio 24, Glucose Level 113H, Calcium Level 9.4, Corrected Calcium 9.6, Total Bilirubin 0.7, Aspartate Amino Transf (AST/SGOT) 25, Alanine Aminotransferase (ALT/SGPT) 19, Alkaline Phosphatase 74, Troponin I 0.043H, B-Type Natriuretic Peptide 582.9H, Total Protein 6.9, Albumin 3.8 11/09/21 01:10: Troponin I 0.050H 11/09/21 04:50: White Blood Count 4.1L, Red Blood Count 3.64L, Hemoglobin 12.2L, Hematocrit 35L, Mean Corpuscular Volume 97, Mean Corpuscular Hemoglobin 34, Mean Corpuscular Hemoglobin Concent 35, Red Cell Distribution Width 13.2, Platelet Count 110L, Mean Platelet Volume 11.6, Immature Granulocyte % (Auto) 0, Neutrophils (%) (Auto) 67, Lymphocytes (%) (Auto) 14, Monocytes (%) (Auto) 18H, Eosinophils (%) (Auto) 1, Basophils (%) (Auto) 1, Neutrophils # (Auto) 2.7, Lymphocytes # (Auto) 0.6L, Monocytes # (Auto) 0.7, Eosinophils # (Auto) 0.0, Basophils # (Auto) 0.0, Immature Granulocyte # (Auto) 0.0, Percent Immature Platelet Fraction 7.0, Sodium Level 136, Potassium Level 4.4, Chloride Level 96L, Carbon Dioxide Level 27, Anion Gap 13, Blood Urea Nitrogen 29H, Creatinine 1.20, Estimat Glomerular Filtration Rate 64, BUN/Creatinine Ratio 24, Glucose Level 114H, Calcium Level 9.4, Troponin I 0.044H Radiology NAME: NICOLETTE CAREY [facility] REC#: [id number] PT STATUS: REG ER : 1950 PHYSICIAN: JADA BUCKLEY DO ADMIT DATE: 11/08/21/ER Signed Date of Exam:11/08/21 CHEST 1 VIEW, AP/PA ONLY INDICATION: Dyspnea, post Thoravent, pneumothorax followup. TECHNIQUE: Single view chest 9:35 PM. CORRELATION STUDY: 11/08/2021 FINDINGS: Moderate size right basilar pneumothorax is again demonstrated. Overall stable to perhaps minimally reduced from prior. Opacities of the right upper lung field could be reflective of some consolidation with atelectasis. There is an irregular density in the lateral aspect right lung, unchanged. Left lung clear. Poststernotomy changes. Heart size and mediastinum are unremarkable. Left subclavian central line, stable tip of the SVC. IMPRESSION: 1. Right basilar pneumothorax, post thoracentesis. Overall stable to slightly reduced from prior. Dictated by: Dictated on workstation # [id number] Dict: 11/08/212149 Trans: 11/08/212239 CVB [id number] Interpreted by: TRICIA MELGAR DO Electronically signed by: TRICIA MELGAR DO 11/08/212239 NAME: NICOLETTE CAREY [facility] REC#: [id number] PT STATUS: ADM Lidia : 1950 PHYSICIAN: SOPHIE SALAZAR MD ADMIT DATE: 11/08/21/ICU Draft Date of Exam:11/09/21 CHEST 1 VIEW, AP/PA ONLY INDICATION: Pneumothorax. Comparison is made with prior exam of 11/08/2021. FINDINGS: The right pneumothorax is increased in size. There is mild venous congestion. There is right upper lobe atelectasis and/or pneumonitis. There has been a previous median sternotomy. IMPRESSION: The right pneumothorax is increased in size when compared to prior examination and likely warrants chest tube. Mild venous congestion with some right upper lobe atelectasis and/or pneumonitis. Report was faxed and called to [facility] nurse office of Dr. Sophie Salazar by ron at 8:08am. Dictated on workstation # [id number] Dict: 11/09/21 0749 Trans: 11/09/21 0811 RON [id number] Interpreted by: BURTON NEUMANN MD Electronically signed by: ECG Impression ECG Comment SR with LBBB A/P-Cardiology Assessment/Admission Diagnosis Right pneumonothorax post thoracentesis - S/P thoracentesis on 11-08-21 - increasing in size per CXR of 11-09-21 - management per medical/surgical services Chronic mildly elevated troponin - unchanged over the last year Systolic CHF - acute on chronic ?Pneumonia - management per medical services CAD - Coronary artery disease with a history of coronary artery bypass surgery. He has left internal mammary to left anterior descending placed several years ago. - MPI of 07/05/15 showed LVEF 23%, global hypo, more marked in the anteroapical wall - Card cath of April 2019 Mid vessel occlusion of the left anterior de scending. The distal vessel is protected by a patent left internal mammary artery graft, but there was 80% stenosis distal to the insertion of the graft to which successful balloon angioplasty was carried out with reduction of stenosis to 30% . More distally, the vessel bifurcates and the smaller limb has severe disease, but is not amenable to intervention on account of small vessel caliber. Long patent stented segment in the main obtuse marginal branch of the left circumflex. These stents are known to be Taxus 3.0 x 20 and 3.0 x 32 mm stents. Dominant right coronary with a patent stented segment in the proximal portion. This is known to be Promus element 2.75 x 20 mm stent. Impairment of global left ventricular systolic function with anterolateral hypokinesis and left ventricular ejection fraction of approximately 40%. Mild elevation of left ventricular end-diastolic pressure Ischemic cardiomyopathy. - Echocardiogram of Mar 16, 2019 showed LVEF 25-30%. Akinesis of the anteroseptal myocardium and apical myocardium. LA mod dilated. Trivial MR. RVSP 28 mmHg - MUGA scan of April 03, 2019 shows LVEF 24%; anteroseptal akinesis - Refuses defib implant; aware of the implications of his decision DM II - followed by PCP CKD stage 3 Marked hypothyroidism - TSH 22.7 on 05/03/21 Hyperlipidemia - Intolerance to statins on account of muscle cramps. - He also reports nonspecific intolerance to fibrates but does not recall the symptoms. - Followed by Dr. Steiner H/O tobaccoism: - Quit smoking in Feb 2009. - Advised to continue to refrain from smoking Gastroesophageal reflux. -managed by PCP Hypertension - under good control. History of mild intermittent anxiety - currently stable. Carotid dz: - History of carotid artery disease, reportedly mild, being followed by Dr. Smith office. Reports considerable bruising on dual antiplatelet therapy. Chronic intermittent LBBB Lung cancer (adenoCA) with mets - managed by [facility] - requiring frequent thoracentesis Discussion and Recomendations Acute on chronic systolic CHF - treat with diuretics - monitor lab closely Pneumothorax - management per surgical/medical services ?Pneumonia - management per medical services ICM - continue home medication regimen - echocardiogram today Further recs will be based on his hospital course We would like to thank medical services for this consult SAFIA ESCOBAR Nov 09, 2021 07:59
--- NOTE | 2021-11-09 08:13 | Diagnostic Imaging Report ---
INDICATION: Pneumothorax. Comparison is made with prior exam of 11/08/2021. FINDINGS: The right pneumothorax is increased in size. There is mild venous congestion. There is right upper lobe atelectasis and/or pneumonitis. There has been a previous median sternotomy. IMPRESSION: The right pneumothorax is increased in size when compared to prior examination and likely warrants chest tube. Mild venous congestion with some right upper lobe atelectasis and/or pneumonitis. Report was faxed and called to [facility], nurse office of Dr. Tip Salazar by foreign at 8:08am. Dictated by: Dictated on workstation # [id number]
--- NOTE | 2021-11-09 09:19 | History & Physical-Hospitalist ---
History of Present Illness HPI/Chief Complaint Patient is 71-year-old male with past medical history of metastatic lung cancer, COPD, atrial fibrillation, ischemic cardiomyopathy, coronary artery disease status post CABG, hypertension, hyperlipidemia, rheumatoid arthritis who presented to the emergency department due to chest pain. He underwent a thorace ntesis with Dr. DIMAS yesterday morning and had chest pain throughout that procedure. He had a chest x-ray following which showed a moderate pneumothorax and he was discharged home in stable condition. He states he has had 4 previous thoracentesis due to recurrent pleural effusion. He began to get more short of breath last night with increasing chest pain and nausea so decided to seek evaluation in the emergency department. He was worried he was having a heart attack. Source: patient Date Seen 11/09/21 Time Seen by a Provider: 09:16 Attending Physician Jada Steiner MD PCP Admitting Physician: Tip Salazar MD Attending Physician: Tip Salazar MD Referring Physician Date of Admission Nov 08, 2021 at 22:10 Home Medications & Allergies Home Medications Reviewed patient Home Medication Reconciliation performed by pharmacy medication reconciliations senior laboratory technician and/or nursing. Patients Allergies have been reviewed. Allergies Allergies Coded Allergies cephalexin (Unverified Allergy, Severe, Anaphylaxis, 06/01/21) Bhqkpml-RIY-UqE Reductase Inhibitor (Verified Allergy, Unknown, 10/14/20) tramadol (Unverified Adverse Reaction, Intermediate, 08/16/11) medication caused pt to experience hypertensive episodes Past Lnjndri-Njnzyh-Hxeicw Hx Patient Social History Tobacco Use?: Yes Tobacco type used: Cigarettes Smoking Status: Former Smoker Substance use?: No Alcohol Use?: No Pt feels they are or have been: No Immunizations Up To Date Date of Influenza Vaccine: Nov 18, 2020 First/Initial COVID19 Vaccinat: 04/2020 Second COVID19 Vaccination Lyle: 05/2020 Tetanus Booster (TDap): Less Than 5 Years Date of Pneumonia Vaccine: Apr 03, 2020 Seasonal Allergies Seasonal Allergies: No Current Status Advance Directives: No Communicates: Verbally Primary Language: Nigerien Preferred Spoken Language: Nigerien Is interpretation needed?: No Sensory deficits: Vision impairment Implanted or Applied Medical D: Port-a-cath, Stents Past Medical History Surgeries: Cardiac, CABG, Coronary Stent, Gallbladder, Orthopedic COPD Currently Using CPAP: No Currently Using BIPAP: No Atrial Fibrillation, Chronic Edema/Swelling, Coronary Artery Disease, High Cholesterol, Hypertension Kidney Stones Hemorrhoids, Gall Bladder Disease Arthritis, Rheumatoid Arthritis Hypothyroidsim, Diabetes, Non-Insulin dep Lung Did You Recieve Any Treatments: Yes What Type of Treatment Did You: Chemotherapy, Radiation LUNG CANCER WITH METS TO ADRENAL GLAND--DX 07/2020--HAS HAD CHEMO AND RADIATION, AND IS CURRENTLY MAINTAINED ON KEYTRUDA Blood Disorders: No Adverse Reaction/Blood Tranf: No Family Medical History No Pertinent Family Hx SOCIAL HISTORY: -SMOKED 1 PPD, QUIT 2020 -ETOH-DENIES USE -DRUGS-DENIES USE PAST SURGICAL HISTORY: -CARDIAC CATHS WITH STENTS X 3 -CABG -RIGHT SHOULDER SURGERY -CHOLECYSTECTOMY -PORT LEFT CHEST 05/2021 -R THORACENTESIS 11/08/21 Review of Systems Constitutional: No chills, No fever EENTM: no symptoms reported Respiratory: cough, dyspnea on exertion, orthopnea, short of breath Cardiovascular: chest pain Gastrointestinal: No abdominal pain, No nausea, No vomiting Genitourinary: no symptoms reported Musculoskeletal: joint pain (chronic) Skin: no symptoms reported Psychiatric/Neurological: No Symptoms Reported Physical Exam Physical Exam Vital Signs Vital Signs - First Documented 11/08/21 21:35 Temp 37.0 Pulse 105 Resp 18 B/P (MAP) 116/66 (83) Pulse Ox 93 O2 Delivery Nasal Cannula O2 Flow Rate 2.00 FiO2 93 Capillary Refill : Less Than 3 Seconds Height, Weight, BMI Height: 6'0.00" Weight: 233lbs. 0oz. 105.973921pk; 25.85 BMI Method:Stated General Appearance: No Apparent Distress, Chronically ill HEENT: PERRL/EOMI, Moist Mucous Membranes Neck: Normal Inspection, Supple Respiratory: Lungs Clear, No Accessory Muscle Use, No Respiratory Distress Cardiovascular: Regular Rate, Rhythm, No Murmur Gastrointestinal: Normal Bowel Sounds, Non Tender, Soft Extremity: No Calf Tenderness, Pedal Edema, Swelling Neurologic/Psychiatric: Alert, Oriented x3, Normal Mood/Affect Skin: Normal Color, Warm/Dry Results Results/Procedures Labs Laboratory Tests 11/08/21 21:37 11/09/21 04:50 11/10/21 05:52 Patient resulted labs reviewed. Imaging: Reviewed Imaging Report [facility] [place] NAME: NICOLETTE CAREY [facility] REC#: [id number] PT STATUS: REG ER : 1950 PHYSICIAN: JADA BUCKLEY DO ADMIT DATE: 11/08/21/ER Signed Date of Exam:11/08/21 CHEST 1 VIEW, AP/PA ONLY INDICATION: Dyspnea, post Thoravent, pneumothorax followup. TECHNIQUE: Single view chest 9:35 PM. CORRELATION STUDY: 11/08/2021 FINDINGS: Moderate size right basilar pneumothorax is again demonstrated. Overall stable to perhaps minimally reduced from prior. Opacities of the right upper lung field could be reflective of some consolidation with atelectasis. There is an irregular density in the lateral aspect right lung, unchanged. Left lung clear. Poststernotomy changes. Heart size and mediastinum are unremarkable. Left subclavian central line, stable tip of the SVC. IMPRESSION: 1. Right basilar pneumothorax, post thoracentesis. Overall stable to slightly reduced from prior. Dictated by: Dictated on workstation # [id number] Dict: 11/08/212149 Trans: 11/08/212239 CVB [id number] Interpreted by: TRICIA MELGAR DO Electronically signed by: TRICIA MELGAR DO 11/08/21 Assessment/Plan Admission Diagnosis Pneumothorax Admission Status: Inpatient Order (span 2 midnights) Reason for Inpatient Admission: see below Assessment and Plan Pleural effusion Pneumothorax s/p; thoracentesis with path sent yesterday Management per Surgery Repeat CXR pending this AM Fentanyl for pain Resume home pain regimen as well NSTEMI CHF CAD HTN A fib HLD Cardiology consulted, appreciate recs Echo ordered Lasix Metoprolol Telemetry DMI Only on glimepiride but has quit taking it at home due to hypoglycemia Monitor BS here- well controlled currently Goals of care Elects to be Full Code and requests to be decision maker for him No advance directive in place, agreeable to it being done here Consult placed Diagnosis/Problems Diagnosis/Problems (1) Pneumothorax Qualifiers: Pneumothorax type: postprocedural Qualified Codes: J95.811 - Postprocedural pneumothorax (2) Non-ST elevation myocardial infarction (NSTEMI), initial care episode (3) Chest pain Status: Acute (4) Type 2 diabetes mellitus with complication (5) Chronic kidney disease, stage 3 (6) Metastatic malignant neoplasm to lung (7) Cardiomyopathy (8) Essential hypertension (9) CAD (coronary artery disease), [place] coronary artery (10) COPD (chronic obstructive pulmonary disease) Status: Acute (11) Bilateral leg edema Status: Acute (12) Recurrent right pleural effusion Status: Acute (13) Thrombocytopenia JOHN CALI MD Nov 09, 2021 09:19
[2021-11-09] MEDS: FUROSEMIDE 40 MG/4 ML INJ (LASIX) IVP SCH (09:30)
[2021-11-09] MEDS: meTOprolol TARTRATE 25 MG (LOPRESSOR) TABLET PO SCH ×2 (09:30→20:19)
[2021-11-09] MEDS ORDERED: FURO40TA4 PO ×2 (10:19)
[2021-11-09] MEDS ORDERED: OXC5T PO ×2 (10:19)
[2021-11-09] MEDS ORDERED: SORB1SOL2 PO ×2 (10:19)
[2021-11-09] MEDS ORDERED: LEVO125T PO ×2 (10:19)
[2021-11-09] MEDS ORDERED: ALBU2.5V4 NEB ×2 (10:19)
[2021-11-09] MEDS ORDERED: POTA-51 PO ×2 (10:19)
[2021-11-09] MEDS ORDERED: MAGN400T50 PO ×2 (10:20)
[2021-11-09] MEDS ORDERED: PEMB100V IV ×2 (10:32)
[2021-11-09] MEDS ORDERED: SORBITOL 70% 30 ML UNIT DOSE CUP PO PRN (12:15)
--- NOTE | 2021-11-09 14:53 | Consultation-Cardiology ---
HPI-Cardiology Cardiology Consultation: Date of Consultation 11/09/21 Time Seen by a Provider: 09:00 Date of Admission Attending Physician aJda Steiner MD Admitting Physician Admitting Physician: Tip Salazar MD Attending Physician: Tip Salazar MD Consulting Physician MARY SIMS MD, MA, FACP, FACC, [facility] [place] HPI: Chief Complaint: Chest pain Mr. Hoffman is a 71 yr old male admitted to ICU 11. He reports orthopnea which has been present off and on for several months. He and his spouse report he has been sleeping sitting up at the kitchen table with a pillow. He reports he has has several thoracentesis. His last one was yesterday morning at which time he did feel better, but than once he got home the SOB gradually began to get worse prompting them to come to the ED. He states his SOB is better than yesterday, but still present. He reports he has lung cancer with mets and is receiving Keytruda. He reports he had chest pain which radiated across his chest at the time of the thoracentesis, but that has gradually been improving. He has bilat LE swelling which has been present for several months. No c/o palpitations, syncope or near syncope. He reports occ prod cough with clear sputum. No report of fever or chills. He is currently sitting up at the bedside laying over the bedside table with a pillow. Review of Systems-Cardiology Review of Systems Constitutional: No chills, No fever; malaise Eyes: No vision change Ears/Nose/Throat: No recent hearing loss Respiratory: As described under HPI Cardiovascular: As described under HPI Gastrointestinal: As described under HPI Genitourinary: No dysuria, No hematuria Musculoskeletal: no symptoms reported Skin: No rash on exposed areas, No ulcerations on exposed areas Psychiatric/Neurological: No anxiety, No depression, No seizure, No focal weakness, No syncope Hematologic: No bleeding abnormalities AZH-Uxbkkz-Uwaeln Hx Patient Social History Smoking Status: Former Smoker Have you traveled recently?: No Alcohol Use?: No Pt feels they are or have been: No Tobacco type used: Cigarettes Immunizations Up To Date Tetanus Booster (TDap): Unknown Date of Pneumonia Vaccine: Apr 03, 2020 Date of Influenza Vaccine: Nov 18, 2020 Past Medical History PMH As described under Assessment. Family Medical History Family Medical History: The patient does not know of any family history of premature coronary artery disease. Allergies and Home Medications Allergies Coded Allergies: cephalexin (Unverified Allergy, Severe, Anaphylaxis, 06/01/21) [id number]-GvJ Reductase Inhibitor (Verified Allergy, Unknown, 10/14/20) tramadol (Unverified Adverse Reaction, Intermediate, 08/16/11) medication caused pt to experience hypertensive episodes Patient Home Medication List Home Medication List Reviewed: Yes Albuterol Sulfate (Albuterol Sulfate) 2.5 Mg/3 Ml (0.083 %) Vial.neb, 3 ML NEB Q4H PRN for SHORTNESS OF BREATH, (Reported) Entered as Reported by: VISHNU TILLEY on 11/09/21 1019 Last Action: Reviewed Alprazolam (Alprazolam) 0.5 Mg Tablet, 0.5 MG PO HS, (Reported) Entered as Reported by: VISHNU TILLEY on 02/28/21 0857 Last Action: Continued Furosemide (Furosemide) 40 Mg Tablet, 40 MG PO DAILY, (Reported) Entered as Reported by: VISHNU TILLEY on 11/09/21 101 Last Action: Held Levothyroxine Sodium (Synthroid) 125 Mcg Tablet, 125 MCG PO DAILY, (Reported) Entered as Reported by: VISHNU TILLEY on 11/09/21 101 Last Action: Continued Magnesium Oxide (Magnesium Oxide) 400 Mg Magnesium Tablet, 400 MG PO DAILY, (Reported) Entered as Reported by: VISHNU TILLEY on 11/09/21 1020 Last Action: Held Metoprolol Succinate (Metoprolol Succinate) 25 Mg Tab.er.24h, 12.5 MG PO DAILY, (Reported) Entered as Reported by: RODNEY GALLEGOS on 05/30/21 1018 Last Action: Held Oxycodone Hcl (Oxyir Tablet) 5 Mg Tab, 5 MG PO Q4 -6H PRN for PAIN-SEVERE (8- 10), (Reported) Entered as Reported by: VISHNU TILLEY on 11/09/21 101 Last Action: Continued Pantoprazole Sodium (Pantoprazole Sodium) 40 Mg Tablet.dr, 40 MG PO DAILY, (Reported) Entered as Reported by: VISHNU TILLEY on 02/28/21 0857 Last Action: Continued Pembrolizumab (Keytruda) 100 Mg/4 Ml (25 Mg/Ml) Vial, 200 MG IV EVERY 3 WEEKS, (Reported) Entered as Reported by: VISHNU TILLEY on 11/09/21 1032 Last Action: Held Potassium Chloride (Potassium Chloride) 20 Meq Tablet.er, 20 MEQ PO DAILY, (Reported) Entered as Reported by: VISHNU TILLEY on 11/09/21 1019 Last Action: Held Sorbitol Solution (Sorbitol) 70 % Solution, 15-30 ML PO TID PRN for CONSTIPATION, (Reported) Entered as Reported by: VISHNU TILLEY on 11/09/21 1019 Last Action: Continued Discontinued Medications Aspirin (Aspirin EC) 81 Mg Tablet.dr, 81 MG PO DAILY, (Reported) Discontinued Reason: No Longer Taking Entered as Reported by: VISHNU TILLEY on 02/28/21856 Last Action: Discontinued Dexamethasone (Dexamethasone) 4 Mg Tablet, 4 MG PO BID PRN for DAY BEFORE, OF AND AFTER CHEMO, (Reported) Discontinued Reason: No Longer Taking Entered as Reported by: VISHNU TILLEY on 02/28/21856 Last Action: Discontinued Folic Acid (Folic Acid) 1 Mg Tablet, 1 MG PO DAILY, (Reported) Discontinued Reason: No Longer Taking Entered as Reported by: VISHNU TILLEY on 02/28/21856 Last Action: Discontinued Glimepiride (Glimepiride) 2 Mg Tablet, 1 MG PO BID, (Reported) Discontinued Reason: No Longer Taking Entered as Reported by: KINGSLEY FREEMAN on 05/05/19 0853 Last Action: Discontinued Hydrocodone/Acetaminophen (Hydrocodone-Acetamin 7.5-325) 1 Each Tablet, 1 EACH PO Q4H PRN for PAIN-BREAKTHROUGH Discontinued Reason: No Longer Taking Prescribed by: MYLES ZAPATA on 06/01/21 0853 Last Action: Discontinued Levothyroxine Sodium (Levothyroxine Sodium) 25 Mcg Tablet, 25 MCG PO EVERY OTHER DAY, (Reported) Discontinued Reason: No Longer Taking Entered as Reported by: RODNEY GALLEGOS on 05/30/21 1018 Last Action: Discontinued Oxycodone HCl (Oxycodone HCl) 5 Mg Tablet, 5 MG PO Q6H PRN for PAIN-MODERATE (5- 7) Discontinued Reason: No Longer Taking Prescribed by: CLINT RICHARDS on 08/25/21 1512 Last Action: Discontinued Physical Exam-Cardiology Physical Exam Vital Signs/I&O 11/09/21 11/09/21 11/09/21 11/09/21 03:00 03:16 04:00 04:00 Temp 37.4 Pulse 96 85 Resp 25 20 B/P (MAP) 89/54 (66) 96/55 (69) Pulse Ox 94 93 96 O2 Delivery Nasal Cannula Nasal Cannula Nasal Cannula High Flow N/C O2 Flow Rate 2.00 2.00 2.00 2.00 11/09/21 11/09/21 11/09/21 11/09/21 06:00 06:58 07:00 08:00 Temp 36.9 Pulse 95 94 106 Resp 24 26 B/P (MAP) 119/82 (94) 108/62 (77) Pulse Ox 93 94 94 O2 Delivery Nasal Cannula Nasal Cannula Nasal Cannula O2 Flow Rate 2.00 2.00 2.00 11/09/21 11/09/21 11/09/21 11/09/21 08:00 09:00 10:00 12:00 Temp 36.6 Pulse 106 94 80 Resp 28 37 30 B/P (MAP) 108/62 (77) 93/63 (73) 102/70 (81) Pulse Ox 91 94 96 95 O2 Delivery Nasal Cannula Nasal Cannula Nasal Cannula Nasal Cannula O2 Flow Rate 2.00 2.00 2.00 2.00 11/09/21 11/09/21 11/09/21 13:00 13:00 14:00 Pulse 118 84 84 Resp 24 27 B/P (MAP) 107/63 (78) 117/64 (81) Pulse Ox 98 96 O2 Delivery Nasal Cannula Nasal Cannula O2 Flow Rate 2.00 2.00 Capillary Refill : Less Than 3 Seconds Constitutional: AAO x 3, well-developed, well-nourished HEENT: PERRL, hearing is well preserved, oral hygience is good Neck: No carotid bruit; carotid pulses are 2 + bilaterally Respiratory: No accessory muscle use, No respiratory distress; other (RLL with absent breath sounds; diminished LLL; scattered rhonchi) Cardiovascular: regular rate-rhythm; No JVD; S1 and S2 Gastrointestinal: No tender; soft, round, audible bowel sounds Extremities: other (bilat pitting LE swelling) Neurologic/Psychiatric: other (moves all limbs equally) Skin: No rash on exposed areas, No ulcerations on exposed areas Data Review Labs Laboratory Tests 11/08/21 21:37: White Blood Count 4.9, Red Blood Count 3.66L, Hemoglobin 12.1L, Hematocrit 36L, Mean Corpuscular Volume 98, Mean Corpuscular Hemoglobin 33, Mean Corpuscular Hemoglobin Concent 34, Red Cell Distribution Width 13.2, Platelet Count 121L, Mean Platelet Volume 10.9, Immature Granulocyte % (Auto) 0, Neutrophils (%) (Auto) 72, Lymphocytes (%) (Auto) 11L, Monocytes (%) (Auto) 15H, Eosinophils (%) (Auto) 1, Basophils (%) (Auto) 1, Neutrophils # (Auto) 3.5, Lymphocytes # (Auto) 0.5L, Monocytes # (Auto) 0.8, Eosinophils # (Auto) 0.0, Basophils # (Auto) 0.0, Immature Granulocyte # (Auto) 0.0, Percent Immature Platelet Fraction 6.4, Prothrombin Time 13.6, INR Comment 1.0, Activated Partial Thromboplast Time 32, Sodium Level 134L, Potassium Level 4.3, Chloride Level 96L, Carbon Dioxide Level 27, Anion Gap 11, Blood Urea Nitrogen 31H, Creatinine 1.30, Estimat Glomerular Filtration Rate 58, BUN/Creatinine Ratio 24, Glucose Level 113H, Calcium Level 9.4, Corrected Calcium 9.6, Total Bilirubin 0.7, Aspartate Amino Transf (AST/ SGOT) 25, Alanine Aminotransferase (ALT/SGPT) 19, Alkaline Phosphatase 74, Troponin I 0.043H, B-Type Natriuretic Peptide 582.9H, Total Protein 6.9, Albumin 3.8 11/09/21 01:10: Troponin I 0.050H 11/09/21 04:25: 11/09/21 04:50: White Blood Count 4.1L, Red Blood Count 3.64L, Hemoglobin 12.2L, Hematocrit 35L, Mean Corpuscular Volume 97, Mean Corpuscular Hemoglobin 34, Mean Corpuscular Hem oglobin Concent 35, Red Cell Distribution Width 13.2, Platelet Count 110L, Mean Platelet Volume 11.6, Immature Granulocyte % (Auto) 0, Neutrophils (%) (Auto) 67, Lymphocytes (%) (Auto) 14, Monocytes (%) (Auto) 18H, Eosinophils (%) (Auto) 1, Basophils (%) (Auto) 1, Neutrophils # (Auto) 2.7, Lymphocytes # (Auto) 0.6L, Monocytes # (Auto) 0.7, Eosinophils # (Auto) 0.0, Basophils # (Auto) 0.0, Immature Granulocyte # (Auto) 0.0, Percent Immature Platelet Fraction 7.0, Sodium Level 136, Potassium Level 4.4, Chloride Level 96L, Carbon Dioxide Level 27, Anion Gap 13, Blood Urea Nitrogen 29H, Creatinine 1.20, Estimat Glomerular Filtration Rate 64, BUN/Creatinine Ratio 24, Glucose Level 114H, Calcium Level 9.4, Troponin I 0.044H A/P-Cardiology Assessment/Admission Diagnosis Right pneumonothorax post thoracentesis - S/P thoracentesis on 11-08-21 - increasing in size per CXR of 11-09-21 - management per medical/surgical services Chronic mildly elevated troponin - unchanged over the last year Ac on ch systolic CHF - unable to tolerate ARTHUR-inhib or ARB or Entresto due to low bp ?Pneumonia - management per medical services CAD - Coronary artery disease with a history of coronary artery bypass surgery. He has left internal mammary to left anterior descending placed several years ago. 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 The distal vessel is protected by a patent left internal mammary artery graft, but there was 80% stenosis distal to the insertion of the graft to which successful balloon angioplasty was carried out with reduction of stenosis to 30% . More distally, the vessel bifurcates and the smaller limb has severe disease, but is not amenable to intervention on account of small vessel caliber. Long patent stented segment in the main obtuse marginal branch of the left circumflex. These stents are known to be Taxus 3.0 x 20 and 3.0 x 32 mm stents. Dominant right coronary with a patent stented segment in the proximal portion. This is known to be Promus element 2.75 x 20 mm stent. Impairment of global left ventricular systolic function with anterolateral hypokinesis and left ventricular ejection fraction of approximately 40%. Mild elevation of left ventricular end-diastolic pressure Ischemic cardiomyopathy. - Echocardiogram of Mar 16, 2019 showed LVEF 25-30%. Akinesis of the anteroseptal myocardium and apical myocardium. LA mod dilated. Trivial MR. RVSP 28 mmHg - MUGA scan of April 03, 2019 shows LVEF 24%; anteroseptal akinesis - Refuses defib implant; aware of the implications of his decision - Echo of 11/09/21: LVEF 25-30%, LA moderately dilated, PASP 30-35 mmHg DM II - followed by PCP CKD stage 3 Marked hypothyroidism - TSH 22.7 on 05/03/21 Hyperlipidemia - Intolerance to statins on account of muscle cramps. - He also reports nonspecific intolerance to fibrates but does not recall the symptoms. - Followed by Dr. Steiner H/O tobaccoism: - Quit smoking in Feb 2009. - Advised to continue to refrain from smoking Gastroesophageal reflux. -managed by PCP Hypertension - under good control. History of mild intermittent anxiety - currently stable. Carotid dz: - History of carotid artery disease, reportedly mild, being followed by Dr. Smith office. Reports considerable bruising on dual antiplatelet therapy. Chronic intermittent LBBB Lung cancer (adenoCA) with mets - managed by [facility] - requiring frequent thoracentesis Discussion and Recomendations Acute on chronic systolic CHF - treat with diuretics - continue beta-farzaneh - unable to tolerate ARTHUR-inhib or ARB or Entresto due to low bp Pneumothorax - management per surgical/medical services ?Pneumonia - management per medical services ICM - continue home medication regimen Further recs will be based on his hospital course We would like to thank medical services for this consult MARY SIMS MD FACP FAC CCDS Nov 09, 2021 14:53
[2021-11-09] MEDS ORDERED: ALPR0.254 PO ×2 (16:39)
[2021-11-09] MEDS ORDERED: OXYC1TAB12 PO ×2 (16:39)
--- NOTE | 2021-11-09 16:41 | Discharge Inst-Surgical ---
D/C Lap Instructions-JUDIE New, Converted, or Re-Newed RX: RX on Chart Follow Up PRN Activity as tolerated No driving for 24 hours No driving while on pain medications Incentive Spirometry use every 2 hours while awake Home oxygen via nasal cannula, titrate O2 sat >=90% Regular Diet Symptoms to Report: Fever over 101 degree F, Nausea/Vomiting Infection Signs and Symptoms to report: Increased redness, Foul odor of wound, Increased drainage Bathing instructions: May shower Operative Area Clean/Dry; Keep incision clean/dry If any problems/questions: Contact your physician or go to Emergency Room CADE DIMAS MD Nov 09, 2021 16:41
[2021-11-09] MEDS ORDERED: ALPRAZolam 1 MG (XANAX) TAB PO PRN (16:45)
[2021-11-09] MEDS: oxyCODONE/APAP 10/325MG (PERCOCET 10) TABLET PO PRN (20:29)
[2021-11-09] MEDS ORDERED: ALPRAZolam 0.5 MG (XANAX) TAB PO SCH (21:00)
--- NOTE | 2021-11-09 21:19 | CONSULTATION REPORT ---
DATE OF SERVICE: 11/09/2021 ATTENDING PRIMARY CARE PHYSICIAN: Dr. Jada Steiner. HISTORY OF PRESENT ILLNESS: The patient is a 71-year-old male known to us. He has a history of metastatic right lung cancer and has been undergoing radiation as well as chemotherapy. Followup PET scan as well as CT scans did show a good response to the chemoradiation; however, he has been hampered by a recurrent large right pleural effusion. This has been evacuated approximately 4 to 5 times. His last one was done yesterday. A followup chest x-ray did show air in the space for the fusion was consistent with a trapped lung. He felt fine after the procedure; however, later that night developed shortness of breath as well as chest pain. Followup x-rays did show the right lower pneumothorax as well as the trapped lung. This is the causative agent for the shortness of breath as well as the chest pain with pressure from trying to reexpand causing pressure on the pleural as well as a parietal pleura as well as the parietal visceral lining. Since being admitted, he has done better. Respiratory therapy has been consulted and the patient does need home O2 titrated to 2 liters nasal cannula. Recommendation is to also have followup chest x-rays to allow the trapped lung in the right lower lobe region to either refilled with fluid versus a reexpand over time. We also will await the cytology results of the last thoracentesis. PAST MEDICAL HISTORY: Metastatic right lung cancer, diabetes, hypertension, gastroesophageal reflux disease, hypothyroid. PAST SURGICAL HISTORY: Laparoscopic cholecystectomy 2009. Coronary artery bypass grafting, 2008, shoulder surgery 1992. ALLERGIES: KEFLEX, STATINS. MEDICATIONS: Xanax 0.5 mg at bedtime, dexamethasone 4 mg b.i.d., levothyroxine daily, glimepiride 2 mg b.i.d., Lasix 20 mg daily, metoprolol 25 mg daily, Protonix 40 mg daily. SOCIAL HISTORY: Previous smoking history, 40-pack years, quit 2008, negative alcohol. FAMILY HISTORY: Noncontributory. VITAL SIGNS: Temperature 36.4, blood pressure 105/62, pulse 105, respirations 24, pulse ox 95% on 2 liters nasal cannula. REVIEW OF SYSTEMS: Well-nourished male currently in no acute distress. He is not experiencing any shortness of breath or difficulty breathing. No chest pain, palpitations, diaphoresis. He states that last night he did have a right pleural pressure and pain sensation as well as exertional as well as the shortness of breath at rest. No new cough or sputum production. No nausea, vomiting, no diarrhea or constipation. No fever, chills, no recent inadvertent weight loss. All other review of systems negative. PHYSICAL EXAMINATION: CHEST: Decreased right base breath sounds with scattered wheezes bilaterally. HEART: Regular, no murmurs. EXTREMITIES: No lower extremity edema, negative Homans sign. HEENT: No scleral icterus. NECK: No cervical lymphadenopathy. ABDOMEN: Soft, nontender, nondistended. SKIN: Warm, dry. LABORATORY DATA: WBC 4.1, hemoglobin 12.2, hematocrit 35, platelets 110. BUN 29, creatinine 1.20. ASSESSMENT AND PLAN: A 71-year-old male with a history of right metastatic lung adenocarcinoma, status post chemoradiation, status post recent thoracentesis entrapped lung. We will await the biopsy results; however, recommend conservative therapy with supplemental oxygen as well as an incentive spirometry and deep breathing exercises. Hopefully, this will expand on its own and resolve; however, if this is due to recurrent cancer, he may need further intervention, which may entail a video-assisted thoracoscopy and parietal visceral stripping to entrap the lung; however, if this is the case, we would refer him to thoracic surgery. Job ID: [id number] DocumentID: [id number] Dictated Date: 11/09/2021 16:53:15 Help Desk Coordinator Date: 11/09/2021 21:18:59 Dictated By: CADE DIMAS MD
[2021-11-10] VITALS: BP 105/66
[2021-11-10] MEDS: RT-ALBUTEROL/IPRATROPIUM 3 ML (DUONEB) VIAL INH SCH ×2 (02:43→07:03)
[2021-11-10] MEDS: oxyCODONE/APAP 10/325MG (PERCOCET 10) TABLET PO PRN (03:19)
[2021-11-10 04:25] VITALS: BP 107/69
[2021-11-10] MEDS: CATHETER FLUSH 10 ML SYR IVP SCH (06:12)
[2021-11-10 06:22] LABS: POTASSIUM 3.7 MMOL/L (3.6-5.0)
[2021-11-10 06:23] LABS: CALCIUM 9.2 MG/DL (8.5-10.1)
[2021-11-10 06:29] LABS: MAGNESIUM 1.8 MG/DL (1.6-2.4)
[2021-11-10] MEDS ORDERED: LEVOTHYROXINE 125 MCG (LEVOTHROID) TABLET PO SCH (06:30)
[2021-11-10] MEDS ORDERED: KCL 10 MEQ TAB (MICRO K) PO SCH (07:00)
[2021-11-10 08:16] VITALS: BP 110/62
--- NOTE | 2021-11-10 08:31 | Discharge Summary ---
Diagnosis/Chief Complaint Date of Admission Nov 09, 2021 at 09:16 Date of Discharge Admission Diagnosis Pneumothorax Primary Care Jada Steiner MD Discharge Diagnosis (1) Pneumothorax (2) Non-ST elevation myocardial infarction (NSTEMI), initial care episode (3) Chest pain Status: Acute (4) Type 2 diabetes mellitus with complication (5) Chronic kidney disease, stage 3 (6) Metastatic malignant neoplasm to lung (7) Cardiomyopathy (8) Essential hypertension (9) CAD (coronary artery disease), [place] coronary artery (10) COPD (chronic obstructive pulmonary disease) Status: Acute (11) Bilateral leg edema Status: Acute (12) Recurrent right pleural effusion Status: Acute (13) Thrombocytopenia Discharge Summary Discharge Physical Exam Allergies: Coded Allergies: cephalexin (Unverified Allergy, Severe, Anaphylaxis, 06/01/21) Brcsmrd-[id number]-MmC Reductase Inhibitor (Verified Allergy, Unknown, 10/14/20) tramadol (Unverified Adverse Reaction, Intermediate, 08/16/11) medication caused pt to experience hypertensive episodes Vitals & I&Os Vital Signs Date Time Temp Pulse Resp B/P (MAP) Pulse Ox O2 Delivery O2 Flow Rate FiO2 11/10/21 09:43 11/10/21 09:30 Nasal Cannula 2.00 11/10/21 08:16 36.6 102 18 96 11/08/21 21:35 93 General Appearance: No Apparent Distress, Chronically ill Respiratory: Lungs Clear Cardiovascular: Regular Rate, Rhythm, No Murmur Neurologic/Psychiatric: Alert, Oriented x3 Hospital Course Patient was admitted to the hospital secondary to pneumothorax following thoracentesis for recurrent pleural effusion. He was stable on supplemental oxygen and conservative management was recommended by surgery and telemetry ICU. He was monitored overnight and had no progressive symptoms. He was discharged home at his request in stable improved condition to follow-up with Dr. DIMAS and his primary care physician, Dr. Steiner. Labs (last 24 hrs) Laboratory Tests 11/10/21 05:52: Sodium Level 132L, Potassium Level 3.7, Chloride Level 94L, Carbon Dioxide Level 25, Anion Gap 13, Blood Urea Nitrogen 26H, Creatinine 1.00, Estimat Glomerular Filtration Rate 80, BUN/Creatinine Ratio 26, Glucose Level 114H, Calcium Level 9.2, Magnesium Level 1.8 Patient resulted labs reviewed. Pending Labs Laboratory Tests 11/10/21 05:52: Sodium Level 132, Potassium Level 3.7, Chloride Level 94, Carbon Dioxide Level 25, Anion Gap 13, Blood Urea Nitrogen 26, Creatinine 1.00, Estimat Glomerular Filtration Rate 80, BUN/Creatinine Ratio 26, Glucose Level 114, Calcium Level 9.2, Magnesium Level 1.8 Discussion & Recommendations Discharge Planning: >30 minutes discharge planning Discharge Home Medications: Active Scripts Active ALPRAZolam 0.25 Mg Tablet 1 Mg PO Q6H Percocet 10-325 mg Tablet (Oxycodone HCl/Acetaminophen) 1 Each Tablet 1 Tab PO Q4H PRN MDD 3 TABS 7 Days Reported Keytruda (Pembrolizumab) 100 Mg/4 Ml (25 Mg/Ml) Vial 200 Mg IV EVERY 3 WEEKS Magnesium Oxide 400 Mg Magnesium Tablet 400 Mg PO DAILY Albuterol Sulfate 2.5 Mg/3 Ml (0.083 %) Vial.neb 3 Ml NEB Q4H PRN Sorbitol (Sorbitol Solution) 70 % Solution 15-30 Ml PO TID PRN Synthroid (Levothyroxine Sodium) 125 Mcg Tablet 125 Mcg PO DAILY Furosemide 40 Mg Tablet 40 Mg PO DAILY Potassium Chloride 20 Meq Tablet.er 20 Meq PO DAILY Oxyir Tablet (Oxycodone HCl) 5 Mg Tab 5 Mg PO Q4 -6H PRN Metoprolol Succinate 25 Mg Tab.er.24h 12.5 Mg PO DAILY TAKES OF A 25MG TAB Pantoprazole Sodium 40 Mg Tablet.dr 40 Mg PO DAILY Alprazolam 0.5 Mg Tablet 0.5 Mg PO HS Instructions to patient/family Please see electronic discharge instructions given to patient. Problem Qualifiers (1) Pneumothorax: Pneumothorax type: postprocedural Qualified Codes: J95.811 - Postprocedural pneumothorax JOHN CAIL MD Nov 10, 2021 08:31
[2021-11-10] MEDS ORDERED: PANTOPRAZOLE 40 MG (PROTONIX) TAB PO SCH (09:00)
[2021-11-10] MEDS: FUROSEMIDE 40 MG/4 ML INJ (LASIX) IVP SCH (09:24)
[2021-11-10] MEDS: meTOprolol TARTRATE 25 MG (LOPRESSOR) TABLET PO SCH (09:25)
--- NOTE | 2021-11-10 09:35 | Diagnostic Imaging Report ---
Indication: Pneumothorax follow-up Portable chest 8:45 AM There is some right upper lobe atelectasis. There are postoperative changes from a median sternotomy. There is a right pneumothorax. This appears slightly smaller compared to previous day. IMPRESSION: Right pneumothorax is slightly smaller compared to the previous day. There is right upper lobe atelectasis. There is a questionable pulmonary nodule in the right upper lung that warrants follow-up. This may be superimposed rib shadows and/or soft tissues. Dictated by: Dictated on workstation # [id number]
--- NOTE | 2021-11-10 09:44 | Physical Therapy Evaluation ---
PT Evaluation-General Medical Diagnosis Admission Date Nov 09, 2021 at 09:16 Medical Diagnosis: post thoracentesis/pneumonia/lung cancer Onset Date: Nov 08, 2021 Therapy Diagnosis Therapy Diagnosis: debility Height/Weight Height (Feet): 6 Height (Inches): 0.00 Weight (Pounds): 233 Weight (Ounces): 0 Precautions Precautions/Isolations: Standard Precautions Referral Physician: Antonieta Reason for Referral: Evaluation/Treatment Medical History Pertinent Medical History: Atrial Fib, CABG, CAD, Heart Failure, HTN Additional Medical History metastatic lung cancer Current History ER secondary to SOA after outpatient thoracentesis 11/08/21 Reviewed History: Yes Social History Home: Single Level Current Living Status: Spouse Prior Prior Level of Function SCALE: Activities may be completed with or without assistive devices. 9-Yvojyxwlfb-vyadaln completes the activity by him/herself with no assistance from a helper. 5-Set-up or Clean-up Assistance-helper sets up or cleans up; patient completes activity. [place] assists only prior to or following the activity. 4-Supervision or Touching Assistance-helper provides verbal cues and/or touching/steadying and/or contact guard assistance as patient completes activity. Assistance may be provided throughout the activity or intermittently. 3-Partial/Moderate Assistance-helper does LESS THAN HALF the effort. [place] lifts, holds or supports trunk or limbs, but provides less than half the effort. 2-Substantial/Maximal Assistance-helper does MORE THAN HALF the effort. [place] lifts or holds trunk or limbs and provides more than half the effort. 2-Usdwlubdj-aukemf does ALL the effort. Patient does none of the effort to complete the activity. Or, the assistance of 2 or more helpers is required for the patient to complete the activity. If activity was not attempted, code reason: 7-Patient Refused. 9-Not Applicable-not attempted and the patient did not perform the activity before the current illness, exacerbation or injury. 10-Not Attempted due to Environmental Limitations-(lack of equipment, weather restraints, etc.). 88-Not Attempted due to Medical Conditions or Safety Concerns. Bed Mobility: 6 Transfers (B,C,W/C): 6 Gait: 6 Stairs: 6 Indoor Mobility (Ambulation): Independent Stairs: Independent Prior Devices Use: None PT Evaluation-Current Subjective Patient agrees to PT. Spouse present. Objective Patient Orientation: Normal For Age Attachments: Oxygen ROM/Strength ROM Lower Extremities bilateral LE WFL Strength Lower Extremities 5/5 grossly bilateral LE all planes Integumentary/Posture Integumentary refer to nursing notes Bowel Incontinence: No Bladder Incontinence: No Posture WFL Neuromuscular (Tone, Coordination, Reflexes) grossly intact Sensory Vision: Functional Hearing: Functional Sensation Right Lower Extremit: Intact Sensation Left Lower Extremity: Intact Transfers Lying to Sitting/Side of Bed(Q: 6 Sit to Stand (QC): 6 Chair/Ifb-gg-Xrrgx Xfer(QC): 6 Gait Mode of Locomotion: Walk Anticipated Mode of Locomotion: Walk Walk 10 feet (QC): 6 Walk 50 ft with 2 Turns(QC): 6 Walk 150 ft (QC): 6 Distance: 500' Gait Assistive Device: None Comments/Gait Description pulled O2 tank as well Balance Sitting Static: Normal Sitting Dynamic: Normal Standing Static: Normal Standing Dynamic: Normal Picking up an Object (QC): 6 Assessment/Needs Patient is currently at independent [facility] with all gross motor skills safely and does not require skilled PT intervention. Rehab Potential: Fair PT Plan Treatment/Plan Treatment Plan: Discontinue PT, goals met Treatment Duration: Nov 10, 2021 Frequency: 1 time per week Estimated Hrs Per Day: .25 hour per day Patient and/or Family Agrees t: Yes Discharge Recommendations Therapy Discharge Recommendati: Home & Family Time/GCodes Time In: 821 Time Out: 831 Total Billed Treatment Time: 10 Total Billed Treatment 1 visit EVLowC 10 min ASTRID WADSWORTH PT Nov 10, 2021 09:44
== END 2021-11-10 09:55 | disposition home or self-care (01) | DRG 199 ==
LOC: EDUNIT# 21:19 → ER 21:21 → ICU 22:10 → INTOOBSV 22:10 → UNDOADMOB 22:10 → OBSVTOIN 22:10 → ICU 11-09 09:16 → OBSVTOIN 11-09 09:16 → 4TH 11-09 17:45
PROVIDERS: ADMIT Internal Medicine; ATTEND Internal Medicine
DX: J95.811 Postprocedural pneumothorax (principal); I50.23 Acute on chronic systolic (congestive) heart failure; I21.4 Non-ST elevation (NSTEMI) myocardial infarction; J90 Pleural effusion, not elsewhere classified; C78.01 Secondary malignant neoplasm of right lung; I13.0 Hypertensive heart and chronic kidney disease with heart failure and stage 1 through stage 4 chronic kidney disease, or unspecified chronic kidney disease; C79.70 Secondary malignant neoplasm of unspecified adrenal gland; C34.11 Malignant neoplasm of upper lobe, right bronchus or lung; E11.22 Type 2 diabetes mellitus with diabetic chronic kidney disease; N18.30 Chronic kidney disease, stage 3 unspecified; I25.10 Atherosclerotic heart disease of native coronary artery without angina pectoris; J44.9 Chronic obstructive pulmonary disease, unspecified; D69.6 Thrombocytopenia, unspecified; K21.9 Gastro-esophageal reflux disease without esophagitis; I25.5 Ischemic cardiomyopathy; E03.9 Hypothyroidism, unspecified; E78.5 Hyperlipidemia, unspecified; F41.9 Anxiety disorder, unspecified; I44.7 Left bundle-branch block, unspecified; I77.9 Disorder of arteries and arterioles, unspecified; H54.7 Unspecified visual loss; E78.00 Pure hypercholesterolemia, unspecified; M06.9 Rheumatoid arthritis, unspecified; M19.90 Unspecified osteoarthritis, unspecified site; I48.91 Unspecified atrial fibrillation; Z79.899 Other long term (current) drug therapy; Z79.890 Hormone replacement therapy; Z87.891 Personal history of nicotine dependence; Z95.1 Presence of aortocoronary bypass graft; Z95.5 Presence of coronary angioplasty implant and graft; T38.3X6A Underdosing of insulin and oral hypoglycemic [antidiabetic] drugs, initial encounter; Z91.128 Patient's intentional underdosing of medication regimen for other reason
CPT/HCPCS: 36415; 71045; 80048; 80053; 83036; 83735; 83880; 84484; 85025; 85610; 85730; 93005; 93041; 93306; 94640; 94664; 94760; 94761

== ENCOUNTER → 2021-11-08 | Outpatient (CLI) | payer MEDICARE, MEDICAID ==
[~2021-11-08] VITALS: Ht 182 cm; Wt 70.0 kg
[~2021-11-08] MED LIST changes: +ALBU2.5V4 NEB; +ALPR0.254 PO; +LEVO125T PO; +LIDOCAINE 1% INJ 20 ML VIAL INJ ONE; +LIDOCAINE 1% INJ 20 ML VIAL ONE; +MAGN400T50 PO; +OXC5T PO; +OXYC1TAB12 PO; +PEMB100V IV; +POTA-51 PO; +SORB1SOL2 PO; +morphine INJ 10 MG/ML 1ML (SYR OR VIAL) IVP STA; +morphine INJ 10 MG/ML 1ML (SYR OR VIAL) ONE
[2021-11-08 12:00] VITALS: BP 101/67
--- NOTE | 2021-11-08 13:05 | HISTORY AND PHYSICAL ---
DATE OF SERVICE: PROCEDURE DATE: 11/08/2021. ATTENDING PRIMARY CARE PHYSICIAN: Dr. Jada Steiner. HISTORY OF PRESENT ILLNESS: The patient is a 71-year-old male who is known to us. He has had pulmonary issues and was eventually found to have a right lung mass that was consistent with a right lung cancer, which was also found to be metastatic as well. The metastasis was along his right adrenal gland. Since his diagnosis, he underwent radiation therapy as well as chemotherapy. Followup PET scan as well as CT scan did show a good response to the chemoradiation. A large pleural effusion was identified. He was also experiencing symptomatic shortness of breath. He then underwent a right thoracentesis on 06/29/2021 as well as 08/22/2021 and 10/02/2021. He presented to the emergency room with worsening shortness of breath upon exertion as well as at rest. He underwent a chest x-ray, which did show development of a small to moderate size right pleural effusion. He was then referred over to us for right thoracentesis. PAST MEDICAL HISTORY: Metastatic right lung cancer, diabetes, hypertension, gastroesophageal reflux disease, hypothyroidism. PAST SURGICAL HISTORY: Laparoscopic cholecystectomy in 2009, coronary artery bypass grafting 2008, shoulder surgery in 1992. ALLERGIES: KEFLEX, STATINS. MEDICATIONS: Xanax 0.5 mg b.i.d., dexamethasone 4 mg b.i.d., levothyroxine daily, glimepiride 2 mg b.i.d., Lasix 40 mg daily, metoprolol 25 mg daily, Protonix 40 mg daily. SOCIAL HISTORY: Previous history of smoking 40 pack years, quit in 2008. Negative for alcohol. FAMILY HISTORY: Noncontributory. VITAL SIGNS: Stable. Afebrile. REVIEW OF SYSTEMS: Well-nourished male in no acute distress. He is experiencing shortness of breath at certain positions at rest as well as upon exertion. No new cough or sputum production. No nausea or vomiting. No abdominal pain. No diarrhea or constipation. No red blood per rectum. No dark tarry stools. No fever or chills. No recent inadvertent weight loss. All other review of systems negative. PHYSICAL EXAMINATION: CHEST: Decreased right sided breath sounds and scattered wheezes bilaterally. HEART: Regular, no murmurs. EXTREMITIES: +1 bilateral lower extremity edema. Negative Homans sign. HEENT: No scleral icterus. NECK: No cervical lymphadenopathy. ABDOMEN: Soft, nontender, nondistended. SKIN: Warm, dry and pink. NEUROLOGIC: Awake, alert and oriented x3. ASSESSMENT AND PLAN: A 71-year-old male with a history of metastatic right lung cancer who is status post chemoradiation with recurrent right lung pleural effusion. He has had worsening symptoms and had a recent chest x-ray, which did show a small to moderate sized recurrent pleural effusion. At this time, we will proceed with scheduling him for therapeutic right thoracentesis. Job ID: [id number] DocumentID: [id number] Dictated Date: 11/08/2021 09:50:18 Parachute Repairer Date: 11/08/2021 10:06:03 Dictated By: MYLES ZAPATA APRN
--- NOTE | 2021-11-08 13:48 | Diagnostic Imaging Report ---
INDICATION: Right pleural effusion. Sonographic guidance was provided for Dr. Naqvi for performance of thoracentesis. Single image demonstrates a large right pleural effusion. Marking was provided. IMPRESSION: Large right pleural effusion. Dictated by: Dictated on workstation # [id number]
[2021-11-08 14:09] VITALS: BP 101/67
--- NOTE | 2021-11-08 14:46 | Diagnostic Imaging Report ---
INDICATION: Post Thora-Vent. FINDINGS: There is presumed ex-vacuo pneumothorax at the right subpulmonic base. The curvilinear subpulmonic pneumothorax matches nicely the morphology of the intervally drained pleural fluid. No evidence for tension. There is some chronic COPD. IMPRESSION: Subpulmonic ex-vacuo pneumothorax in right base post thoracentesis with no tension. Results phoned to the recovery nurse. Dictated by: Dictated on workstation # [id number]
[2021-11-08 15:28] LABS: GLUCOSE,BODY FLUID 105 MG/DL
[2021-11-08 15:29] LABS: AMYLASE,BODY FLUID 200 U/L; TOTAL PROTEIN,BODY FLUID 3.8 G/DL
[2021-11-08 15:37] LABS: LDH,BODY FLUID 136 U/L
[2021-11-08 15:39] LABS: BODY FLUID RBC COUNT 0.012 10^6/uL; BODY FLUID WBC TOTAL COUNT 0.479 10^3/uL
[2021-11-08 16:58] LABS: BODY FLUID APPEARENCE SLT CLDY; BODY FLUID COLOR YELLOW; BODY FLUID SOURCE PLEURAL
--- NOTE | 2021-11-09 00:49 | OPERATIVE REPORT ---
DATE OF SERVICE: 11/08/2021 ATTENDING PRIMARY CARE PHYSICIAN: Dr. Jada Steiner. PREOPERATIVE DIAGNOSIS: Recurrent symptomatic right pleural effusion with history of right sided metastatic lung cancer. POSTOPERATIVE DIAGNOSIS: Recurrent symptomatic right pleural effusion with history of right sided metastatic lung cancer. PROCEDURE: Thoracentesis. SURGEON: Cade Dimas MD ANESTHESIA: Local. ESTIMATED BLOOD LOSS: Minimal. FINDINGS: A 2.5 liters of yellow transudative fluid, which was sent for pathology for cytology. DISPOSITION: The patient tolerated the procedure well. INDICATIONS: The patient is a 71-year-old male known to us. He was found to have a large lesion of the right lung, which was biopsied and consistent with an adenocarcinoma. Further workup did reveal an adrenal gland metastasis as well. He then underwent radiation as well as chemotherapy and he did have a good response; however, has been hampered with this recurrent right sided pleural effusion. He was seen recently and underwent a chest x-ray, which did show a recurrent right sided pleural effusion. DESCRIPTION OF PROCEDURE: The patient was sat upright and flexed forward. An ultrasound was performed before the procedure and the area marked in the posterolateral portion of the right chest. The skin, subcutaneous tissue, muscle layers and the parietal pleura were then anesthetized using 1% lidocaine and a vertical skin incision made using a 11 blade. A trocar and sheath were then introduced withdrawing of straw yellow transudative fluid and the catheter was then advanced over the trocar without any resistance. The catheter was then connected to vacuum container bottles where 2.5 liters of transudative fluid was evacuated. Once fully evacuated, the catheter was removed while applying direct pressure and an Op-Site. All of the pleural effusion was sent for cytology. The patient tolerated the procedure well. We will await the cytology results; however, once he again becomes symptomatic from recurrent pleural effusion, we will have him call the office to schedule another thoracentesis. Job ID: [id number] DocumentID: [id number] Dictated Date: 11/08/2021 14:33:03 Supervisor Contact And Service Clerks Date: 11/09/2021 00:48:21 Dictated By: CADE DIMAS MD
== END ==
LOC: SDC 11:53
PROVIDERS: ATTEND Surgery
DX: J90 Pleural effusion, not elsewhere classified (principal); I10 Essential (primary) hypertension; E11.9 Type 2 diabetes mellitus without complications; K21.9 Gastro-esophageal reflux disease without esophagitis; E03.9 Hypothyroidism, unspecified; Z85.118 Personal history of other malignant neoplasm of bronchus and lung
CPT/HCPCS: 32554; 71045; 76942; 82150; 82570; 82945; 83615; 84157; 87070; 87075; 87101; 87116; 87205; 87206; 89051

== ENCOUNTER 2021-11-13 11:09 | Emergency (ER) | payer MEDICARE, MEDICAID ==
[~2021-11-13] VITALS: Ht 182 cm; Wt 89.0 kg
[~2021-11-13 11:09] MED LIST changes: +ALBU2.5V4 NEB; +ALPR0.254 PO; +LEVO125T PO; +MAGN400T50 PO; +OXC5T PO; +OXYC1TAB12 PO; +PEMB100V IV; +POTA-51 PO; +SORB1SOL2 PO
--- NOTE | 2021-11-13 12:06 | Diagnostic Imaging Report ---
INDICATION: Right pneumothorax. Frontal chest obtained at 1149 a.m. is compared to 11/10/21. Patient's had previous study. There is no change in Port-A-Cath device. Heart is normal in size. The right lateral basal pneumothorax appears about the same as the previous study, with a small amount of right pleural fluid. There are fibrotic changes in the right apex. Left lung is clear. There is no left pneumothorax or left pleural fluid. IMPRESSION: Unchanged right pneumothorax compared 11/10/2021 with minimal trace of right pleural fluid. Fibrotic changes in the right apex are stable. Dictated by: Dictated on workstation # [id number]
--- NOTE | 2021-11-13 12:09 | ED Cough/URI ---
General Chief Complaint: Respiratory Problems Stated Complaint: SOB Nursing Triage Note: ARRIVED VIA WC TO ROOM 04. STATES HE WAS DC ON SATURDAY AND WAS TOLD HE HAD A SMALL PNEUMO THAT WOULD HEAL WITH OXYGEN. PT ARRIVED WITH NO OXYGEN ON ET STATES HE HAD IT ON IN THE CAR BUT THE TANK LEAKS. PT STATES HE IS HAVING INCREASED SOA. PT TOOK XANAX 1MG PO BEFORE ARRIVAL. Source: patient Exam Limitations: no limitations History of Present Illness Date Seen by Provider: Nov 13, 2021 Time Seen by Provider: 11:50 Initial Comments This is a 71-year-old male who presented to the ER via wheelchair for complaints of increasing weakness and shortness of breath over the past 3 days. Daughter states that he had a thoracentesis performed by Dr. Naqvi and was admitted overnight for observation. He had a small pneumo that would heal with oxygen. He is on oxygen at 2 LPM. Allergies and Home Medications Allergies Coded Allergies: cephalexin (Unverified Allergy, Severe, Anaphylaxis, 06/01/21) Cgutnzb-BUW-YtJ Reductase Inhibitor (Verified Allergy, Unknown, 10/14/20) tramadol (Unverified Adverse Reaction, Intermediate, 08/16/11) medication caused pt to experience hypertensive episodes Patient Home Medication List ALPRAZolam (ALPRAZolam) 0.25 Mg Tablet, 1 MG PO Q6H Prescribed by: CADE NAQVI on 11/09/21 1639 Albuterol Sulfate (Albuterol Sulfate) 2.5 Mg/3 Ml (0.083 %) Vial.neb, 3 ML NEB Q4H PRN for SHORTNESS OF BREATH, (Reported) Entered as Reported by: VISHNU TILLEY on 11/09/21 1019 Alprazolam (Alprazolam) 0.5 Mg Tablet, 0.5 MG PO HS, (Reported) Entered as Reported by: VISHNU TILLEY on 02/28/21 0857 Furosemide (Furosemide) 40 Mg Tablet, 40 MG PO DAILY, (Reported) Entered as Reported by: VISHNU TILLEY on 11/09/21 1019 Levothyroxine Sodium (Synthroid) 125 Mcg Tablet, 125 MCG PO DAILY, (Reported) Entered as Reported by: VISHNU TILLEY on 11/09/21 1019 Magnesium Oxide (Magnesium Oxide) 400 Mg Magnesium Tablet, 400 MG PO DAILY, (Reported) Entered as Reported by: VISHNU TILLEY on 11/09/21 1020 Metoprolol Succinate (Metoprolol Succinate) 25 Mg Tab.er.24h, 12.5 MG PO DAILY, (Reported) Entered as Reported by: RODNEY GALLEGOS on 05/30/21 1018 Oxycodone HCl/Acetaminophen (Percocet 10-325 mg Tablet) 1 Each Tablet, 1 TAB PO Q4H PRN for PAIN-MODERATE Prescribed by: CADE NAQVI on 11/09/21 1639 Oxycodone Hcl (Oxyir Tablet) 5 Mg Tab, 5 MG PO Q4 -6H PRN for PAIN-SEVERE (8-10 ), (Reported) Entered as Reported by: VISHNU TILLEY on 11/09/21 1019 Pantoprazole Sodium (Pantoprazole Sodium) 40 Mg Tablet.dr, 40 MG PO DAILY, (Reported) Entered as Reported by: VISHNU TILLEY on 02/28/21 0857 Pembrolizumab (Keytruda) 100 Mg/4 Ml (25 Mg/Ml) Vial, 200 MG IV EVERY 3 WEEKS, (Reported) Entered as Reported by: VISHNU TILLEY on 11/09/21 1032 Potassium Chloride (Potassium Chloride) 20 Meq Tablet.er, 20 MEQ PO DAILY, (Reported) Entered as Reported by: VISHNU TILLEY on 11/09/21 1019 Sorbitol Solution (Sorbitol) 70 % Solution, 15-30 ML PO TID PRN for CONSTIPATION, (Reported) Entered as Reported by: VISHNU TILLEY on 11/09/21 1019 Discontinued Medications Aspirin (Aspirin EC) 81 Mg Tablet.dr, 81 MG PO DAILY, (Reported) Discontinued Reason: No Longer Taking Entered as Reported by: VISHNU TILLEY on 02/28/21 0857 Dexamethasone (Dexamethasone) 4 Mg Tablet, 4 MG PO BID PRN for DAY BEFORE, OF AND AFTER CHEMO, (Reported) Discontinued Reason: No Longer Taking Entered as Reported by: VISHNU TILLEY on 02/28/21 0857 Folic Acid (Folic Acid) 1 Mg Tablet, 1 MG PO DAILY, (Reported) Discontinued Reason: No Longer Taking Entered as Reported by: VISHNU TILLEY on 02/28/21 0857 Glimepiride (Glimepiride) 2 Mg Tablet, 1 MG PO BID, (Reported) Discontinued Reason: No Longer Taking Entered as Reported by: KINGSLEY FREEMAN on 05/05/19 0853 Hydrocodone/Acetaminophen (Hydrocodone-Acetamin 7.5-325) 1 Each Tablet, 1 EACH PO Q4H PRN for PAIN-BREAKTHROUGH Discontinued Reason: No Longer Taking Prescribed by: MYLES ZAPATA on 06/01/21 0853 Levothyroxine Sodium (Levothyroxine Sodium) 25 Mcg Tablet, 25 MCG PO EVERY OTHER DAY, (Reported) Discontinued Reason: No Longer Taking Entered as Reported by: RODNEY GALLEGOS on 05/30/21 1018 Oxycodone HCl (Oxycodone HCl) 5 Mg Tablet, 5 MG PO Q6H PRN for PAIN-MODERATE (5- 7) Discontinued Reason: No Longer Taking Prescribed by: CLINT RICHARDS on 08/25/21 1512 Past Gkomhyo-Vxsfxu-Ypoogh Hx Patient Social History Smoking Status: Former Smoker Substance use?: No Alcohol Use?: No Immunizations Up To Date Tetanus Booster (TDap): Unknown First/Initial COVID19 Vaccinat: 04/2020 Second COVID19 Vaccination Lyle: 05/2020 Third COVID19 Vaccination Date: 12/2020 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: [employer] Seasonal Allergies Seasonal Allergies: No Past Medical History Surgery/Hospitalization HX: LBBB, LUNG CA, AFIB, 3 STENTS Surgeries: Yes (R SHOULDER, OPEN HEART 2009, STENTS X 3;THORACENTESIS;PORT L CHEST) Cardiac, CABG, Coronary Stent, Gallbladder, Orthopedic Respiratory: Yes (LUNG CANCER DX 07/2020, pleural effusions) COPD Currently Using CPAP: No Currently Using BIPAP: No Cardiac: Yes (CHF, L BBB, 3 CORONARY STENTS, A-FIB YEARS AGO;CABG) Atrial Fibrillation, Chronic Edema/Swelling, Coronary Artery Disease, High Cholesterol, Hypertension Neurological: No Reproductive Disorders: No Genitourinary: Yes Kidney Stones Gastrointestinal: Yes Hemorrhoids, Gall Bladder Disease Musculoskeletal: Yes (CHRONIC PAIN ) Arthritis, Rheumatoid Arthritis Endocrine: Yes Hypothyroidsim, Diabetes, Non-Insulin dep HEENT: No Cancer: Yes (LEFT ADRENAL GLAND CA, RUL LUNG CA) Lung Did You Recieve Any Treatments: Yes What Type of Treatment Did You: Chemotherapy, Radiation Psychosocial: No Integumentary: No Blood Disorders: No Adverse Reaction/Blood Tranf: No Family Medical History No Pertinent Family Hx SOCIAL HISTORY: -SMOKED 1 PPD, QUIT 2020 -ETOH-DENIES USE -DRUGS-DENIES USE PAST SURGICAL HISTORY: -CARDIAC CATHS WITH STENTS X 3 -CABG -RIGHT SHOULDER SURGERY -CHOLECYSTECTOMY -PORT LEFT CHEST 05/2021 -R THORACENTESIS 11/08/21 Physical Exam Vital Signs - First Documented 11/13/21 11:20 Temp 36.6 Pulse 98 Resp 16 B/P (MAP) 109/71 (84) O2 Delivery Room Air Capillary Refill : Height: 6'0.00" Weight: 233lbs. 0oz. 105.996364ne; 26.00 BMI Method:Stated Focused Exam Lactate Level 11/13/21 12:15: Lactic Acid Level 0.82 Lactic Acid Level Laboratory Tests Test 11/13/21 12:15 Lactic Acid Level 0.82 MMOL/L (0.50-2.00) Progress/Results/Core Measures Suspected Sepsis SIRS Temperature: Pulse: 98 Respiratory Rate: 16 Laboratory Tests 11/13/21 12:15: White Blood Count 5.6 Blood Pressure 109 /71 Mean: 84 11/13/21 12:15: Lactic Acid Level 0.82 Laboratory Tests 11/13/21 12:15: Creatinine 1.04, INR Comment 1.0, Platelet Count 145, Total Bilirubin 0.7 Results/Orders Lab Results Laboratory Tests Test 11/13/21 12:15 Range/Units White Blood Count 5.6 4.3-11.0 10^3/uL Red Blood Count 3.58 L 4.30-5.52 10^6/uL Hemoglobin 11.8 L 13.3-17.7 g/dL Hematocrit 34 L 40-54 % Mean Corpuscular Volume 95 80-99 fL Mean Corpuscular Hemoglobin 33 25-34 pg Mean Corpuscular Hemoglobin Concent 35 32-36 g/dL Red Cell Distribution Width 13.1 10.0-14.5 % Platelet Count 145 130-400 10^3/uL Mean Platelet Volume 12.4 H 9.0-12.2 fL Immature Granulocyte % (Auto) 1 % Neutrophils (%) (Auto) 77 H 42-75 % Lymphocytes (%) (Auto) 10 L 12-44 % Monocytes (%) (Auto) 12 0-12 % Eosinophils (%) (Auto) 1 0-10 % Basophils (%) (Auto) 0 0-10 % Neutrophils # (Auto) 4.3 1.8-7.8 10^3/uL Lymphocytes # (Auto) 0.6 L 1.0-4.0 10^3/uL Monocytes # (Auto) 0.7 0.0-1.0 10^3/uL Eosinophils # (Auto) 0.0 0.0-0.3 10^3/uL Basophils # (Auto) 0.0 0.0-0.1 10^3/uL Immature Granulocyte # (Auto) 0.0 0.0-0.1 10^3/uL Prothrombin Time 14.0 12.2-14.7 SEC INR Comment 1.0 0.8-1.4 Activated Partial Thromboplast Time 29 24-35 SEC Sodium Level 136 135-145 MMOL/L Potassium Level 4.3 3.6-5.0 MMOL/L Chloride Level 96 L 98-107 MMOL/L Carbon Dioxide Level 28 21-32 MMOL/L Anion Gap 12 5-14 MMOL/L Blood Urea Nitrogen 22 H 7-18 MG/DL Creatinine 1.04 0.60-1.30 MG/DL Estimat Glomerular Filtration Rate 76 BUN/Creatinine Ratio 21 Glucose Level 166 H 70-105 MG/DL Lactic Acid Level 0.82 0.50-2.00 MMOL/L Calcium Level 9.2 8.5-10.1 MG/DL Corrected Calcium 9.7 8.5-10.1 MG/DL Total Bilirubin 0.7 0.1-1.0 MG/DL Aspartate Amino Transf (AST/SGOT) 29 5-34 U/L Alanine Aminotransferase (ALT/SGPT) 21 0-55 U/L Alkaline Phosphatase 73 40-136 U/L Troponin I 0.052 H <0.028 NG/ML Total Protein 6.9 6.4-8.2 GM/DL Albumin 3.4 3.2-4.5 GM/DL My Orders Orders - [employer] Chest 1 View, Ap/Pa Only (11/13/21 11:44) Cbc With Automated Diff (11/13/21 11:56) Comprehensive Metabolic Panel (11/13/21 11:56) Blood Culture (11/13/21 11:56) Sputum Culture (11/13/21 11:56) Urinalysis (11/13/21 11:56) Urine Culture (11/13/21 11:56) Protime With Inr (11/13/21 11:56) Partial Thromboplastin Time (11/13/21 11:56) Ed Iv/Invasive Line Start (11/13/21 11:56) Troponin I Earl (11/13/21 11:56) Vital Signs Adult Sepsis Patie Q15M (11/13/21 11:56) O2 (11/13/21 11:56) Remove Rings In Anticipation O (11/13/21 11:56) Lactic Acid Analyzer (11/13/21 11:56) Vital Signs/I&O 11/13/21 11:20 Temp 36.6 Pulse 98 Resp 16 B/P (MAP) 109/71 (84) O2 Delivery Room Air Capillary Refill : Blood Pressure Mean: 84 Departure Impression Primary Impression: Pneumothorax, right Additional Impression: Metastatic malignant neoplasm to lung Disposition: 01 HOME, SELF-CARE Condition: Stable/Unchanged Departure-Patient Inst. Decision time for Depature: 13:09 Referrals: SOPHIA JACKSON MD (PCP/Family) Primary Care Physician Patient Instructions: Pneumothorax (Collapsed Lung) (DC) Add. Discharge Instructions: Plan: 1. Decrease Ativan to 0.5mg PRN, this may be contributing to his increased sl eepiness. 2. Follow up with Dr. Degroot, his office will call you with follow up appointment. 3. Continue wearing oxygen 2 liters via NC. 4. Return to ER for any new, concerning, or worsening symptoms. All discharge instructions reviewed with patient and/or family. Voiced understanding. [employer] Nov 13, 2021 12:09
[2021-11-13 12:27] LABS: BASOPHILS % (AUTO) 0 % (0-10); EOSINOPHILS % (AUTO) 1 % (0-10); HEMATOCRIT 34 % (40-54); HEMOGLOBIN 11.8 g/dL (13.3-17.7); LYMPHOCYTES # (AUTO) 0.6 10^3/uL (1.0-4.0); LYMPHOCYTES % (AUTO) 10 % (12-44); MEAN CORPUSCULAR HEMOGLOBIN 33 pg (25-34); MEAN CORPUSCULAR HGB CONC 35 g/dL (32-36); MEAN CORPUSCULAR VOLUME 95 fL (80-99); MEAN PLATELET VOLUME 12.4 fL (9.0-12.2); MONOCYTES # (AUTO) 0.7 10^3/uL (0.0-1.0); MONOCYTES % (AUTO) 12 % (0-12); NEUTROPHILS # (AUTO) 4.3 10^3/uL (1.8-7.8); NEUTROPHILS % (AUTO) 77 % (42-75); PLATELET COUNT 145 10^3/uL (130-400); WHITE BLOOD COUNT 5.6 10^3/uL (4.3-11.0)
[2021-11-13 12:35] LABS: ALBUMIN 3.4 GM/DL (3.2-4.5); POTASSIUM 4.3 MMOL/L (3.6-5.0)
[2021-11-13 12:37] LABS: CALCIUM 9.2 MG/DL (8.5-10.1)
[2021-11-13 12:38] LABS: TOTAL PROTEIN 6.9 GM/DL (6.4-8.2)
[2021-11-13 12:39] LABS: BILIRUBIN,TOTAL 0.7 MG/DL (0.1-1.0)
[2021-11-13 12:41] LABS: CREATININE SERUM 1.04 MG/DL (0.60-1.30)
[2021-11-13 13:25] VITALS: BP 95/60
== END 2021-11-13 13:25 | disposition home or self-care (01) ==
LOC: EDUNIT# 11:09 → ER 11:12
DX: J93.9 Pneumothorax, unspecified (principal); C34.90 Malignant neoplasm of unspecified part of unspecified bronchus or lung; Z98.890 Other specified postprocedural states; Z99.81 Dependence on supplemental oxygen; Z87.891 Personal history of nicotine dependence
CPT/HCPCS: 36415; 71045; 80053; 83605; 84484; 85025; 85610; 85730; 87040

== ENCOUNTER 2021-11-25 16:32 | Inpatient (IN) | payer MEDICARE, MEDICAID ==
[~2021-11-25] VITALS: Ht 182.9 cm; Wt 82.6 kg
--- NOTE | 2021-11-25 17:19 | Diagnostic Imaging Report ---
INDICATION: Shortness of breath, pleural effusion. EXAMINATION: Frontal chest was obtained at 5:12 p.m. COMPARISON: 11/13/2021. Heart is mildly enlarged. There is some infiltrate or atelectasis in the right base. There is a moderate size right pleural effusion. Previous right pneumothorax has resolved. There is some right upper lobe scarring versus infiltrate. Left lung is clear. Port-A-Cath is unchanged. IMPRESSION: Moderate size right pleural effusion with some right basilar scarring versus infiltrate and unchanged right apical scarring versus infiltrate. Previous right pneumothorax appears resolved. Dictated by: Dictated on workstation # [id number]
[2021-11-25 17:56] LABS: BASOPHILS % (AUTO) 1 % (0-10); EOSINOPHILS # (AUTO) 0.1 10^3/uL (0.0-0.3); EOSINOPHILS % (AUTO) 1 % (0-10); HEMATOCRIT 30 % (40-54); HEMOGLOBIN 10.1 g/dL (13.3-17.7); LYMPHOCYTES # (AUTO) 0.7 10^3/uL (1.0-4.0); LYMPHOCYTES % (AUTO) 9 % (12-44); MEAN CORPUSCULAR HEMOGLOBIN 33 pg (25-34); MEAN CORPUSCULAR HGB CONC 34 g/dL (32-36); MEAN CORPUSCULAR VOLUME 96 fL (80-99); MEAN PLATELET VOLUME 12.8 fL (9.0-12.2); MONOCYTES # (AUTO) 0.9 10^3/uL (0.0-1.0); MONOCYTES % (AUTO) 11 % (0-12); NEUTROPHILS % (AUTO) 79 % (42-75); PLATELET COUNT 139 10^3/uL (130-400); WHITE BLOOD COUNT 7.6 10^3/uL (4.3-11.0)
[2021-11-25] MEDS ORDERED: LACTATED RINGERS 1,000 ML IV ONE (18:00)
[2021-11-25 18:01] LABS: POTASSIUM 4.4 MMOL/L (3.6-5.0)
[2021-11-25 18:02] LABS: CALCIUM 9.3 MG/DL (8.5-10.1)
[2021-11-25] MEDS ORDERED: morphine INJ 10 MG/ML 1ML (SYR OR VIAL) ONE (18:03)
[2021-11-25 18:07] LABS: CREATININE SERUM 0.99 MG/DL (0.60-1.30)
--- NOTE | 2021-11-25 18:18 | ED Chest Pain ---
General Chief Complaint: Chest Pain Stated Complaint: SOA Nursing Triage Note: PT TO RM 7 BY WC WITH COMPLAINT OF SOA THAT HAS BEEN WORSENING OVER THE LAST 2 WEEKS. STATES PT HAD A THORACENTESIS DONE TWO WEEKS AGO. PT HAS LUNG CX. STATES WHEN GETTING CHECKED IN TO THE ER. HE STARTED HAVING CP. Source: patient Exam Limitations: no limitations History of Present Illness Date Seen by Provider: Nov 25, 2021 Time Seen by Provider: 17:59 Initial Comments Here with report of shortness of air that has been progressively worsening over the last 2 weeks. Also with cute onset of central chest pain that is nonradiating approximately 40 minutes ago on arrival. Does have history of lung cancer and has had thoracentesis a few times by Dr. Naqvi. Does have history of pneumothorax with last thoracentesis 2 weeks ago. Usually can go 6 to 8 weeks between thoracenteses. Does have cardiac history and has 3 stents. Does have cough but states that is chronic and not really changed. Shortness of breath has increased and now has the chest pain. Denies nausea, vomiting or diarrhea. Decreased appetite noted and states he may be dehydrated. Does have swelling in his legs that he states is chronic and not changed much but may be a little worse currently. He does report taking oxycodone 5 mg tablets every 4-6 hours as needed and his last dose about was about 4 hours ago. He is able to take 1 to 2 tablets every 4-6 hours as needed. 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 Associated Symptoms: No abdominal pain, No back pain, No diaphoresis, No dizziness, No fever/chills, No nausea/vomiting; shortness of breath, weakness Allergies and Home Medications Allergies Coded Allergies: cephalexin (Unverified Allergy, Severe, Anaphylaxis, 06/01/21) Zymeqsg-GLO-[id number] Reductase Inhibitor (Verified Allergy, Unknown, 10/14/20) tramadol (Unverified Adverse Reaction, Intermediate, 08/16/11) medication caused pt to experience hypertensive episodes Patient Home Medication List Home Medication List Reviewed: Yes ALPRAZolam (ALPRAZolam) 0.25 Mg Tablet, 1 MG PO Q6H Prescribed by: CADE NAQVI on 11/09/21 1639 Albuterol Sulfate (Albuterol Sulfate) 2.5 Mg/3 Ml (0.083 %) Vial.neb, 3 ML NEB Q4H PRN for SHORTNESS OF BREATH, (Reported) Entered as Reported by: VISHNU TILLEY on 11/09/21 1019 Alprazolam (Alprazolam) 0.5 Mg Tablet, 0.5 MG PO HS, (Reported) Entered as Reported by: VISHNU TILLEY on 02/28/21 0857 Furosemide (Furosemide) 40 Mg Tablet, 40 MG PO DAILY, (Reported) Entered as Reported by: VISHNU TILLEY on 11/09/21 1019 Levothyroxine Sodium (Synthroid) 125 Mcg Tablet, 125 MCG PO DAILY, (Reported) Entered as Reported by: VISHNU TILLEY on 11/09/21 1019 Magnesium Oxide (Magnesium Oxide) 400 Mg Magnesium Tablet, 400 MG PO DAILY, (Reported) Entered as Reported by: VISHNU TILLEY on 11/09/21 1020 Metoprolol Succinate (Metoprolol Succinate) 25 Mg Tab.er.24h, 12.5 MG PO DAILY, (Reported) Entered as Reported by: RODNEY GALLEGOS on 05/30/21 1018 Oxycodone HCl/Acetaminophen (Percocet 10-325 mg Tablet) 1 Each Tablet, 1 TAB PO Q4H PRN for PAIN-MODERATE Prescribed by: CADE NAQVI on 11/09/21 1639 Oxycodone Hcl (Oxyir Tablet) 5 Mg Tab, 5 MG PO Q4 -6H PRN for PAIN-SEVERE (8- 10), (Reported) Entered as Reported by: VISHNU TILLEY on 11/09/21 1019 Pantoprazole Sodium (Pantoprazole Sodium) 40 Mg Tablet.dr, 40 MG PO DAILY, (Reported) Entered as Reported by: VISHNU TILLEY on 02/28/21 0857 Pembrolizumab (Keytruda) 100 Mg/4 Ml (25 Mg/Ml) Vial, 200 MG IV EVERY 3 WEEKS, (Reported) Entered as Reported by: VISHNU TILLEY on 11/09/21 1032 Potassium Chloride (Potassium Chloride) 20 Meq Tablet.er, 20 MEQ PO DAILY, (Reported) Entered as Reported by: VISHNU TILLEY on 11/09/21 1019 Sorbitol Solution (Sorbitol) 70 % Solution, 15-30 ML PO TID PRN for CONSTIPATION, (Reported) Entered as Reported by: VISHNU TILLEY on 11/09/21 1019 Review of Systems Review of Systems Constitutional: see HPI; No chills, No fever EENTM: Nose Congestion; No Throat Pain Respiratory: Cough, Shortness of Air Cardiovascular: Chest Pain, Edema Gastrointestinal: Denies Nausea, Denies Vomiting Genitourinary: No Symptoms Reported Musculoskeletal: no symptoms reported Skin: no symptoms reported Psychiatric/Neurological: Denies Headache, Denies Numbness All Other Systems Reviewed Negative Unless Noted: Yes Past Xvddcka-Gxoxjx-Etfntg Hx Patient Social History Tobacco Use?: No Smoking Status: Former Smoker Use of E-Cig and/or Vaping dev: No Substance use?: No Alcohol Use?: No Pt feels they are or have been: No Immunizations Up To Date Tetanus Booster (TDap): Unknown Influenza Vaccine Up-to-Date: Yes; Up-to-Date First/Initial COVID19 Vaccinat: 04/2020 Second COVID19 Vaccination Lyle: 05/2020 Third COVID19 Vaccination Date: 12/2020 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: [employer] Seasonal Allergies Seasonal Allergies: No Past Medical History Surgery/Hospitalization HX: LBBB, LUNG CA, AFIB, 3 STENTS Surgeries: Yes (R SHOULDER, OPEN HEART 2009, STENTS X 3;THORACENTESIS;PORT L CHEST) Cardiac, CABG, Coronary Stent, Gallbladder, Orthopedic Respiratory: Yes (LUNG CANCER DX 07/2020, pleural effusions) COPD Currently Using CPAP: No Currently Using BIPAP: No Cardiac: Yes (CHF, L BBB, 3 CORONARY STENTS, A-FIB YEARS AGO;CABG) Atrial Fibrillation, Chronic Edema/Swelling, Coronary Artery Disease, High Cholesterol, Hypertension Neurological: No Reproductive Disorders: No Genitourinary: Yes Kidney Stones Gastrointestinal: Yes Hemorrhoids, Gall Bladder Disease Musculoskeletal: Yes (CHRONIC PAIN ) Arthritis, Rheumatoid Arthritis Endocrine: Yes Hypothyroidsim, Diabetes, Non-Insulin dep HEENT: No Cancer: Yes (LEFT ADRENAL GLAND CA, RUL LUNG CA) Lung Did You Recieve Any Treatments: Yes What Type of Treatment Did You: Chemotherapy, Radiation Psychosocial: No Integumentary: No Blood Disorders: No Adverse Reaction/Blood Tranf: No Family Medical History Reviewed Nursing Family Hx No Pertinent Family Hx SOCIAL HISTORY: -SMOKED 1 PPD, QUIT 2020 -ETOH-DENIES USE -DRUGS-DENIES USE PAST SURGICAL HISTORY: -CARDIAC CATHS WITH STENTS X 3 -CABG -RIGHT SHOULDER SURGERY -CHOLECYSTECTOMY -PORT LEFT CHEST 05/2021 -R THORACENTESIS 11/08/21 Physical Exam Vital Signs Vital Signs - First Documented 11/25/21 16:36 Temp 36.4 Pulse 91 Resp 24 B/P (MAP) 105/65 (78) Pulse Ox 100 O2 Delivery Nasal Cannula O2 Flow Rate 2.00 Capillary Refill : Less Than 3 Seconds Height, Weight, BMI Height: 6'0.00" Weight: 233lbs. 0oz. 105.554437am; 24.00 BMI Method:Stated General Appearance: Chronically ill, Moderate Distress HEENT: PERRL/EOMI, Pharyngeal Erythema Neck: Non Tender, Supple Respiratory: Crackles, Decreased Breath Sounds (Right base), Wheezing Cardiovascular: Regular Rate, Rhythm, No Murmur Gastrointestinal: Non Tender, Soft Extremity: Normal Range of Motion, Non Tender Neurologic/Psychiatric: Alert, Oriented x3 Skin: Normal Color, Warm/Dry Progress/Results/Core Measures Results/Orders Lab Results Laboratory Tests Test 11/25/21 16:57 11/25/21 19:59 Range/Units White Blood Count 7.6 4.3-11.0 10^3/uL Red Blood Count 3.11 L 4.30-5.52 10^6/uL Hemoglobin 10.1 L 13.3-17.7 g/dL Hematocrit 30 L 40-54 % Mean Corpuscular Volume 96 80-99 fL Mean Corpuscular Hemoglobin 33 25-34 pg Mean Corpuscular Hemoglobin Concent 34 32-36 g/dL Red Cell Distribution Width 13.2 10.0-14.5 % Platelet Count 139 130-400 10^3/uL Mean Platelet Volume 12.8 H 9.0-12.2 fL Immature Granulocyte % (Auto) 0 % Neutrophils (%) (Auto) 79 H 42-75 % Lymphocytes (%) (Auto) 9 L 12-44 % Monocytes (%) (Auto) 11 0-12 % Eosinophils (%) (Auto) 1 0-10 % Basophils (%) (Auto) 1 0-10 % Neutrophils # (Auto) 6.0 1.8-7.8 10^3/uL Lymphocytes # (Auto) 0.7 L 1.0-4.0 10^3/uL Monocytes # (Auto) 0.9 0.0-1.0 10^3/uL Eosinophils # (Auto) 0.1 0.0-0.3 10^3/uL Basophils # (Auto) 0.0 0.0-0.1 10^3/uL Immature Granulocyte # (Auto) 0.0 0.0-0.1 10^3/uL Sodium Level 134 L 135-145 MMOL/L Potassium Level 4.4 3.6-5.0 MMOL/L Chloride Level 95 L 98-107 MMOL/L Carbon Dioxide Level 26 21-32 MMOL/L Anion Gap 13 5-14 MMOL/L Blood Urea Nitrogen 31 H 7-18 MG/DL Creatinine 0.99 0.60-1.30 MG/DL Estimat Glomerular Filtration Rate 81 BUN/Creatinine Ratio 31 Glucose Level 217 H 70-105 MG/DL Calcium Level 9.3 8.5-10.1 MG/DL Troponin I 0.030 H 0.043 H <0.028 NG/ML C-Reactive Protein High Sensitivity 8.12 H 0.00-0.50 MG/DL B-Type Natriuretic Peptide 653.6 H <100.0 PG/ML Procalcitonin 0.05 <0.10 NG/ML My Orders Orders - TORREY EAST MD Hs C Reactive Protein (11/25/21 18:10) Procalcitonin (Pct) (11/25/21 18:10) Troponin I [place] (11/25/21 18:10) Ct Angio Chest W (11/25/21 19:44) Bnp [place] (11/25/21 19:44) Troponin I [place] (11/25/21 19:44) Iohexol Injection (Omnipaque 350 Mg/Ml 1 (11/25/21 19:45) Received Contrast (Hold Metformin- Contr (11/25/21 19:45) Ns (Ivpb) (Sodium Chloride 0.9% Ivpb Bag (11/25/21 19:45) Lactic Acid Analyzer (11/25/21 20:50) Blood Culture (11/25/21 20:50) Vancomycin Injection (Vancomycin Injecti (11/25/21 21:00) Meropenem (Merrem 500 Mg) (11/25/21 21:00) Medications Given in ED Current Medications Medications Dose Ordered Sig/Eusebio Route Start Time Stop Time Status Last Admin Dose Admin Iohexol 100 ml ONCE ONCE IV 11/25/21 19:45 11/25/21 19:47 DC 11/25/21 20:11 76 ML Lactated Ringer's 1,000 ml @ 0 mls/hr Q0M ONCE IV 11/25/21 18:00 11/25/21 18:01 DC 11/25/21 17:51 1,000 MLS/HR Morphine Sulfate 10 mg STK-MED ONCE .ROUTE 11/25/21 18:03 11/25/21 18:06 DC 11/25/21 18:09 10 MG Sodium Chloride 100 ml ONCE ONCE IV 11/25/21 19:45 11/25/21 19:47 DC 11/25/21 20:11 80 ML Vital Signs/I&O 11/25/21 16:36 Temp 36.4 Pulse 91 Resp 24 B/P (MAP) 105/65 (78) Pulse Ox 100 O2 Delivery Nasal Cannula O2 Flow Rate 2.00 Blood Pressure Mean: 78 Progress Progress Note : Progress Note Seen and evaluated. IV via port access, labs, chest x-ray and EKG ordered. Morphine 10 mg IV for pain which seems to have helped quite a bit. Monitor patient. 1954: We have ordered CT angiogram of the chest. We have verified that he has PowerPort in place reviewed surgical note. Patient has complicated x-ray exam and certainly has risk factors for PE so we will do CT angiogram. This was discussed with patient and family who agree. Does have mild elevation of his troponin but seems to be consistent with previous. We will recheck now to rule out elevated troponin levels. Monitor patient. 2049: Patient has findings on CT scan concerning for pneumonia. I did discuss this with him. Given his cancer history and significant lung disease, patient will require inpatient treatment initially placed. We have added blood cultures and lactic acid. I did discuss the case with Dr. Fung. She accepts patient for admission, inpatient status. We will initiate treatment for structural lung disease community-acquired pneumonia. Patient has cephalosporin allergy so we will initiate meropenem and vancomycin due to recent instrumentation with thoracentesis. All findings concerns were discussed with patient and family who agree with plan. Does have slightly elevated troponin but still a very low level. We will repeat troponin in the morning. This was discussed with Dr. Fung who agrees as well. Initial ECG Impression Date: Nov 25, 2021 Initial ECG Impression Time: 17:52 Initial ECG Rate: 89 Initial ECG Rhythm: Normal Sinus Comment Sinus rhythm with first-degree AV block and occasional PVC. Normal axis. Intraventricular conduction delay noted. All of this is similar to previous of 11/08/2021. Interpreted by me. No evidence of ST elevation FL. Diagnostic Imaging Diagonstic Imaging: Xray Plain Films/CT/US/NM/MRI: chest Comments [facility]. [place], [place] NAME: AURELIONICOLETTE SOSA [facility] REC#: [id number] PT STATUS: REG ER : 1950 PHYSICIAN: EDGAR ZHANG MD ADMIT DATE: 11/25/21/ER Signed Date of Exam:11/25/21 CHEST 1 VIEW, AP/PA ONLY INDICATION: Shortness of breath, pleural effusion. EXAMINATION: Frontal chest was obtained at 5:12 p.m. COMPARISON: 11/13/2021. Heart is mildly enlarged. There is some infiltrate or atelectasis in the right base. There is a moderate size right pleural effusion. Previous right pneumothorax has resolved. There is some right upper lobe scarring versus infiltrate. Left lung is clear. Port-A-Cath is unchanged. IMPRESSION: Moderate size right pleural effusion with some right basilar scarring versus infiltrate and unchanged right apical scarring versus infiltrate. Previous right pneumothorax appears resolved. Dictated by: Dictated on workstation # [id number] Dict: 11/25/211710 Trans: 11/25/211721 [facility] [id number] Interpreted by: YFN POP MD Electronically signed by: YFN POP MD 11/25/211721 Diagonstic Imaging: CT Plain Films/CT/US/NM/MRI: chest Comments [facility]. [place], [place] NAME: AURELIONICOLETTE [facility] REC#: [id number] PT STATUS: REG ER : 1950 PHYSICIAN: TORREY EAST MD ADMIT DATE: 11/25/21/ER Draft Date of Exam:11/25/21 CT ANGIO CHEST W INDICATION: History of lung cancer, shortness of breath. TECHNIQUE: Multiple contiguous axial images were obtained through the chest after uneventful bolus administration of intravenous contrast. 3D reconstructed CTA MIP acquisitions were also performed. Auto Exposure Controls were utilized during the CT exam to meet ALARA standards for radiation dose reduction. COMPARISON: 08/20/2021. FINDINGS: The pulmonary parenchymal vessels are well-opacified with no CT evidence of pulmonary emboli. Thoracic aorta is not aneurysmal. There are some borderline size nodes in the right paratracheal region which appears similar to the prior study. There is a right hydropneumothorax. The pleural fluid component is about the same as the prior study. The pneumothorax is new but was seen on previous chest x-ray of 11/13/2021. There are new patchy parenchymal opacities in the right lower lobe compatible with pneumonia as well as some new infiltrate in the right apex. Left lung appears clear. Visualized portion of the upper abdomen demonstrates multiple renal cysts. IMPRESSION: 1. No CT evidence of pulmonary emboli. There is a right pleural effusion with hydropneumothorax. The pleural fluid component appears similar to the prior study. The pneumothorax is new compared to the prior study. This was however present on a chest x-ray of 11/13/2021. 2. There are new patchy parenchymal opacities in the right lower lobe and right apex compatible with pneumonia. There are borderline size nodes in the right paratracheal region. Dictated on workstation # [id number] Dict: 11/25/212021 Trans: 11/25/212028 [facility] [id number] Interpreted by: YFN POP MD Electronically signed by: Departure Communication (Admissions) Time/Spoke to Admitting Phy: 20:50 Impression Primary Impression: Right lower lobe pneumonia Qualified Codes: J18.9 - Pneumonia, unspecified organism Additional Impressions: Recurrent right pleural effusion Elevated troponin Chest pain Qualified Codes: R07.9 - Chest pain, unspecified Metastatic malignant neoplasm to lung Qualified Codes: C78.00 - Secondary malignant neoplasm of unspecified lung Disposition: ADMITTED INPATIENT Condition: Stable Admissions Decision to Admit Reason: Admit from ER (General) Decision to Admit/Date: Nov 25, 2021 Time/Decision to Admit Time: 20:50 Departure-Patient Inst. Referrals: SOPHIA JACKSON MD (PCP/Family) Primary Care Physician TORREY EAST MD Nov 25, 2021 18:18
[2021-11-25] MEDS ORDERED: HOLD METFORMIN - RECEIVED CONTRAST 20 ML VIAL IV SCH (19:45)
[2021-11-25] MEDS ORDERED: IOHEXOL 350 MG/ML 100 ML (OMNIPAQUE 350) VIAL IV ONE (19:45)
[2021-11-25] MEDS ORDERED: NS 100 ML (IVPB) BAG IV ONE (19:45)
--- NOTE | 2021-11-25 20:29 | Diagnostic Imaging Report ---
INDICATION: History of lung cancer, shortness of breath. TECHNIQUE: Multiple contiguous axial images were obtained through the chest after uneventful bolus administration of intravenous contrast. 3D reconstructed CTA MIP acquisitions were also performed. Auto Exposure Controls were utilized during the CT exam to meet ALARA standards for radiation dose reduction. COMPARISON: 08/20/2021. FINDINGS: The pulmonary parenchymal vessels are well-opacified with no CT evidence of pulmonary emboli. Thoracic aorta is not aneurysmal. There are some borderline size nodes in the right paratracheal region which appears similar to the prior study. There is a right hydropneumothorax. The pleural fluid component is about the same as the prior study. The pneumothorax is new but was seen on previous chest x-ray of 11/13/2021. There are new patchy parenchymal opacities in the right lower lobe compatible with pneumonia as well as some new infiltrate in the right apex. Left lung appears clear. Visualized portion of the upper abdomen demonstrates multiple renal cysts. IMPRESSION: 1. No CT evidence of pulmonary emboli. There is a right pleural effusion with hydropneumothorax. The pleural fluid component appears similar to the prior study. The pneumothorax is new compared to the prior study. This was however present on a chest x-ray of 11/13/2021. 2. There are new patchy parenchymal opacities in the right lower lobe and right apex compatible with pneumonia. There are borderline size nodes in the right paratracheal region. Dictated by: Dictated on workstation # [id number]
[2021-11-25] MEDS ORDERED: MEROPENEM 500 MG in NS (IVPB) 100 ML IV ONE (21:00)
[2021-11-25] MEDS ORDERED: VANCOMYCIN INJECTION 1,000 MG in NS (IVPB) 250 ML IV ONE (21:00)
[2021-11-25 22:15] VITALS: BP 93/64
[2021-11-25 22:51] VITALS: BP 105/65
[2021-11-25] MEDS ORDERED: RT-ALBUTEROL/IPRATROPIUM 3 ML (DUONEB) VIAL INH PRN (23:00)
[2021-11-25] MEDS ORDERED: ALPRAZolam 0.5 MG (XANAX) TAB PO PRN (23:00)
[2021-11-25] MEDS ORDERED: VANCOMYCIN 750 MG/NS 250 ML IVPB IV ONE ×2 (23:00)
[2021-11-25] MEDS ORDERED: ONDANSETRON 4 MG/2 ML (SDV) Z0FRAN IV PRN (23:00)
[2021-11-25] MEDS: morphine INJ 10 MG/ML 1ML (SYR OR VIAL) IV PRN (23:10)
[2021-11-26] MEDS: RT-ALBUTEROL/IPRATROPIUM 3 ML (DUONEB) VIAL INH SCH ×6 (02:13→22:41)
[2021-11-26 03:03] VITALS: BP 91/52
[2021-11-26] MEDS: morphine INJ 10 MG/ML 1ML (SYR OR VIAL) IV PRN ×5 (03:17→21:05)
[2021-11-26] MEDS: MEROPENEM 500 MG/NS 100 ML IVPB IV SCH ×8 (03:18→20:19)
[2021-11-26] MEDS: CATHETER FLUSH 10 ML SYR IVP SCH ×3 (04:55→20:20)
[2021-11-26 05:04] LABS: BASOPHILS % (AUTO) 1 % (0-10); MEAN CORPUSCULAR VOLUME 97 fL (80-99)
[2021-11-26 05:06] LABS: EOSINOPHILS # (AUTO) 0.1 10^3/uL (0.0-0.3); EOSINOPHILS % (AUTO) 1 % (0-10); HEMATOCRIT 27 % (40-54); HEMOGLOBIN 9.3 g/dL (13.3-17.7); LYMPHOCYTES # (AUTO) 0.6 10^3/uL (1.0-4.0); LYMPHOCYTES % (AUTO) 11 % (12-44); MEAN CORPUSCULAR HEMOGLOBIN 33 pg (25-34); MEAN CORPUSCULAR HGB CONC 34 g/dL (32-36); MEAN PLATELET VOLUME 11.8 fL (9.0-12.2); MONOCYTES # (AUTO) 0.7 10^3/uL (0.0-1.0); MONOCYTES % (AUTO) 13 % (0-12); NEUTROPHILS % (AUTO) 74 % (42-75); PLATELET COUNT 126 10^3/uL (130-400); WHITE BLOOD COUNT 5.4 10^3/uL (4.3-11.0)
[2021-11-26 05:17] LABS: CHLORIDE 98 MMOL/L (98-107); POTASSIUM 3.8 MMOL/L (3.6-5.0); SODIUM 136 MMOL/L (135-145)
[2021-11-26 05:18] LABS: CALCIUM 8.8 MG/DL (8.5-10.1); GLUCOSE 123 MG/DL (70-105)
[2021-11-26 05:20] LABS: CARBON DIOXIDE 26 MMOL/L (21-32)
[2021-11-26 05:22] LABS: CREATININE SERUM 0.82 MG/DL (0.60-1.30); GFR ESTIMATED 93
[2021-11-26 05:23] LABS: BUN/CREATININE RATIO 30
[2021-11-26 08:00] VITALS: BP 90/57
[2021-11-26] MEDS: ASPIRIN E.C. 81 MG (ECOTRIN) TAB PO SCH (08:14)
[2021-11-26] MEDS: VANCOMYCIN 1 GM/NS 250 ML IVPB IV SCH ×4 (09:13→22:04)
[2021-11-26] MEDS ORDERED: oxyCODONE/APAP 10/325MG (PERCOCET 10) TABLET PO PRN (11:30)
--- NOTE | 2021-11-26 11:30 | History & Physical-Hospitalist ---
History of Present Illness HPI/Chief Complaint Pt is a 71yoCM with a PMH of metastatic lung cancer, COPD, atrial fibrillation, ischemic cardiomyopathy, coronary artery disease status post CABG, hypothyroidism, recurrent pleural effusions, hypertension, hyperlipidemia, rheumatoid arthritis who presented to the ER due to SOB. He reports he has not been feeling well for a while and his told him it was in his head. He had a thoracentesis done 11/08 and was admitted following that for pneumothorax. He normally goes about 6 week between thoracentesis but developed some chest pain and thought the fluid was building back up so decided to come in for evaluation. He was found to have a right sided pneumonia and recurrent moderate pleural effusion and admitted for further management. He reports feeling better this morning and is hopeful Dr Naqvi can drain some fluid out again. Source: patient Date Seen 11/26/21 Time Seen by a Provider: 10:45 Attending Physician Jada Steiner MD PCP Admitting Physician: John Fung MD Attending Physician: John Fung MD Referring Physician Date of Admission Nov 25, 2021 at 20:58 Home Medications & Allergies Home Medications Reviewed patient Home Medication Reconciliation performed by pharmacy medication reconciliations c2 tactical analysis technician and/or nursing. Patients Allergies have been reviewed. Allergies Allergies Coded Allergies cephalexin (Unverified Allergy, Severe, Anaphylaxis, 06/01/21) Stwiapf-VPV-CsS Reductase Inhibitor (Verified Allergy, Unknown, 10/14/20) tramadol (Unverified Adverse Reaction, Intermediate, 08/16/11) medication caused pt to experience hypertensive episodes Past Yvybhiq-Vzerqg-Voytgb Hx Patient Social History Marrital Status: Employed/Student: retired Tobacco Use?: No Smoking Status: Former Smoker Smokeless Tobacco Frequency: Former User Use of E-Cig and/or Vaping dev: No Substance use?: Yes Substance type: Caffeine Additional substance use comme: Coffee Substance frequency: Daily Alcohol Use?: No Pt feels they are or have been: No Immunizations Up To Date Date of Influenza Vaccine: Nov 18, 2020 First/Initial COVID19 Vaccinat: 04/2020 Second COVID19 Vaccination Lyle: 05/2020 Tetanus Booster (TDap): Unknown Hepatitis A: No Hepatitis B: No Date of Pneumonia Vaccine: Apr 03, 2020 Seasonal Allergies Seasonal Allergies: No Current Status Advance Directives: Yes Advance Directive Location: Copy from prev record Communicates: Verbally Primary Language: Belarusian Preferred Spoken Language: Belarusian Is interpretation needed?: No Implanted or Applied Medical D: Port-a-cath, Stents, Other Past Medical History Surgeries: Cardiac, CABG, Coronary Stent, Gallbladder, Orthopedic COPD Currently Using CPAP: No Currently Using BIPAP: No Atrial Fibrillation, Chronic Edema/Swelling, Coronary Artery Disease, High Cholesterol, Hypertension Kidney Stones Hemorrhoids, Gall Bladder Disease Arthritis, Rheumatoid Arthritis Hypothyroidsim, Diabetes, Non-Insulin dep Lung Did You Recieve Any Treatments: Yes What Type of Treatment Did You: Chemotherapy, Radiation Blood Disorders: No Adverse Reaction/Blood Tranf: No Family Medical History Reviewed Nursing Family Hx No Pertinent Family Hx SOCIAL HISTORY: -SMOKED 1 PPD, QUIT 2020 -ETOH-DENIES USE -DRUGS-DENIES USE PAST SURGICAL HISTORY: -CARDIAC CATHS WITH STENTS X 3 -CABG -RIGHT SHOULDER SURGERY -CHOLECYSTECTOMY -PORT LEFT CHEST 05/2021 -R THORACENTESIS 11/08/21 Review of Systems Constitutional: No chills, No fever; malaise Respiratory: cough, dyspnea on exertion, short of breath Cardiovascular: chest pain Gastrointestinal: loss of appetite; No nausea Genitourinary: no symptoms reported Musculoskeletal: no symptoms reported Skin: no symptoms reported Psychiatric/Neurological: No Symptoms Reported Physical Exam Physical Exam Vital Signs Vital Signs - First Documented 11/25/21 11/25/21 16:36 22:51 Temp 36.4 Pulse 91 Resp 24 B/P (MAP) 105/65 (78) Pulse Ox 100 O2 Delivery Nasal Cannula O2 Flow Rate 2.00 FiO2 28 Capillary Refill : Less Than 3 Seconds Height, Weight, BMI Height: 6'0.00" Weight: 233lbs. 0oz. [id number]; 24.69 BMI Method:Stated General Appearance: No Apparent Distress, Chronically ill, Thin HEENT: PERRL/EOMI, Moist Mucous Membranes; No Scleral Icterus (L), No Scleral Icterus (R) Neck: Normal Inspection, Supple Respiratory: No Accessory Muscle Use, No Respiratory Distress, Decreased Breath Sounds; No Wheezing Cardiovascular: Regular Rate, Rhythm, No Murmur Gastrointestinal: Normal Bowel Sounds, Non Tender, Soft Extremity: Normal Capillary Refill, No Calf Tenderness, No Pedal Edema Neurologic/Psychiatric: Alert, Oriented x3, Normal Mood/Affect Skin: Normal Color, Warm/Dry Results Results/Procedures Labs Laboratory Tests 11/25/21 16:57 11/26/21 04:55 Patient resulted labs reviewed. Imaging: Reviewed Imaging Report Imaging [facility] [place], [place] NAME: NICOLETTE CAREY [facility] REC#: [id number] PT STATUS: REG ER : 1950 PHYSICIAN: EDGAR ZHANG MD ADMIT DATE: 11/25/21/ER Signed Date of Exam:11/25/21 CHEST 1 VIEW, AP/PA ONLY INDICATION: Shortness of breath, pleural effusion. EXAMINATION: Frontal chest was obtained at 5:12 p.m. COMPARISON: 11/13/2021. Heart is mildly enlarged. There is some infiltrate or atelectasis in the right base. There is a moderate size right pleural effusion. Previous right pneumothorax has resolved. There is some right upper lobe scarring versus infiltrate. Left lung is clear. Port-A-Cath is unchanged. IMPRESSION: Moderate size right pleural effusion with some right basilar scarring versus infiltrate and unchanged right apical scarring versus infiltrate. Previous right pneumothorax appears resolved. Dictated by: Dictated on workstation # [id number] Dict: 11/25/211710 Trans: 11/25/211721 [facility] [id number] Interpreted by: YFN POP MD Electronically signed by: YFN POP MD 11/25/211721 [facility] [place], [place] NAME: NICOLETTE CAREY [facility] REC#: [id number] PT STATUS: ADM IN : 1950 PHYSICIAN: TORREY EAST MD ADMIT DATE: 11/25/21/4TH Signed Date of Exam:11/25/21 CT ANGIO CHEST W INDICATION: History of lung cancer, shortness of breath. TECHNIQUE: Multiple contiguous axial images were obtained through the chest after uneventful bolus administration of intravenous contrast. 3D reconstructed CTA MIP acquisitions were also performed. Auto Exposure Controls were utilized during the CT exam to meet ALARA standards for radiation dose reduction. COMPARISON: 08/20/2021. FINDINGS: The pulmonary parenchymal vessels are well-opacified with no CT evidence of pulmonary emboli. Thoracic aorta is not aneurysmal. There are some borderline size nodes in the right paratracheal region which appears similar to the prior study. There is a right hydropneumothorax. The pleural fluid component is about the same as the prior study. The pneumothorax is new but was seen on previous chest x-ray of 11/13/2021. There are new patchy parenchymal opacities in the right lower lobe compatible with pneumonia as well as some new infiltrate in the right apex. Left lung appears clear. Visualized portion of the upper abdomen demonstrates multiple renal cysts. IMPRESSION: 1. No CT evidence of pulmonary emboli. There is a right pleural effusion with hydropneumothorax. The pleural fluid component appears similar to the prior study. The pneumothorax is new compared to the prior study. This was however present on a chest x-ray of 11/13/2021. 2. There are new patchy parenchymal opacities in the right lower lobe and right apex compatible with pneumonia. There are borderline size nodes in the right paratracheal region. Dictated by: Dictated on workstation # [id number] Dict: 11/25/212021 Trans: 11/25/212123 [facility] [id number] Interpreted by: YFN POP MD Electronically signed by: YFN POP MD 11/25/212123 Assessment/Plan Admission Diagnosis pneumonia Admission Status: Inpatient Order (span 2 midnights) Reason for Inpatient Admission: see below Assessment and Plan Lung cancer Pneumonia COPD Pneumothorax- chornic Recurrent pleural effusion continue on IV abx MAT protocol Discussed with Dr Naqvi who will see in consult Not septic Await cultures from ER On Keytruda as an outpatient Elevated troponin CHF CAD HTN A fib HLD Troponin trended back down to undetectable Continue home meds as able DMII BS 123 fasting today Accuchecks Hypothyroidism Continue synthroid Diagnosis/Problems Diagnosis/Problems (1) Atrial fibrillation Qualifiers: Atrial fibrillation type: paroxysmal Qualified Codes: I48.0 - Paroxysmal atrial fibrillation (2) Non-insulin dependent type 2 diabetes mellitus Status: Chronic (3) Hypothyroidism Qualifiers: Hypothyroidism type: acquired Qualified Codes: E03.9 - Hypothyroidism, unspecified (4) Chronic pain Qualifiers: Chronic pain type: due to neoplasm Qualified Codes: G89.3 - Neoplasm related pain (acute) (chronic) (5) Right lower lobe pneumonia Status: Acute Qualifiers: Pneumonia type: due to unspecified organism Qualified Codes: J18.9 - Pneumonia, unspecified organism (6) Elevated troponin Status: Acute (7) Pneumothorax, right Status: Acute (8) Lung cancer Status: Acute (9) CAD (coronary artery disease), [place] coronary artery (10) Essential hypertension (11) Thrombocytopenia (12) COPD (chronic obstructive pulmonary disease) Status: Acute (13) Cardiomyopathy Qualifiers: Cardiomyopathy type: ischemic Qualified Codes: I25.5 - Ischemic cardiomyopathy (14) Metastatic malignant neoplasm to lung Qualifiers: Laterality: unspecified laterality Qualified Codes: C78.00 - Secondary malignant neoplasm of unspecified lung Clinical Quality Measures AMI/AHF: ASA po Prior to arrival: JOHN Bennett MD Nov 26, 2021 11:30
[2021-11-26 12:00] VITALS: BP 91/54
[2021-11-26 15:35] VITALS: BP 99/61
--- NOTE | 2021-11-26 17:52 | CONSULTATION REPORT ---
DATE OF SERVICE: ATTENDING PRIMARY CARE PHYSICIAN: Dr. Jada Steiner. HISTORY OF PRESENT ILLNESS: The patient is a 71-year-old male who is known to us. He has a history of metastatic right lung cancer and has underwent radiation as well as chemotherapy. Followup PET scan as well as CT scans did show a good response to chemoradiation; however, he was hampered by a recurrent large right pleural effusion. This has been evacuated multiple times in the past. His last one was done on 11/08/2021. A followup chest x-ray did show air in the space of the fusion, which was consistent with a trapped lung. He felt fine after the procedure; however, then developed shortness of breath as well as chest pain. Followup x-rays did show the right lower pneumothorax as well as a trapped lung. He does use home oxygen. On today's visit, he reports that he has been having increased shortness of breath over the past two weeks as well as central chest pain that is nonradiating. He presented to the emergency room where he underwent a workup and was found to have a normal white count. He then underwent chest x-ray, which did show moderate size right pleural effusion with some right basilar scarring versus infiltrates and an unchanged right apical scarring versus infiltrate. He also underwent a CT scan chest where there was no evidence of pulmonary embolism. The right pleural effusion component appeared to be similar to the previous study. There was also a pneumothorax that was noted, however, this was present on a chest x-ray on 11/13/2021. There were also new patchy parenchymal opacities in the right lower lobe as well as a right apex that was consistent with a pneumonia. PAST MEDICAL HISTORY: Metastatic right lung cancer, diabetes, hypertension, gastroesophageal reflux disease, hypothyroidism, pleural effusions. SURGICAL HISTORY: Laparoscopic cholecystectomy in 2009, coronary artery bypass grafting 2008, shoulder surgery in 1992, left chest [place] port placement. ALLERGIES: KEFLEX, STATINS. MEDICATIONS: Albuterol sulfate 0.083% nebulizer 3 mL q.4 hours p.r.n. shortness of breath, Xanax 0.5 mg at bedtime, Xanax 0.25 mg q.6 hours, Lasix 40 mg daily, levothyroxine 125 mcg daily, magnesium oxide 400 mg daily, metoprolol 25 mg half tablet daily, oxycodone 5 mg every 4-6 hours p.r.n., Percocet 10/325 mg q.4 hours p.r.n., Protonix 40 mg daily, Keytruda 200 mg IV every three weeks, potassium chloride 20 mEq daily, sorbitol 15 to 30 mL t.i.d. p.r.n. SOCIAL HISTORY: Previous smoking history for 40 pack years, quit in 2008. Negative for alcohol. FAMILY HISTORY: Noncontributory. VITAL SIGNS: Temperature 37 degrees Celsius, pulse 99, respirations 20, blood pressure 91/54, pulse ox 96% on 2 liters nasal cannula. REVIEW OF SYSTEMS: He is a well-nourished male in no acute distress. He does report episodes of shortness of breath, but no difficulty breathing. He does report nonradiating right chest pain. No palpitations or diaphoresis. No nausea or vomiting. No abdominal pain. No diarrhea or constipation. No red blood per rectum. No dark tarry stools. No fever or chills. No recent inadvertent weight loss. All other review of systems negative. PHYSICAL EXAMINATION: CHEST: Decreased right breath sounds with scattered wheezes bilaterally. HEART: Regular, no murmurs. EXTREMITIES: No lower extremity edema. Negative Homans sign. HEENT: No scleral icterus. NECK: No cervical lymphadenopathy. ABDOMEN: Soft, nontender, nondistended. SKIN: Warm, dry and pink. NEUROLOGIC: Awake, alert and oriented x3. ASSESSMENT AND PLAN: A 71-year-old male with metastatic right lung cancer who has a history of pleural effusions as well as COPD and a chronic pneumothorax. At this time, we will proceed with IV antibiotics as well as breathing treatments and incentive spirometry and ambulation. We will also proceed with ordering ultrasound of the right chest pleural effusion and if there is significant amount of fluid, then we will proceed with a thoracentesis on this admission. Job ID: [id number] DocumentID: [id number] Dictated Date: 11/26/2021 13:52:42 Rodeo Clown Date: 11/26/2021 17:52:12 Dictated By: MYLES ZAPATA APRN
[2021-11-26 19:05] VITALS: BP 98/62
[2021-11-26] MEDS ORDERED: TROUGH ORDER-PHARMACY XX NR (21:00)
[2021-11-26 23:17] VITALS: BP 109/69
[2021-11-27] MEDS: RT-ALBUTEROL/IPRATROPIUM 3 ML (DUONEB) VIAL INH SCH ×4 (02:13→15:01)
[2021-11-27] MEDS: MEROPENEM 500 MG/NS 100 ML IVPB IV SCH ×6 (02:26→16:03)
[2021-11-27] MEDS: morphine INJ 10 MG/ML 1ML (SYR OR VIAL) IV PRN ×3 (02:26→17:02)
[2021-11-27 03:09] VITALS: BP 107/63
[2021-11-27] MEDS: CATHETER FLUSH 10 ML SYR IVP SCH ×2 (05:40→13:16)
[2021-11-27 05:53] LABS: HEMOGLOBIN 9.6 g/dL (13.3-17.7); MEAN PLATELET VOLUME 11.8 fL (9.0-12.2); WHITE BLOOD COUNT 6.4 10^3/uL (4.3-11.0)
[2021-11-27 06:21] LABS: CALCIUM 9.1 MG/DL (8.5-10.1); CREATININE SERUM 0.8 MG/DL (0.60-1.30); POTASSIUM 4.7 MMOL/L (3.6-5.0)
[2021-11-27] MEDS ORDERED: LEVOTHYROXINE 125 MCG (LEVOTHROID) TABLET PO SCH (06:30)
[2021-11-27 08:00] VITALS: BP 96/59
--- NOTE | 2021-11-27 08:38 | Diagnostic Imaging Report ---
INDICATION: Pleural effusion. COMPARISON: Chest CT of 11/25/2021. FINDINGS: A moderate amount of right pleural fluid is confirmed. There are septations within the fluid. IMPRESSION: Moderate pleural fluid is confirmed and does appear complex with internal septations. Dictated by: Dictated on workstation # [id number]
[2021-11-27] MEDS: ASPIRIN E.C. 81 MG (ECOTRIN) TAB PO SCH (08:59)
[2021-11-27] MEDS: VANCOMYCIN 1 GM/NS 250 ML IVPB IV SCH ×2 (09:35)
[2021-11-27 12:35] VITALS: BP 105/63
[2021-11-27 15:48] VITALS: BP 97/58
[2021-11-27] MEDS ORDERED: LEVO750T PO (16:34)
[2021-11-27] MEDS ORDERED: LIDOCAINE 1% INJ 20 ML VIAL ONE (16:59)
[2021-11-27] MEDS ORDERED: LIDOCAINE 1% INJ 30 ML (XYLOCAINE) VIAL INJ ONE (17:00)
[2021-11-27] MEDS ORDERED: LIDOCAINE 1% INJ 20 ML VIAL INJ ONE (17:15)
--- NOTE | 2021-11-27 17:55 | Diagnostic Imaging Report ---
EXAMINATION: Chest 1 view HISTORY: Post thoracentesis. COMPARISON: 11/25/2021. FINDINGS: Interval decrease in the small right-sided pleural effusion with small amount of right basilar opacities. No pneumothorax. Chronic scarring is seen in the right apex. Stable cardiac silhouette with post-CABG changes. IMPRESSION: 1. Small decrease in size in the right-sided pleural effusion status post thoracentesis. No pneumothorax. Dictated by: Dictated on workstation # [id number]
[2021-11-27 18:15] VITALS: BP 97/58
--- NOTE | 2021-11-27 21:52 | Discharge Summary ---
Discharge Summary Hospital Course Problems/Dx: (1) Atrial fibrillation Qualifiers: Qualified Codes: I48.0 - Paroxysmal atrial fibrillation (2) Non-insulin dependent type 2 diabetes mellitus Status: Chronic (3) Hypothyroidism Qualifiers: Qualified Codes: E03.9 - Hypothyroidism, unspecified (4) Chronic pain Qualifiers: Qualified Codes: G89.3 - Neoplasm related pain (acute) (chronic) (5) Right lower lobe pneumonia Status: Acute Qualifiers: Qualified Codes: J18.9 - Pneumonia, unspecified organism (6) Elevated troponin Status: Acute (7) Pneumothorax, right Status: Acute (8) Lung cancer Status: Acute (9) CAD (coronary artery disease), [place] coronary artery (10) Essential hypertension (11) Thrombocytopenia (12) COPD (chronic obstructive pulmonary disease) Status: Acute (13) Cardiomyopathy Qualifiers: Qualified Codes: I25.5 - Ischemic cardiomyopathy (14) Metastatic malignant neoplasm to lung Qualifiers: Qualified Codes: C78.00 - Secondary malignant neoplasm of unspecified lung Hospital Course Date of Admission: Nov 25, 2021 at 20:58 Admission Diagnosis : PNA, recurrent malignant pleural effusion, lung cancer Family Physician/Provider: Jada Jackson MD Date of Discharge: 11/27/21 Discharge Diagnosis: PNA, recurrent malignant pleural effusion, lung cancer Hospital Course: Kirill Hoffman is a 71 year old male who presented with shortness of breath and was admitted with pneumonia. He was started on IV antibiotics and was given a prescription for Levaquin on discharge. He also had a recurrent malignant pleural effusion. Surgery was consulted and performed a therapeutic thoracentesis. His oxygen requirement was at his baseline. He was discharged home in stable condition. He should follow up with his PCP in a week or two. Labs and Pending Lab Test: Laboratory Tests 11/27/21 05:41: White Blood Count 6.4, Red Blood Count 2.91L, Hemoglobin 9.6L, Hematocrit 28L, Mean Corpuscular Volume 97, Mean Corpuscular Hemoglobin 33, Mean Corpuscular Hemoglobin Concent 34, Red Cell Distribution Width 13.2, Platelet Count 131, Mean Platelet Volume 11.8, Percent Immature Platelet Fraction 8.1H, Sodium Level 134L, Potassium Level 4.7, Chloride Level 98, Carbon Dioxide Level 27, Anion Gap 9, Blood Urea Nitrogen 19H, Creatinine 0.80, Estimat Glomerular Filtration Rate 94, BUN/Creatinine Ratio 24, Glucose Level 107H, Calcium Level 9.1 Microbiology 11/25/21 Blood Culture - Preliminary, Resulted No growth Home Meds Active Levofloxacin 750 Mg Tablet 750 Mg PO DAILY 5 Days ALPRAZolam 0.25 Mg Tablet 1 Mg PO Q6H Reported Keytruda (Pembrolizumab) 100 Mg/4 Ml (25 Mg/Ml) Vial 200 Mg IV EVERY 3 WEEKS Magnesium Oxide 400 Mg Magnesium Tablet 400 Mg PO DAILY Albuterol Sulfate 2.5 Mg/3 Ml (0.083 %) Vial.neb 3 Ml NEB Q4H PRN Sorbitol (Sorbitol Solution) 70 % Solution 15-30 Ml PO TID PRN Synthroid (Levothyroxine Sodium) 125 Mcg Tablet 125 Mcg PO DAILY Furosemide 40 Mg Tablet 40 Mg PO DAILY Potassium Chloride 20 Meq Tablet.er 20 Meq PO DAILY Oxyir Tablet (Oxycodone HCl) 5 Mg Tab 5 Mg PO Q4 -6H PRN Metoprolol Succinate 25 Mg Tab.er.24h 12.5 Mg PO DAILY TAKES OF A 25MG TAB Pantoprazole Sodium 40 Mg Tablet.dr 40 Mg PO DAILY Alprazolam 0.5 Mg Tablet 0.5 Mg PO HS Assessment/Pt Instructions See instructions Discharge Planning: <30 minutes discharge planning Discharge Instructions Discharge Diet: Low Sodium Diet Activity as Tolerated: Yes Consultations Surgery Discharge Physical Examination Vital Signs Vital Signs Date Time Temp Pulse Resp B/P (MAP) Pulse Ox O2 Delivery O2 Flow Rate FiO2 11/27/21 18:15 36.8 96 20 97/58 99 Nasal Cannula 2.00 11/25/21 22:51 28 General Appearance: No Apparent Distress, WD/WN Respiratory: No Respiratory Distress, Crackles, Decreased Breath Sounds Cardiovascular: Regular Rate, Rhythm, No Murmur Gastrointestinal: Normal Bowel Sounds, Soft Extremity: Normal Inspection, No Pedal Edema Neurologic/Psychiatric: Alert, Normal Mood/Affect Allergies: Coded Allergies: cephalexin (Unverified Allergy, Severe, Anaphylaxis, 06/01/21) Kyxqwgw-WFD-PpD Reductase Inhibitor (Verified Allergy, Unknown, 10/14/20) tramadol (Unverified Adverse Reaction, Intermediate, 08/16/11) medication caused pt to experience hypertensive episodes Copy Copies To 1: JADA JACKSON MD Discharge Summary Date of Admission Nov 25, 2021 at 20:58 Date of Discharge Nov 27, 2021 at 18:10 Discharge Date: Nov 27, 2021 Discharge Time: 18:10 Admission Diagnosis pneumonia Consults/Procedures Consulations SUrgery Procedures Thoracentesis Discharge Diagnosis (1) Atrial fibrillation Qualifiers: Qualified Codes: I48.0 - Paroxysmal atrial fibrillation (2) Non-insulin dependent type 2 diabetes mellitus Status: Chronic (3) Hypothyroidism Qualifiers: Qualified Codes: E03.9 - Hypothyroidism, unspecified (4) Chronic pain Qualifiers: Qualified Codes: G89.3 - Neoplasm related pain (acute) (chronic) (5) Right lower lobe pneumonia Status: Acute Qualifiers: Qualified Codes: J18.9 - Pneumonia, unspecified organism (6) Elevated troponin Status: Acute (7) Pneumothorax, right Status: Acute (8) Lung cancer Status: Acute (9) CAD (coronary artery disease), [place] coronary artery (10) Essential hypertension (11) Thrombocytopenia (12) COPD (chronic obstructive pulmonary disease) Status: Acute (13) Cardiomyopathy Qualifiers: Qualified Codes: I25.5 - Ischemic cardiomyopathy (14) Metastatic malignant neoplasm to lung Qualifiers: Qualified Codes: C78.00 - Secondary malignant neoplasm of unspecified lung Clinical Quality Measures AMI/AHF: ASA po Prior to arrival: SAE Abraham MD Nov 27, 2021 21:49
== END 2021-11-27 18:10 | disposition home or self-care (01) | DRG 194 ==
LOC: EDUNIT# 16:32 → ER 16:35 → 4TH 20:58
PROVIDERS: ADMIT Family Medicine; ATTEND Internal Medicine
PROC: 0W993ZZ Drainage of Right Pleural Cavity, Percutaneous Approach (ICD-10-PCS; principal; 2021-11-26)
DX: J18.9 Pneumonia, unspecified organism (principal); J90 Pleural effusion, not elsewhere classified; J93.81 Chronic pneumothorax; C78.00 Secondary malignant neoplasm of unspecified lung; I44.7 Left bundle-branch block, unspecified; E78.00 Pure hypercholesterolemia, unspecified; I48.0 Paroxysmal atrial fibrillation; I25.10 Atherosclerotic heart disease of native coronary artery without angina pectoris; E11.9 Type 2 diabetes mellitus without complications; M06.9 Rheumatoid arthritis, unspecified; D69.6 Thrombocytopenia, unspecified; E03.9 Hypothyroidism, unspecified; R77.8 Other specified abnormalities of plasma proteins; I25.5 Ischemic cardiomyopathy; G89.29 Other chronic pain; I50.9 Heart failure, unspecified; I11.0 Hypertensive heart disease with heart failure; Z95.5 Presence of coronary angioplasty implant and graft; Z87.891 Personal history of nicotine dependence; Z95.1 Presence of aortocoronary bypass graft; Z92.21 Personal history of antineoplastic chemotherapy; Z92.3 Personal history of irradiation
CPT/HCPCS: 36415; 71045; 71275; 76604; 80048; 80202; 83605; 83880; 84145; 84484; 85025; 85027; 86141; 87040; 93005; 94640; 94664; 94760

== ENCOUNTER 2021-12-19 11:42 | Outpatient (CLI) | payer MEDICARE, MEDICAID ==
[~2021-12-19] VITALS: Ht 182 cm; Wt 77.3 kg
[~2021-12-19 11:42] MED LIST changes: +LEVO750T PO
[2021-12-19 11:50] VITALS: BP 87/57
[2021-12-19] MEDS ORDERED: morphine INJ 10 MG/ML 1ML (SYR OR VIAL) IM STA (13:42)
[2021-12-19] MEDS ORDERED: morphine INJ 10 MG/ML 1ML (SYR OR VIAL) ONE (13:43)
--- NOTE | 2021-12-19 14:31 | Diagnostic Imaging Report ---
CHEST 1 VIEW, AP/PA ONLY INDICATION: Post thoracentesis. COMPARISON: 11/27/2021. FINDINGS: Decreased size of right pleural effusion status post thoracentesis. Right basilar loculated pneumothorax is likely on the basis of trapped lung and ex-vacuo pneumothorax. Right upper lobe pulmonary opacities have worsened. Stable left subclavian Port-A-Cath. Stable cardiomegaly. IMPRESSION: 1. Decreased size of right pleural effusion status post thoracentesis. 2. Small ex-vacuo pneumothorax in the right lower hemithorax. Dictated by: Dictated on workstation # [id number]
--- NOTE | 2021-12-19 19:42 | Diagnostic Imaging Report ---
INDICATION: Right pleural effusion. Sonographic interrogation of the posterior right chest demonstrates a large pleural effusion with internal septations. Marking was provided for Dr. Naqvi for performance of thoracentesis. IMPRESSION: Large septated right-sided pleural effusion, as described. Dictated by: Dictated on workstation # [id number]
--- NOTE | 2021-12-19 22:31 | OPERATIVE REPORT ---
DATE OF SERVICE: 12/19/2021 ATTENDING PRIMARY CARE PHYSICIAN: Jada Steiner MD PREOPERATIVE DIAGNOSES: Recurrent symptomatic right pleural effusion with history of right lung cancer. POSTOPERATIVE DIAGNOSES: Recurrent symptomatic right pleural effusion with history of right lung cancer. PROCEDURE: Right thoracentesis. SURGEON: Cade Dimas MD. ANESTHESIA: Local. ESTIMATED BLOOD LOSS: Minimal. FINDINGS: Approximately 1300 mL of blood-tinged straw yellow transudative fluid. DISPOSITION: The patient tolerated the procedure well. INDICATIONS: The patient is a 71-year-old male well known to us. He has a history of right lung cancer with metastatic disease. He underwent chemoradiation did have significant downsizing of the lesion. 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 He did have a recent PET scan, which did show a very lite, light up of the adrenal lesion. He is currently taking immunotherapy. He has developed recurrent right-sided pleural effusion, which had been symptomatic and this has been drained several times and sent to pathology a few times as well as which have been negative for malignancy. Again, he developed a pressure sensation in the right chest as well as shortness of breath and a chest x-ray and ultrasound did confirm this. The posterolateral chest was marked with ultrasound before the procedure. DESCRIPTION OF PROCEDURE: The back was prepped and draped in standard surgical fashion. A 1% lidocaine was then used to anesthetize the skin, subcutaneous tissue, muscle layers as well as the parietal pleura. A vertical skin incision was made using 11 blade and the trocar and catheter were then introduced withdrawing of blood-tinged straw yellow transudative fluid. Catheter was then advanced over the trocar without any resistance and connected to tubing and vacuum container where approximately 1300 mL of that transudative fluid was evacuated. The catheter was then removed while applying direct pressure and the entry site was covered with Op-Site. The patient tolerated the procedure well. We will get a post-procedure chest x-ray and discharge him home. Job ID: [id number] DocumentID: [id number] Dictated Date: 12/19/2021 13:57:25 Revenue Agent Date: 12/19/2021 22:30:42 Dictated By: CADE DIMAS MD [facility]
== END 2021-12-19 14:25 | disposition home or self-care (01) ==
LOC: RAD 11:42
PROVIDERS: ATTEND Surgery
DX: C34.91 Malignant neoplasm of unspecified part of right bronchus or lung (principal); J90 Pleural effusion, not elsewhere classified; Z98.890 Other specified postprocedural states
CPT/HCPCS: 32554; 71045; 76942

== ENCOUNTER 2021-12-27 18:33 | Emergency (ER) | payer MEDICARE, MEDICAID ==
[~2021-12-27] VITALS: Ht 185 cm; Wt 79.0 kg
[2021-12-27 18:35] VITALS: BP 104/62
[2021-12-27] MEDS ORDERED: ONDANSETRON 4 MG/2 ML (SDV) Z0FRAN IVP ONE (19:00)
[2021-12-27] MEDS ORDERED: LIDOCAINE 2% VISCOUS 15 ML UDC PO ONE (19:00)
[2021-12-27] MEDS ORDERED: ANTACID SUSP 30 ML UDC (MYLANTA) PO ONE (19:00)
[2021-12-27 19:09] LABS: BASOPHILS % (AUTO) 0 % (0-10); EOSINOPHILS # (AUTO) 0.1 10^3/uL (0.0-0.3); EOSINOPHILS % (AUTO) 3 % (0-10); HEMATOCRIT 30 % (40-54); LYMPHOCYTES # (AUTO) 0.6 10^3/uL (1.0-4.0); LYMPHOCYTES % (AUTO) 11 % (12-44); MEAN CORPUSCULAR HEMOGLOBIN 32 pg (25-34); MEAN CORPUSCULAR HGB CONC 33 g/dL (32-36); MEAN CORPUSCULAR VOLUME 96 fL (80-99); MEAN PLATELET VOLUME 11.3 fL (9.0-12.2); MONOCYTES # (AUTO) 0.7 10^3/uL (0.0-1.0); MONOCYTES % (AUTO) 13 % (0-12); NEUTROPHILS # (AUTO) 3.9 10^3/uL (1.8-7.8); NEUTROPHILS % (AUTO) 74 % (42-75); PLATELET COUNT 162 10^3/uL (130-400); WHITE BLOOD COUNT 5.3 10^3/uL (4.3-11.0)
[2021-12-27 19:22] LABS: INR 1.1 (0.8-1.4); PROTHROMBIN TIME PATIENT 14.4 SEC (12.2-14.7)
[2021-12-27 19:29] LABS: LIPASE 16 U/L (8-78)
--- NOTE | 2021-12-27 19:29 | ED Chest Pain ---
General Chief Complaint: Chest Pain Stated Complaint: CHEST PAIN Nursing Triage Note: AMBULATED TO ROOM 02 WITH COMPLAINTS OF CHEST PAIN STARTING THIS MORNING. STATES HE HAS TAKEN X2 NITRO AND AN OXYCODONE THAT HAS NOT HELPED. Source: patient, family, old records Exam Limitations: no limitations History of Present Illness Date Seen by Provider: Dec 27, 2021 Time Seen by Provider: 18:34 Initial Comments This is 71-year-old gentleman presents to the emergency room with complaints of shortness of breath and chest pain across his lower chest and pain across his shoulders as well. Onset was this morning. He denies any fever, cough, vomiting, sweats, or chills. He has had some nausea and some intermittent dizziness. He reports intermittent constipation as well. He has some tenderness in the left upper quadrant which he states is chronic. He also has chronic back pain and takes oxycodone 15 mg every 3 hours which he has continued today. He reports his current pain at 8/10. He has history of lung cancer for which he is taking Keytruda. He follows with Dr. Justice at the [facility] in [place]. He reports his most recent PET scan that revealed no active disease. He is status postradiation therapy in addition to Keytruda. He has significant cardiovascular history including [place] x3, stents, single-vessel CABG, and atrial fibrillation. He is in sinus rhythm at present. He is not anticoagulated. He uses oxygen by nasal cannula at 2 L/min at home. He is stable on that at present. He reports history of pleural effusions requiring thoracentesis. He has had pneumothoraces x2 related to thoracentesis in the past. He denies any acute exacerbation of edema. Dr. STEIENR is his primary care provider. Dr. Sal is his accountant cost. Dr. Naqvi is his general surgeon. Allergies and Home Medications Allergies Coded Allergies: cephalexin (Unverified Allergy, Severe, Anaphylaxis, 06/01/21) [id number]-VlP Reductase Inhibitor (Verified Allergy, Unknown, 10/14/20) tramadol (Unverified Adverse Reaction, Intermediate, 08/16/11) medication caused pt to experience hypertensive episodes Patient Home Medication List Home Medication List Reviewed: Yes ALPRAZolam (ALPRAZolam) 0.25 Mg Tablet, 1 MG PO Q6H Prescribed by: CADE NAQVI on 11/09/21 1639 Albuterol Sulfate (Albuterol Sulfate) 2.5 Mg/3 Ml (0.083 %) Vial.neb, 3 ML NEB Q4H PRN for SHORTNESS OF BREATH, (Reported) Entered as Reported by: VISHNU TILLEY on 11/09/21 1019 Alprazolam (Alprazolam) 0.5 Mg Tablet, 0.5 MG PO HS, (Reported) Entered as Reported by: VISHNU TILLEY on 02/28/21 0857 Amoxicillin/Potassium Clav (Amox Tr-K Clv 875-125 mg Tab) 875 Mg-125 Mg Tablet, 1 EACH PO BID Prescribed by: EDGAR LI on 12/27/212349 Doxycycline Hyclate (Doxycycline Hyclate) 100 Mg Tablet, 100 MG PO BID Prescribed by: EDGAR LI on 12/27/212349 Furosemide (Furosemide) 40 Mg Tablet, 40 MG PO DAILY, (Reported) Entered as Reported by: VISHNU TILLEY on 11/09/21 1019 Levofloxacin (Levofloxacin) 750 Mg Tablet, 750 MG PO DAILY Prescribed by: SAE NAIDU on 11/27/21 1634 Levothyroxine Sodium (Synthroid) 125 Mcg Tablet, 125 MCG PO DAILY, (Reported) Entered as Reported by: VISHNU TILLEY on 11/09/21 1019 Magnesium Oxide (Magnesium Oxide) 400 Mg Magnesium Tablet, 400 MG PO DAILY, (Reported) Entered as Reported by: VISHNU TILLEY on 11/09/21 1020 Metoprolol Succinate (Metoprolol Succinate) 25 Mg Tab.er.24h, 12.5 MG PO DAILY, (Reported) Entered as Reported by: RODNEY GALLEGOS on 05/30/21 1018 Ondansetron (Ondansetron Odt) 4 Mg Tab.rapdis, 4 MG SL Q4H PRN for N AUSEA/VOMITING Prescribed by: EDGAR LI on 12/27/21 235 Oxycodone Hcl (Oxyir Tablet) 5 Mg Tab, 5 MG PO Q4 -6H PRN for PAIN-SEVERE (8- 10), (Reported) Entered as Reported by: VISHNU TILLEY on 11/09/21 1019 Pantoprazole Sodium (Pantoprazole Sodium) 40 Mg Tablet.dr, 40 MG PO DAILY, (Reported) Entered as Reported by: VISHNU TILLEY on 02/28/21 0857 Pantoprazole Sodium (Protonix) 40 Mg Tablet.dr, 40 MG PO DAILY Prescribed by: EDGAR LI on 12/27/21 6616 Pembrolizumab (Keytruda) 100 Mg/4 Ml (25 Mg/Ml) Vial, 200 MG IV EVERY 3 WEEKS, (Reported) Entered as Reported by: VISHNU TILLEY on 11/09/21 1032 Potassium Chloride (Potassium Chloride) 20 Meq Tablet.er, 20 MEQ PO DAILY, (Reported) Entered as Reported by: VISHNU TILLEY on 11/09/21 1019 Sorbitol Solution (Sorbitol) 70 % Solution, 15-30 ML PO TID PRN for CONSTIPATION, (Reported) Entered as Reported by: VISHNU TILLEY on 11/09/21 1019 Review of Systems Review of Systems Constitutional: no symptoms reported EENTM: No Symptoms Reported Respiratory: See HPI Cardiovascular: See HPI Gastrointestinal: See HPI Genitourinary: No Symptoms Reported Musculoskeletal: see HPI Skin: no symptoms reported Psychiatric/Neurological: No Symptoms Reported Endocrine: No Symptoms Reported Hematologic/Lymphatic: See HPI Past Firbejs-Tgdjsv-Aisyal Hx Patient Social History Tobacco Use?: Yes Smoking Status: Former Smoker Substance use?: No Alcohol Use?: No Immunizations Up To Date Tetanus Booster (TDap): Unknown First/Initial COVID19 Vaccinat: 04/2020 Second COVID19 Vaccination Lyle: 05/2020 Third COVID19 Vaccination Date: 12/2020 COVID19 Vaccine 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[employer] Seasonal Allergies Seasonal Allergies: No Past Medical History Surgery/Hospitalization HX: LBBB, LUNG CA, AFIB, 3 STENTS Surgeries: Yes (R SHOULDER, OPEN HEART 2009, STENTS X 3;THORACENTESIS; POWER PORT L CHEST) Cardiac, CABG, Coronary Stent, Gallbladder, Orthopedic Respiratory: Yes (LUNG CANCER DX 07/2020, pleural effusions, pneumothorax x2) COPD (Oxygen supplementation at 2 L/min nc) Currently Using CPAP: No Currently Using BIPAP: No Cardiac: Yes (CHF, L BBB, 3 CORONARY STENTS, A-FIB YEARS AGO;CABG) Atrial Fibrillation, Chronic Edema/Swelling, Coronary Artery Disease, High Cholesterol, Hypertension Neurological: No Reproductive Disorders: No Genitourinary: Yes Kidney Stones Gastrointestinal: Yes Hemorrhoids, Gall Bladder Disease Musculoskeletal: Yes (CHRONIC PAIN ) Arthritis, Rheumatoid Arthritis Endocrine: Yes Hypothyroidsim, Diabetes, Non-Insulin dep HEENT: No Cancer: Yes (LEFT ADRENAL GLAND CA, RUL LUNG CA) Lung Did You Recieve Any Treatments: Yes What Type of Treatment Did You: Chemotherapy, Radiation Psychosocial: No Integumentary: No Blood Disorders: No Adverse Reaction/Blood Tranf: No Family Medical History No Pertinent Family Hx SOCIAL HISTORY: -SMOKED 1 PPD, QUIT 2020 -ETOH-DENIES USE -DRUGS-DENIES USE PAST SURGICAL HISTORY: -CARDIAC CATHS WITH STENTS X 3 -CABG -RIGHT SHOULDER SURGERY -CHOLECYSTECTOMY -PORT LEFT CHEST 05/2021 -R THORACENTESIS 11/08/21 Physical Exam Vital Signs Vital Signs - First Documented 12/27/21 18:35 Temp 36.9 Pulse 85 Resp 16 B/P (MAP) 104/62 (76) Pulse Ox 100 O2 Delivery Nasal Cannula O2 Flow Rate 2.00 Capillary Refill : Less Than 3 Seconds Height, Weight, BMI Height: 6'0.00" Weight: 233lbs. 0oz. 105.091824yt; 23.00 BMI Method:Stated General Appearance: WD/WN, Mild Distress HEENT: PERRL/EOMI, Normal ENT Inspection Neck: Normal Inspection; No JVD Respiratory: No Accessory Muscle Use, No Respiratory Distress, Crackles (Right lower lung), Rhonci (Right long), Wheezing (Right long) Cardiovascular: Regular Rate, Rhythm, No Murmur, Other (Mild to moderate pitting lower extremity edema) Gastrointestinal: Normal Bowel Sounds, Soft; No Distended; Tenderness (Left upper quadrant) Extremity: Non Tender, Pedal Edema, Swelling, Other (Chronic skin changes) Neurologic/Psychiatric: Alert, Oriented x3, No Motor/Sensory Deficits, Normal Mood/Affect Skin: Normal Color, Warm/Dry, Other (Chronic skin changes on the legs) Focused Exam Lactate Level 12/27/21 21:23: Lactic Acid Level 1.19 Lactic Acid Level Laboratory Tests Test 12/27/21 21:23 Lactic Acid Level 1.19 MMOL/L (0.50-2.00) Progress/Results/Core Measures Results/Orders Lab Results Laboratory Tests Test 12/27/21 18:55 12/27/21 19:40 12/27/21 20:37 12/27/21 21:23 Range/Units White Blood Count 5.3 4.3-11.0 10^3/uL Red Blood Count 3.14 L 4.30-5.52 10^6/uL Hemoglobin 10.0 L 13.3-17.7 g/dL Hematocrit 30 L 40-54 % Mean Corpuscular Volume 96 80-99 fL Mean Corpuscular Hemoglobin 32 25-34 pg Mean Corpuscular Hemoglobin Concent 33 32-36 g/dL Red Cell Distribution Width 13.3 10.0-14.5 % Platelet Count 162 130-400 10^3/uL Mean Platelet Volume 11.3 9.0-12.2 fL Immature Granulocyte % (Auto) 0 % Neutrophils (%) (Auto) 74 42-75 % Lymphocytes (%) (Auto) 11 L 12-44 % Monocytes (%) (Auto) 13 H 0-12 % Eosinophils (%) (Auto) 3 0-10 % Basophils (%) (Auto) 0 0-10 % Neutrophils # (Auto) 3.9 1.8-7.8 10^3/uL Lymphocytes # (Auto) 0.6 L 1.0-4.0 10^3/uL Monocytes # (Auto) 0.7 0.0-1.0 10^3/uL Eosinophils # (Auto) 0.1 0.0-0.3 10^3/uL Basophils # (Auto) 0.0 0.0-0.1 10^3/uL Immature Granulocyte # (Auto) 0.0 0.0-0.1 10^3/uL Prothrombin Time 14.4 12.2-14.7 SEC INR Comment 1.1 0.8-1.4 Activated Partial Thromboplast Time 33 24-35 SEC D-Dimer 8.48 H 0.00-0.49 UG/ML Sodium Level 135 135-145 MMOL/L Potassium Level 4.4 3.6-5.0 MMOL/L Chloride Level 98 98-107 MMOL/L Carbon Dioxide Level 27 21-32 MMOL/L Anion Gap 10 5-14 MMOL/L Blood Urea Nitrogen 24 H 7-18 MG/DL Creatinine 1.11 0.60-1.30 MG/DL Estimat Glomerular Filtration Rate 71 BUN/Creatinine Ratio 22 Glucose Level 149 H 70-105 MG/DL Calcium Level 9.1 8.5-10.1 MG/DL Corrected Calcium 9.7 8.5-10.1 MG/DL Magnesium Level 1.7 1.6-2.4 MG/DL Total Bilirubin 0.5 0.1-1.0 MG/DL Aspartate Amino Transf (AST/SGOT) 16 5-34 U/L Alanine Aminotransferase (ALT/SGPT) 14 0-55 U/L Alkaline Phosphatase 86 40-136 U/L Myoglobin 43.4 10.0-92.0 NG/ML Troponin I < 0.028 <0.028 NG/ML C-Reactive Protein High Sensitivity 5.48 H 0.00-0.50 MG/DL B-Type Natriuretic Peptide 1002.4 H <100.0 PG/ML Total Protein 6.9 6.4-8.2 GM/DL Albumin 3.3 3.2-4.5 GM/DL Lipase 16 8-78 U/L Procalcitonin 0.05 <0.10 NG/ML Thyroid Stimulating Hormone (TSH) 4.07 0.35-4.94 UIU/ML Free Thyroxine 1.00 0.70-1.48 NG/DL Influenza Type A (RT-PCR) Not Detected Not Detecte Influenza Type B (RT-PCR) Not Detected Not Detecte SARS-CoV-2 RNA (RT-PCR) Not Detected Not Detecte Urine Color YELLOW Urine Clarity CLEAR Urine pH 6.5 5-9 Urine Specific [place] 1.015 L 1.016-1.022 Urine Protein NEGATIVE NEGATIVE Urine Glucose (UA) NEGATIVE NEGATIVE Urine Ketones NEGATIVE NEGATIVE Urine Nitrite NEGATIVE NEGATIVE Urine Bilirubin NEGATIVE NEGATIVE Urine Urobilinogen 4.0 < = 1.0 MG/DL Urine Leukocyte Esterase NEGATIVE NEGATIVE Urine RBC (Auto) NEGATIVE NEGATIVE Urine RBC NONE /HPF Urine WBC NONE /HPF Urine Squamous Epithelial Cells NONE /HPF Urine Renal Epithelial Cells NONE /HPF Urine Crystals NONE /LPF Urine Bacteria NEGATIVE /HPF Urine Casts NONE /LPF Urine Mucus NEGATIVE /LPF Urine Culture Indicated CULTURE PENDING Lactic Acid Level 1.19 0.50-2.00 MMOL/L Test 12/27/21 23:05 Range/Units Troponin I < 0.028 <0.028 NG/ML My Orders Orders - EDGAR ZHANG MD Cbc With Automated Diff (12/27/21 18:53) Magnesium (12/27/21 18:53) Chest 1 View, Ap/Pa Only (12/27/21 18:53) Comprehensive Metabolic Panel (12/27/21 18:53) Myoglobin Serum (12/27/21 18:53) Protime With Inr (12/27/21 18:53) Partial Thromboplastin Time (12/27/21 18:53) O2 (12/27/21 18:53) Monitor-Rhythm Ecg Trace Only (12/27/21 18:53) Lipid Panel (12/28/21 06:00) Ed Iv/Invasive Line Start (12/27/21 18:53) Bnp Miner (12/27/21 18:53) Troponin I Earl (12/27/21 18:53) Hs C Reactive Protein (12/27/21 18:53) Abdomen/Kub 1view (12/27/21 18:53) Lipase (12/27/21 18:53) Ondansetron Injection (Zofran Injectio (12/27/21 19:00) Lidocaine 2% Viscous 15 Ml (Xylocaine Vi (12/27/21 19:00) Antacid Suspension (Mylanta Suspension (12/27/21 19:00) Covid 19 Inhouse Test (12/27/21 18:53) Influenza A And B By Pcr (12/27/21 18:53) Fibrin Degradation Products (12/27/21 18:56) Ns Iv 500 Ml (Sodium Chloride 0.9%) (12/27/21 19:30) Ct Angio Chest W (12/27/21 20:04) Iohexol Injection (Omnipaque 350 Mg/Ml 1 (12/27/21 20:15) Ns (Ivpb) (Sodium Chloride 0.9% Ivpb Bag (12/27/21 20:15) Fentanyl Inj (Sublimaze Injection) (12/27/21 20:45) Blood Culture (12/27/21 20:37) Sputum Culture (12/27/21 20:37) Urinalysis (12/27/21 20:37) Urine Culture (12/27/21 20:37) Vital Signs Adult Sepsis Patie Q15M (12/27/21 20:37) Remove Rings In Anticipation O (12/27/21 20:37) Lactic Acid Analyzer (12/27/21 20:37) Procalcitonin (Pct) (12/27/21 20:37) Thyroid Stimulating Hormone (12/27/21 20:37) Free T4 (Free Thyroxine) (12/27/21 20:37) Troponin I Miner (12/27/21 23:15) Doxycycline Hyclate Tablet (Vibramycin T (12/27/21 23:32) Amoxicillin/Clavulanate Tablet (Augmenti (12/27/21 23:40) Pantoprazole Tablet (Protonix Tablet) (12/27/21 23:45) Medications Given in ED Current Medications Medications Dose Ordered Sig/Eusebio Route Start Time Stop Time Status Last Admin Dose Admin Fentanyl Citrate 50 mcg ONCE ONCE IVP 12/27/21 20:45 12/27/21 20:46 DC 12/27/21 21:30 50 MCG Iohexol 100 ml ONCE ONCE IV 12/27/21 20:15 12/27/21 20:16 DC 12/27/21 20:56 70 ML Pantoprazole Sodium 40 mg ONCE ONCE PO 12/27/21 23:45 12/27/21 23:46 DC 12/27/21 23:51 40 MG Sodium Chloride 100 ml ONCE ONCE IV 12/27/21 20:15 12/27/21 20:16 DC 12/27/21 20:57 70 ML Vital Signs/I&O 12/27/21 12/27/21 18:35 18:45 Temp 36.9 Pulse 85 Resp 16 B/P (MAP) 104/62 (76) Pulse Ox 100 97 O2 Delivery Nasal Cannula Nasal Cannula O2 Flow Rate 2.00 2.00 12/28/21 00:00 Intake Total 500 ml Balance 500 ml Blood Pressure Mean: 76 Progress Progress Note #1: Time: 19:30 Progress Note Etiology of the chest pain is unclear at this time. Since he also has abdominal tenderness, we are initially treating with GI cocktail and Zofran while we are awaiting cardiopulmonary work-up. Vital signs are stable at this time. Blood pressure is in the low normotensive range, and a 500 mL normal saline bolus is being administered. Patient reports it is common for him to have lower blood pressures at baseline. Progress Note #2: Time: 20:04 Progress Note D-dimer is markedly elevated. CT angiogram is pending. Flu and COVID results are also pending. Progress Note #3: Time: 20:35 Progress Note Patient noted significant improvement in his chest pain with the GI cocktail. He states his chest pain is now "a little" and rated as 4/10 which is an i mprovement from 8/10. CT angiogram of the chest and chest x-ray are pending. Progress Note #4: Progress Note CT revealed a loculated hydropneumothorax cluster in the right lower lung. This finding was discussed with Dr. Naqvi. He reports this is a chronic finding due to trapping of air and fluid. Pneumothorax evacuation by thoracentesis is to be avoided if at all possible due to risk of recurrent or worsening pneumothorax in the persistent chronic nature of this problem. Dr. Naqvi advises pain control for the primary focus in this patient's care. There was some concern about increased consolidation in the context of elevated CRP and worsening symptoms. Patient was treated with Augmentin and doxycycline for possible recurrence of p neumonia. Fentanyl was given for pain. Patient's pain had almost completely resolved prior to discharge. Patient expressed a strong desire for discharge home. After treatment with antibiotics and a negative repeat troponin, patient was discharged in stable condition. See discharge instructions for further discussion. Initial ECG Impression Date: Dec 27, 2021 Initial ECG Impression Time: 18:42 Initial ECG Rate: 82 Comment Rhythm difficult to ascertain. There do appear to be some P waves but there is slight irregularity. Machine identified rhythm as sinus with first-degree AV block. However, I believe this is more likely atrial fibrillation. Left bundle branch block is present and is chronic. No acute ST elevation to suggest STEMI. Diagnostic Imaging Diagonstic Imaging: Xray Plain Films/CT/US/NM/MRI: abdomen, pelvis Comments KUB viewed by me and report reviewed. See report below: NAME: NICOLETTE CAREY [facility] REC#: [id number] PT STATUS: REG ER : 1950 PHYSICIAN: EDGAR ZHANG MD ADMIT DATE: 12/27/21/ER Signed Date of Exam:12/27/21 ABDOMEN/KUB 1VIEW REASON FOR EXAM: Abdominal pain. COMPARISON: None. TECHNIQUE: 2 views of the abdomen. FINDINGS: The bowel gas pattern is nondistended. No large collection of free intraperitoneal air is seen. Small to moderate amount of gas and fecal material are present in the colon. Calcifications are seen overlying the kidneys which may represent nonobstructing calculi. Scattered phleboliths are seen in the pelvis. The osseous structures are age-appropriate. IMPRESSION: No evidence of bowel obstruction or large collection of free intraperitoneal air. Dictated by: Dictated on workstation # [id number] Dict: 12/27/212049 Trans: 12/27/212104 PJE [id number] Interpreted by: BECKY SAMANIEGO DO Electronically signed by: BECKY SAMANIEGO DO 12/27/212104 Diagonstic Imaging: Xray Plain Films/CT/US/NM/MRI: chest Comments Chest x-ray viewed by me and report reviewed. See report below: NAME: NICOLETTE CAREY Ruddy [facility] REC#: [id number] PT STATUS: REG ER : 1950 PHYSICIAN: EDGAR ZHANG MD ADMIT DATE: 12/27/21/ER Signed Date of Exam:12/27/21 CHEST 1 VIEW, AP/PA ONLY EXAMINATION: Chest 1 view. HISTORY: Chest pain. COMPARISON: 12/19/2021. FINDINGS: Stable cardiomegaly with post-CABG changes. There is central pulmonary vascular congestion with prominent interstitial markings throughout the lungs. Ex vacuo pneumothorax in the right lung base is decreased in size since the prior exam. Small right-sided pleural effusion is present. A left port is visualized. IMPRESSION: 1. Cardiomegaly with central pulmonary vascular congestion and interstitial edema. 2. Decreasing ex vacuo pneumothorax in the right lung base with small right-sided pleural effusion. Dictated by: Dictated on workstation # [id number] Dict: 12/27/212047 Trans: 12/27/212057 PJE [id number] Interpreted by: BECKY SAMANIEGO DO Electronically signed by: BECKY SAMANIEGO DO 12/27/212057 Diagonstic Imaging: CT Plain Films/CT/US/NM/MRI: chest Comments CT angiogram chest viewed by me and report reviewed. Discussed with Dr. Naqvi. See report below: NAME: NICOLETTE CAREY [facility] REC#: [id number] PT STATUS: REG ER : 1950 PHYSICIAN: EDGAR ZHANG MD ADMIT DATE: 12/27/21/ER Signed Date of Exam:12/27/21 CT ANGIO CHEST W PROCEDURE: CT angiography of the chest with contrast. TECHNIQUE: Multiple contiguous axial images were obtained through the chest after uneventful bolus administration of intravenous contrast. 3D reconstructed CTA MIP acquisitions were also performed. Auto Exposure Controls were utilized during the CT exam to meet ALARA standards for radiation dose reduction. INDICATION: Chest pain. Elevated D-dimer. COMPARISON: 11/25/2021. FINDINGS: This helical CT pulmonary angiogram is diagnostic to the subsegmental level branches of the pulmonary artery and demonstrates no pulmonary emboli. The heart is enlarged with post-CABG changes. There is no pericardial effusion. A left port is seen with the tip in the cavoatrial juncture. There is no axillary, mediastinal or hilar adenopathy. Increasing loculated hydropneumothorax is seen in the right lung base. There are increased patchy and consolidative opacities in the right perihilar region and right upper and lower lobes. The left lung is clear. No central endobronchial obstructing mass. Osseous structures appear normal. Bilateral renal lesions are seen. Bilateral cortical cysts are present in the kidneys. IMPRESSION: 1. No acute pulmonary embolus. 2. Increasing loculated hydropneumothorax in the right lung base. Consider drain placement. 3. Increasing patchy and consolidative opacities in the right perihilar region and right upper and lower lobes. 4. Cardiomegaly. Dictated by: Dictated on workstation # [id number] Dict: 12/27/212104 Trans: 12/27/212122 [facility] [id number] Interpreted by: BECKY SAMANIEGO DO Electronically signed by: BECKY SAMANIEGO DO 12/27/212122 Departure Impression Primary Impression: Atypical chest pain Additional Impressions: Chronic pneumothorax Gastroesophagitis History of coronary artery disease Right upper lobe pulmonary infiltrate Disposition: 01 HOME, SELF-CARE Condition: Improved Departure-Patient Inst. Decision time for Depature: 23:46 Referrals: SOPHIA STEINER MD (PCP/Family) Primary Care Physician Patient Instructions: Chest Pain That Is Not Caused by the Heart (DC), Pneumonia in Adults Add. Discharge Instructions: Continue your home medications as previously prescribed. Follow-up with your Dr. Steiner, Dr. Naqvi, and Dr. Sal by phone this week. Complete your antibiotics as prescribed. You likely have some degree of gastritis and esophagitis. Protonix has been prescribed to help you with this. Use Zofran (ondansetron) as prescribed for nausea and vomiting. The antibiotics you were prescribed have potential to cause upset stomach. Take them with food and use the Zofran if needed. Return to care if you have worsening symptoms despite continuing your medications and completing antibiotics. All discharge instructions reviewed with patient and/or family. Voiced understanding. Scripts Pantoprazole Sodium (Protonix) 40 Mg Tablet.dr 40 MG PO DAILY, #30 TAB Prov: EDGAR ZHANG MD 12/27/21 Ondansetron (Ondansetron Odt) 4 Mg Tab.rapdis 4 MG SL Q4H PRN for NAUSEA/VOMITING, #10 TAB Prov: EDGAR ZHANG MD 12/27/21 Amoxicillin/Potassium Clav (Amox Tr-K Clv 875-125 mg Tab) 875 Mg-125 Mg Tablet 1 EACH PO BID, #10 TAB Prov: EDGAR ZHANG MD 12/27/21 Doxycycline Hyclate (Doxycycline Hyclate) 100 Mg Tablet 100 MG PO BID, #10 TAB 0 Refills Prov: EDGAR ZHANG MD 12/27/21 Copy Copies To 1: MARY SAL MD FAC FAC CCDS; CADE NAQVI MD Copies To 2: MIRLANDE JUSTICE; SOPHIA STEINER MD, JOSHUA T MD Dec 27, 2021 19:29
[2021-12-27] MEDS ORDERED: NS IV 500 ML 500 ML IV ONE (19:30)
[2021-12-27 19:31] LABS: ALBUMIN 3.3 GM/DL (3.2-4.5); BILIRUBIN,TOTAL 0.5 MG/DL (0.1-1.0); CALCIUM 9.1 MG/DL (8.5-10.1); CREATININE SERUM 1.11 MG/DL (0.60-1.30); MAGNESIUM 1.7 MG/DL (1.6-2.4); POTASSIUM 4.4 MMOL/L (3.6-5.0); TOTAL PROTEIN 6.9 GM/DL (6.4-8.2)
[2021-12-27] MEDS ORDERED: NS 100 ML (IVPB) BAG IV ONE (20:15)
[2021-12-27] MEDS ORDERED: IOHEXOL 350 MG/ML 100 ML (OMNIPAQUE 350) VIAL IV ONE (20:15)
[2021-12-27] MEDS ORDERED: fentaNYL INJ 100 MCG/2 ML AMP IVP ONE (20:45)
--- NOTE | 2021-12-27 20:57 | Diagnostic Imaging Report ---
EXAMINATION: Chest 1 view. HISTORY: Chest pain. COMPARISON: 12/19/2021. FINDINGS: Stable cardiomegaly with post-CABG changes. There is central pulmonary vascular congestion with prominent interstitial markings throughout the lungs. Ex vacuo pneumothorax in the right lung base is decreased in size since the prior exam. Small right-sided pleural effusion is present. A left port is visualized. IMPRESSION: 1. Cardiomegaly with central pulmonary vascular congestion and interstitial edema. 2. Decreasing ex vacuo pneumothorax in the right lung base with small right-sided pleural effusion. Dictated by: Dictated on workstation # [id number]
--- NOTE | 2021-12-27 21:04 | Diagnostic Imaging Report ---
REASON FOR EXAM: Abdominal pain. COMPARISON: None. TECHNIQUE: 2 views of the abdomen. FINDINGS: The bowel gas pattern is nondistended. No large collection of free intraperitoneal air is seen. Small to moderate amount of gas and fecal material are present in the colon. Calcifications are seen overlying the kidneys which may represent nonobstructing calculi. Scattered phleboliths are seen in the pelvis. The osseous structures are age-appropriate. IMPRESSION: No evidence of bowel obstruction or large collection of free intraperitoneal air. Dictated by: Dictated on workstation # [id number]
--- NOTE | 2021-12-27 21:57 | Diagnostic Imaging Report ---
PROCEDURE: CT angiography of the chest with contrast. TECHNIQUE: Multiple contiguous axial images were obtained through the chest after uneventful bolus administration of intravenous contrast. 3D reconstructed CTA MIP acquisitions were also performed. Auto Exposure Controls were utilized during the CT exam to meet ALARA standards for radiation dose reduction. INDICATION: Chest pain. Elevated D-dimer. COMPARISON: 11/25/2021. FINDINGS: This helical CT pulmonary angiogram is diagnostic to the subsegmental level branches of the pulmonary artery and demonstrates no pulmonary emboli. The heart is enlarged with post-CABG changes. There is no pericardial effusion. A left port is seen with the tip in the cavoatrial juncture. There is no axillary, mediastinal or hilar adenopathy. Increasing loculated hydropneumothorax is seen in the right lung base. There are increased patchy and consolidative opacities in the right perihilar region and right upper and lower lobes. The left lung is clear. No central endobronchial obstructing mass. Osseous structures appear normal. Bilateral renal lesions are seen. Bilateral cortical cysts are present in the kidneys. IMPRESSION: 1. No acute pulmonary embolus. 2. Increasing loculated hydropneumothorax in the right lung base. Consider drain placement. 3. Increasing patchy and consolidative opacities in the right perihilar region and right upper and lower lobes. 4. Cardiomegaly. Dictated by: Dictated on workstation # [id number]
[2021-12-27 23:27] LABS: BACTERIA,URINE NEGATIVE /HPF; BILIRUBIN,URINE NEGATIVE (NEGATIVE); CLARITY,URINE CLEAR; COLOR,URINE YELLOW; GLUCOSE, URINE (UA) NEGATIVE (NEGATIVE); KETONES,URINE NEGATIVE (NEGATIVE); LEUKOCYTE ESTERASE ,URINE NEGATIVE (NEGATIVE); NITRITE,URINE NEGATIVE (NEGATIVE); PH,URINE 6.5 (5-9); PROTEIN,URINE NEGATIVE (NEGATIVE)
[2021-12-27] MEDS ORDERED: DOXYCYCLINE 100 MG (VIBRAMYCIN) TABLET PO STA (23:32)
[2021-12-27] MEDS ORDERED: cefTRIAXone 1 GM PRE-MIX 50 ML IV STA (23:32)
[2021-12-27] MEDS ORDERED: AUGMENTIN 875 MG TAB (AMOXICILLIN/CLAVULANATE) PO STA (23:40)
[2021-12-27] MEDS ORDERED: PANTOPRAZOLE 40 MG (PROTONIX) TAB PO ONE (23:45)
[2021-12-27] MEDS ORDERED: AMOX1TAB12 PO (23:50)
[2021-12-27] MEDS ORDERED: DOXY100T2 PO (23:50)
[2021-12-27] MEDS ORDERED: ONDA4TAB11 SL (23:50)
[2021-12-27] MEDS ORDERED: PANT40TA2 PO (23:56)
== END 2021-12-27 23:45 ==
LOC: EDUNIT# 18:33 → ER 18:36
DX: K21.00 Gastro-esophageal reflux disease with esophagitis, without bleeding (principal); I25.10 Atherosclerotic heart disease of native coronary artery without angina pectoris; J93.81 Chronic pneumothorax; R91.8 Other nonspecific abnormal finding of lung field; Z95.5 Presence of coronary angioplasty implant and graft; Z95.1 Presence of aortocoronary bypass graft; Z87.891 Personal history of nicotine dependence; Z20.822 Contact with and (suspected) exposure to COVID-19
CPT/HCPCS: 36415; 71045; 71275; 74018; 80053; 81000; 83605; 83690; 83735; 83874; 83880; 84145; 84439; 84443; 84484; 85025; 85379; 85610; 85730; 86141; 87040; 87088; 87636; 93005; 93041

== ENCOUNTER 2022-01-17 11:42 | Outpatient (CLI) | payer MEDICARE, MEDICAID ==
[~2022-01-17] VITALS: Ht 182 cm; Wt 77.3 kg
[~2022-01-17 11:42] MED LIST changes: +AMOX1TAB12 PO; +DOXY100T2 PO; +ONDA4TAB11 SL; +PANT40TA2 PO
[2022-01-17 12:25] VITALS: BP 78/47
--- NOTE | 2022-01-17 15:47 | Diagnostic Imaging Report ---
INDICATION: Right pleural effusion. Evaluation for thoracentesis. FINDINGS: There is a loculated fluid noted posteriorly inferior aspect of the chest with maximal width of 2 cm. IMPRESSION: Small pleural effusion noted posteriorly on the right. Dictated by: Dictated on workstation # [id number]
== END 2022-01-17 12:25 | disposition home or self-care (01) ==
LOC: RAD 11:42
PROVIDERS: ATTEND Surgery
DX: C34.91 Malignant neoplasm of unspecified part of right bronchus or lung (principal); J90 Pleural effusion, not elsewhere classified
CPT/HCPCS: 76604

== ENCOUNTER 2022-01-20 18:33 | Inpatient (IN) | payer MEDICARE, MEDICAID ==
[~2022-01-20] VITALS: Ht 183 cm; Wt 78.6 kg
[2022-01-20] MEDS ORDERED: NITROGLYCERIN 0.4 MG SL TABS BTL 25'S SL PRN (18:45)
[2022-01-20] MEDS ORDERED: ASPIRIN 81 MG CHEW (CHILDREN'S ASA) PO ONE (18:45)
[2022-01-20] MEDS ORDERED: fentaNYL INJ 100 MCG/2 ML AMP IVP ONE (19:00)
--- NOTE | 2022-01-20 19:00 | ED Cardiac General ---
History of Present Illness General Chief Complaint: Chest Pain Stated Complaint: CHEST PAIN/SOA Source: patient, family, old records History of Present Illness Date Seen by Provider: Jan 20, 2022 Time Seen by Provider: 18:38 Initial Comments PT ARRIVES VIA POV FROM HOME, NEEDS WHEELCHAIR ON ARRIVAL C/O CHEST PAIN AND SHORTNESS OF BREATH OFF AND ON ALL DAY, WORSE THE LAST HOUR OR SO TOOK NTG X 1 JUST PRIOR TO ARRIVAL, WITHOUT RELIEF, BUT WAS AN OLD BOTTLE. PAIN IS ALL OVER THE FRONT OF HIS CHEST, AND WAXES AND WANES RATES PAIN 9/10 AT WORST, IS 5/10 NOW AT REST. SYMPTOMS ARE WORSE WITH ANY EXERTION, AND IMPROVED WITH REST NO SWEATS HAS HAD NAUSEA WHEN THE PAIN IS BAD, BUT IS NOT NAUSEATED NOW NO PALPITATIONS HAS BEEN DIZZY AND FELT LIKE HE MIGHT PASS OUT WHEN THE PAIN IS BAD. NO CHANGE IN CHRONIC LEG SWELLING NO FEVER HAS CHRONIC LOSS OF TASTE AND SMELL, CHRONIC MALAISE/FATIGUE, CHRONIC HEADACHES AND CHRONIC BODY ACHES/GENERALIZED PAIN TOOK BOTH OF HIS OXYCONTIN/OXYCODONE PILLS AT 1800. PT HAS HISTORY OF "4 OR 5" HEART ATTACKS, HAS HAD A 1 VESSEL CABG AND 3 STENTS PT HAS METASTATIC LUNG CANCER, AND IS ON MAINTENANCE THERAPY WITH KEYTRUDA. PT WEARS HOME O2 AT 2L/NC CONTINUOUSLY. HE HAS A HISTORY OF ATRIAL FIBRILLATION, BUT IS NOT ON ANY ANTICOAGULATION OR ANTIARRHYTHMICS. PT HAS HISTORY OF RECURRENT PLEURAL EFFUSIONS AND HAS HAD THORACENTESIS DONE MULTIPLE TIMES. SAW DR. DIMAS 2 DAYS AGO FOR FOLLOW UP FOR THIS PROBLEM AND HAD ULTRASOUND DONE OF THE AREA 01/17/22. PT STATES THAT DR. DIMAS DID NOT THINK THAT IT NEEDED TO BE DRAINED AT THAT TIME. PT HAS HAD HAD COVID-19 VACCINE X 4, AND HAS HAD FLU SHOT FOR THIS SEASON. PT IS A FULL CODE PCP: DR. JACKSON [employer] A[employer] MANAGER: DR. SIMS ONCOLOGIST: DR. STATON SURGEON: DR. DIMAS Allergies and Home Medications Allergies Coded Allergies: cephalexin (Unverified Allergy, Severe, Anaphylaxis, 06/01/21) [id number] Reductase Inhibitor (Verified Allergy, Unknown, 10/14/20) tramadol (Unverified Adverse Reaction, Intermediate, 08/16/11) medication caused pt to experience hypertensive episodes Patient Home Medication List Home Medication List Reviewed: Yes ALPRAZolam (ALPRAZolam) 0.25 Mg Tablet, 1 MG PO Q6H Prescribed by: CADE DIMAS on 11/09/21 1639 Albuterol Sulfate (Albuterol Sulfate) 2.5 Mg/3 Ml (0.083 %) Vial.neb, 3 ML NEB Q4H PRN for SHORTNESS OF BREATH, (Reported) Entered as Reported by: VISHNU TILLEY on 11/09/21 1019 Alprazolam (Alprazolam) 0.5 Mg Tablet, 0.5 MG PO HS, (Reported) Entered as Reported by: VISHNU TILLEY on 02/28/21 0857 Amoxicillin/Potassium Clav (Amox Tr-K Clv 875-125 mg Tab) 875 Mg-125 Mg Tablet, 1 EACH PO BID Prescribed by: EDGAR LI on 12/27/21 235 Doxycycline Hyclate (Doxycycline Hyclate) 100 Mg Tablet, 100 MG PO BID Prescribed by: EDGAR LI on 12/27/21 235 Furosemide (Furosemide) 40 Mg Tablet, 40 MG PO DAILY, (Reported) Entered as Reported by: VISHNU TILLEY on 11/09/21 1019 Levofloxacin (Levofloxacin) 750 Mg Tablet, 750 MG PO DAILY Prescribed by: SAE NAIDU on 11/27/21 1634 Levothyroxine Sodium (Synthroid) 125 Mcg Tablet, 125 MCG PO DAILY, (Reported) Entered as Reported by: VISHNU TILLEY on 11/09/21 1019 Magnesium Oxide (Magnesium Oxide) 400 Mg Magnesium Tablet, 400 MG PO DAILY, (Reported) Entered as Reported by: VISHNU TILLEY on 11/09/21 1020 Metoprolol Succinate (Metoprolol Succinate) 25 Mg Tab.er.24h, 12.5 MG PO DAILY, (Reported) Entered as Reported by: RODNEY GALLEGOS on 05/30/21 1018 Ondansetron (Ondansetron Odt) 4 Mg Tab.rapdis, 4 MG SL Q4H PRN for NAUSEA/VOMITING Prescribed by: EDGAR LI on 12/27/21 235 Oxycodone Hcl (Oxyir Tablet) 5 Mg Tab, 5 MG PO Q4 -6H PRN for PAIN-SEVERE (8- 10), (Reported) Entered as Reported by: VISHNU TILLEY on 11/09/21 1019 Pantoprazole Sodium (Pantoprazole Sodium) 40 Mg Tablet.dr, 40 MG PO DAILY, (Reported) Entered as Reported by: VISHNU TILLEY on 02/28/21 0857 Pantoprazole Sodium (Protonix) 40 Mg Tablet.dr, 40 MG PO DAILY Prescribed by: EDGAR LI on 12/27/21 2356 Pembrolizumab (Keytruda) 100 Mg/4 Ml (25 Mg/Ml) Vial, 200 MG IV EVERY 3 WEEKS, (Reported) Entered as Reported by: VISHNU TILLEY on 11/09/21 1032 Potassium Chloride (Potassium Chloride) 20 Meq Tablet.er, 20 MEQ PO DAILY, (Reported) Entered as Reported by: VISHNU TILLEY on 11/09/21 1019 Sorbitol Solution (Sorbitol) 70 % Solution, 15-30 ML PO TID PRN for CONSTIPATION, (Reported) Entered as Reported by: VISHNU TILLEY on 11/09/21 1019 Review of Systems Review of Systems Constitutional: see HPI, dizziness, malaise, weakness EENTM: No Symptoms Reported Respiratory: See HPI, Cough, Orthopnea, Shortness of Air, SOA With Exertion, SOA at Rest Cardiovascular: See HPI, Chest Pain, Edema, Lightheadedness; Denies Palpitations, Denies Syncope Gastrointestinal: See HPI; Denies Abdominal Pain; Nausea; Denies Vomiting Genitourinary: No Symptoms Reported Musculoskeletal: see HPI Skin: no symptoms reported Psychiatric/Neurological: See HPI, Headache; Denies Numbness, Denies Paresthesia, Denies Seizure, Denies Tingling, Denies Tremors Endocrine: No Symptoms Reported Hematologic/Lymphatic: See HPI Past Binqgug-Kqmyrd-Hewnrq Hx Patient Social History Tobacco Use?: Yes Tobacco type used: Cigarettes Smoking Status: Former Smoker Use of E-Cig and/or Vaping dev: No Substance use?: No Alcohol Use?: No Pt feels they are or have been: No Immunizations Up To Date Tetanus Booster (TDap): Unknown Influenza Vaccine Up-to-Date: Yes; Up-to-Date First/Initial COVID19 Vaccinat: 2020 Second COVID19 Vaccination Lyle: 2020 Third COVID19 Vaccination Date: 2020 Seasonal Allergies Seasonal Allergies: No Past Medical History Surgery/Hospitalization HX: LBBB, LUNG CA, AFIB, 3 STENTS, 4 HEART ATTACKS Surgeries: Yes (R SHOULDER, OPEN HEART 2009, STENTS X 3;THORACENTESIS; POWER PORT L CHEST) Cardiac, CABG, Coronary Stent, Gallbladder, Orthopedic Respiratory: Yes (LUNG CANCER DX 07/2020, pleural effusions, pneumothorax x2) COPD Currently Using CPAP: No Currently Using BIPAP: No Cardiac: Yes (CHF, L BBB, 3 CORONARY STENTS, A-FIB YEARS AGO;CABG X1 VESSEL) Atrial Fibrillation, Chronic Edema/Swelling, Coronary Artery Disease, High Cholesterol, Hypertension Neurological: No Reproductive Disorders: No Genitourinary: Yes Kidney Stones Gastrointestinal: Yes Hemorrhoids, Gall Bladder Disease Musculoskeletal: Yes (CHRONIC PAIN ) Degenerate Disk Disease, Arthritis, Rheumatoid Arthritis, Chronic Back Pain Endocrine: Yes Hypothyroidsim, Diabetes, Non-Insulin dep HEENT: No Cancer: Yes (METS TO BILATERAL ADRENAL GLAND ; RUL LUNG CA) Lung Did You Recieve Any Treatments: Yes What Type of Treatment Did You: Chemotherapy, Radiation OF 01/20/22 PT IS ON MAINTENANCE THERAPY WITH KEYTRUDA Psychosocial: No Integumentary: No Blood Disorders: No Adverse Reaction/Blood Tranf: No Family Medical History No Pertinent Family Hx SOCIAL HISTORY: -SMOKED 1 PPD, QUIT 2020 -ETOH-DENIES USE -DRUGS-DENIES USE PAST SURGICAL HISTORY: -CARDIAC CATHS WITH STENTS X 3 -CABG X 1 VESSEL -RIGHT SHOULDER SURGERY -CHOLECYSTECTOMY -PORT LEFT CHEST 05/2021 -R THORACENTESIS 11/08/21; HE HAS HAD MULTIPLE RIGHT THORACENTESIS DONE. Physical Exam Vital Signs Vital Signs - First Documented 01/20/22 18:51 Temp 37.6 Pulse 96 Resp 28 B/P (MAP) 101/68 (79) Pulse Ox 100 O2 Delivery Room Air Capillary Refill : Height, Weight, BMI Height: 6'0.00" Weight: 233lbs. 0oz. 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 ) Cardiovascular: Regular Rate, Rhythm Capillary Refill: Less Than 3 Seconds Within 3hrs of presentation: Admin fluids, Admin ABX, Blood cultures prior to ABX's, Focus exam, Lactate level, Vasopressin therapy Progress/Results/Core Measures Results/Orders Lab Results Laboratory Tests Test 01/20/22 01:00 01/20/22 02:30 01/20/22 19:05 01/20/22 19:16 Range/Units Influenza Type A (RT-PCR) Not Detected Not Detecte Influenza Type B (RT-PCR) Not Detected Not Detecte SARS-CoV-2 RNA (RT-PCR) Not Detected Not Detecte White Blood Count 5.9 4.3-11.0 10^3/uL Red Blood Count 3.51 L 4.30-5.52 10^6/uL Hemoglobin 10.7 L 13.3-17.7 g/dL Hematocrit 32 L 40-54 % Mean Corpuscular Volume 92 80-99 fL Mean Corpuscular Hemoglobin 31 25-34 pg Mean Corpuscular Hemoglobin Concent 33 32-36 g/dL Red Cell Distribution Width 13.2 10.0-14.5 % Platelet Count 137 130-400 10^3/uL Mean Platelet Volume 11.4 9.0-12.2 fL Immature Granulocyte % (Auto) 0 % Neutrophils (%) (Auto) 75 42-75 % Lymphocytes (%) (Auto) 9 L 12-44 % Monocytes (%) (Auto) 13 H 0-12 % Eosinophils (%) (Auto) 2 0-10 % Basophils (%) (Auto) 1 0-10 % Neutrophils # (Auto) 4.5 1.8-7.8 10^3/uL Lymphocytes # (Auto) 0.6 L 1.0-4.0 10^3/uL Monocytes # (Auto) 0.7 0.0-1.0 10^3/uL Eosinophils # (Auto) 0.1 0.0-0.3 10^3/uL Basophils # (Auto) 0.0 0.0-0.1 10^3/uL Immature Granulocyte # (Auto) 0.0 0.0-0.1 10^3/uL Percent Immature Platelet Fraction 6.7 0.0-7.6 % Prothrombin Time 14.5 12.2-14.7 SEC INR Comment 1.1 0.8-1.4 Activated Partial Thromboplast Time 32 24-35 SEC D-Dimer 7.60 H 0.00-0.49 UG/ML Sodium Level 133 L 135-145 MMOL/L Potassium Level 4.8 3.6-5.0 MMOL/L Chloride Level 95 L 98-107 MMOL/L Carbon Dioxide Level 24 21-32 MMOL/L Anion Gap 14 5-14 MMOL/L Blood Urea Nitrogen 25 H 7-18 MG/DL Creatinine 1.36 H 0.60-1.30 MG/DL Estimat Glomerular Filtration Rate 55 BUN/Creatinine Ratio 18 Glucose Level 161 H 70-105 MG/DL Calcium Level 9.8 8.5-10.1 MG/DL Corrected Calcium 10.3 H 8.5-10.1 MG/DL Magnesium Level 1.8 1.6-2.4 MG/DL Total Bilirubin 0.4 0.1-1.0 MG/DL Aspartate Amino Transf (AST/SGOT) 17 5-34 U/L Alanine Aminotransferase (ALT/SGPT) 14 0-55 U/L Alkaline Phosphatase 79 40-136 U/L Total Creatine Kinase 33 30-200 U/L Creatine Kinase MB 1.1 <6.6 NG/ML Myoglobin 64.1 10.0-92.0 NG/ML Troponin I < 0.028 <0.028 NG/ML B-Type Natriuretic Peptide 679.1 H <100.0 PG/ML Total Protein 6.8 6.4-8.2 GM/DL Albumin 3.4 3.2-4.5 GM/DL Amylase Level 102 25-125 U/L Lipase 12 8-78 U/L Procalcitonin 0.11 H <0.10 NG/ML Smear Scan YES My Orders Orders - SOPHIA BUCKLEY DO Cbc With Automated Diff (01/20/22 18:39) Magnesium (01/20/22 18:39) Chest 1 View, Ap/Pa Only (01/20/22 18:39) Ekg Tracing (01/20/22 18:39) Comprehensive Metabolic Panel (01/20/22 18:39) Myoglobin Serum (01/20/22 18:39) Protime With Inr (01/20/22 18:39) Partial Thromboplastin Time (01/20/22 18:39) O2 (01/20/22 18:39) Monitor-Rhythm Ecg Trace Only (01/20/22 18:39) Ed Iv/Invasive Line Start (01/20/22 18:39) Creatine Kinase (01/20/22 18:39) Creatine Kinase Mb (01/20/22 18:39) Lipase (01/20/22 18:39) Amylase (01/20/22 18:39) Bnp [place] (01/20/22 18:39) Fibrin Degradation Products (01/20/22 18:39) Troponin I [place] (01/20/22 18:39) Nitroglycerin 0.4 Mg Btl 25's (Nitrostat (01/20/22 18:45) Aspirin Chewable Tablet (Baby Aspirin Ch (01/20/22 18:45) Fentanyl Inj (Sublimaze Injection) (01/20/22 19:00) Covid 19 Inhouse Test (01/20/22 18:58) Influenza A And B By Pcr (01/20/22 18:58) Isolation Central Supply Req (01/20/22 18:58) Ed Iv/Invasive Line Start (01/20/22 19:05) Ns Iv 1000 Ml (Sodium Chloride 0.9%) (01/20/22 19:15) Ns Iv 1000 Ml (Sodium Chloride 0.9%) (01/20/22 19:06) Medications Given in ED Vital Signs/I&O 01/20/22 18:51 Temp 37.6 Pulse 96 Resp 28 B/P (MAP) 101/68 (79) Pulse Ox 100 O2 Delivery Room Air 01/21/22 00:00 Intake Total 1000 ml Balance 1000 ml Progress Progress Note : Progress Note O2 SAT 98% ON 3L/NC ON ARRIVAL. SYSTOLIC BP 103 ON ARRIVAL, DROPPED TO 89 EVEN BEFORE IV ACCESS WAS OBTAINED SEPSIS PROTOCOL INITIATED CHEST PAIN PROTOCOL INITIATED GIVEN: -ASPIRIN -FENTANYL FOR PAIN. -IV FLUIDS -ANTIBIOTICS -LEVOPHED -LOVENOX NITROGLYCERINE HELD DUE TO HYPOTENSION. PT CONTINUED TO BE HYPOTENSIVE DOWN TO 70'S SYSTOLIC, DESPITE FLUIDS. LEVOPHED DRIP WAS INITIATED. BP > 100 SYSTOLIC AT TIME OF ADMIT. PT STATES HE FEELS BETTER AT TIME OF ADMIT. Initial ECG Impression Date: Jan 20, 2022 Initial ECG Impression Time: 18:49 Initial ECG Rate: 100 Initial ECG Rhythm: S.Tach (LBBB) Initial ECG Comparisson: Unchanged Diagnostic Imaging Comments CXR--PER RADIOLOGIST REPORT AT 1999 FINDINGS: There is continued volume loss in the right hemithorax with right perihilar atelectasis and/or scarring. There may be slight increase in right basilar loculated pneumothorax. Left lung remains clear. Left anterior chest wall port remains in place. There is no other adverse change. IMPRESSION: Volume loss in right hemithorax which may be due to atelectasis and/or scarring of the right lung with persistent, possibly slightly enlarged, right basilar loculated pneumothorax. CT CHEST ANGIOGRAM--PER RADIOLOGIST REPORT AT 2050 COMPARISON: 12/27/2021. FINDINGS: There is good opacification of the pulmonary arteries without intraluminal filling defect identified. Thoracic aorta is of normal caliber. Similar to the previous study, there is abnormal soft tissue in the right hilum which may represent residual mass or adenopathy. There is filling defect throughout the right lower lobe bronchi which could be due to secretions or tumor. Anterior and basilar loculated hydropneumothorax has a generally stable appearance. There is scarring in the medial aspect of the right lung as well as right apex. This all has similar appearance. Left lung is clear. Coronary artery calcification is noted. IMPRESSION: 1. No CTA evidence of pulmonary embolism or significant change in loculated right hydropneumothorax with right hilar mass and/or adenopathy which is also similar. There is an increase in material within the right lower lobe bronchus which could be due to secretions or tumor. 2. Below the diaphragm, there is a persistent left adrenal gland nodule possibly due to metastatic disease with exophytic nodules in the kidneys most suggestive of renal cysts. Reviewed: Reviewed by Me Critical Care Note Critical Care Total Time (minutes) 30 Departure Communication (Admissions) 1944--SPOKE WITH DR. MAY, [employer] AFFAIRS MANAGER, WILL SEE PT IN CONSULT. 1954--SPOKE WITH DR. CALI, HOSPITALIST, ACCEPTS PT FOR ADMIT. 2004--SPOKE WITH DR. LOVE REGARDING CXR. HE ADVISES CTA OF CHEST. WILL CALL HI M BACK WITH RESULTS. 2036--SPOKE WITH DR. LOVE REGARDING CTA CHEST, HE HAS REVIEWED FILMS. RADIOLOGIST REPORT IS PENDING AT THIS TIME, BUT OVERALL THE HYDROPNEUMOTHORAX APPEARS ESSENTIALLY UNCHANGED IN SIZE FROM 12/27/21. HE ADVISES TO ADMIT TO HOSPITALIST AND HE WILL SEE PT IN CONSULT. 2050--SPOKE WITH DR. CALI AGAIN AND UPDATED HER ON PT'S CONDITION AND THAT PT IS NOW ON LEVOPHED DRIP, AND MEETS SEPTIC SHOCK CRITERIA. ORDERS NOTED. 2054--REPORT TO E-ICU PHYSICIAN. 2224--SPOKE WITH E-ICU PHYSICIAN AGAIN AND UPDATED ON PT'S CONDITION. Impression Primary Impression: Septic shock Additional Impressions: PERSISTENT RIGHT HYDROPNEUMOTHORAX Chest pain HX OF AL WITH CABG AND STENTS COPD (chronic obstructive pulmonary disease) Non-insulin dependent type 2 diabetes mellitus Recurrent right pleural effusion CAD (coronary artery disease) METASTATIC LUNG CANCER TO ADRENAL GLAND Acute on chronic renal insufficiency Disposition: ADMITTED INPATIENT Condition: Improved Admissions Decision to Admit Reason: Admit from ER (General) Decision to Admit/Date: Jan 20, 2022 Time/Decision to Admit Time: 20:00 Departure-Patient Inst. Referrals: SOPHIA JACKSON MD (PCP/Family) Primary Care Physician SOPHIA BUCKLEY DO Jan 20, 2022 19:00
[2022-01-20] MEDS ORDERED: NS IV 1000 ML 1,000 ML ONE (19:06)
[2022-01-20] MEDS ORDERED: NS IV 1000 ML 1,000 ML IV SCH ×3 (19:15→22:00)
[2022-01-20 19:24] LABS: BASOPHILS % (AUTO) 1 % (0-10); EOSINOPHILS # (AUTO) 0.1 10^3/uL (0.0-0.3); EOSINOPHILS % (AUTO) 2 % (0-10); HEMATOCRIT 32 % (40-54); HEMOGLOBIN 10.7 g/dL (13.3-17.7); LYMPHOCYTES # (AUTO) 0.6 10^3/uL (1.0-4.0); LYMPHOCYTES % (AUTO) 9 % (12-44); MEAN CORPUSCULAR HEMOGLOBIN 31 pg (25-34); MEAN CORPUSCULAR HGB CONC 33 g/dL (32-36); MEAN CORPUSCULAR VOLUME 92 fL (80-99); MEAN PLATELET VOLUME 11.4 fL (9.0-12.2); MONOCYTES # (AUTO) 0.7 10^3/uL (0.0-1.0); MONOCYTES % (AUTO) 13 % (0-12); NEUTROPHILS # (AUTO) 4.5 10^3/uL (1.8-7.8); NEUTROPHILS % (AUTO) 75 % (42-75); PLATELET COUNT 137 10^3/uL (130-400); WHITE BLOOD COUNT 5.9 10^3/uL (4.3-11.0)
[2022-01-20 19:41] LABS: INR 1.1 (0.8-1.4); PROTHROMBIN TIME PATIENT 14.5 SEC (12.2-14.7)
[2022-01-20 19:46] LABS: ALBUMIN 3.4 GM/DL (3.2-4.5); BILIRUBIN,TOTAL 0.4 MG/DL (0.1-1.0); CALCIUM 9.8 MG/DL (8.5-10.1); CREATININE SERUM 1.36 MG/DL (0.60-1.30); MAGNESIUM 1.8 MG/DL (1.6-2.4); POTASSIUM 4.8 MMOL/L (3.6-5.0); TOTAL PROTEIN 6.8 GM/DL (6.4-8.2)
[2022-01-20 19:47] LABS: CREATINE KINASE MB 1.1 NG/ML (<6.6)
[2022-01-20 19:48] LABS: SMEAR SCAN COMMENT YES
--- NOTE | 2022-01-20 19:52 | Diagnostic Imaging Report ---
INDICATION: Chest pain. COMPARISON: 12/27/2021. FINDINGS: There is continued volume loss in the right hemithorax with right perihilar atelectasis and/or scarring. There may be slight increase in right basilar loculated pneumothorax. Left lung remains clear. Left anterior chest wall port remains in place. There is no other adverse change. IMPRESSION: Volume loss in right hemithorax which may be due to atelectasis and/or scarring of the right lung with persistent, possibly slightly enlarged, right basilar loculated pneumothorax. Dictated by: Dictated on workstation # [id number]
[2022-01-20] MEDS ORDERED: PIPERACILLIN SODIUM/TAZOBACTAM 4.5 GM in NS (IVPB) 100 ML IV ONE (20:15)
[2022-01-20] MEDS ORDERED: NS 100 ML (IVPB) BAG IV ONE (20:30)
[2022-01-20] MEDS ORDERED: IOHEXOL 350 MG/ML 100 ML (OMNIPAQUE 350) VIAL IV ONE (20:30)
[2022-01-20] MEDS ORDERED: HOLD METFORMIN - RECEIVED CONTRAST 20 ML VIAL IV SCH (20:30)
--- NOTE | 2022-01-20 20:50 | Diagnostic Imaging Report ---
PROCEDURE: CT angiography of the chest with contrast. TECHNIQUE: Multiple contiguous axial images were obtained through the chest after uneventful bolus administration of intravenous contrast. 3D reconstructed CTA MIP acquisitions were also performed. Auto Exposure Controls were utilized during the CT exam to meet ALARA standards for radiation dose reduction. INDICATION: High probability for pulmonary embolism in patient with lung cancer and dyspnea. COMPARISON: 12/27/2021. FINDINGS: There is good opacification of the pulmonary arteries without intraluminal filling defect identified. Thoracic aorta is of normal caliber. Similar to the previous study, there is abnormal soft tissue in the right hilum which may represent residual mass or adenopathy. There is filling defect throughout the right lower lobe bronchi which could be due to secretions or tumor. Anterior and basilar loculated hydropneumothorax has a generally stable appearance. There is scarring in the medial aspect of the right lung as well as right apex. This all has similar appearance. Left lung is clear. Coronary artery calcification is noted. IMPRESSION: 1. No CTA evidence of pulmonary embolism or significant change in loculated right hydropneumothorax with right hilar mass and/or adenopathy which is also similar. There is an increase in material within the right lower lobe bronchus which could be due to secretions or tumor. 2. Below the diaphragm, there is a persistent left adrenal gland nodule possibly due to metastatic disease with exophytic nodules in the kidneys most suggestive of renal cysts. Dictated by: Dictated on workstation # [id number]
[2022-01-20] MEDS ORDERED: NOREPINEPHRINE 8 MG/250 ML 250 ML IV SCH (21:00)
[2022-01-20] MEDS: VANCOMYCIN INJECTION 750 MG in NS (IVPB) 250 ML IV SCH (21:02)
[2022-01-20] MEDS ORDERED: ENOXAPARIN 80 MG/0.8 ML (LOVENOX) SYR SC ONE (21:15)
[2022-01-20 21:43] LABS: BILIRUBIN,URINE NEGATIVE (NEGATIVE); CLARITY,URINE CLEAR; COLOR,URINE YELLOW; GLUCOSE, URINE (UA) NEGATIVE (NEGATIVE); KETONES,URINE NEGATIVE (NEGATIVE); LEUKOCYTE ESTERASE ,URINE NEGATIVE (NEGATIVE); NITRITE,URINE NEGATIVE (NEGATIVE); PH,URINE 5.5 (5-9); PROTEIN,URINE NEGATIVE (NEGATIVE)
[2022-01-20 21:51] LABS: AMORPHOUS SEDIMENT,UR FEW AMOR URATES /LPF; BACTERIA,URINE NEGATIVE /HPF
[2022-01-20 22:17] VITALS: BP 103/65
[2022-01-20] MEDS ORDERED: NS IV 500 ML 500 ML IV PRN (22:30)
[2022-01-20] MEDS ORDERED: PATIENT MAY USE OWN MEDS, ALL PO SCH (22:30)
[2022-01-20] MEDS ORDERED: ACETAMINOPHEN 500 MG TAB (TYLENOL) PO PRN (23:00)
[2022-01-20] MEDS: ENOXAPARIN 80 MG/0.8 ML (LOVENOX) SYR SC SCH (23:00)
[2022-01-20] MEDS ORDERED: EPINEPHrine 1 MG INJECTION 4 MG in NS (IVPB) 248 ML IV SCH (23:00)
[2022-01-20] MEDS: VASOPRESSIN INJECTION 20 UNIT in NS (IVPB) 100 ML IV SCH (23:00)
[2022-01-20] MEDS ORDERED: ONDANSETRON 4 MG/2 ML (SDV) Z0FRAN IV PRN (23:00)
[2022-01-20] MEDS ORDERED: IBUPROFEN 800 MG (MOTRIN) TAB PO PRN (23:00)
--- NOTE | 2022-01-20 23:39 | Tele-ICU Progress Note ---
Progress Note eICU 71 yo man admitted for chest pain and shortness of breath - complicated history of Stage 4 lung cancer , presence of R hydroPTx, is on Keytruda and has had prior thoracenteses for recurrent effusion. There is hx of bilateral adrenal metastases. Has LBBB , previous MIs, post stents and CABG- took his home NTG without change in symptoms and was given fentanyl Has low grade temp on admit and was hypotensive with LA 1.15- CBC wbcs 5900 Hgb 10.7 Plts 137,000 DDimer 7.6 UA neg Lytes oK Cr 1.36 Trop <0.028 BNP 679 Procal 0.11 Cultured, treated as poss sepsis with 2 L NS and 3rd liter is currently infusing and started on zosyn and vanco. Levophed was also started on low BP.. CXR: IMPRESSION: Volume loss in right hemithorax which may be due to atelectasis and/or scarring of the right lung with persistent,possibly slightly enlarged, right basilar loculated pneumothorax. CTA: IMPRESSION: 1. No CTA evidence of pulmonary embolism or significant change in loculated right hydropneumothorax with right hilar mass and/or adenopathy which is also similar. There is an increase in material within the right lower lobe bronchus which could be due to secretions or tumor. 2. Below the diaphragm, there is a persistent left adrenal gland nodule possibly due to metastatic disease with exophytic nodules in the kidneys most suggestive of renal cysts. Currrent VS per video: HR 81 with occ unifocal PVCs 100% sat, on NC O2 BP 109/76 lying comfortably at rest, no JVD or respiratory distress is noted. RR 19 he is on low dose levophed at this time, may be discontinued. Reviewed orders, AM labs are already in. Discussed with bedside nurse, and reviewed with ED physician. Will add on random cortisol to blood in lab drawn from ED. No additional teleICU needed at this time. Focused Exam Lactate Level 01/20/22 20:15: Lactic Acid Level 1.15 Height, Weight, BMI Height: 6'0.00" Weight: 233lbs. 0oz. [id number]; 23.38 BMI Method:Stated Lactic Acid Level Laboratory Tests Test 01/20/22 20:15 Lactic Acid Level 1.15 MMOL/L (0.50-2.00) O'ZAKIYA,MEGAN DO Jan 20, 2022 23:39
[2022-01-21] MEDS: VANCOMYCIN INJECTION 750 MG in NS (IVPB) 250 ML IV SCH (00:01)
[2022-01-21] MEDS ORDERED: RT-ALBUTEROL/IPRATROPIUM 3 ML (DUONEB) VIAL INH PRN (02:15)
[2022-01-21] MEDS: PIPERACILLIN SODIUM/TAZOBACTAM 4.5 GM in NS (IVPB) 100 ML IV SCH ×2 (02:19→11:23)
[2022-01-21] MEDS: fentaNYL INJ 100 MCG/2 ML AMP IV PRN ×2 (02:19→07:36)
[2022-01-21 04:50] LABS: MEAN PLATELET VOLUME 11.5 fL (9.0-12.2)
[2022-01-21 04:52] LABS: BASOPHILS % (AUTO) 1 % (0-10); EOSINOPHILS # (AUTO) 0.1 10^3/uL (0.0-0.3); EOSINOPHILS % (AUTO) 3 % (0-10); HEMATOCRIT 30 % (40-54); HEMOGLOBIN 9.9 g/dL (13.3-17.7); LYMPHOCYTES # (AUTO) 0.5 10^3/uL (1.0-4.0); LYMPHOCYTES % (AUTO) 10 % (12-44); MEAN CORPUSCULAR HEMOGLOBIN 31 pg (25-34); MEAN CORPUSCULAR HGB CONC 33 g/dL (32-36); MEAN CORPUSCULAR VOLUME 93 fL (80-99); MONOCYTES # (AUTO) 0.7 10^3/uL (0.0-1.0); MONOCYTES % (AUTO) 13 % (0-12); NEUTROPHILS # (AUTO) 3.6 10^3/uL (1.8-7.8); NEUTROPHILS % (AUTO) 73 % (42-75); PLATELET COUNT 140 10^3/uL (130-400); WHITE BLOOD COUNT 4.9 10^3/uL (4.3-11.0)
[2022-01-21] MEDS: NS IV 1000 ML 1,000 ML IV SCH ×3 (05:09→15:00)
[2022-01-21 05:16] LABS: ALBUMIN 2.9 GM/DL (3.2-4.5); BILIRUBIN,TOTAL 0.6 MG/DL (0.1-1.0); CALCIUM 8.8 MG/DL (8.5-10.1); MAGNESIUM 1.7 MG/DL (1.6-2.4); PHOSPHORUS 3.2 MG/DL (2.3-4.7); POTASSIUM 4.1 MMOL/L (3.6-5.0); TOTAL PROTEIN 5.9 GM/DL (6.4-8.2)
[2022-01-21] MEDS ORDERED: POTASSIUM CL 10MEQ/50ML IVPB 50 ML IV SCH (06:00)
[2022-01-21] MEDS ORDERED: KCL 20 MEQ TAB (K-DUR) PO SCH (06:00)
[2022-01-21] MEDS ORDERED: MAGNESIUM 1 GM/100 ML IVPB 100 ML IV SCH (06:00)
[2022-01-21] MEDS: inSUlin ASPART (NovoLOG) 1 UNIT/0.01 ML (CHARGE PER UNIT) SC SCH ×3 (06:00→16:30)
--- NOTE | 2022-01-21 06:25 | Consultation - Surgery ---
VIANEY ROBERTSON 01/21/22 0625: History of Present Illness History of Present Illness Patient Consulted On(faustino/time) 01/21/22 06:18 Date Seen by Provider: Jan 21, 2022 Time Seen by Provider: 10:00 History of Present Illness Consult requested per Dr. Fung. Patient is a 71 year old male with a past medical history of stage 4 metastatic lung cancer, COPD, and CAD that arrived to the ER last night (01-20-2022) due to dyspnea and chest pain. He had been feeling the chest pain periodically throughout the day which progressively worsened. He took a nitro at home with minimal relief. Rated the pain as a 9/10, but subsided to a 4/10 with rest. He denied any sweating or vomiting. He did have some nausea. He is on Keytruda currently for his lung cancer and wear oxygen 2 L NC at home continuously. His xray was shown to have right basilar loculated pneumothroax. He has had prior right thoracentesis on 12-07 and 12-19 for right pleural effusion. No PE was found on CTA, but did find right lower lobe material which could be secretions from tumor. This morning he is resting in bed, is in mild distress. Has no other complaints besides the chest/epigastric pain and some dyspnea. Allergies and Home Medications Allergies Coded Allergies: cephalexin (Unverified Allergy, Severe, Anaphylaxis, 06/01/21) [id number] Reductase Inhibitor (Verified Allergy, Unknown, 10/14/20) tramadol (Unverified Adverse Reaction, Intermediate, 08/16/11) medication caused pt to experience hypertensive episodes Patient Home Medication List Home Medication List Reviewed: Yes ALPRAZolam (ALPRAZolam) 0.25 Mg Tablet, 1 MG PO Q6H Prescribed by: CADE DIMAS on 11/09/21 1639 Albuterol Sulfate (Albuterol Sulfate) 2.5 Mg/3 Ml (0.083 %) Vial.neb, 3 ML NEB Q4H PRN for SHORTNESS OF BREATH, (Reported) Entered as Reported by: VISHNU TILLEY on 11/09/21 1019 Alprazolam (Alprazolam) 0.5 Mg Tablet, 0.5 MG PO HS, (Reported) Entered as Reported by: VISHNU TILLEY on 02/28/21 0857 Last Action: Continued Amoxicillin/Potassium Clav (Amox Tr-K Clv 875-125 mg Tab) 875 Mg-125 Mg Tablet, 1 EACH PO BID Prescribed by: EDGAR LI on 12/27/212349 Aspirin (Aspirin) 81 Mg Tab.chew, 81 MG PO DAILY, (Reported) Entered as Reported by: PANCHITO MALONE on 01/21/22 1128 Last Action: New Order Doxycycline Hyclate (Doxycycline Hyclate) 100 Mg Tablet, 100 MG PO BID Prescribed by: EDGAR LI on 12/27/212349 Furosemide (Furosemide) 40 Mg Tablet, 40 MG PO UD, (Reported) Entered as Reported by: VISHNU TILLEY on 11/09/21 101 Last Action: Edited Gabapentin (Gralise) 300 Mg Tab.er.24h, 300 MG PO TID, (Reported) Entered as Reported by: PANCHITO MALONE on 01/21/22 1134 Last Action: New Order Levofloxacin (Levofloxacin) 750 Mg Tablet, 750 MG PO DAILY Prescribed by: SAE NAIDU on 11/27/21 1634 Levothyroxine Sodium (Synthroid) 125 Mcg Tablet, 125 MCG PO DAILY, (Reported) Entered as Reported by: VISHNU TILLEY on 11/09/21 101 Magnesium Oxide (Magnesium Oxide) 400 Mg Magnesium Tablet, 400 MG PO DAILY, (Reported) Entered as Reported by: VISHNU TILLEY on 11/09/21 1020 Last Action: Reviewed Metoprolol Succinate (Metoprolol Succinate) 25 Mg Tab.er.24h, 12.5 MG PO DAILY, (Reported) Entered as Reported by: RODNEY GALLEGOS on 05/30/21 1018 Last Action: Reviewed Ondansetron (Ondansetron Odt) 4 Mg Tab.rapdis, 4 MG SL Q4H PRN for NAUSEA/VOMITING Prescribed by: EDGAR LI on 12/27/212349 Oxycodone Hcl (Oxyir Tablet) 5 Mg Tab, 5 MG PO Q4 -6H PRN for PAIN-SEVERE (8- 10), (Reported) Entered as Reported by: VISHNU TILLEY on 11/09/21 1019 Pantoprazole Sodium (Pantoprazole Sodium) 40 Mg Tablet.dr, 40 MG PO DAILY, (Reported) Entered as Reported by: VISHNU TILLEY on 02/28/21 0857 Last Action: Reviewed Pantoprazole Sodium (Protonix) 40 Mg Tablet.dr, 40 MG PO DAILY Prescribed by: EDGAR LI on 12/27/21 9513 Pembrolizumab (Keytruda) 100 Mg/4 Ml (25 Mg/Ml) Vial, 200 MG IV EVERY 3 WEEKS, (Reported) Entered as Reported by: VISHNU TILLEY on 11/09/21 1032 Potassium Chloride (Potassium Chloride) 20 Meq Tablet.er, 20 MEQ PO DAILY, (Reported) Entered as Reported by: VISHNU TILLEY on 11/09/21 1019 Sorbitol Solution (Sorbitol) 70 % Solution, 15-30 ML PO TID PRN for CONSTIPATION, (Reported) Entered as Reported by: VISHNU TILLEY on 11/09/21 1019 Past Edcguwu-Wxzfse-Cyljsp Hx Patient Social History Smoking Status: Former Smoker Former Smoker, Quit: May 30, 2008 Type Used: Cigarettes Recent Hopitalizations: No Alcohol Use?: No Have you traveled recently?: No Immunizations Up To Date Tetanus Booster (TDap): Unknown Date of Pneumonia Vaccine: Apr 03, 2020 Date of Influenza Vaccine: Dec 30, 2021 Seasonal Allergies Seasonal Allergies: No Surgeries History of Surgeries: Yes (R SHOULDER, OPEN HEART 2009, STENTS X 3;THORACENTESIS; POWER PORT L CHEST) Surgeries: Cardiac, CABG, Coronary Stent, Gallbladder, Orthopedic Respiratory History of Respiratory Disorde: Yes (LUNG CANCER DX 07/2020, pleural effusions, pneumothorax x2) Respiratory Disorders: COPD Cardiovascular History of Cardiac Disorders: Yes (CHF, L BBB, 3 CORONARY STENTS, A-FIB YEARS AGO;CABG) Cardiac Disorders: Atrial Fibrillation, Chronic Edema/Swelling, Coronary Artery Disease, High Cholesterol, Hypertension Neurological History of Neurological Disord: No Reproductive System Hx Reproductive Disorders: No Genitourinary History of Genitourinary Disor: Yes Genitourinary Disorders: Kidney Stones Gastrointestinal History of Gastrointestinal Di: Yes Gastrointestinal Disorders: Hemorrhoids, Gall Bladder Disease Musculoskeletal History of Musculoskeletal Dis: Yes (CHRONIC PAIN ) Musculoskeletal Disorders: Degenerate Disk Disease, Arthritis, Rheumatoid Arthritis, Chronic Back Pain Endocrine History of Endocrine Disorders: Yes Endocrine Disorders: Hypothyroidsim, Diabetes, Non-Insulin dep HEENT History of HEENT Disorders: No Cancer History of Cancer: Yes (METS TO BILATERAL ADRENAL GLAND ; RUL LUNG CA) Cancer: Lung Psychosocial History of Psychiatric Problem: No Integumentary History of Skin or Integumenta: No Blood Transfusions History of Blood Disorders: No Adverse Reaction to a Blood Tr: No Family Medical History Significant Family History: No Pertinent Family Hx, Cancer (Mother had cancer, cannot remember what kind) Other PAST SURGICAL HISTORY: -CARDIAC CATHS WITH STENTS X 3 -CABG X 1 VESSEL -RIGHT SHOULDER SURGERY -CHOLECYSTECTOMY -PORT LEFT CHEST 05/2021 -R THORACENTESIS 11/08/21 and 12-07-2021 and 12-19-2021 Review of Systems-General Constitutional: chills, malaise, weakness EENTM: No hearing loss, No ear pain Respiratory: No cough, No hemoptysis Cardiovascular: chest pain; No edema Gastrointestinal: abdominal pain; No dysphagia Genitourinary: No decreased output, No discharge Musculoskeletal: No joint pain, No muscle pain Skin: No change in color, No change in hair/nails Psychiatric/Neurological: Denies Anxiety, Denies Depressed All Other Systems Reviewed Negative Unless Noted: Yes Physical Exam-General Problems Physical Exam Vital Signs Vital Signs - First Documented 01/20/22 01/20/22 01/21/22 18:51 22:17 02:06 Temp 37.6 Pulse 96 Resp 28 B/P (MAP) 101/68 (79) Pulse Ox 100 O2 Delivery Room Air O2 Flow Rate 2.00 FiO2 28 Capillary Refill : Less Than 3 Seconds General Appearance: mild distress, thin Eyes: Bilateral Eye Normal Inspection, Bilateral Eye EOMI HEENT: normal ENT inspection; No scleral icterus (R), No scleral icterus (L) Neck: non-tender, supple Respiratory: chest non-tender, respiratory distress, decreased breath sounds (in right lower lobe and mild decrease in right upper lobe) Cardiovascular: normal peripheral pulses, no edema, no gallop Peripheral Pulses: 2+ Radial Pulses (R), 2+ Radial Pulses (L) Gastrointestinal: normal bowel sounds, tenderness (diffuse tenderness to palpation ) Rectal: deferred Back: no CVA tenderness, no vertebral tenderness Extremities: normal range of motion, non-tender, no pedal edema Neurologic/Psychiatric: alert, oriented x 3 Skin: normal color, warm/dry Lymphatic: no adenopathy Data Review Labs Laboratory Tests 01/20/22 19:05: Influenza Type A (RT-PCR) Not Detected, Influenza Type B (RT-PCR) Not Detected, SARS-CoV-2 RNA (RT-PCR) Not Detected 01/20/22 19:16: White Blood Count 5.9, Red Blood Count 3.51L, Hemoglobin 10.7L, Hematocrit 32L, Mean Corpuscular Volume 92, Mean Corpuscular Hemoglobin 31, Mean Corpuscular Hemoglobin Concent 33, Red Cell Distribution Width 13.2, Platelet Count 137, Mean Platelet Volume 11.4, Immature Granulocyte % (Auto) 0, Neutrophils (%) (Auto) 75, Lymphocytes (%) (Auto) 9L, Monocytes (%) (Auto) 13H, Eosinophils (%) (Auto) 2, Basophils (%) (Auto) 1, Neutrophils # (Auto) 4.5, Lymphocytes # (Auto) 0.6L, Monocytes # (Auto) 0.7, Eosinophils # (Auto) 0.1, Basophils # (Auto) 0.0, Immature Granulocyte # (Auto) 0.0, Percent Immature Platelet Fraction 6.7, Prothrombin Time 14.5, INR Comment 1.1, Activated Partial Thromboplast Time 32, D-Dimer 7.60H, Sodium Level 133L, Potassium Level 4.8, Chloride Level 95L, Carbon Dioxide Level 24, Anion Gap 14, Blood Urea Nitrogen 25H, Creatinine 1.36H , Estimat Glomerular Filtration Rate 55, BUN/Creatinine Ratio 18, Glucose Level 161H, Calcium Level 9.8, Corrected Calcium 10.3H, Magnesium Level 1.8, Total Bilirubin 0.4, Aspartate Amino Transf (AST/SGOT) 17, Alanine Aminotransferase (ALT/SGPT) 14, Alkaline Phosphatase 79, Total Creatine Kinase 33, Creatine Kinase MB 1.1, Myoglobin 64.1, Troponin I < 0.028, B-Type Natriuretic Peptide 679.1H, Total Protein 6.8, Albumin 3.4, Amylase Level 102, Lipase 12, Procalcitonin 0.11H, Smear Scan YES 01/20/22 20:15: Lactic Acid Level 1.15 01/20/22 21:38: Urine Color YELLOW, Urine Clarity CLEAR, Urine pH 5.5, Urine Specific [place] <=1.005, Urine Protein NEGATIVE, Urine Glucose (UA) NEGATIVE, Urine Ketones NEGATIVE, Urine Nitrite NEGATIVE, Urine Bilirubin NEGATIVE, Urine Urobilinogen 0.2, Urine Leukocyte Esterase NEGATIVE, Urine RBC (Auto) NEGATIVE, Urine RBC NONE, Urine WBC NONE, Urine Squamous Epithelial Cells NONE, Urine Crystals PRESENTH, Urine Amorphous Sediment FEW [place] URATESH, Urine Bacteria NEGATIVE, Urine Casts NONE, Urine Mucus NEGATIVE, Urine Culture Indicated NO 01/20/22 22:55: Troponin I 0.035H 01/21/22 01:00: Troponin I < 0.028 01/21/22 04:35: White Blood Count 4.9, Red Blood Count 3.24L, Hemoglobin 9.9L, Hematocrit 30L, Mean Corpuscular Volume 93, Mean Corpuscular Hemoglobin 31, Mean Corpuscular Hemoglobin Concent 33, Red Cell Distribution Width 13.2, Platelet Count 140, Mean Platelet Volume 11.5, Immature Granulocyte % (Auto) 0, Neutrophils (%) (Auto) 73, Lymphocytes (%) (Auto) 10L, Monocytes (%) (Auto) 13H, Eosinophils (%) (Auto) 3, Basophils (%) (Auto) 1, Neutrophils # (Auto) 3.6, Lymphocytes # (Auto) 0.5L, Monocytes # (Auto) 0.7, Eosinophils # (Auto) 0.1, Basophils # (Auto) 0.0, Immature Granulocyte # (Auto) 0.0, Percent Immature Platelet Fraction 6.2, Sodium Level 134L, Potassium Level 4.1, Chloride Level 101, Carbon Dioxide Level 21, Anion Gap 12, Blood Urea Nitrogen 19H, Creatinine 1.00, Estimat Glomerular Filtration Rate 80, BUN/Creatinine Ratio 19, Glucose Level 126H, Calcium Level 8.8, Corrected Calcium 9.7, Phosphorus Level 3.2, Magnesium Level 1.7, Total Bilirubin 0.6, Aspartate Amino Transf (AST/SGOT) 15, Alanine Aminotransferase (ALT/SGPT) 9, Alkaline Phosphatase 65, Total Protein 5.9L, Albumin 2.9L 01/21/22 06:10: Glucometer 114H Radiology Date of Exam:01/20/22 CT ANGIO CHEST W PROCEDURE: CT angiography of the chest with contrast. TECHNIQUE: Multiple contiguous axial images were obtained through the chest after uneventful bolus administration of intravenous contrast. 3D reconstructed CTA MIP acquisitions were also performed. Auto Exposure Controls were utilized during the CT exam to meet ALARA standards for radiation dose reduction. INDICATION: High probability for pulmonary embolism in patient with lung cancer and dyspnea. COMPARISON: 12/27/2021. FINDINGS: There is good opacification of the pulmonary arteries without intraluminal filling defect identified. Thoracic aorta is of normal caliber. Similar to the previous study, there is abnormal soft tissue in the right hilum which may represent residual mass or adenopathy. There is filling defect throughout the right lower lobe bronchi which could be due to secretions or tumor. Anterior and basilar loculated hydropneumothorax has a generally stable appearance. There is scarring in the medial aspect of the right lung as well as right apex. This all has similar appearance. Left lung is clear. Coronary artery calcification is noted. IMPRESSION: 1. No CTA evidence of pulmonary embolism or significant change in loculated right hydropneumothorax with right hilar mass and/or adenopathy which is also similar. There is an increase in material within the right lower lobe bronchus which could be due to secretions or tumor. 2. Below the diaphragm, there is a persistent left adrenal gland nodule possibly due to metastatic disease with exophytic nodules in the kidneys most suggestive of renal cysts. Date of Exam:01/20/22 CHEST 1 VIEW, AP/PA ONLY INDICATION: Chest pain. COMPARISON: 12/27/2021. FINDINGS: There is continued volume loss in the right hemithorax with right perihilar atelectasis and/or scarring. There may be slight increase in right basilar loculated pneumothorax. Left lung remains clear. Left anterior chest wall port remains in place. There is no other adverse change. IMPRESSION: Volume loss in right hemithorax which may be due to atelectasis and/or scarring of the right lung with persistent, possibly slightly enlarged, right basilar loculated pneumothorax. Assessment/Plan Assessment/Plan Assessment/Plan Right basilar loculated hydropneumothroax Stage 4 metastatic RUL lung cancer Hypotension Respiratory distress Chest pain Continue supplemental oxygen Continue supportive care No surgery indicated at this time Will consult school social worker Continue Christina's ACE LOVE DO 01/21/22 1404: History of Present Illness History of Present Illness History of Present Illness Consult quested by Dr. Pearce for hydropneumothorax right chest. Patient is a 71 -year-old male who has stage IV metastatic lung cancer. Patient on Keytruda. Patient yesterday began having increasing chest pain and difficulty breathing. Patient had a pain that kept coming and going and worsened to where he went to the emergency department for further evaluation. He states the pain was about a 9 out of 10 resting would make a little bit better. Patient had a chest x-ray which demonstrated right basilar loculated pneumothorax. A CTA of the chest which was not very different from what he had earlier a couple weeks ago. Demonstrating a hydropneumothorax and some material in the right lower lobe secretions/tumor possible.. Patient states that he has had to have a thoracentesis performed a couple times. He saw Dr. DIMAS last week which did not have anything of they could drain. Patient was found to be hypotensive in the emergency department and had to be on pressors this is currently off. Patient states that he still having some slight discomfort. He would like to go home though. He is not willing to be in the intensive care unit. Allergies and Home Medications Allergies Coded Allergies: cephalexin (Unverified Allergy, Severe, Anaphylaxis, 06/01/21) [id number] Reductase Inhibitor (Verified Allergy, Unknown, 10/14/20) tramadol (Unverified Adverse Reaction, Intermediate, 08/16/11) medication caused pt to experience hypertensive episodes Patient Home Medication List Home Medication List Reviewed: Yes ALPRAZolam (ALPRAZolam) 0.25 Mg Tablet, 1 MG PO Q6H Prescribed by: CADE DIMAS on 11/09/21 1639 Albuterol Sulfate (Albuterol Sulfate) 2.5 Mg/3 Ml (0.083 %) Vial.neb, 3 ML NEB Q4H PRN for SHORTNESS OF BREATH, (Reported) Entered as Reported by: VISHNU TILLEY on 11/09/21 1019 Alprazolam (Alprazolam) 0.5 Mg Tablet, 0.5 MG PO HS, (Reported) Entered as Reported by: VISHNU TILLEY on 02/28/21 0857 Last Action: Continued Amoxicillin/Potassium Clav (Amox Tr-K Clv 875-125 mg Tab) 875 Mg-125 Mg Tablet, 1 EACH PO BID Prescribed by: EDGAR LI on 12/27/21 2350 Aspirin (Aspirin) 81 Mg Tab.chew, 81 MG PO DAILY, (Reported) Entered as Reported by: PANCHITO MALONE on 01/21/22 1128 Last Action: New Order Doxycycline Hyclate (Doxycycline Hyclate) 100 Mg Tablet, 100 MG PO BID Prescribed by: EDGAR LI on 12/27/21 2350 Furosemide (Furosemide) 40 Mg Tablet, 40 MG PO UD, (Reported) Entered as Reported by: VISHNU TILLEY on 11/09/21 1019 Last Action: Edited Gabapentin (Gralise) 300 Mg Tab.er.24h, 300 MG PO TID, (Reported) Entered as Reported by: PANCHITO MALONE on 01/21/22 1134 Last Action: New Order Levofloxacin (Levofloxacin) 750 Mg Tablet, 750 MG PO DAILY Prescribed by: SAE NAIDU on 11/27/21 1634 Levothyroxine Sodium (Synthroid) 125 Mcg Tablet, 125 MCG PO DAILY, (Reported) Entered as Reported by: VISHNU TILLEY on 11/09/21 1019 Magnesium Oxide (Magnesium Oxide) 400 Mg Magnesium Tablet, 400 MG PO DAILY, (Reported) Entered as Reported by: VISHNU TILLEY on 11/09/21 1020 Last Action: Reviewed Metoprolol Succinate (Metoprolol Succinate) 25 Mg Tab.er.24h, 12.5 MG PO DAILY, (Reported) Entered as Reported by: RODNEY GALLEGOS on 05/30/21 1018 Last Action: Reviewed Ondansetron (Ondansetron Odt) 4 Mg Tab.rapdis, 4 MG SL Q4H PRN for NAUSEA/VOMITING Prescribed by: EDGAR LI on 12/27/21 2350 Oxycodone Hcl (Oxyir Tablet) 5 Mg Tab, 5 MG PO Q4 -6H PRN for PAIN-SEVERE (8- 10), (Reported) Entered as Reported by: VISHNU TILLEY on 11/09/21 1019 Pantoprazole Sodium (Pantoprazole Sodium) 40 Mg Tablet.dr, 40 MG PO DAILY, (Reported) Entered as Reported by: VISHNU TILLEY on 02/28/21 0857 Last Action: Reviewed Pantoprazole Sodium (Protonix) 40 Mg Tablet.dr, 40 MG PO DAILY Prescribed by: EDGAR LI on 12/27/21 2356 Pembrolizumab (Keytruda) 100 Mg/4 Ml (25 Mg/Ml) Vial, 200 MG IV EVERY 3 WEEKS, (Reported) Entered as Reported by: VISHNU TILLEY on 11/09/21 1032 Potassium Chloride (Potassium Chloride) 20 Meq Tablet.er, 20 MEQ PO DAILY, (Reported) Entered as Reported by: VISHNU TILLEY on 11/09/21 1019 Sorbitol Solution (Sorbitol) 70 % Solution, 15-30 ML PO TID PRN for CONSTIPATION, (Reported) Entered as Reported by: VISHNU TILLEY on 11/09/21 1019 Past Xksqzto-Bchwek-Bmfpyn Hx Reviewed Nursing Assessment Reviewed/Agree w Nursing PMH: Yes Family Medical History Significant Family History: Cancer (Mother had cancer, cannot remember what kind) Review of Systems-General Constitutional: chills, weakness EENTM: No hearing loss, No ear pain Respiratory: No cough, No hemoptysis Cardiovascular: chest pain; No edema Gastrointestinal: abdominal pain; No dysphagia Genitourinary: No decreased output, No discharge Musculoskeletal: No joint pain, No muscle pain Skin: No change in color, No change in hair/nails Psychiatric/Neurological: Denies Anxiety, Denies Depressed All Other Systems Reviewed Negative Unless Noted: Yes (Negative excepted noted.) Physical Exam-General Problems Physical Exam General Appearance: WD/WN, no apparent distress (Sitting in chair), thin HEENT: PERRL/EOMI, normal ENT inspection Neck: non-tender, supple Respiratory: chest non-tender; No respiratory distress; decreased breath sounds (in right lower lobe and mild decrease in right upper lobe) Cardiovascular: regular rate, rhythm, no edema Gastrointestinal: non tender, soft Rectal: deferred Back: no CVA tenderness, no vertebral tenderness Extremities: normal range of motion, non-tender, no pedal edema Neurologic/Psychiatric: alert, normal mood/affect, oriented x 3 Skin: normal color, warm/dry Lymphatic: no adenopathy Assessment/Plan Assessment/Plan Assessment/Plan Right basilar loculated hydropneumothroax Stage 4 metastatic RUL lung cancer Hypotension Respiratory distress Chest pain Continue supplemental oxygen Continue supportive care No surgery indicated at this time hydropneumorthorax is unchanged from previous ct, currently nothing to do feel not a surgical candidate Will consult school social worker for information regarding hospice care, just for information which family and patient want. Patient not wanting to be in the hospital and wanting to be at home. Continue Abx's Supervisory-Addendum Brief Verification & Attestation Participated in pt care: history, MDM, physical Personally performed: exam, history, MDM, supervision of care Care discussed with: Medical Student Procedures: n/a Results interpretation: Verified all documentation Verification and Attestation of Medical Student E/M Service A medical student performed and documented this service in my presence. I reviewed and verified all information documented by the medical student and made modifications to such information, when appropriate. I personally performed the physical exam and medical decision making. Ace Love, Jan 21, 2022,14:08 VIANEY ROBERTSON Jan 21, 2022 06:25 ACE LOVE DO Jan 21, 2022 14:04
[2022-01-21] MEDS: MAGNESIUM 1 GM/100 ML IVPB 100 ML IV SCH (07:38)
--- NOTE | 2022-01-21 08:49 | Tele-ICU Progress Note ---
Subjective Date Seen by a Provider: Jan 21, 2022 Subjective/Events-last exam This virtual visit was conducted using real time audio/video. Thank you for asking us to see this patient for respiratory insufficiency due to COPD on 2 LPM home O2, RUL lung CA w adrenal mets on Keytruda. Admitted w CP, dyspnea. Recent events: Troponins elevated. Chest pain 07/25/earlier, given Fentanyl. PMH: as above plus CAD/CABG/stents, HL, Hypothy SH: smoking history: quit 2020. FH: Non-contributory PE: VSS. O2 sat 100% on 2 LPM. HEENT: No obvious masses, adenopathy or JVD. Chest: greatly diminished R side.. CV: RRR S1 S2 No murmur or added sounds. Abd: Non-tender. Bowel sounds Y. : Unremarkable. 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 No obvious focal findings. Extremities: No edema. Capillary refill < 3 seconds. Skin: unremarkable. Results: Elevated Trop 0.035, BG114. Decreased Hb 9.9, Alb 2.9. CXR:R basal loculated PTX, R hilar enlarg. CTAC: neg for E. RUL scarring, R loculated hydroPTX., R hilar enlargment. Available chart/ vitals / labs / images reviewed. Video assessment done using teleICU camera, rest of exam as per RN. A/P: Respiratory insufficiency: Continue present management with O2 and Duonebs Monitor for increasing oxygenation needs and/or need for intubation. Critical Care: critically ill patient. Cont. abx, Levo., ASA, Javier., SSI, PRN Fent. Awaiting Cards consult. Discussed with LIANET Vela . Asked RN to reach out to eICU if any questions or concerns later. Time spent with patient/coordination of care with other health professionals (mins): 30 Sepsis Event Evaluation Height, Weight, BMI Height: 6'0.00" Weight: 233lbs. 0oz. 105.874072tg; 23.47 BMI Method:Stated Focused Exam Lactate Level 01/20/22 20:15: Lactic Acid Level 1.15 Exam Exam Patient acknowledged, consented, and participated in this virtual visit which was conducted using real time audio/video Vital Signs Date Time Temp Pulse Resp B/P (MAP) Pulse Ox O2 Delivery O2 Flow Rate FiO2 01/21/22 08:00 36.9 01/21/22 07:00 85 01/21/22 06:00 84 17 116/70 (85) 100 Nasal Cannula 2.00 01/21/22 05:00 80 18 118/92 (101) 100 Nasal Cannula 2.00 01/21/22 04:00 98 Nasal Cannula 2.00 01/21/22 04:00 74 21 114/64 (81) 99 Nasal Cannula 2.00 01/21/22 03:00 84 114/62 (79) 99 Nasal Cannula 2.00 01/21/22 02:12 Nasal Cannula 2.00 01/21/22 02:06 88 99 28 01/21/22 02:00 81 114/69 (84) 100 Nasal Cannula 2.00 01/21/22 01:00 77 01/21/22 01:00 20 116/69 (85) 100 Nasal Cannula 2.00 01/21/22 01:00 77 20 115/66 (82) 100 Nasal Cannula 2.00 01/21/22 00:00 78 109/61 (77) Nasal Cannula 2.00 01/20/22 23:59 98 Nasal Cannula 2.00 01/20/22 23:10 88 01/20/22 23:00 85 23 111/59 (76) 100 Nasal Cannula 2.00 01/20/22 22:40 96 Nasal Cannula 2.00 01/20/22 22:17 82 20 103/65 99 Nasal Cannula 2.00 01/20/22 21:41 80 91/47 01/20/22 21:15 81 94/59 01/20/22 21:03 82 64/41 01/20/22 18:51 37.6 96 28 101/68 (79) 100 Room Air I & O 01/21/22 07:00 Intake Total 4430 ml Output Total 1050 ml Balance 3380 ml Height & Weight Height: 6'0.00" Weight: 233lbs. 0oz. 105.683206wa; 23.47 BMI Method:Stated General Appearance: WD/WN, Chronically ill, Mild Distress HEENT: PERRL/EOMI Neck: Normal Inspection Respiratory: Accessory Muscle Use, Decreased Breath Sounds (IN BASES); No Rales, No Rhonci, No Wheezing Cardiovascular: No JVD, No Murmur, Tachycardia Capillary Refill: Less Than 3 Seconds Peripheral Pulses: 2+ Radial Pulses (R), 2+ Radial Pulses (L) Gastrointestinal: normal bowel sounds, tenderness (diffuse tenderness to palpation ) Extremity: Normal Capillary Refill, Normal Range of Motion, Non Tender, No Calf Tenderness, Pedal Edema (1+ EDEMA BILATERALLY) Neurologic/Psychiatric: Alert, Oriented x3, No Motor/Sensory Deficits, 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 Critical Care: Critically Ill Patient CASSIUS RAMÍREZ MD Jan 21, 2022 08:49
[2022-01-21] MEDS ORDERED: VANCOMYCIN 1 GM/NS 250 ML IVPB IV SCH ×2 (09:00)
[2022-01-21] MEDS ORDERED: ASPIRIN E.C. 81 MG (ECOTRIN) TAB PO SCH (09:00)
[2022-01-21] MEDS: RT-ALBUTEROL/IPRATROPIUM 3 ML (DUONEB) VIAL INH SCH ×2 (09:35→15:13)
--- NOTE | 2022-01-21 09:35 | Diagnostic Imaging Report ---
History: Hydropneumothorax, follow-up COMPARISON: 01/20/2022 TECHNIQUE: Frontal view the chest FINDINGS: The left Port-A-Cath tip projects over the low SVC. Airspace opacities in the right upper lung, right midlung, and the right lung base appear mildly increased since the prior exam. There is a small right pleural effusion and there is lucency consistent with the known loculated pneumothorax. The left lung appears clear. Sternotomy wires and post CABG changes are seen. The heart is stable in size. IMPRESSION: 1. Stable loculated right basilar hydropneumothorax. Airspace opacities throughout the right lung appear mildly increased since the prior exam. Dictated by: Dictated on workstation # [id number]
--- NOTE | 2022-01-21 10:14 | History & Physical-Hospitalist ---
History of Present Illness HPI/Chief Complaint Patient is a 71-year-old male well-known to me from multiple previous admissions who presented to the emergency department due to chest pain and shortness of breath. He states that his symptoms started yesterday and persisted on and off throughout the day. He took an old nitro pill that he had that did not give him any relief. As the pain continued he decided to seek evaluation in the emergency department. He denies any palpitations or diaphoresis but did have some associated nausea. He reports that his all over the front of his chest. He does have a known chronic pneumothorax and saw Dr. DIMAS earlier this week to see if he needed another chest tube but they decided that he did not. He was found to be profoundly hypotensive on arrival to the ER and he was admitted to the ICU due to septic shock likely from pneumonia. This morning he reports having persistent chest pain. And he is hoping to be able to get his home pain medication. Source: patient, family Date Seen 01/21/22 Time Seen by a Provider: 08:50 Attending Physician Jada Steiner MD PCP Admitting Physician: John Fung MD Attending Physician: John Fung MD Referring Physician Date of Admission Jan 20, 2022 at 20:00 Home Medications & Allergies Home Medications Reviewed patient Home Medication Reconciliation performed by pharmacy medication reconciliations pv design and installation technician and/or nursing. Patients Allergies have been reviewed. Allergies Allergies Coded Allergies cephalexin (Unverified Allergy, Severe, Anaphylaxis, 06/01/21) Opnscuw-ILE-VzD Reductase Inhibitor (Verified Allergy, Unknown, 10/14/20) tramadol (Unverified Adverse Reaction, Intermediate, 08/16/11) medication caused pt to experience hypertensive episodes Past Avjqrcu-Xhyiaj-Armwkt Hx Patient Social History Marrital Status: Employed/Student: retired Tobacco Use?: No Tobacco type used: Cigarettes Smoking Status: Former Smoker Smokeless Tobacco Frequency: Never a User Use of E-Cig and/or Vaping dev: No Substance use?: No Alcohol Use?: No Pt feels they are or have been: No Immunizations Up To Date Date of Influenza Vaccine: Dec 30, 2021 First/Initial COVID19 Vaccinat: 2020 Second COVID19 Vaccination Lyle: 2020 Tetanus Booster (TDap): Unknown Hepatitis A: No Hepatitis B: No Date of Pneumonia Vaccine: Apr 03, 2020 Seasonal Allergies Seasonal Allergies: No Current Status Advance Directives: No Communicates: Verbally Primary Language: Guyanese Preferred Spoken Language: Guyanese Is interpretation needed?: No Sensory deficits: Vision impairment Implanted or Applied Medical D: Port-a-cath, Stents Past Medical History Surgeries: Cardiac, CABG, Coronary Stent, Gallbladder, Orthopedic COPD Currently Using CPAP: No Currently Using BIPAP: No Atrial Fibrillation, Chronic Edema/Swelling, Coronary Artery Disease, High Cholesterol, Hypertension Kidney Stones Hemorrhoids, Gall Bladder Disease Degenerate Disk Disease, Arthritis, Rheumatoid Arthritis, Chronic Back Pain Hypothyroidsim, Diabetes, Non-Insulin dep Lung Did You Recieve Any Treatments: Yes What Type of Treatment Did You: Chemotherapy, Radiation OF 01/20/22 PT IS ON MAINTENANCE THERAPY WITH KEYTRUDA Blood Disorders: No Adverse Reaction/Blood Tranf: No Family Medical History Reviewed Nursing Family Hx No Pertinent Family Hx, Cancer (Mother had cancer, cannot remember what kind) SOCIAL HISTORY: -SMOKED 1 PPD, QUIT 2020 -ETOH-DENIES USE -DRUGS-DENIES USE PAST SURGICAL HISTORY: -CARDIAC CATHS WITH STENTS X 3 -CABG X 1 VESSEL -RIGHT SHOULDER SURGERY -CHOLECYSTECTOMY -PORT LEFT CHEST 05/2021 -R THORACENTESIS 11/08/21; Review of Systems Constitutional: No chills, No fever EENTM: no symptoms reported Respiratory: No cough; short of breath Cardiovascular: chest pain, Hx of Intervention; No palpitations Gastrointestinal: No abdominal pain, No nausea, No vomiting Genitourinary: no symptoms reported Musculoskeletal: no symptoms reported Skin: no symptoms reported Psychiatric/Neurological: No Symptoms Reported Physical Exam Physical Exam Vital Signs Vital Signs - First Documented 01/20/22 01/20/22 01/21/22 18:51 22:17 02:06 Temp 37.6 Pulse 96 Resp 28 B/P (MAP) 101/68 (79) Pulse Ox 100 O2 Delivery Room Air O2 Flow Rate 2.00 FiO2 28 Capillary Refill : Less Than 3 Seconds Height, Weight, BMI Height: 6'0.00" Weight: 233lbs. 0oz. 105.445657ej; 23.47 BMI Method:Stated General Appearance: Chronically ill, Mild Distress (appears uncomfortable), Thin HEENT: PERRL/EOMI, Moist Mucous Membranes; No Scleral Icterus (L), No Scleral Icterus (R) Respiratory: No Accessory Muscle Use, Other (hardly any breath sounds on the right but consistent with previous exams, better aereation on left) Cardiovascular: Regular Rate, Rhythm, No Murmur Gastrointestinal: Normal Bowel Sounds, Non Tender, Soft Extremity: Normal Capillary Refill, No Calf Tenderness, No Pedal Edema Neurologic/Psychiatric: Alert, Oriented x3, Normal Mood/Affect Skin: Normal Color, Warm/Dry Results Results/Procedures Labs Laboratory Tests 01/20/22 19:16 01/21/22 04:35 Patient resulted labs reviewed. Imaging: Reviewed Imaging Report [facility] [place], [place] NAME: NICOLETTE CAREY [facility] REC#: [id number] PT STATUS: REG ER : 1950 PHYSICIAN: JADA BUCKLEY DO ADMIT DATE: 01/20/22/ER Draft Date of Exam:01/20/22 CT ANGIO CHEST W PROCEDURE: CT angiography of the chest with contrast. TECHNIQUE: Multiple contiguous axial images were obtained through the chest after uneventful bolus administration of intravenous contrast. 3D reconstructed CTA MIP acquisitions were also performed. Auto Exposure Controls were utilized during the CT exam to meet ALARA standards for radiation dose reduction. INDICATION: High probability for pulmonary embolism in patient with lung cancer and dyspnea. COMPARISON: 12/27/2021. FINDINGS: There is good opacification of the pulmonary arteries without intraluminal filling defect identified. Thoracic aorta is of normal caliber. Similar to the previous study, there is abnormal soft tissue in the right hilum which may represent residual mass or adenopathy. There is filling defect throughout the right lower lobe bronchi which could be due to secretions or tumor. Anterior and basilar loculated hydropneumothorax has a generally stable appearance. There is scarring in the medial aspect of the right lung as well as right apex. This all has similar appearance. Left lung is clear. Coronary artery calcification is noted. IMPRESSION: 1. No CTA evidence of pulmonary embolism or significant change in loculated right hydropneumothorax with right hilar mass and/or adenopathy which is also similar. There is an increase in material within the right lower lobe bronchus which could be due to secretions or tumor. 2. Below the diaphragm, there is a persistent left adrenal gland nodule possibly due to metastatic disease with exophytic nodules in the kidneys most suggestive of renal cysts. Dictated on workstation # [id number] Dict: 01/20/222039 Trans: 01/20/222047 [facility] [id number] Interpreted by: MARÍA WARD MD Electronically signed by: [facility] [place], [place] NAME: NICOLETTE CAREY [facility] REC#: [id number] PT STATUS: ADM IN : 1950 PHYSICIAN: JADA BUCKLEY DO ADMIT DATE: 01/20/22/ICU Signed Date of Exam:01/20/22 CHEST 1 VIEW, AP/PA ONLY INDICATION: Chest pain. COMPARISON: 12/27/2021. FINDINGS: There is continued volume loss in the right hemithorax with right perihilar atelectasis and/or scarring. There may be slight increase in right basilar loculated pneumothorax. Left lung remains clear. Left anterior chest wall port remains in place. There is no other adverse change. IMPRESSION: Volume loss in right hemithorax which may be due to atelectasis and/or scarring of the right lung with persistent, possibly slightly enlarged, right basilar loculated pneumothorax. Dictated by: Dictated on workstation # [id number] Dict: 01/20/221947 Trans: 01/20/222200 [facility] [id number] Interpreted by: MARÍA WARD MD Electronically signed by: MARÍA WARD MD 01/20/222200 Assessment/Plan Admission Diagnosis Septic Shock Admission Status: Inpatient Order (span 2 midnights) Reason for Inpatient Admission: see below Assessment and Plan Septic Shock Pneumonia Continue on IV abx Wean off pressors Await cultures Lung cancer COPD Pneumothorax- chornic Recurrent pleural effusion MAT protocol Discussed with Dr Leon who will see in consult On Keytruda as an outpatient Would benefit from hospice or palliative care Elevated troponin- likely Type II MO from hypotension CHF CAD HTN A fib HLD Troponin trended back down to undetectable this AM Continue home meds as able Cardiology consulted, appreciate recs DMII BS 123 fasting today Accuchecks Hypothyroidism Continue synthroid Diagnosis/Problems Diagnosis/Problems (1) Type 2 diabetes mellitus with complication (2) Chronic kidney disease, stage 3 (3) Metastatic malignant neoplasm to lung (4) Cardiomyopathy (5) Essential hypertension (6) CAD (coronary artery disease), [place] coronary artery (7) Non-insulin dependent type 2 diabetes mellitus Status: Chronic (8) COPD (chronic obstructive pulmonary disease) Status: Acute (9) Septic shock Status: Acute (10) Acute on chronic renal insufficiency Status: Acute (11) Atypical chest pain Status: Acute (12) Chronic pneumothorax Status: Acute (13) Hypothyroidism (14) Atrial fibrillation JOHN FUNG MD Jan 21, 2022 10:14
--- NOTE | 2022-01-21 10:19 | Consultation-Cardiology ---
HPI-Cardiology Cardiology Consultation Date of Consultation 01/21/22 Date of Admission Time Seen by Provider: 10:11 Indication: Chest pain, shortness of breath HPI 71 years old gentleman with a history of metastatic lung cancer, hydropneumothorax. Congestive heart failure. Started to have chest pain and shortness of breath. Came into the emergency room for evaluation. On my evaluation he was reporting improvement in the chest pain but still having dyspnea. He is short of breath at rest. Denied any pedal edema. No palpitation. No syncope or near syncopal episodes. Home Medications & Allergies Allergies: Coded Allergies: cephalexin (Unverified Allergy, Severe, Anaphylaxis, 06/01/21) [id number] Reductase Inhibitor (Verified Allergy, Unknown, 10/14/20) tramadol (Unverified Adverse Reaction, Intermediate, 08/16/11) medication caused pt to experience hypertensive episodes Home Medication List Reviewed: Yes [id number] Hx Patient Social History Marital Status: Employed/Student: retired Smoking Status: Former Smoker Type Used: Cigarettes Recent Hopitalizations: No Have you traveled recently?: No Alcohol Use?: No Immunizations Up To Date Tetanus Booster (TDap): Unknown Date of Pneumonia Vaccine: Apr 03, 2020 Date of Influenza Vaccine: Dec 30, 2021 Past Medical History Discussed below Family Medical History Significant Family History: No Pertinent Family Hx, Cancer (Mother had cancer, cannot remember what kind) Review of Systems-General Review of Systems Constitutional: see HPI, dizziness, malaise, weakness EENTM: see HPI; No hearing loss, No ear pain Respiratory: see HPI; No cough; dyspnea on exertion; No hemoptysis; orthopnea; No phlegm; short of breath; No stridor, No wheezing, No other Cardiovascular: see HPI, chest pain; No edema, No Hx of Intervention, No palpitations, No syncope, No vascular heart diseas, No other Gastrointestinal: see HPI, abdominal pain; No dysphagia Genitourinary: see HPI; No decreased output, No discharge Musculoskeletal: see HPI Skin: no symptoms reported, see HPI Psychiatric/Neurological: See HPI, Headache; Denies Numbness, Denies Paresthesia, Denies Seizure, Denies Tingling, Denies Tremors All Other Systems Reviewed Negative Unless Noted: Yes Reviewed Test Results Reviewed Test Results Lab Laboratory Tests Test 01/20/22 19:05 01/20/22 19:16 01/20/22 20:15 01/20/22 21:38 Range/Units Influenza Type A (RT-PCR) Not Detected Not Detecte Influenza Type B (RT-PCR) Not Detected Not Detecte SARS-CoV-2 RNA (RT-PCR) Not Detected Not Detecte White Blood Count 5.9 4.3-11.0 10^3/uL Red Blood Count 3.51 L 4.30-5.52 10^6/uL Hemoglobin 10.7 L 13.3-17.7 g/dL Hematocrit 32 L 40-54 % Mean Corpuscular Volume 92 80-99 fL Mean Corpuscular Hemoglobin 31 25-34 pg Mean Corpuscular Hemoglobin Concent 33 32-36 g/dL Red Cell Distribution Width 13.2 10.0-14.5 % Platelet Count 137 130-400 10^3/uL Mean Platelet Volume 11.4 9.0-12.2 fL Immature Granulocyte % (Auto) 0 % Neutrophils (%) (Auto) 75 42-75 % Lymphocytes (%) (Auto) 9 L 12-44 % Monocytes (%) (Auto) 13 H 0-12 % Eosinophils (%) (Auto) 2 0-10 % Basophils (%) (Auto) 1 0-10 % Neutrophils # (Auto) 4.5 1.8-7.8 10^3/uL Lymphocytes # (Auto) 0.6 L 1.0-4.0 10^3/uL Monocytes # (Auto) 0.7 0.0-1.0 10^3/uL Eosinophils # (Auto) 0.1 0.0-0.3 10^3/uL Basophils # (Auto) 0.0 0.0-0.1 10^3/uL Immature Granulocyte # (Auto) 0.0 0.0-0.1 10^3/uL Percent Immature Platelet Fraction 6.7 0.0-7.6 % Prothrombin Time 14.5 12.2-14.7 SEC INR Comment 1.1 0.8-1.4 Activated Partial Thromboplast Time 32 24-35 SEC D-Dimer 7.60 H 0.00-0.49 UG/ML Sodium Level 133 L 135-145 MMOL/L Potassium Level 4.8 3.6-5.0 MMOL/L Chloride Level 95 L 98-107 MMOL/L Carbon Dioxide Level 24 21-32 MMOL/L Anion Gap 14 5-14 MMOL/L Blood Urea Nitrogen 25 H 7-18 MG/DL Creatinine 1.36 H 0.60-1.30 MG/DL Estimat Glomerular Filtration Rate 55 BUN/Creatinine Ratio 18 Glucose Level 161 H 70-105 MG/DL Calcium Level 9.8 8.5-10.1 MG/DL Corrected Calcium 10.3 H 8.5-10.1 MG/DL Magnesium Level 1.8 1.6-2.4 MG/DL Total Bilirubin 0.4 0.1-1.0 MG/DL Aspartate Amino Transf (AST/SGOT) 17 5-34 U/L Alanine Aminotransferase (ALT/SGPT) 14 0-55 U/L Alkaline Phosphatase 79 40-136 U/L Total Creatine Kinase 33 30-200 U/L Creatine Kinase MB 1.1 <6.6 NG/ML Myoglobin 64.1 10.0-92.0 NG/ML Troponin I < 0.028 <0.028 NG/ML B-Type Natriuretic Peptide 679.1 H <100.0 PG/ML Total Protein 6.8 6.4-8.2 GM/DL Albumin 3.4 3.2-4.5 GM/DL Amylase Level 102 25-125 U/L Lipase 12 8-78 U/L Procalcitonin 0.11 H <0.10 NG/ML Smear Scan YES Lactic Acid Level 1.15 0.50-2.00 MMOL/L Urine Color YELLOW Urine Clarity CLEAR Urine pH 5.5 5-9 Urine Specific [place] <=1.005 1.016-1.022 Urine Protein NEGATIVE NEGATIVE Urine Glucose (UA) NEGATIVE NEGATIVE Urine Ketones NEGATIVE NEGATIVE Urine Nitrite NEGATIVE NEGATIVE Urine Bilirubin NEGATIVE NEGATIVE Urine Urobilinogen 0.2 < = 1.0 MG/DL Urine Leukocyte Esterase NEGATIVE NEGATIVE Urine RBC (Auto) NEGATIVE NEGATIVE Urine RBC NONE /HPF Urine WBC NONE /HPF Urine Squamous Epithelial Cells NONE /HPF Urine Crystals PRESENT H /LPF Urine Amorphous Sediment FEW [place] URATES H /LPF Urine Bacteria NEGATIVE /HPF Urine Casts NONE /LPF Urine Mucus NEGATIVE /LPF Urine Culture Indicated NO Test 01/20/22 22:55 01/21/22 01:00 01/21/22 04:35 01/21/22 06:10 Range/Units Troponin I 0.035 H < 0.028 <0.028 NG/ML White Blood Count 4.9 4.3-11.0 10^3/uL Red Blood Count 3.24 L 4.30-5.52 10^6/uL Hemoglobin 9.9 L 13.3-17.7 g/dL Hematocrit 30 L 40-54 % Mean Corpuscular Volume 93 80-99 fL Mean Corpuscular Hemoglobin 31 25-34 pg Mean Corpuscular Hemoglobin Concent 33 32-36 g/dL Red Cell Distribution Width 13.2 10.0-14.5 % Platelet Count 140 130-400 10^3/uL Mean Platelet Volume 11.5 9.0-12.2 fL Immature Granulocyte % (Auto) 0 % Neutrophils (%) (Auto) 73 42-75 % Lymphocytes (%) (Auto) 10 L 12-44 % Monocytes (%) (Auto) 13 H 0-12 % Eosinophils (%) (Auto) 3 0-10 % Basophils (%) (Auto) 1 0-10 % Neutrophils # (Auto) 3.6 1.8-7.8 10^3/uL Lymphocytes # (Auto) 0.5 L 1.0-4.0 10^3/uL Monocytes # (Auto) 0.7 0.0-1.0 10^3/uL Eosinophils # (Auto) 0.1 0.0-0.3 10^3/uL Basophils # (Auto) 0.0 0.0-0.1 10^3/uL Immature Granulocyte # (Auto) 0.0 0.0-0.1 10^3/uL Percent Immature Platelet Fraction 6.2 0.0-7.6 % Sodium Level 134 L 135-145 MMOL/L Potassium Level 4.1 3.6-5.0 MMOL/L Chloride Level 101 98-107 MMOL/L Carbon Dioxide Level 21 21-32 MMOL/L Anion Gap 12 5-14 MMOL/L Blood Urea Nitrogen 19 H 7-18 MG/DL Creatinine 1.00 0.60-1.30 MG/DL Estimat Glomerular Filtration Rate 80 BUN/Creatinine Ratio 19 Glucose Level 126 H 70-105 MG/DL Calcium Level 8.8 8.5-10.1 MG/DL Corrected Calcium 9.7 8.5-10.1 MG/DL Phosphorus Level 3.2 2.3-4.7 MG/DL Magnesium Level 1.7 1.6-2.4 MG/DL Total Bilirubin 0.6 0.1-1.0 MG/DL Aspartate Amino Transf (AST/SGOT) 15 5-34 U/L Alanine Aminotransferase (ALT/SGPT) 9 0-55 U/L Alkaline Phosphatase 65 40-136 U/L Total Protein 5.9 L 6.4-8.2 GM/DL Albumin 2.9 L 3.2-4.5 GM/DL Glucometer 114 H 70-110 MG/DL Radiology Date of Exam:01/20/22 CT ANGIO CHEST W PROCEDURE: CT angiography of the chest with contrast. TECHNIQUE: Multiple contiguous axial images were obtained through the chest after uneventful bolus administration of intravenous contrast. 3D reconstructed CTA MIP acquisitions were also performed. Auto Exposure Controls were utilized during the CT exam to meet ALARA standards for radiation dose reduction. INDICATION: High probability for pulmonary embolism in patient with lung cancer and dyspnea. COMPARISON: 12/27/2021. FINDINGS: There is good opacification of the pulmonary arteries without intraluminal filling defect identified. Thoracic aorta is of normal caliber. Similar to the previous study, there is abnormal soft tissue in the right hilum which may represent residual mass or adenopathy. There is filling defect throughout the right lower lobe bronchi which could be due to secretions or tumor. Anterior and basilar loculated hydropneumothorax has a generally stable appearance. There is scarring in the medial aspect of the right lung as well as right apex. This all has similar appearance. Left lung is clear. Coronary artery calcification is noted. IMPRESSION: 1. No CTA evidence of pulmonary embolism or significant change in loculated right hydropneumothorax with right hilar mass and/or adenopathy which is also similar. There is an increase in material within the right lower lobe bronchus which could be due to secretions or tumor. 2. Below the diaphragm, there is a persistent left adrenal gland nodule possibly due to metastatic disease with exophytic nodules in the kidneys most suggestive of renal cysts. Date of Exam:01/20/22 CHEST 1 VIEW, AP/PA ONLY INDICATION: Chest pain. COMPARISON: 12/27/2021. FINDINGS: There is continued volume loss in the right hemithorax with right perihilar atelectasis and/or scarring. There may be slight increase in right basilar loculated pneumothorax. Left lung remains clear. Left anterior chest wall port remains in place. There is no other adverse change. IMPRESSION: Volume loss in right hemithorax which may be due to atelectasis and/or scarring of the right lung with persistent, possibly slightly enlarged, right basilar loculated pneumothorax. Physical Exam Physical Exam Vital Signs Vital Signs - First Documented 01/20/22 01/20/22 01/21/22 18:51 22:17 02:06 Temp 37.6 Pulse 96 Resp 28 B/P (MAP) 101/68 (79) Pulse Ox 100 O2 Delivery Room Air O2 Flow Rate 2.00 FiO2 28 Capillary Refill : Less Than 3 Seconds Height, Weight, BMI Height: 6'0.00" Weight: 233lbs. 0oz. [phone]; 23.47 BMI Method:Stated General Appearance: WD/WN, Chronically ill, Mild Distress Eyes: Bilateral Eye Normal Inspection, Bilateral Eye EOMI HEENT: PERRL/EOMI Neck: Normal Inspection Respiratory: Crackles, Decreased Breath Sounds (UNCHANGED. 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 Recurrent right side pleural effusion with chronic pleuritic chest pain History of multiple right thoracentesis. May require another thoracentesis Has been managed by Dr. Pickering oncology and Dr. Naqvi general surgeon History of chronic mildly elevated troponin level. Coronary artery disease, history of CABG with SWAN to the LAD Cardiac catheterization done in April 2019 showing mid vessel occlusion of the LAD with the distal vessel protected with a patent SWAN to LAD, there was 80% stenosis distal to the insertion of the graft which was successfully balloon angioplasty with reduction to 30% residual stenosis. More distally the vessel bifurcate and the smaller limb has several disease but not amendable to intervention due to the size of the vessel. Long patent stent in the obtuse marginal branch. The stent is known to be Taxus 3 x 20 and 3 x 32. Dominant right coronary artery with patent stented segment in the proximal portion. Promus 2.75 x 20. Congestive heart failure, acute on chronic left ventricular systolic dysfunction, ischemic cardiomyopathy, dilated cardiomyopathy Unable to tolerate ARTHUR inhibitor or ARB or Entresto due to hypotension. Last reported ejection fraction 25 to 30% by echocardiogram in December 2021 Metastatic stage IV adenocarcinoma of the lung, managed and followed [facility]. Diabetes mellitus, followed and managed by primary care physician Chronic kidney disease stage III, continue to monitor renal function Marked hypothyroidism. Followed and managed by primary care physician Hyperlipidemia, intolerant to statin due to muscle cramps. Intolerant to fenofibrate. Followed by Dr. JACKSON History of tobaccoism, stopped smoking in February 2009 Gastroesophageal reflux disease. History of hypertension, occasional borderline hypotension. Anxiety Chronic intermittent left bundle branch block Carotid disease, mild disease followed by heart and vascular care in [place]. History of considerable bruising on dual antiplatelet therapy TRICIA MAY MD Jan 21, 2022 10:19
[2022-01-21] MEDS: ENOXAPARIN 80 MG/0.8 ML (LOVENOX) SYR SC SCH (11:23)
[2022-01-21] MEDS: VASOPRESSIN INJECTION 20 UNIT in NS (IVPB) 100 ML IV SCH (11:24)
[2022-01-21] MEDS ORDERED: ASPI-999 PO (11:28)
[2022-01-21] MEDS ORDERED: GABA300T24 PO (11:34)
[2022-01-21] MEDS ORDERED: oxyCODONE ER 10 MG (OxyCONTIN CR) TAB PO SCH (21:00)
[2022-01-21] MEDS ORDERED: oxyCODONE ER 20 MG (OxyCONTIN CR) TAB PO SCH (21:00)
[2022-01-21] MEDS ORDERED: ALPRAZolam 0.5 MG (XANAX) TAB PO SCH (21:00)
[2022-01-22] MEDS ORDERED: TROUGH ORDER-PHARMACY XX NR (08:00)
== END 2022-01-21 16:48 | disposition left against medical advice (07) | DRG 871 ==
LOC: EDUNIT# 18:33 → ER 18:35 → ICU 20:00 → 4TH 01-21 14:29
PROVIDERS: ADMIT Family Medicine; ATTEND Family Medicine
DX: A41.9 Sepsis, unspecified organism (principal); I21.A1 Myocardial infarction type 2; J18.9 Pneumonia, unspecified organism; R65.21 Severe sepsis with septic shock; I50.23 Acute on chronic systolic (congestive) heart failure; C34.90 Malignant neoplasm of unspecified part of unspecified bronchus or lung; J44.0 Chronic obstructive pulmonary disease with (acute) lower respiratory infection; J93.81 Chronic pneumothorax; J90 Pleural effusion, not elsewhere classified; I13.0 Hypertensive heart and chronic kidney disease with heart failure and stage 1 through stage 4 chronic kidney disease, or unspecified chronic kidney disease; C79.70 Secondary malignant neoplasm of unspecified adrenal gland; I42.0 Dilated cardiomyopathy; I25.10 Atherosclerotic heart disease of native coronary artery without angina pectoris; I48.91 Unspecified atrial fibrillation; E03.9 Hypothyroidism, unspecified; Z20.822 Contact with and (suspected) exposure to COVID-19; E11.22 Type 2 diabetes mellitus with diabetic chronic kidney disease; N18.30 Chronic kidney disease, stage 3 unspecified; Z95.1 Presence of aortocoronary bypass graft; Z95.5 Presence of coronary angioplasty implant and graft; E78.00 Pure hypercholesterolemia, unspecified; M06.9 Rheumatoid arthritis, unspecified; Z92.21 Personal history of antineoplastic chemotherapy; Z92.3 Personal history of irradiation; Z87.891 Personal history of nicotine dependence; Z79.82 Long term (current) use of aspirin; Z79.890 Hormone replacement therapy; Z79.899 Other long term (current) drug therapy; K21.9 Gastro-esophageal reflux disease without esophagitis; I25.5 Ischemic cardiomyopathy; F41.9 Anxiety disorder, unspecified; I44.7 Left bundle-branch block, unspecified; I77.9 Disorder of arteries and arterioles, unspecified
CPT/HCPCS: 36415; 71045; 71275; 80053; 81000; 82150; 82533; 82550; 82553; 82947; 83605; 83690; 83735; 83874; 83880; 84100; 84145; 84484; 85025; 85379; 85610; 85730; 87040; 87081; 87088; 87636; 93005; 93041; 94640; 94760

== ENCOUNTER 2022-01-27 17:21 | Inpatient (IN) | payer MEDICARE, MEDICAID ==
[~2022-01-27] VITALS: Ht 182.8 cm; Wt 79.9 kg
[~2022-01-27 17:21] MED LIST changes: +ASPI-999 PO; +GABA300T24 PO
[2022-01-27] MEDS ORDERED: NS IV 1000 ML 1,000 ML ONE (17:36)
[2022-01-27] MEDS ORDERED: NS IV 1000 ML 1,000 ML IV SCH ×3 (17:45→20:30)
--- NOTE | 2022-01-27 17:51 | ED General ---
General Chief Complaint: Chest Pain Stated Complaint: LETHARGIC Nursing Triage Note: PT TO [facility] 7 BY [facility] WITH CC OF BEING UNRESPONSIVE BUT BREATHING AT HOME. WITH PT STATES HE WAS NORMAL AROUND 1200, SHE WENT TO WAKE HIM UP AROUND 1630 AND PT WOULD NOT WAKE OR TALK. BLOOD GLUCOSE 109 BY EMS IN ROUTE. Source of Information: Patient Exam Limitations: No Limitations (IKTTY MUNOZ DO) History of Present Illness Date Seen by Provider: Jan 27, 2022 Time Seen by Provider: 17:30 Initial Comments There is a delay in seeing this patient as I was in another room with a CODE BLUE. He arrives via EMS. His gives most of the history. She tells me he woke up fairly normally for him, though he does have stage IV lung cancer and is a bit frail in her own words. He was alert and oriented most of the day. He took a nap at 230 which was the last time she saw him. She states at 430 she was unable to wake him up. Upon EMS arrival the patient was unresponsive but maintaining his airway with normal vital signs outside of some hypotension. Blood sugar was 109. He started to come to while in route to the hospital and was complaining of some left-sided chest pain. On arrival he is alert, oriented and tells me he has pressure in his left lower chest wall. This is nonradiating without any obvious aggravating or alleviating factors. This does seem to be a new pain for him and is rated as mild, 2-3 out of 10. No real associated symptoms. He denies any nausea or vomiting. He has had no fevers or cough. No abdominal pain or changes in his bowel or bladder habits. Regarding his cancer, he has undergone radiation but they are currently holding this as he is getting immunotherapy. His lung cancer does have known metastasis to the adrenal glands. His is not aware of any other locations of metastases. His does state he has not been eating very much but he is drinking fluids. He is urinating at least 4-5 times a day. (KITTY MUNOZ DO) Allergies and Home Medications Allergies Coded Allergies: cephalexin (Unverified Allergy, Severe, Anaphylaxis, 06/01/21) Vepivtq-UUH-UqP Reductase Inhibitor (Verified Allergy, Unknown, 10/14/20) tramadol (Unverified Adverse Reaction, Intermediate, 08/16/11) medication caused pt to experience hypertensive episodes Patient Home Medication List Home Medication List Reviewed: Yes (KITTY MUNOZ DO) ALPRAZolam (ALPRAZolam) 0.25 Mg Tablet, 1 MG PO Q6H Prescribed by: CADE DIMAS on 11/09/21 1639 Albuterol Sulfate (Albuterol Sulfate) 2.5 Mg/3 Ml (0.083 %) Vial.neb, 3 ML NEB Q4H PRN for SHORTNESS OF BREATH, (Reported) Entered as Reported by: VISHNU TILLEY on 11/09/21 1019 Alprazolam (Alprazolam) 0.5 Mg Tablet, 0.5 MG PO HS, (Reported) Entered as Reported by: VISHNU TILLEY on 02/28/21 0857 Amoxicillin/Potassium Clav (Amox Tr-K Clv 875-125 mg Tab) 875 Mg-125 Mg Tablet, 1 EACH PO BID Prescribed by: EDGAR LI on 12/27/21 2350 Aspirin (Aspirin) 81 Mg Tab.chew, 81 MG PO DAILY, (Reported) Entered as Reported by: PANCHITO MALONE on 01/21/22 1128 Doxycycline Hyclate (Doxycycline Hyclate) 100 Mg Tablet, 100 MG PO BID Prescribed by: EDGAR LI on 12/27/21 2350 Furosemide (Furosemide) 40 Mg Tablet, 40 MG PO UD, (Reported) Entered as Reported by: VISHNU TILLEY on 11/09/21 1019 Gabapentin (Gralise) 300 Mg Tab.er.24h, 300 MG PO TID, (Reported) Entered as Reported by: PANCHITO MALONE on 01/21/22 1134 Levofloxacin (Levofloxacin) 750 Mg Tablet, 750 MG PO DAILY Prescribed by: SAE NAIDU on 11/27/21 1634 Levothyroxine Sodium (Synthroid) 125 Mcg Tablet, 125 MCG PO DAILY, (Reported) Entered as Reported by: VISHNU TILLEY on 11/09/21 1019 Magnesium Oxide (Magnesium Oxide) 400 Mg Magnesium Tablet, 400 MG PO DAILY, (Reported) Entered as Reported by: VISHNU TILLEY on 11/09/21 1020 Metoprolol Succinate (Metoprolol Succinate) 25 Mg Tab.er.24h, 12.5 MG PO DAILY, (Reported) Entered as Reported by: RODNEY GALLEGOS on 05/30/21 1018 Ondansetron (Ondansetron Odt) 4 Mg Tab.rapdis, 4 MG SL Q4H PRN for NAUSEA/VOMITING Prescribed by: EDGAR LI on 12/27/21 2350 Oxycodone Hcl (Oxyir Tablet) 5 Mg Tab, 5 MG PO Q4 -6H PRN for PAIN-SEVERE (8- 10), (Reported) Entered as Reported by: VISHNU TILLEY on 11/09/21 1019 Pantoprazole Sodium (Pantoprazole Sodium) 40 Mg Tablet.dr, 40 MG PO DAILY, (Reported) Entered as Reported by: VISHNU TILLEY on 02/28/21 0857 Pantoprazole Sodium (Protonix) 40 Mg Tablet.dr, 40 MG PO DAILY Prescribed by: EDGAR LI on 12/27/21 2356 Pembrolizumab (Keytruda) 100 Mg/4 Ml (25 Mg/Ml) Vial, 200 MG IV EVERY 3 WEEKS, (Reported) Entered as Reported by: VISHNU TILLEY on 11/09/21 1032 Potassium Chloride (Potassium Chloride) 20 Meq Tablet.er, 20 MEQ PO DAILY, (Reported) Entered as Reported by: VISHNU TILLEY on 11/09/21 1019 Sorbitol Solution (Sorbitol) 70 % Solution, 15-30 ML PO TID PRN for CONSTIPATION, (Reported) Entered as Reported by: VISHNU TILLEY on 11/09/21 1019 Review of Systems Review of Systems Constitutional: no symptoms reported EENTM: no symptoms reported Respiratory: no symptoms reported Cardiovascular: chest pain Gastrointestinal: no symptoms reported Genitourinary: no symptoms reported Musculoskeletal: no symptoms reported Skin: no symptoms reported Psychiatric/Neurological: No Symptoms Reported Hematologic/Lymphatic: No Symptoms Reported Immunological/Allergic: no symptoms reported (KITTY MUNOZ DO) Past Wvniqwz-Csiaov-Bjiulm Hx Patient Social History Tobacco Use?: Yes Use of E-Cig and/or Vaping dev: No Substance use?: No Alcohol Use?: No (KITTY MUNOZ DO) Immunizations Up To Date Tetanus Booster (TDap): Unknown First/Initial COVID19 Vaccinat: 2020 Second COVID19 Vaccination Lyle: 2020 Third COVID19 Vaccination Date: 2020 (KITTY MUNOZ DO) Seasonal Allergies Seasonal Allergies: No (KITTY MUNOZ DO) Past Medical History Surgery/Hospitalization HX: CHOLECYSTECTOMY/CABG/CARDIAC STENTS/R ROTATOR CUFF REPAIR/KIDNEY STONES/THORACENTESIS Surgeries: Yes (R SHOULDER, OPEN HEART 2009, STENTS X 3;THORACENTESIS; POWER PORT L CHEST) Cardiac, CABG, Coronary Stent, Gallbladder, Orthopedic Respiratory: Yes (LUNG CANCER DX 07/2020, pleural effusions, pneumothorax x2) COPD Currently Using CPAP: No Currently Using BIPAP: No Cardiac: Yes (CHF, L BBB, 3 CORONARY STENTS, A-FIB YEARS AGO;CABG X1 VESSEL) Atrial Fibrillation, Chronic Edema/Swelling, Coronary Artery Disease, High Cholesterol, Hypertension Neurological: No Reproductive Disorders: No Genitourinary: Yes Kidney Stones Gastrointestinal: Yes Hemorrhoids, Gall Bladder Disease Musculoskeletal: Yes (CHRONIC PAIN ) Degenerate Disk Disease, Arthritis, Rheumatoid Arthritis, Chronic Back Pain Endocrine: Yes Hypothyroidsim, Diabetes, Non-Insulin dep HEENT: No Cancer: Yes (METS TO BILATERAL ADRENAL GLAND ; RUL LUNG CA) Lung Did You Recieve Any Treatments: Yes What Type of Treatment Did You: Chemotherapy, Radiation Psychosocial: No Integumentary: No Blood Disorders: No Adverse Reaction/Blood Tranf: No (KITTY MUNOZ DO) Family Medical History Reviewed Nursing Family Hx (KITTY MUNOZ DO) Cancer SOCIAL HISTORY: -SMOKED 1 PPD, QUIT 2020 -ETOH-DENIES USE -DRUGS-DENIES USE PAST SURGICAL HISTORY: -CARDIAC CATHS WITH STENTS X 3 -CABG X 1 VESSEL -RIGHT SHOULDER SURGERY -CHOLECYSTECTOMY -PORT LEFT CHEST 05/2021 -R THORACENTESIS 11/08/21; HE HAS HAD MULTIPLE RIGHT THORACENTESIS DONE. (KITTY MUNOZ DO) Physical Exam Vital Signs Vital Signs - First Documented 01/27/22 17:32 Temp 36.9 Pulse 92 Resp 16 B/P (MAP) 86/56 (66) Pulse Ox 97 O2 Delivery Nasal Cannula O2 Flow Rate 2.00 (EDGAR ZHANG MD) Vital Signs Capillary Refill : Less Than 3 Seconds (KITTY MUNOZ DO) Height, Weight, BMI Height: 6'0.00" Weight: 233lbs. 0oz. 105.050335hk; 21.00 BMI Method:Stated General Appearance: No Apparent Distress, Cachetic HEENT: PERRL/EOMI, TMs Normal, Pharynx Normal, Other (Dry mucous membranes) Neck: Full Range of Motion, Normal Inspection, Non Tender, Supple Respiratory: Chest Non Tender, Lungs Clear, Normal Breath Sounds, No Accessory Muscle Use, No Respiratory Distress Cardiovascular: Regular Rate, Rhythm, No Edema, No Murmur, Normal Peripheral Pulses Gastrointestinal: Normal Bowel Sounds, No Organomegaly, No Pulsatile Mass, Non Tender, Soft Extremity: Normal Capillary Refill, Normal Inspection, Normal Range of Motion, Non Tender, No Calf Tenderness, No Pedal Edema Neurologic/Psychiatric: Alert, Oriented x3, No Motor/Sensory Deficits, Normal Mood/Affect, keno writer / runner II-XII Norm as Tested Skin: Normal Color, Warm/Dry Lymphatic: No Adenopathy (KITTY MUNOZ DO) Focused Exam Sepsis Stage: Septic Shock Possible Source: Genitouriary Lactate Level 01/27/22 17:50: Lactic Acid Level 0.79 (EDGAR ZHANG MD) Time of Focused Exam: 22:00 Respiratory: Lungs Clear, Decreased Breath Sounds (Decreased on the right) Cardiovascular: Regular Rate, Rhythm, No Edema Capillary Refill: Less Than 3 Seconds Peripheral Pulses: 2+ Radial Pulses (R) Skin: normal color, warm/dry Lactic Acid Level Laboratory Tests Test 01/27/22 17:50 Lactic Acid Level 0.79 MMOL/L (0.50-2.00) (EDGAR ZHANG MD) Within 3hrs of presentation: Admin fluids, Admin 30ml/kg IBW due to BMI>30, Admin ABX, Blood cultures prior to ABX's, Focus exam, Lactate level (EDGAR ZHANG MD) Progress/Results/Core Measures Suspected Sepsis SIRS Temperature: Pulse: 92 Respiratory Rate: 16 Blood Pressure 86 /56 Mean: 66 (KITTY MUNOZ DO) Results/Orders Lab Results Laboratory Tests Test 01/27/22 17:36 01/27/22 17:41 01/27/22 17:45 01/27/22 17:50 Range/Units White Blood Count 5.7 4.3-11.0 10^3/uL Red Blood Count 3.48 L 4.30-5.52 10^6/uL Hemoglobin 10.3 L 13.3-17.7 g/dL Hematocrit 32 L 40-54 % Mean Corpuscular Volume 91 80-99 fL Mean Corpuscular Hemoglobin 30 25-34 pg Mean Corpuscular Hemoglobin Concent 33 32-36 g/dL Red Cell Distribution Width 13.2 10.0-14.5 % Platelet Count 152 130-400 10^3/uL Mean Platelet Volume 11.8 9.0-12.2 fL Immature Granulocyte % (Auto) 0 % Neutrophils (%) (Auto) 76 H 42-75 % Lymphocytes (%) (Auto) 8 L 12-44 % Monocytes (%) (Auto) 12 0-12 % Eosinophils (%) (Auto) 4 0-10 % Basophils (%) (Auto) 0 0-10 % Neutrophils # (Auto) 4.4 1.8-7.8 10^3/uL Lymphocytes # (Auto) 0.4 L 1.0-4.0 10^3/uL Monocytes # (Auto) 0.7 0.0-1.0 10^3/uL Eosinophils # (Auto) 0.2 0.0-0.3 10^3/uL Basophils # (Auto) 0.0 0.0-0.1 10^3/uL Immature Granulocyte # (Auto) 0.0 0.0-0.1 10^3/uL Prothrombin Time 14.8 H 12.2-14.7 SEC INR Comment 1.1 0.8-1.4 Activated Partial Thromboplast Time 33 24-35 SEC Sodium Level 132 L 135-145 MMOL/L Potassium Level 5.1 H 3.6-5.0 MMOL/L Chloride Level 94 L 98-107 MMOL/L Carbon Dioxide Level 26 21-32 MMOL/L Anion Gap 12 5-14 MMOL/L Blood Urea Nitrogen 18 7-18 MG/DL Creatinine 1.11 0.60-1.30 MG/DL Estimat Glomerular Filtration Rate 71 BUN/Creatinine Ratio 16 Glucose Level 96 70-105 MG/DL Calcium Level 9.6 8.5-10.1 MG/DL Corrected Calcium 10.2 H 8.5-10.1 MG/DL Total Bilirubin 0.5 0.1-1.0 MG/DL Aspartate Amino Transf (AST/SGOT) 26 5-34 U/L Alanine Aminotransferase (ALT/SGPT) 18 0-55 U/L Alkaline Phosphatase 65 40-136 U/L Troponin I 0.030 H <0.028 NG/ML C-Reactive Protein High Sensitivity 13.16 H 0.00-0.50 MG/DL Total Protein 6.4 6.4-8.2 GM/DL Albumin 3.2 3.2-4.5 GM/DL Glucometer 80 70-110 MG/DL Procalcitonin 0.14 H <0.10 NG/ML Lactic Acid Level 0.79 0.50-2.00 MMOL/L Influenza Type A (RT-PCR) Not Detected Not Detecte Influenza Type B (RT-PCR) Not Detected Not Detecte SARS-CoV-2 RNA (RT-PCR) Not Detected Not Detecte Test 01/27/22 21:34 Range/Units Urine Color YELLOW Urine Clarity CLEAR Urine pH 5.5 5-9 Urine Specific [place] 1.020 1.016-1.022 Urine Protein NEGATIVE NEGATIVE Urine Glucose (UA) NEGATIVE NEGATIVE Urine Ketones NEGATIVE NEGATIVE Urine Nitrite NEGATIVE NEGATIVE Urine Bilirubin NEGATIVE NEGATIVE Urine Urobilinogen 0.2 < = 1.0 MG/DL Urine Leukocyte Esterase NEGATIVE NEGATIVE Urine RBC (Auto) NEGATIVE NEGATIVE Urine RBC NONE /HPF Urine WBC NONE /HPF Urine Crystals NONE /LPF Urine Bacteria NEGATIVE /HPF Urine Casts NONE /LPF Urine Mucus NEGATIVE /LPF Urine Culture Indicated NO (EDGAR ZHANG MD) My Orders Orders - EDGAR ZHANG MD Procalcitonin (Pct) (01/27/22 18:14) Ns Iv 1000 Ml (Sodium Chloride 0.9%) (01/27/22 20:30) (EDGAR ZHANG MD) Medications Given in ED (EDGAR ZHANG MD) Vital Signs/I&O 01/27/22 17:32 Temp 36.9 Pulse 92 Resp 16 B/P (MAP) 86/56 (66) Pulse Ox 97 O2 Delivery Nasal Cannula O2 Flow Rate 2.00 01/28/22 00:00 Intake Total 3100 ml Balance 3100 ml (EDGAR ZHANG MD) Vital Signs/I&O Capillary Refill : Less Than 3 Seconds (KITTY MUNOZ DO) Blood Pressure Mean: 66 Progress Note : Progress Note I assumed care of this patient from Dr. Munoz at shift change. Patient was presumed to have sepsis and was started on meropenem. He had been admitted to the hospital with septic shock about a week earlier and left the next day AGAINST MEDICAL ADVICE. He did not continue on antibiotic therapy. His states that he had an unresponsive episode earlier today. He remained mildly hypotensive after receiving 2 L of IV fluid. As the third liter was being initiated, his blood pressure rebounded to systolic greater than 90 but he then again had intermittent low blood pressures. Levophed was initiated. I had a very long and in-depth conversation with the patient and his regarding goals for the remainder of his life and his health. He was advised by his oncology team that he only has a few months to live. He expressed a strong desire to be at home where he is comfortable. However, he also describes a desire to try to prolong his life is much as possible. We discussed the conflicting nature of those 2 goals. Patient talked the situation over with his and decided in the short-term he would like to treat his condition aggre ssively and be admitted to the hospital. We also discussed CODE STATUS at length. He ultimately elected a DNR status. He was ultimately admitted to the ICU with severe sepsis orders. His pain was treated with OxyContin which he is accustomed to. (EDGAR ZHANG MD) ECG EKG : Comment Twelve-lead EKG shows a sinus rhythm with a first-degree AV block, KS interval 230 other intervals are normal. Normal axis. Left bundle branch block which is identified on previous EKGs as well. No STEMI. Negative Sgarbossa criteria (KITTY MUNOZ DO) Diagnostic Imaging Diagonstic Imaging: Xray Plain Films/CT/US/NM/MRI: chest Comments NAME: NICOLETTE CAREY MED REC#: [id number] PT STATUS: REG ER : 1950 PHYSICIAN: KITTY MUNOZ DO ADMIT DATE: 01/27/22/ER Signed Date of Exam:01/27/22 CHEST 1 VIEW, AP/PA ONLY INDICATION: Hypotension, altered mental status. COMPARISON: 01/21/2022. FINDINGS: Sternal wires midline. Right lung pleural-parenchymal opacities and volume loss are redemonstrated with likely a loculated right basilar hydropneumothorax. The more airspace disease in the right mid to upper lung may have mildly increased but no definite change. IMPRESSION: Right lung volume loss likely loculated basilar hydropneumothorax and right lung consolidations, very similar to the prior, perhaps mildly increased. Left chest stable and negative. No substantial change. Dictated by: Dictated on workstation # [id number] Dict: 01/27/221817 Trans: 01/27/221841 [facility] [id number] Interpreted by: MARÍA BARRIENTOS Electronically signed by: MARÍA BARRIENTOS 01/27/221841 Diagonstic Imaging: CT Plain Films/CT/US/NM/MRI: head Comments NAME: NICOLETTE CAREY MED REC#: [id number] PT STATUS: REG ER : 1950 PHYSICIAN: KITTY MUNOZ DO ADMIT DATE: 01/27/22/ER Signed Date of Exam:01/27/22 CT HEAD WO PROCEDURE: CT head without contrast. TECHNIQUE: Multiple contiguous axial images were obtained through the brain without the use of intravenous contrast. Auto Exposure Controls were utilized during the CT exam to meet ALARA standards for radiation dose reduction. INDICATION: Unresponsive and difficult to arouse. COMPARISON: None. FINDINGS: There is no intracranial hemorrhage, hydrocephalus, cerebral edema, mass effect or acute appearing abnormality. Cerebral cortical volume within normal limits for age. There is thick chronic ossifications along the falx. No suspicious or acute extra-axial collection. Orbits, sinuses and calvarium appear nonacute with some mild membrane thickening in the ethmoid air cells. IMPRESSION: No hemorrhage, edema or acute appearing abnormality. Dictated by: Dictated on workstation # [id number] Dict: 01/27/221922 Trans: 01/27/222035 [facility] [id number] Interpreted by: MARÍA BARRIENTOS Electronically signed by: MARÍA BARRIENTOS 01/27/222035 (EDGAR ZHANG MD) Departure Communication (Admissions) Time/Spoke to Admitting Phy: 21:55 Dr. Naidu (EDGAR ZHANG MD) Impression Primary Impression: Septic shock Additional Impression: Metastatic primary lung cancer Qualified Codes: C34.91 - Malignant neoplasm of unspecified part of right bronchus or lung Disposition: ADMITTED INPATIENT Condition: Stable Admissions Decision to Admit Reason: Admit from ER (General) Decision to Admit/Date: Jan 27, 2022 Time/Decision to Admit Time: 21:55 (EDGAR ZHANG MD) Departure-Patient Inst. Referrals: SOPHIA JACKSON MD (PCP/Family) Primary Care Physician Copy Copies To 1: SOPHIA JACKSON MD Copies To 2: MIRLANDE STATON KENNETH L DO Jan 27, 2022 17:51 EDGAR ZHANG MD Jan 27, 2022 22:29
[2022-01-27 17:53] LABS: BASOPHILS % (AUTO) 0 % (0-10); EOSINOPHILS # (AUTO) 0.2 10^3/uL (0.0-0.3); EOSINOPHILS % (AUTO) 4 % (0-10); HEMATOCRIT 32 % (40-54); HEMOGLOBIN 10.3 g/dL (13.3-17.7); LYMPHOCYTES # (AUTO) 0.4 10^3/uL (1.0-4.0); LYMPHOCYTES % (AUTO) 8 % (12-44); MEAN CORPUSCULAR HEMOGLOBIN 30 pg (25-34); MEAN CORPUSCULAR HGB CONC 33 g/dL (32-36); MEAN CORPUSCULAR VOLUME 91 fL (80-99); MEAN PLATELET VOLUME 11.8 fL (9.0-12.2); MONOCYTES # (AUTO) 0.7 10^3/uL (0.0-1.0); MONOCYTES % (AUTO) 12 % (0-12); NEUTROPHILS # (AUTO) 4.4 10^3/uL (1.8-7.8); NEUTROPHILS % (AUTO) 76 % (42-75); PLATELET COUNT 152 10^3/uL (130-400); WHITE BLOOD COUNT 5.7 10^3/uL (4.3-11.0)
[2022-01-27 17:56] LABS: ALBUMIN 3.2 GM/DL (3.2-4.5)
[2022-01-27 17:57] LABS: POTASSIUM 5.1 MMOL/L (3.6-5.0)
[2022-01-27 17:58] LABS: CALCIUM 9.6 MG/DL (8.5-10.1)
[2022-01-27 17:59] LABS: INR 1.1 (0.8-1.4); PROTHROMBIN TIME PATIENT 14.8 SEC (12.2-14.7); TOTAL PROTEIN 6.4 GM/DL (6.4-8.2)
[2022-01-27 18:01] LABS: BILIRUBIN,TOTAL 0.5 MG/DL (0.1-1.0)
[2022-01-27 18:03] LABS: CREATININE SERUM 1.11 MG/DL (0.60-1.30)
[2022-01-27] MEDS ORDERED: MEROPENEM 1,000 MG in NS (IVPB) 100 ML IV ONE (18:15)
--- NOTE | 2022-01-27 18:32 | Diagnostic Imaging Report ---
INDICATION: Hypotension, altered mental status. COMPARISON: 01/21/2022. FINDINGS: Sternal wires midline. Right lung pleural-parenchymal opacities and volume loss are redemonstrated with likely a loculated right basilar hydropneumothorax. The more airspace disease in the right mid to upper lung may have mildly increased but no definite change. IMPRESSION: Right lung volume loss likely loculated basilar hydropneumothorax and right lung consolidations, very similar to the prior, perhaps mildly increased. Left chest stable and negative. No substantial change. Dictated by: Dictated on workstation # [id number]
--- NOTE | 2022-01-27 19:57 | Diagnostic Imaging Report ---
PROCEDURE: CT head without contrast. TECHNIQUE: Multiple contiguous axial images were obtained through the brain without the use of intravenous contrast. Auto Exposure Controls were utilized during the CT exam to meet ALARA standards for radiation dose reduction. INDICATION: Unresponsive and difficult to arouse. COMPARISON: None. FINDINGS: There is no intracranial hemorrhage, hydrocephalus, cerebral edema, mass effect or acute appearing abnormality. Cerebral cortical volume within normal limits for age. There is thick chronic ossifications along the falx. No suspicious or acute extra-axial collection. Orbits, sinuses and calvarium appear nonacute with some mild membrane thickening in the ethmoid air cells. IMPRESSION: No hemorrhage, edema or acute appearing abnormality. Dictated by: Dictated on workstation # [id number]
[2022-01-27 22:20] LABS: BILIRUBIN,URINE NEGATIVE (NEGATIVE); CLARITY,URINE CLEAR; COLOR,URINE YELLOW; GLUCOSE, URINE (UA) NEGATIVE (NEGATIVE); KETONES,URINE NEGATIVE (NEGATIVE); LEUKOCYTE ESTERASE ,URINE NEGATIVE (NEGATIVE); NITRITE,URINE NEGATIVE (NEGATIVE); PH,URINE 5.5 (5-9); PROTEIN,URINE NEGATIVE (NEGATIVE)
[2022-01-27] MEDS: NOREPINEPHRINE 8 MG/250 ML 250 ML IV SCH (22:32)
[2022-01-27 22:44] LABS: BACTERIA,URINE NEGATIVE /HPF
[2022-01-27] MEDS ORDERED: oxyCODONE ER 20 MG (OxyCONTIN CR) TAB PO ONE (23:00)
[2022-01-28] MEDS ORDERED: LIDOCAINE UROJET 2% GEL 10 ML PKG ONE (00:31)
[2022-01-28] MEDS ORDERED: ONDANSETRON 4 MG/2 ML (SDV) Z0FRAN IV PRN (01:30)
[2022-01-28] MEDS ORDERED: ACETAMINOPHEN 500 MG TAB (TYLENOL) PO PRN (01:45)
[2022-01-28] MEDS ORDERED: ACETAMINOPHEN 650 MG SUPP (TYLENOL) PR PRN (01:45)
[2022-01-28] MEDS ORDERED: EPINEPHrine 1 MG INJECTION 4 MG in NS (IVPB) 248 ML IV SCH (01:45)
[2022-01-28] MEDS: LACTATED RINGERS 1,000 ML IV SCH ×3 (01:54→15:19)
[2022-01-28] MEDS: VASOPRESSIN INJECTION 20 UNIT in NS (IVPB) 100 ML IV SCH ×2 (01:55→11:56)
--- NOTE | 2022-01-28 01:55 | Tele-ICU Progress Note ---
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 Per report he was normal around noon. His tried to wake him around 1630 and he was unarousable. Glucose 109 in the field. Started to awaken en route to ED. In ED was conversant and without focal deficits. Did have some chest pain on awakening in ED reported left sided chest pain. Unclear if this is different then his chronic pleuritic chest pain. Did have some hypotension in ED requiring initiation of pressors. Current levophed 7 mcg. Imaging with persistent hydropneumothorax, grossly unchanged from prior. - sepsis protocol initiated - cultures pending - merrem initiated in ED - insulin sliding scale - pain control Focused Exam Lactate Level 01/27/22 17:50: Lactic Acid Level 0.79 Height, Weight, BMI Height: 6'0.00" Weight: 233lbs. 0oz. 105.716253gg; 21.00 BMI Method:Stated ALFONZO MORENO MD Jan 28, 2022 01:54
[2022-01-28] MEDS: NOREPINEPHRINE 8 MG/250 ML 250 ML IV SCH ×3 (02:31→21:04)
[2022-01-28] MEDS ORDERED: VANCOMYCIN 500 MG/VIAL IV ONE (02:41)
[2022-01-28] MEDS ORDERED: VANCOMYCIN 1000 MG/VIAL ONE (02:42)
[2022-01-28] MEDS ORDERED: NS IV 500 ML 500 ML ONE (02:42)
[2022-01-28] MEDS ORDERED: VANCOMYCIN 1500 MG/NS 500 ML IVPB IV ONE ×2 (03:00)
[2022-01-28] MEDS: MEROPENEM 500 MG in NS (IVPB) 100 ML IV SCH ×4 (03:48→20:03)
[2022-01-28 05:03] LABS: BASOPHILS % (AUTO) 1 % (0-10); EOSINOPHILS # (AUTO) 0.2 10^3/uL (0.0-0.3); EOSINOPHILS % (AUTO) 3 % (0-10); HEMATOCRIT 27 % (40-54); HEMOGLOBIN 8.9 g/dL (13.3-17.7); LYMPHOCYTES # (AUTO) 0.4 10^3/uL (1.0-4.0); LYMPHOCYTES % (AUTO) 6 % (12-44); MEAN CORPUSCULAR HEMOGLOBIN 30 pg (25-34); MEAN CORPUSCULAR HGB CONC 33 g/dL (32-36); MEAN CORPUSCULAR VOLUME 91 fL (80-99); MEAN PLATELET VOLUME 11.3 fL (9.0-12.2); MONOCYTES # (AUTO) 0.6 10^3/uL (0.0-1.0); MONOCYTES % (AUTO) 11 % (0-12); NEUTROPHILS # (AUTO) 4.4 10^3/uL (1.8-7.8); NEUTROPHILS % (AUTO) 79 % (42-75); PLATELET COUNT 141 10^3/uL (130-400); WHITE BLOOD COUNT 5.6 10^3/uL (4.3-11.0)
[2022-01-28 05:22] LABS: ALANINE AMINOTRANSFERASE 10 U/L (0-55); ALBUMIN 2.6 GM/DL (3.2-4.5); ALKALINE PHOSPHATASE 55 U/L (40-136); BILIRUBIN,TOTAL 0.6 MG/DL (0.1-1.0); BUN/CREATININE RATIO 15; CALCIUM 8.3 MG/DL (8.5-10.1); CARBON DIOXIDE 22 MMOL/L (21-32); CHLORIDE 101 MMOL/L (98-107); CREATININE SERUM 0.91 MG/DL (0.60-1.30); GFR ESTIMATED 90; GLUCOSE 92 MG/DL (70-105); MAGNESIUM 1.5 MG/DL (1.6-2.4); PHOSPHORUS 2.7 MG/DL (2.3-4.7); POTASSIUM 4.2 MMOL/L (3.6-5.0); SODIUM 135 MMOL/L (135-145); TOTAL PROTEIN 5.4 GM/DL (6.4-8.2)
[2022-01-28] MEDS: inSUlin ASPART (NovoLOG) 1 UNIT/0.01 ML (CHARGE PER UNIT) SC SCH ×4 (06:00→20:03)
[2022-01-28] MEDS ORDERED: NS IV 500 ML 500 ML IV PRN (06:15)
[2022-01-28] MEDS ORDERED: MAGNESIUM 1 GM/100 ML IVPB 200 ML IV ONE (06:51)
[2022-01-28] MEDS: MAGNESIUM 1 GM/100 ML IVPB 100 ML IV SCH ×2 (06:55→08:12)
--- NOTE | 2022-01-28 09:06 | Tele-ICU Progress Note ---
Progress Note video rounds completed 71 y/o male with a hx of metastatic lung cancer Admitted with SOB and PNA Has DNR status. Currently comfortable, eating breakfast. Being treated with antibiotics for PNA nd goal is to discharge for comfort care at home Focused Exam Lactate Level 01/27/22 17:50: Lactic Acid Level 0.79 Height, Weight, BMI Height: 6'0.00" Weight: 233lbs. 0oz. 105.295339op; 21.88 BMI Method:Stated Time of Focused Exam: 22:00 Labs Laboratory Tests 01/27/22 17:36 01/28/22 05:00 Results Results/Procedures Labs Laboratory Tests 01/27/22 17:36 01/28/22 05:00 Patient resulted labs reviewed. Results Labs Labs Laboratory Tests 01/27/22 17:36: White Blood Count 5.7, Red Blood Count 3.48L, Hemoglobin 10.3L, Hematocrit 32L, Mean Corpuscular Volume 91, Mean Corpuscular Hemoglobin 30, Mean Corpuscular Hemoglobin Concent 33, Red Cell Distribution Width 13.2, Platelet Count 152, Mean Platelet Volume 11.8, Immature Granulocyte % (Auto) 0, Neutrophils (%) (Auto) 76H, Lymphocytes (%) (Auto) 8L, Monocytes (%) (Auto) 12, Eosinophils (%) (Auto) 4, Basophils (%) (Auto) 0, Neutrophils # (Auto) 4.4, Lymphocytes # (Auto) 0.4L, Monocytes # (Auto) 0.7, Eosinophils # (Auto) 0.2, Basophils # (Auto) 0.0, Immature Granulocyte # (Auto) 0.0, Prothrombin Time 14.8H, INR Comment 1.1, Activated Partial Thromboplast Time 33, Sodium Level 132L, Potassium Level 5.1H, Chloride Level 94L, Carbon Dioxide Level 26, Anion Gap 12, Blood Urea Nitrogen 18, Creatinine 1.11, Estimat Glomerular Filtration Rate 71, BUN/Creatinine Ratio 16, Glucose Level 96, Calcium Level 9.6, Corrected Calcium 10.2H, Total Bilirubin 0.5, Aspartate Amino Transf (AST/SGOT) 26, Alanine Aminotransferase (ALT/SGPT) 18, Alkaline Phosphatase 65, Troponin I 0.030H, C-Reactive Protein High Sensitivity 13.16H, Total Protein 6.4, Albumin 3.2 01/27/22 17:41: Glucometer 80 11/12/22 17:45: Procalcitonin 0.14H 01/27/22 17:50: Lactic Acid Level 0.79, Influenza Type A (RT-PCR) Not Detected, Influenza Type B (RT-PCR) Not Detected, SARS-CoV-2 RNA (RT-PCR) Not Detected 01/27/22 21:34: Urine Color YELLOW, Urine Clarity CLEAR, Urine pH 5.5, Urine Specific [place] 1.020, Urine Protein NEGATIVE, Urine Glucose (UA) NEGATIVE, Urine Ketones NEGATIVE, Urine Nitrite NEGATIVE, Urine Bilirubin NEGATIVE, Urine Urobilinogen 0.2, Urine Leukocyte Esterase NEGATIVE, Urine RBC (Auto) NEGATIVE, Urine RBC NONE, Urine WBC NONE, Urine Crystals NONE, Urine Bacteria NEGATIVE, Urine Casts NONE, Urine Mucus NEGATIVE, Urine Culture Indicated NO 01/28/22 05:00: White Blood Count 5.6, Red Blood Count 2.96L, Hemoglobin 8.9L, Hematocrit 27L, Mean Corpuscular Volume 91, Mean Corpuscular Hemoglobin 30, Mean Corpuscular Hemoglobin Concent 33, Red Cell Distribution Width 13.2, Platelet Count 141, Mean Platelet Volume 11.3, Immature Granulocyte % (Auto) 0, Neutrophils (%) (Auto) 79H, Lymphocytes (%) (Auto) 6L, Monocytes (%) (Auto) 11, Eosinophils (%) (Auto) 3, Basophils (%) (Auto) 1, Neutrophils # (Auto) 4.4, Lymphocytes # (Auto) 0.4L, Monocytes # (Auto) 0.6, Eosinophils # (Auto) 0.2, Basophils # (Auto) 0.0, Immature Granulocyte # (Auto) 0.0, Sodium Level 135, Potassium Level 4.2, Chloride Level 101, Carbon Dioxide Level 22, Anion Gap 12, Blood Urea Nitrogen 14, Creatinine 0.91, Estimat Glomerular Filtration Rate 90, BUN/Creatinine Ratio 15, Glucose Level 92, Calcium Level 8.3L, Corrected Calcium 9.4, Phosphorus Level 2.7, Magnesium Level 1.5L, Total Bilirubin 0.6, Aspartate Amino Transf (AST/SGOT) 18, Alanine Aminotransferase (ALT/SGPT) 10, Alkaline Phosphatase 55, Troponin I < 0.028, Total Protein 5.4L, Albumin 2.6L MARI MENENDEZ MD Jan 28, 2022 09:06
[2022-01-28] MEDS ORDERED: OXYC40TA46 PO (09:58)
[2022-01-28] MEDS ORDERED: OXYC20TA3 PO (09:58)
[2022-01-28] MEDS ORDERED: VANCOMYCIN 750 MG/NS 250 ML IVPB IV SCH ×2 (10:00)
[2022-01-28] MEDS ORDERED: HYDROCORTISONE 100 MG/2 ML (Solu-CORTEF) VIAL IV ONE (10:30)
[2022-01-28] MEDS ORDERED: oxyCODONE ER 40 MG (oxyCONTIN CR) TAB PO SCH (10:30)
[2022-01-28] MEDS ORDERED: NALOXONE 0.4 MG/ML 1 ML (NARCAN) VIAL IV PRN (10:30)
[2022-01-28] MEDS ORDERED: oxyCODONE ER 40 MG (oxyCONTIN CR) TAB PO ONE (10:30)
[2022-01-28] MEDS: HYDROCORTISONE 100 MG/2 ML (Solu-CORTEF) VIAL IV SCH ×3 (11:23→21:52)
[2022-01-28 11:36] VITALS: BP 95/67
[2022-01-28] MEDS ORDERED: RT-ALBUTEROL/IPRATROPIUM 3 ML (DUONEB) VIAL INH PRN (12:00)
[2022-01-28] MEDS: RT-ALBUTEROL/IPRATROPIUM 3 ML (DUONEB) VIAL INH SCH ×3 (14:47→21:36)
--- NOTE | 2022-01-28 19:16 | History & Physical-Hospitalist ---
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 His brought him in because he was lethargic. He denies fevers and chills. He denies shortness of breath. He has a chronic cough which is unchanged. He denies chest pain. He denies abdominal pain, nausea, vomiting, and diarrhea. He denies dysuria. He was recently admitted with pneumonia and left AMA reportedly because people kept bringing up hospice. Source: patient, family Exam Limitations: no limitations Date Seen 01/28/22 Time Seen by a Provider: 10:30 Attending Physician Jada Steiner MD PCP Admitting Physician: Sae Naidu MD Attending Physician: Sae Naidu MD Referring Physician Date of Admission Jan 27, 2022 at 21:58 Home Medications & Allergies Home Medications Reviewed patient Home Medication Reconciliation performed by pharmacy medication reconciliations accessibility lift technician and/or nursing. Patients Allergies have been reviewed. Allergies Allergies Coded Allergies cephalexin (Unverified Allergy, Severe, Anaphylaxis, 06/01/21) Xpjhzna-FWK-TmM Reductase Inhibitor (Verified Allergy, Unknown, 10/14/20) tramadol (Unverified Adverse Reaction, Intermediate, 08/16/11) medication caused pt to experience hypertensive episodes Past Eiycnzo-Nztcef-Etghug Hx Patient Social History Tobacco Use?: Yes Smoking Status: Former Smoker Use of E-Cig and/or Vaping dev: No Substance use?: No Alcohol Use?: No Immunizations Up To Date Date of Influenza Vaccine: Dec 16, 2021 First/Initial COVID19 Vaccinat: 2020 Second COVID19 Vaccination Lyle: 2020 Tetanus Booster (TDap): Unknown Hepatitis A: No Hepatitis B: No Date of Pneumonia Vaccine: Apr 03, 2020 Seasonal Allergies Seasonal Allergies: No Current Status Communicates: Verbally Primary Language: Syrian Preferred Spoken Language: Syrian Is interpretation needed?: No Implanted or Applied Medical D: Stents Past Medical History Surgeries: Cardiac, CABG, Coronary Stent, Gallbladder, Orthopedic COPD Currently Using CPAP: No Currently Using BIPAP: No Atrial Fibrillation, Chronic Edema/Swelling, Coronary Artery Disease, High Cholesterol, Hypertension Kidney Stones Hemorrhoids, Gall Bladder Disease Degenerate Disk Disease, Arthritis, Rheumatoid Arthritis, Chronic Back Pain Hypothyroidsim, Diabetes, Non-Insulin dep Lung Did You Recieve Any Treatments: Yes What Type of Treatment Did You: Chemotherapy, Radiation Blood Disorders: No Adverse Reaction/Blood Tranf: No Family Medical History Reviewed Nursing Family Hx Cancer SOCIAL HISTORY: -SMOKED 1 PPD, QUIT 2020 -ETOH-DENIES USE -DRUGS-DENIES USE PAST SURGICAL HISTORY: -CARDIAC CATHS WITH STENTS X 3 -CABG X 1 VESSEL -RIGHT SHOULDER SURGERY -CHOLECYSTECTOMY -PORT LEFT CHEST 05/2021 -R THORACENTESIS 11/08/21; HE HAS HAD MULTIPLE RIGHT THORACENTESIS DONE. Review of Systems Constitutional: weakness EENTM: no symptoms reported Respiratory: no symptoms reported Cardiovascular: no symptoms reported Gastrointestinal: no symptoms reported Genitourinary: no symptoms reported Physical Exam Physical Exam Vital Signs Vital Signs - First Documented 01/27/22 01/28/22 17:32 11:36 Temp 36.9 Pulse 92 Resp 16 B/P (MAP) 86/56 (66) Pulse Ox 97 O2 Delivery Nasal Cannula O2 Flow Rate 2.00 FiO2 32 Capillary Refill : Less Than 3 Seconds Height, Weight, BMI Height: 6'0.00" Weight: 233lbs. 0oz. 105.894994xg; 23.76 BMI Method:Stated General Appearance: No Apparent Distress, Chronically ill HEENT: PERRL/EOMI, Pharynx Normal Neck: Normal Inspection, Supple Respiratory: No Respiratory Distress, Decreased Breath Sounds Cardiovascular: Regular Rate, Rhythm, No Edema, No Murmur Gastrointestinal: Normal Bowel Sounds, Non Tender, Soft Back: Normal Inspection, No CVA Tenderness, No Vertebral Tenderness Extremity: Normal Inspection, No Pedal Edema Neurologic/Psychiatric: Alert, Oriented x3 Skin: Normal Color, Warm/Dry Results Results/Procedures Labs Laboratory Tests 01/27/22 17:36 01/28/22 05:00 Patient resulted labs reviewed. Imaging: Reviewed Imaging Report Assessment/Plan Admission Diagnosis Shock Admission Status: Inpatient Order (span 2 midnights) Reason for Inpatient Admission: IV pressors Assessment and Plan Shock Adrenal insufficiency Metastatic lung cancer to the adrenal glands Pain of metastatic malignancy Chronic respiratory failure with hypoxia Hydropneumothorax Known adrenal metastases Cortisol level inappropriately normal on arrival, would expect significant increase with profound hypotension Also with slightly decreased sodium, slightly elevated potassium, consistent with adrenal insufficiency Started on IV Hydrocortisone Requiring pressors on arrival, weaned off today Labs not consistent with sepsis, procalcitonin not elevated x 2, previously identified hydropneumothorax remains Blood cultures with no growth Continue Merrem, consider rapid de-escalation tomorrow Stop Vancomycin Oxygen requirement at baseline 3 L Continue home pain regimen DVT prophylaxis: Lovenox Critical Care Critically Ill Patient Diagnosis/Problems Diagnosis/Problems (1) Shock Status: Acute (2) Adrenal insufficiency Status: Acute (3) Metastatic lung cancer (metastasis from lung to other site) Status: Chronic (4) Metastasis to adrenal gland Status: Chronic Qualifiers: Laterality: bilateral Qualified Codes: C79.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
[2022-01-28] MEDS ORDERED: ENOXAPARIN 40 MG/0.4 ML (LOVENOX) SYR SC SCH (21:00)
[2022-01-28] MEDS: oxyCODONE ER 40 MG (oxyCONTIN CR) TAB PO SCH (21:13)
[2022-01-29] MEDS: VASOPRESSIN INJECTION 20 UNIT in NS (IVPB) 100 ML IV SCH ×2 (00:12→11:06)
[2022-01-29] MEDS: LACTATED RINGERS 1,000 ML IV SCH (00:49)
[2022-01-29] MEDS: MEROPENEM 500 MG in NS (IVPB) 100 ML IV SCH ×2 (02:11→08:05)
[2022-01-29] MEDS: RT-ALBUTEROL/IPRATROPIUM 3 ML (DUONEB) VIAL INH SCH ×3 (02:14→08:20)
[2022-01-29 03:58] LABS: BASOPHILS % (AUTO) 0 % (0-10); EOSINOPHILS % (AUTO) 0 % (0-10); HEMOGLOBIN 8.7 g/dL (13.3-17.7); PLATELET COUNT 127 10^3/uL (130-400)
[2022-01-29 04:00] LABS: HEMATOCRIT 26 % (40-54); LYMPHOCYTES # (AUTO) 0.2 10^3/uL (1.0-4.0); LYMPHOCYTES % (AUTO) 5 % (12-44); MEAN CORPUSCULAR HEMOGLOBIN 30 pg (25-34); MEAN CORPUSCULAR HGB CONC 33 g/dL (32-36); MEAN CORPUSCULAR VOLUME 90 fL (80-99); MEAN PLATELET VOLUME 11.3 fL (9.0-12.2); MONOCYTES # (AUTO) 0.2 10^3/uL (0.0-1.0); MONOCYTES % (AUTO) 4 % (0-12); NEUTROPHILS # (AUTO) 3.8 10^3/uL (1.8-7.8); NEUTROPHILS % (AUTO) 91 % (42-75); WHITE BLOOD COUNT 4.2 10^3/uL (4.3-11.0)
[2022-01-29 04:10] LABS: ALBUMIN 2.5 GM/DL (3.2-4.5); POTASSIUM 4.3 MMOL/L (3.6-5.0)
[2022-01-29 04:11] LABS: CALCIUM 8.7 MG/DL (8.5-10.1)
[2022-01-29 04:13] LABS: TOTAL PROTEIN 5.3 GM/DL (6.4-8.2)
[2022-01-29 04:14] LABS: BILIRUBIN,TOTAL 0.3 MG/DL (0.1-1.0)
[2022-01-29 04:16] LABS: CREATININE SERUM 0.72 MG/DL (0.60-1.30); PHOSPHORUS 2.9 MG/DL (2.3-4.7)
[2022-01-29 04:19] LABS: MAGNESIUM 1.7 MG/DL (1.6-2.4)
[2022-01-29 05:08] LABS: LYMPHOCYTES % (MANUAL) 8 %; MONOCYTES % (MANUAL) 2 %; NEUTROPHILS % (MANUAL) 80 %; RBC MORPH NORMAL
[2022-01-29] MEDS ORDERED: KCL 20 MEQ TAB (K-DUR) PO SCH (06:00)
[2022-01-29] MEDS ORDERED: POTASSIUM CL 10MEQ/50ML IVPB 50 ML IV SCH (06:00)
[2022-01-29] MEDS ORDERED: MAGNESIUM 1 GM/100 ML IVPB 100 ML IV SCH ×2 (06:00→06:15)
[2022-01-29] MEDS: inSUlin ASPART (NovoLOG) 1 UNIT/0.01 ML (CHARGE PER UNIT) SC SCH (06:05)
[2022-01-29] MEDS: HYDROCORTISONE 100 MG/2 ML (Solu-CORTEF) VIAL IV SCH ×2 (06:14→11:04)
[2022-01-29] MEDS: oxyCODONE ER 40 MG (oxyCONTIN CR) TAB PO SCH (08:05)
[2022-01-29 08:32] VITALS: BP 103/69
[2022-01-29] MEDS ORDERED: TROUGH ORDER-PHARMACY XX ONE (09:00)
--- NOTE | 2022-01-29 09:51 | Tele-ICU Progress Note ---
Subjective Date Seen by a Provider: Jan 29, 2022 Time Seen by a Provider: 09:46 Subjective/Events-last exam (Tele-ICU Physician , Progress Note ) Service provided via interactive audio and video telecommunications E-CARE system to a patient admitted to ICU bed in [facility]. Available chart/ vitals / labs / Images reviewed Video assessment done using teleICU camera, rest of exam as per RN Discussed with RN Events overnight : Afebrile hemodynamically stable Respiratory - I/O = Drips: ns 75 Pressors- no Consultants: Hospital course: (01/27) 71yr old male admitted after being found unresponsive at home. He became responsive enroute c/o left non-radiating chest pain with hypotension. CXR shows a right basilar hydronpneumothorax and right lung consolidation. Pt has known metastatic lung cancer A/P Shock - fluids/ stress dose of steroids -Requiring pressors on arrival, weaned off - Merrem started. cx neg - ? consider de-escalation Chronic respiratory failure with hypoxia -( Metastatic lung cancer) - 3 l NC today - at baseline 3 L Adrenal insufficiency Metastatis to the adrenal glands - Steress dose of steroids - on SC 25 q 8 today TO CHANGE TO PO TODAY ? Pain -metastatic malignancy- cont meds Hydropneumothorax - L chest port 05/2021, R thoracentesis 11/08/21, chronic hydropneumothorax CAD s/p 1vCABG, s/p stent x3 Dm II ISS h/o Af ib - sinus now Lines : periph / PORT , (Central Line Necessity Reviewed) Pires: + OG: Nutrition: PO Analgesia: Anxiety/ delirium VTE Prophylaxis: chica 40 Stress Ulcer Prophylaxis: na Plans in collaboration with bedside consultants and IM MDs. Discussed with RN to reach out if any questions or concerns A total of 22 minutes of critical care time was devoted to this patient today, required to treat and/or prevent further deterioration of critical care condition ( as above ) . I am remotely monitoring this patient from another state. I am unable to do the bedside exam, and history/physical and pertinent information is taken from other notes in the computer and bedside staff. Sepsis Event Evaluation Height, Weight, BMI Height: 6'0.00" Weight: 233lbs. 0oz. 105.605110qu; 23.76 BMI Method:Stated Focused Exam Lactate Level 01/27/22 17:50: Lactic Acid Level 0.79 Time of Focused Exam: 22:00 Exam Exam Patient acknowledged, consented, and participated in this virtual visit which was conducted using real time audio/video Vital Signs Date Time Temp Pulse Resp B/P (MAP) Pulse Ox O2 Delivery O2 Flow Rate FiO2 01/29/22 08:32 36.0 92 100 01/29/22 08:21 100 Nasal Cannula 3.00 01/29/22 08:01 36.0 01/29/22 08:00 92 25 103/69 (80) 97 Nasal Cannula 3.00 01/29/22 07:00 86 01/29/22 07:00 86 13 130/84 (99) 100 Nasal Cannula 3.00 01/29/22 06:00 85 20 128/81 (97) 99 Nasal Cannula 3.00 01/29/22 05:00 84 17 101/64 (76) 99 Nasal Cannula 3.00 01/29/22 04:00 78 13 114/66 (82) 100 Nasal Cannula 3.00 01/29/22 04:00 Nasal Cannula 3.00 01/29/22 03:23 37.0 01/29/22 03:00 82 13 106/65 (79) 98 Nasal Cannula 3.00 01/29/22 02:23 36.5 01/29/22 02:15 96 Nasal Cannula 3.00 01/29/22 02:00 78 15 108/55 (72) 98 Nasal Cannula 3.00 01/29/22 01:00 85 01/29/22 01:00 80 23 87/56 (66) 100 Nasal Cannula 3.00 01/29/22 00:58 37.0 01/29/22 00:46 37.0 01/29/22 00:00 77 16 97/60 (72) 98 Nasal Cannula 3.00 01/28/22 23:59 Nasal Cannula 3.00 01/28/22 23:00 83 16 109/57 (74) 99 Nasal Cannula 3.00 01/28/22 22:00 81 12 88/53 (65) 100 Nasal Cannula 3.00 01/28/22 21:36 100 Nasal Cannula 3.00 01/28/22 21:00 75 12 96/54 (68) 98 Nasal Cannula 3.00 01/28/22 20:00 Nasal Cannula 3.00 01/28/22 20:00 84 22 95/55 (68) 98 Nasal Cannula 3.00 01/28/22 20:00 36.7 01/28/22 19:40 37.0 01/28/22 19:00 86 17 123/66 (85) 99 Nasal Cannula 3.00 01/28/22 19:00 86 01/28/22 18:25 99 Nasal Cannula 3.00 01/28/22 18:00 80 19 103/67 (79) 99 Nasal Cannula 3.00 01/28/22 17:00 90 18 112/64 (80) 96 Nasal Cannula 3.00 01/28/22 16:00 86 23 106/53 (70) 98 Nasal Cannula 3.00 01/28/22 15:50 98 Nasal Cannula 3.00 01/28/22 15:21 35.8 01/28/22 15:00 91 25 100/55 (70) 92 Nasal Cannula 3.00 01/28/22 14:00 102 10 110/62 (78) 96 Nasal Cannula 3.00 01/28/22 14:00 91 25 100/55 (70) 92 Nasal Cannula 3.00 01/28/22 13:00 89 24 106/61 (76) 97 Nasal Cannula 3.00 01/28/22 13:00 88 01/28/22 12:07 36.8 01/28/22 12:00 111 20 113/80 (91) 98 Nasal Cannula 3.00 01/28/22 11:56 97 Nasal Cannula 3.00 01/28/22 11:36 37.0 89 100 32 01/28/22 11:00 88 11 91/49 (63) 97 Nasal Cannula 3.00 01/28/22 10:00 89 28 95/67 (76) 100 Nasal Cannula 3.00 I & O 01/29/22 07:00 Intake Total 4390 ml Output Total 1600 ml Balance 2790 ml Height & Weight Height: 6'0.00" Weight: 233lbs. 0oz. 105.283559jg; 23.76 BMI Method:Stated General Appearance: No Apparent Distress, Chronically ill HEENT: PERRL/EOMI, Pharynx Normal Neck: Normal Inspection, Supple Respiratory: No Respiratory Distress, Decreased Breath Sounds Cardiovascular: Regular Rate, Rhythm, No Edema, No Murmur Capillary Refill: Less Than 3 Seconds Peripheral Pulses: 2+ Radial Pulses (R) Extremity: Normal Inspection, No Pedal Edema Neurologic/Psychiatric: Alert, Oriented x3 Skin: Normal Color, Warm/Dry Lymphatic: No Adenopathy Results Lab Laboratory Tests 01/27/22 17:36 01/28/22 05:00 01/29/22 03:55 Assessment/Plan Assessment/Plan 1 YESSY DURBIN MD Jan 29, 2022 09:51
[2022-01-29] MEDS ORDERED: DRONABINOL PO (10:24)
[2022-01-29] MEDS ORDERED: ALPR1TAB7 PO (10:24)
[2022-01-29] MEDS ORDERED: ALBU18HF2 INH (10:24)
[2022-01-29] MEDS ORDERED: ALPR0.5T7 PO (10:24)
[2022-01-29] MEDS ORDERED: GABA300C PO (10:24)
[2022-01-29] MEDS ORDERED: RT-ALBUTEROL/IPRATROPIUM 3 ML (DUONEB) VIAL INH SCH (11:00)
[2022-01-29] MEDS: NOREPINEPHRINE 8 MG/250 ML 250 ML IV SCH (11:06)
[2022-01-29] MEDS ORDERED: HYDR5TAB14 PO (11:14)
--- NOTE | 2022-01-29 11:25 | D/C HH Face to Face Order ---
D/C Face to Face Orders Instructions for Patient Via [facility], Patient Instructions/FollowUp: Please continue to take your medications as written. Please keep your appointment with Dr Justice as scheduled and with Wai Ray APRN this week to discuss the [facility]. Physician to follow Patient: Dr Steiner Discharge Diet for Home: No Restrictions Patient Data-Allergies,Ht & Wt Patient Allergies: Coded Allergies: cephalexin (Unverified Allergy, Severe, Anaphylaxis, 06/01/21) Shjhjbc-ZNG-ToF Reductase Inhibitor (Verified Allergy, Unknown, 10/14/20) tramadol (Unverified Adverse Reaction, Intermediate, 08/16/11) medication caused pt to experience hypertensive episodes Height (Feet): 6 Height (Inches): 0.00 Weight (Pounds): 233 Weight (Ounces): 0 Home Health Need/Face to Face Date of Face to Face: Jan 29, 2022 Clinical Findings: Pain with ambulation, Shortness of breath I have seen Pt [id number]: Yes Discharged To: Home Diagnosis/Conditions: Metastatic lung cancer Patient is Homebound due to: Pain w/ambulation, Shortness of breath/distress Homebound Status Due to the above stated illness, injury or surgical procedure (medical condition or diagnosis) and associated clinical findings, the patient is homebound because of his/her inability to leave home except with aid of a supportive device and/or person AND leaving the home requires a considerable and taxing effort or is medically contraindicated. Pt req the following assistanc: Aid of another person, Walker Home Health Nursing Orders Home Health Services Order: Nursing Services, Physical Therapy-Evaluate & Treat Med set up Home Health Infusion Therapy Line Start Date: Jan 27, 2022 Therapy Orders Therapy Orders: Physical Therapy, PT to assess for OT Therapy Specific Orders: Eval assistive deivces, Teach enviro modifications/safety, Gait training, Increase strength/endurance Certify Stmt I certify that this patient is under my care and that I, a nurse practitioner or a physician; a records assistant working with me, had a face to face encounter that - meets the physician face to face encounter requirements with this patient as dated. JOHN CALI MD Jan 29, 2022 11:25 am
[2022-01-29] MEDS ORDERED: LEVO-55 PO (11:31)
--- NOTE | 2022-01-29 11:35 | Discharge Summary ---
Diagnosis/Chief Complaint Date of Admission Jan 27, 2022 at 9:58 pm Date of Discharge Discharge Date: Jan 29, 2022 Admission Diagnosis Shock Primary Care aJda Steiner MD Discharge Diagnosis (1) Shock Status: Acute (2) Adrenal insufficiency Status: Acute (3) Metastatic lung cancer (metastasis from lung to other site) Status: Chronic (4) Metastasis to adrenal gland Status: Chronic (5) Pain of metastatic malignancy Status: Chronic (6) Chronic respiratory failure with hypoxia Status: Chronic (7) Hydropneumothorax Status: Chronic Discharge Summary Discharge Physical Exam Allergies: Coded Allergies: cephalexin (Unverified Allergy, Severe, Anaphylaxis, 06/01/21) Czegvbv-GCM-FtB Reductase Inhibitor (Verified Allergy, Unknown, 10/14/20) tramadol (Unverified Adverse Reaction, Intermediate, 08/16/11) medication caused pt to experience hypertensive episodes Vitals & I&Os Vital Signs Date Time Temp Pulse Resp B/P (MAP) Pulse Ox O2 Delivery O2 Flow Rate FiO2 01/29/22 11:00 93 21 119/68 (85) 98 Nasal Cannula 3.00 01/29/22 08:32 36.0 01/28/22 11:36 32 Hospital Course Labs (last 24 hrs) Laboratory Tests 01/28/22 15:17: Glucometer 243H 01/28/22 19:33: Glucometer 273H 01/29/22 03:55: White Blood Count 4.2L, Red Blood Count 2.89L, Hemoglobin 8.7L, Hematocrit 26L, Mean Corpuscular Volume 90, Mean Corpuscular Hemoglobin 30, Mean Corpuscular Hemoglobin Concent 33, Red Cell Distribution Width 12.8, Platelet Count 127L, Mean Platelet Volume 11.3, Immature Granulocyte % (Auto) 1, Neutrophils (%) (Auto) 91H, Lymphocytes (%) (Auto) 5L, Monocytes (%) (Auto) 4, Eosinophils (%) (Auto) 0, Basophils (%) (Auto) 0, Neutrophils # (Auto) 3.8, Lymphocytes # (Auto) 0.2L, Monocytes # (Auto) 0.2, Eosinophils # (Auto) 0.0, Basophils # (Auto) 0.0, Immature Granulocyte # (Auto) 0.0, Neutrophils % (Manual) 80, Lymphocytes % (Manual) 8, Monocytes % (Manual) 2, Percent Immature Platelet Fraction 7.0, Blood Morphology Comment NORMAL, Sodium Level 130L, Potassium Level 4.3, Chloride Level 98, Carbon Dioxide Level 23, Anion Gap 9, Blood Urea Nitrogen 15, Creatinine 0.72, Estimat Glomerular Filtration Rate 97, BUN/Creatinine Ratio 21, Glucose Level 157H, Calcium Level 8.7, Corrected Calcium 9.9, Phosphorus Level 2.9, Magnesium Level 1.7, Total Bilirubin 0.3, Aspartate Amino Transf (AST/SGOT) 16, Alanine Aminotransferase (ALT/SGPT) 11, Alkaline Phosphatase 58, Total Protein 5.3L, Albumin 2.5L 01/29/22 08:45: Vancomycin Level Trough 8.6L Microbiology 01/28/22 MRSA Screen - Final, Complete MRSA not isolated 01/27/22 Urine Culture - Final, Complete NO GROWTH 01/27/22 Blood Culture - Preliminary, Resulted No growth Patient resulted labs reviewed. Pending Labs Laboratory Tests 01/29/22 03:55: White Blood Count 4.2, Red Blood Count 2.89, Hemoglobin 8.7, Hematocrit 26, Mean Corpuscular Volume 90, Mean Corpuscular Hemoglobin 30, Mean Corpuscular Hemoglobin Concent 33, Red Cell Distribution Width 12.8, Platelet Count 127, Mean Platelet Volume 11.3, Immature Granulocyte % (Auto) 1, Neutrophils (%) (Auto) 91, Lymphocytes (%) (Auto) 5, Monocytes (%) (Auto) 4, Eosinophils (%) (Auto) 0, Basophils (%) (Auto) 0, Neutrophils # (Auto) 3.8, Lymphocytes # (Auto) 0.2, Monocytes # (Auto) 0.2, Eosinophils # (Auto) 0.0, Basophils # (Auto) 0.0, Immature Granulocyte # (Auto) 0.0, Neutrophils % (Manual) 80, Lymphocytes % (Manual) 8, Monocytes % (Manual) 2, Percent Immature Platelet Fraction 7.0, Blood Morphology Comment NORMAL, Sodium Level 130, Potassium Level 4.3, Chloride Level 98, Carbon Dioxide Level 23, Anion Gap 9, Blood Urea Nitrogen 15, Creatinine 0.72, Estimat Glomerular Filtration Rate 97, BUN/Creatinine Ratio 21, Glucose Level 157, Calcium Level 8.7, Corrected Calcium 9.9, Phosphorus Level 2.9, Magnesium Level 1.7, Total Bilirubin 0.3, Aspartate Amino Transf (AST/SGOT) 16, Alanine Aminotransferase (ALT/SGPT) 11, Alkaline Phosphatase 58, Total Protein 5.3, Albumin 2.5 01/29/22 08:45: Vancomycin Level Trough 8.6 Imaging: Reviewed Imaging Report Discharge Home Medications: Active Scripts Active Levofloxacin 500 Mg Tablet 500 Mg PO DAILY Hydrocortisone 5 Mg Tablet 5 Mg PO TID Ondansetron Odt (Ondansetron) 4 Mg Tab.rapdis 4 Mg SL Q4H PRN Reported Alprazolam 0.5 Mg Tablet 0.25-0.5 Mg PO BID PRN Neurontin (Gabapentin) 300 Mg Capsule 300 Mg PO TID Ventolin Hfa (Albuterol Sulfate) 90 Mcg Hfa.aer.ad 2 Puff INH QID PRN [Dronabinol ] 2.5 Cap 2.5 Mg PO 0800,1200 W/ MEALS Oxycodone HCl 20 Mg Tablet 20 Mg PO Q3HR PRN Oxycontin (Oxycodone HCl) 40 Mg Tab.er.12h 40 Mg PO Q12H Aspirin 81 Mg Tab.chew 81 Mg PO DAILY Magnesium Oxide 400 Mg Magnesium Tablet 400 Mg PO BID Albuterol Sulfate 2.5 Mg/3 Ml (0.083 %) Vial.neb 3 Ml NEB Q4H PRN Sorbitol (Sorbitol Solution) 70 % Solution 15-30 Ml PO TID PRN Synthroid (Levothyroxine Sodium) 125 Mcg Tablet 125 Mcg PO DAILY Furosemide 40 Mg Tablet 40 Mg PO DAILY Potassium Chloride 20 Meq Tablet.er 20 Meq PO DAILY Metoprolol Succinate 25 Mg Tab.er.24h 12.5 Mg PO DAILY TAKES OF A 25MG TAB Pantoprazole Sodium 40 Mg Tablet.dr 40 Mg PO DAILY Alprazolam 0.5 Mg Tablet 0.5 Mg PO HS Instructions to patient/family Please see electronic discharge instructions given to patient. Problem Qualifiers (1) Metastasis to adrenal gland: Laterality: bilateral Qualified Codes: C79.71 - Secondary malignant neoplasm of right adrenal gland; C79.72 - Secondary malignant neoplasm of left adrenal gland JOHN CALI MD Jan 29, 2022 11:35 am
== END 2022-01-29 12:40 | disposition home or self-care (01) | DRG 292 ==
LOC: EDUNIT# 17:21 → ER 17:22 → ICU 21:58
PROVIDERS: ADMIT Internal Medicine; ATTEND Internal Medicine
DX: R57.9 Shock, unspecified (principal); C34.91 Malignant neoplasm of unspecified part of right bronchus or lung; C79.71 Secondary malignant neoplasm of right adrenal gland; C79.72 Secondary malignant neoplasm of left adrenal gland; J96.11 Chronic respiratory failure with hypoxia; J94.2 Hemothorax; E27.40 Unspecified adrenocortical insufficiency; Z20.822 Contact with and (suspected) exposure to COVID-19; I50.9 Heart failure, unspecified; I48.91 Unspecified atrial fibrillation; I25.10 Atherosclerotic heart disease of native coronary artery without angina pectoris; E78.00 Pure hypercholesterolemia, unspecified; E03.9 Hypothyroidism, unspecified; E11.9 Type 2 diabetes mellitus without complications; I11.0 Hypertensive heart disease with heart failure; M06.9 Rheumatoid arthritis, unspecified; G89.29 Other chronic pain; M54.9 Dorsalgia, unspecified; Z95.5 Presence of coronary angioplasty implant and graft; Z95.1 Presence of aortocoronary bypass graft; Z87.891 Personal history of nicotine dependence; Z92.21 Personal history of antineoplastic chemotherapy; Z92.3 Personal history of irradiation; Z79.82 Long term (current) use of aspirin; Z79.890 Hormone replacement therapy; Z79.899 Other long term (current) drug therapy; Z66 Do not resuscitate
CPT/HCPCS: 36415; 70450; 71045; 80053; 80202; 81000; 82533; 82947; 83605; 83735; 84100; 84145; 84484; 85007; 85025; 85027; 85610; 85730; 86141; 87040; 87081; 87088; 87636; 93005; 94640

== ENCOUNTER 2022-02-09 08:55 | Emergency (ER) | payer MEDICARE, MEDICAID ==
[~2022-02-09] VITALS: Ht 182 cm; Wt 75.0 kg
[~2022-02-09 08:55] MED LIST changes: +ALBU18HF2 INH; +ALPR1TAB7 PO; +DRONABINOL PO; +GABA300C PO; +HYDR5TAB14 PO; +LEVO-55 PO; +OXYC20TA3 PO; +OXYC40TA46 PO
[2022-02-09] MEDS ORDERED: fentaNYL INJ 100 MCG/2 ML AMP IV ONE (08:57)
[2022-02-09] MEDS ORDERED: MIDAZOLAM 5 MG/5 ML (VERSED) VIAL INJ ONE (08:57)
[2022-02-09] MEDS ORDERED: ONDANSETRON 4 MG/2 ML (SDV) Z0FRAN ONE (09:06)
[2022-02-09 09:30] LABS: BASOPHILS # (AUTO) 0.1 10^3/uL (0.0-0.1); BASOPHILS % (AUTO) 0 % (0-10); EOSINOPHILS % (AUTO) 0 % (0-10); HEMATOCRIT 36 % (40-54); HEMOGLOBIN 11.9 g/dL (13.3-17.7); LYMPHOCYTES # (AUTO) 0.7 10^3/uL (1.0-4.0); LYMPHOCYTES % (AUTO) 4 % (12-44); MEAN CORPUSCULAR HEMOGLOBIN 30 pg (25-34); MEAN CORPUSCULAR HGB CONC 33 g/dL (32-36); MEAN CORPUSCULAR VOLUME 89 fL (80-99); MEAN PLATELET VOLUME 11.6 fL (9.0-12.2); MONOCYTES # (AUTO) 0.8 10^3/uL (0.0-1.0); MONOCYTES % (AUTO) 4 % (0-12); NEUTROPHILS # (AUTO) 17.3 10^3/uL (1.8-7.8); NEUTROPHILS % (AUTO) 91 % (42-75); PLATELET COUNT 209 10^3/uL (130-400)
[2022-02-09 09:35] LABS: ALBUMIN 3.2 GM/DL (3.2-4.5); CHLORIDE 92 MMOL/L (98-107); POTASSIUM 4.5 MMOL/L (3.6-5.0); SODIUM 131 MMOL/L (135-145)
[2022-02-09] MEDS ORDERED: AMIODARONE 150 MG/3 ML (CORDARONE) VIAL IV ONE (09:35)
[2022-02-09] MEDS ORDERED: NORMAL SALINE 250 ML ONE (09:36)
[2022-02-09 09:37] LABS: CALCIUM 9.5 MG/DL (8.5-10.1)
[2022-02-09] MEDS ORDERED: AMIODARONE 450 MG/9 ML (CORDARONE) VIAL IV ONE (09:37)
[2022-02-09 09:38] LABS: GLUCOSE 109 MG/DL (70-105); TOTAL PROTEIN 6.6 GM/DL (6.4-8.2)
[2022-02-09] MEDS ORDERED: D5W 100 ML IVPB 100 ML IV ONE (09:38)
[2022-02-09 09:39] LABS: CARBON DIOXIDE 27 MMOL/L (21-32)
[2022-02-09 09:40] LABS: BILIRUBIN,TOTAL 0.6 MG/DL (0.1-1.0)
[2022-02-09 09:41] LABS: ALKALINE PHOSPHATASE 96 U/L (40-136)
[2022-02-09 09:42] LABS: CREATININE SERUM 1.11 MG/DL (0.60-1.30); GFR ESTIMATED 71
[2022-02-09 09:43] LABS: BUN/CREATININE RATIO 26
[2022-02-09 09:44] LABS: ALANINE AMINOTRANSFERASE 30 U/L (0-55)
[2022-02-09 09:45] LABS: FIBRIN DEGRADATION PRODUCTS 9.13 UG/ML (0.00-0.49); LYMPHOCYTES % (MANUAL) 6 %; MAGNESIUM 1.6 MG/DL (1.6-2.4); MONOCYTES % (MANUAL) 2 %; NEUTROPHILS % (MANUAL) 92 %; PROTHROMBIN TIME PATIENT 14.1 SEC (12.2-14.7); RBC MORPH NORMAL
[2022-02-09] MEDS ORDERED: AMIODARONE FOR BOLUS IV ONE (09:45)
[2022-02-09] MEDS ORDERED: DIGOXIN 0.25 MG/ML (LANOXIN) 2 ML AMP IV ONE ×2 (09:45→13:30)
[2022-02-09] MEDS ORDERED: NS IV ONE (09:45)
[2022-02-09] MEDS ORDERED: ENOXAPARIN 80 MG/0.8 ML (LOVENOX) SYR SC ONE (09:45)
[2022-02-09] MEDS ORDERED: AMIODARONE INJECTION 450 MG in NORMAL SALINE 250 ML IV SCH (09:45)
--- NOTE | 2022-02-09 10:04 | Diagnostic Imaging Report ---
EXAMINATION: Chest 1 view HISTORY: Chest pain COMPARISON: 01/27/2022 FINDINGS: Heart size and pulmonary vasculature are normal. Stable surgical changes from median sternotomy. Increasing opacification of the right lung, increased from 01/27/2022. Persistent right pleural effusions. No definitive pneumothorax. The osseous structures are intact. IMPRESSION: 1. Increasing opacification of the right lung with persistent right-sided pleural effusions. Dictated by: Dictated on workstation # [id number]
[2022-02-09 10:06] LABS: FREE T4 (FREE THYROXINE) 1.01 NG/DL (0.70-1.48)
[2022-02-09] MEDS ORDERED: NS IV 1000 ML 1,000 ML IV SCH (10:15)
--- NOTE | 2022-02-09 10:24 | ED General ---
General Chief Complaint: Chest Pain Stated Complaint: HIGH HEART RATE Nursing Triage Note: PT ARRIVED PER EMS, EMS CALLED OUT FOR PT NOT FEELING WELL. PT HAS AFIB RVR WEAKENSS, HX LUNG CA, R SIDE CHEST PAIN CHRONIC. PT PORT R SIDE CHEST ACCESSED BY EMS. PT IS ON O2 AND IVF NS INFUSING. PT IS AWAKE AT THIS X Source of Information: Patient, EMS, Family, Old Records Exam Limitations: Physical Impairments History of Present Illness Date Seen by Provider: Feb 09, 2022 Time Seen by Provider: 08:56 Initial Comments This 71-year-old gentleman with right-sided lung cancer presents to the emergency room with chest pain, hypotension, hypoxia, and tachycardia. He was initially hypotensive for EMS but that improved in route. He normally uses oxygen at 3 L per nasal cannula but he was requiring 6 L to maintain oxygen saturations for EMS. He is currently receiving palliative, life extending immunotherapy for his lung cancer. He has what appears to be a regular tachycardia with heart rate in the 120s to 140s on the monitor during initial assessment. He is hypotensive for us on initial evaluation and IV fluids are infusing as started by EMS. He is not anticoagulated. He has remote history of atrial fibrillation but is normally in sinus rhythm. He is somnolent but does respond to questions. He is eventually accompanied by his . He is full code which is confirmed by patient and his . Port was accessed by EMS. Patient has history of complex right lung pathology with lobulated/loculated hydropneumothorax that is not very amenable to thoracentesis. Dr. Naqvi has qiana ged this in the past. Patient has been on multiple rounds of antibiotics recently for suspected episodes of pneumonia. Allergies and Home Medications Allergies Coded Allergies: cephalexin (Unverified Allergy, Severe, Anaphylaxis, 06/01/21) Lmuidae-NXI-AvJ Reductase Inhibitor (Verified Allergy, Unknown, 10/14/20) tramadol (Unverified Adverse Reaction, Intermediate, 08/16/11) medication caused pt to experience hypertensive episodes Patient Home Medication List Home Medication List Reviewed: Yes Albuterol Sulfate (Albuterol Sulfate) 2.5 Mg/3 Ml (0.083 %) Vial.neb, 3 ML NEB Q4H PRN for SHORTNESS OF BREATH, (Reported) Entered as Reported by: VISNHU TILLEY on 11/09/21 1019 Albuterol Sulfate (Ventolin Hfa) 90 Mcg Hfa.aer.ad, 2 PUFF INH QID PRN for SHORTNESS OF BREATH, (Reported) Entered as Reported by: VISHNU TILLEY on 01/29/22 1024 Alprazolam (Alprazolam) 0.5 Mg Tablet, 0.5 MG PO HS, (Reported) Entered as Reported by: VISHNU TILLEY on 02/28/21 0857 Alprazolam (Alprazolam) 0.5 Mg Tablet, 0.25-0.5 MG PO BID PRN for ANXIETY, (Reported) Entered as Reported by: VISHNU TILLEY on 01/29/22 1024 Aspirin (Aspirin) 81 Mg Tab.chew, 81 MG PO DAILY, (Reported) Entered as Reported by: PANCHITO MALONE on 01/21/22 1128 Furosemide (Furosemide) 40 Mg Tablet, 40 MG PO DAILY, (Reported) Entered as Reported by: VISHNU TILLEY on 11/09/21 1019 Gabapentin (Neurontin) 300 Mg Capsule, 300 MG PO TID, (Reported) Entered as Reported by: VISHNU TILLEY on 01/29/22 1024 Hydrocortisone (Hydrocortisone) 5 Mg Tablet, 5 MG PO TID Prescribed by: JOHN CALI on 01/29/22 1114 Levofloxacin (Levofloxacin) 500 Mg Tablet, 500 MG PO DAILY Prescribed by: JOHN CALI on 01/29/22 1131 Levothyroxine Sodium (Synthroid) 125 Mcg Tablet, 125 MCG PO DAILY, (Reported) Entered as Reported by: VISHNU TILLEY on 11/09/21 1019 Magnesium Oxide (Magnesium Oxide) 400 Mg Magnesium Tablet, 400 MG PO BID, (Reported) Entered as Reported by: VISHNU TILLEY on 11/09/21 1020 Ondansetron (Ondansetron Odt) 4 Mg Tab.rapdis, 4 MG SL Q4H PRN for NAUSEA/VOMITING Prescribed by: EDGAR LI on 12/27/21 2350 Oxycodone HCl (Oxycontin) 40 Mg Tab.er.12h, 40 MG PO Q12H, (Reported) Entered as Reported by: CHACE SLATER on 01/28/22 0958 Oxycodone HCl (Oxycodone HCl) 20 Mg Tablet, 20 MG PO Q3HR PRN for PAIN- BREAKTHROUGH, (Reported) Entered as Reported by: CHACE SLATER on 01/28/22 0958 Pantoprazole Sodium (Pantoprazole Sodium) 40 Mg Tablet.dr, 40 MG PO DAILY, (Reported) Entered as Reported by: VISHNU TILLEY on 02/28/21 0857 Potassium Chloride (Potassium Chloride) 20 Meq Tablet.er, 20 MEQ PO DAILY, (Reported) Entered as Reported by: VISHNU TILLEY on 11/09/21 1019 Sorbitol Solution (Sorbitol) 70 % Solution, 15-30 ML PO TID PRN for CONSTIPATION, (Reported) Entered as Reported by: VISHNU TILLEY on 11/09/21 1019 [Dronabinol ] 2.5 CAP, 2.5 MG PO 0800,1200 W/ MEALS, (Reported) Entered as Reported by: VISHNU TILLEY on 01/29/22 1024 Review of Systems Review of Systems Constitutional: see HPI EENTM: no symptoms reported Respiratory: see HPI Cardiovascular: see HPI Gastrointestinal: no symptoms reported Genitourinary: no symptoms reported Musculoskeletal: no symptoms reported Skin: no symptoms reported Psychiatric/Neurological: See HPI Hematologic/Lymphatic: See HPI Immunological/Allergic: see HPI Past Dowdnbk-Yuwnro-Jkcuec Hx Patient Social History Tobacco Use?: No Substance use?: No Alcohol Use?: No Pt feels they are or have been: No Immunizations Up To Date Tetanus Booster (TDap): Unknown First/Initial COVID19 Vaccinat: 2020 Second COVID19 Vaccination Lyle: 2020 Third COVID19 Vaccination Date: 2020 Seasonal Allergies Seasonal Allergies: No Past Medical History Surgery/Hospitalization HX: CHOLECYSTECTOMY/CABG/CARDIAC STENTS/R ROTATOR CUFF REPAIR/KIDNEY STONES/THORACENTESIS, STAGE 4 LUNG CA WITH METS TO THE ADRENAL GLANDS Surgeries: Yes (R SHOULDER, OPEN HEART 2009, STENTS X 3;THORACENTESIS; POWER PORT L CHEST) Cardiac, CABG, Coronary Stent, Gallbladder, Orthopedic Respiratory: Yes (LUNG CANCER DX 07/2020, pleural effusions, pneumothorax x2) COPD Currently Using CPAP: No Currently Using BIPAP: No Cardiac: Yes (CHF, L BBB, 3 CORONARY STENTS, A-FIB YEARS AGO;CABG X1 VESSEL) Atrial Fibrillation, Chronic Edema/Swelling, Coronary Artery Disease, High Cholesterol, Hypertension Neurological: No Reproductive Disorders: No Genitourinary: Yes Kidney Stones Gastrointestinal: Yes Hemorrhoids, Gall Bladder Disease Musculoskeletal: Yes (CHRONIC PAIN ) Degenerate Disk Disease, Arthritis, Rheumatoid Arthritis, Chronic Back Pain Endocrine: Yes Hypothyroidsim, Diabetes, Non-Insulin dep HEENT: No Cancer: Yes (METS TO BILATERAL ADRENAL GLAND ; RUL LUNG CA) Lung Did You Recieve Any Treatments: Yes What Type of Treatment Did You: Chemotherapy, Radiation Psychosocial: No Integumentary: No Blood Disorders: No Adverse Reaction/Blood Tranf: No Family Medical History Cancer SOCIAL HISTORY: -SMOKED 1 PPD, QUIT 2020 -ETOH-DENIES USE -DRUGS-DENIES USE PAST SURGICAL HISTORY: -CARDIAC CATHS WITH STENTS X 3 -CABG X 1 VESSEL -RIGHT SHOULDER SURGERY -CHOLECYSTECTOMY -PORT LEFT CHEST 05/2021 -R THORACENTESIS 11/08/21; HE HAS HAD MULTIPLE RIGHT THORACENTESIS DONE. Physical Exam-Suspected Sepsis Physical Exam Vital Signs Vital Signs - First Documented 02/09/22 08:55 Temp 37.4 Pulse 140 Resp 19 B/P (MAP) 89/48 (62) Pulse Ox 92 O2 Delivery OxyMask O2 Flow Rate 6.00 Capillary Refill : Less Than 3 Seconds Blood Pressure Mean: 68 Height, Weight, BMI Height: 6'0.00" Weight: 233lbs. 0oz. 105.025690sl; 22.00 BMI Method:Stated Focused Exam Lactate Level 02/09/22 09:49: Lactic Acid Level 2.19*H Lactic Acid Level Laboratory Tests Test 02/09/22 09:49 Lactic Acid Level 2.19 MMOL/L (0.50-2.00) *H Progress/Results/Core Measures Suspected Sepsis SIRS Temperature: Pulse: 158 Respiratory Rate: 19 Laboratory Tests 02/09/22 09:06: White Blood Count 19.0H Blood Pressure 85 /60 Mean: 68 02/09/22 09:49: Lactic Acid Level 2.19*H Laboratory Tests 02/09/22 09:06: Creatinine 1.11, INR Comment 1.0, Platelet Count 209, Total Bilirubin 0.6 Results/Orders Lab Results Laboratory Tests Test 02/09/22 09:06 02/09/22 09:49 Range/Units White Blood Count 19.0 H 4.3-11.0 10^3/uL Red Blood Count 3.99 L 4.30-5.52 10^6/uL Hemoglobin 11.9 L 13.3-17.7 g/dL Hematocrit 36 L 40-54 % Mean Corpuscular Volume 89 80-99 fL Mean Corpuscular Hemoglobin 30 25-34 pg Mean Corpuscular Hemoglobin Concent 33 32-36 g/dL Red Cell Distribution Width 13.2 10.0-14.5 % Platelet Count 209 130-400 10^3/uL Mean Platelet Volume 11.6 9.0-12.2 fL Immature Granulocyte % (Auto) 1 % Neutrophils (%) (Auto) 91 H 42-75 % Lymphocytes (%) (Auto) 4 L 12-44 % Monocytes (%) (Auto) 4 0-12 % Eosinophils (%) (Auto) 0 0-10 % Basophils (%) (Auto) 0 0-10 % Neutrophils # (Auto) 17.3 H 1.8-7.8 10^3/uL Lymphocytes # (Auto) 0.7 L 1.0-4.0 10^3/uL Monocytes # (Auto) 0.8 0.0-1.0 10^3/uL Eosinophils # (Auto) 0.0 0.0-0.3 10^3/uL Basophils # (Auto) 0.1 0.0-0.1 10^3/uL Immature Granulocyte # (Auto) 0.1 0.0-0.1 10^3/uL Neutrophils % (Manual) 92 % Lymphocytes % (Manual) 6 % Monocytes % (Manual) 2 % Blood Morphology Comment NORMAL Prothrombin Time 14.1 12.2-14.7 SEC INR Comment 1.0 0.8-1.4 Activated Partial Thromboplast Time 28 24-35 SEC D-Dimer 9.13 H 0.00-0.49 UG/ML Sodium Level 131 L 135-145 MMOL/L Potassium Level 4.5 3.6-5.0 MMOL/L Chloride Level 92 L 98-107 MMOL/L Carbon Dioxide Level 27 21-32 MMOL/L Anion Gap 12 5-14 MMOL/L Blood Urea Nitrogen 29 H 7-18 MG/DL Creatinine 1.11 0.60-1.30 MG/DL Estimat Glomerular Filtration Rate 71 BUN/Creatinine Ratio 26 Glucose Level 109 H 70-105 MG/DL Calcium Level 9.5 8.5-10.1 MG/DL Corrected Calcium 10.1 8.5-10.1 MG/DL Magnesium Level 1.6 1.6-2.4 MG/DL Total Bilirubin 0.6 0.1-1.0 MG/DL Aspartate Amino Transf (AST/SGOT) 27 5-34 U/L Alanine Aminotransferase (ALT/SGPT) 30 0-55 U/L Alkaline Phosphatase 96 40-136 U/L Myoglobin 164.5 H 10.0-92.0 NG/ML Troponin I < 0.028 <0.028 NG/ML C-Reactive Protein High Sensitivity 7.67 H 0.00-0.50 MG/DL Total Protein 6.6 6.4-8.2 GM/DL Albumin 3.2 3.2-4.5 GM/DL Procalcitonin 0.19 H <0.10 NG/ML Thyroid Stimulating Hormone (TSH) 5.89 H 0.35-4.94 UIU/ML Free Thyroxine 1.01 0.70-1.48 NG/DL Influenza Type A (RT-PCR) Not Detected Not Detecte Influenza Type B (RT-PCR) Not Detected Not Detecte SARS-CoV-2 RNA (RT-PCR) Not Detected Not Detecte Lactic Acid Level 2.19 *H 0.50-2.00 MMOL/L My Orders Orders - EDGAR ZHANG MD Ekg Tracing (02/09/22 09:03) Ondansetron Injection (Zofran Injectio (02/09/22 09:06) Cbc With Automated Diff (02/09/22 09:21) Comprehensive Metabolic Panel (02/09/22 09:21) Blood Culture (02/09/22 09:21) Sputum Culture (02/09/22 09:21) Urinalysis (02/09/22 09:21) Urine Culture (02/09/22 09:21) Protime With Inr (02/09/22 09:21) Partial Thromboplastin Time (02/09/22 09:21) Chest 1 View, Ap/Pa Only (02/09/22 09:21) Ed Iv/Invasive Line Start (02/09/22 09:21) Vital Signs Adult Sepsis Patie Q15M (02/09/22 09:21) O2 (02/09/22 09:21) Remove Rings In Anticipation O (02/09/22 09:21) Lactic Acid Analyzer (02/09/22 09:21) Magnesium (02/09/22 09:21) Myoglobin Serum (02/09/22 09:21) Monitor-Rhythm Ecg Trace Only (02/09/22 09:21) Lipid Panel (02/10/22 06:00) Troponin I Earl (02/09/22 09:21) Hs C Reactive Protein (02/09/22 09:21) Fibrin Degradation Products (02/09/22 09:21) Procalcitonin (Pct) (02/09/22 09:21) Covid 19 Inhouse Test (02/09/22 09:21) Influenza A And B By Pcr (02/09/22 09:21) Thyroid Stimulating Hormone (02/09/22 09:24) Free T4 (Free Thyroxine) (02/09/22 09:24) Ekg Tracing (02/09/22 09:28) Manual Differential (02/09/22 09:06) Amiodarone For Bolus (Cordarone Bolus) (02/09/22 09:45) Amiodarone Injection (Cordarone Injectio (02/09/22 09:45) Digoxin Injection (Lanoxin Injection) (02/09/22 09:45) Enoxaparin Injection (Lovenox Injection) (02/09/22 09:45) Amiodarone For Bolus (Cordarone Bolus) (02/09/22 09:35) Normal Saline (Ns (Haywood Bag)) (02/09/22 09:36) Amiodarone Injection (Cordarone Injectio (02/09/22 09:37) D5w 100 Ml Ivpb (Dextrose 5% Water Iv So (02/09/22 09:38) Ns Iv 1000 Ml (Sodium Chloride 0.9%) (02/09/22 10:15) Meropenem (Merrem 1000 Mg) (02/09/22 10:30) Ekg Tracing (02/09/22 10:26) Norepinephrine 8 Mg/250 Ml (Norepinephri (02/09/22 12:01) Norepinephrine 8 Mg/250 Ml (Norepinephri (02/09/22 12:15) Medications Given in ED Current Medications Medications Dose Ordered Sig/Eusebio Route Start Time Stop Time Status Last Admin Dose Admin Amiodarone HCl 300 mg/Sodium Chloride 106 ml @ 600 mls/hr ONCE ONCE IV 02/09/22 09:45 02/09/22 09:55 DC 02/09/22 09:49 600 MLS/HR Digoxin 0.25 mg ONCE ONCE IV 02/09/22 09:45 02/09/22 09:46 DC 02/09/22 09:41 0.25 MG Enoxaparin Sodium 70 mg ONCE ONCE SC 02/09/22 09:45 02/09/22 09:46 DC 02/09/22 09:51 70 MG Meropenem 1000 mg/ Sodium Chloride 100 ml @ 200 mls/hr ONCE ONCE IV 02/09/22 10:30 02/09/22 10:59 DC 02/09/22 11:05 200 MLS/HR Vital Signs/I&O 02/09/22 02/09/22 02/09/22 02/09/22 08:55 08:55 09:49 12:17 Temp 37.4 Pulse 140 158 131 Resp 19 B/P (MAP) 89/48 (62) 85/60 78/53 Pulse Ox 92 92 O2 Delivery OxyMask OxyMask O2 Flow Rate 6.00 6.00 Capillary Refill : Less Than 3 Seconds Blood Pressure Mean: 68 Diagnostic Imaging Diagonstic Imaging: Xray Plain Films/CT/US/NM/MRI: chest Comments Chest x-ray viewed by me and compared with prior. Report reviewed. See report below: NAME: NICOLETTE CAREY [facility] REC#: [id number] PT STATUS: REG ER : 1950 PHYSICIAN: EDGAR ZHANG MD ADMIT DATE: 02/09/22/ER Signed Date of Exam:02/09/22 CHEST 1 VIEW, AP/PA ONLY EXAMINATION: Chest 1 view HISTORY: Chest pain COMPARISON: 01/27/2022 FINDINGS: Heart size and pulmonary vasculature are normal. Stable surgical changes from median sternotomy. Increasing opacification of the right lung, increased from 01/27/2022. Persistent right pleural effusions. No definitive pneumothorax. The osseous structures are intact. IMPRESSION: 1. Increasing opacification of the right lung with persistent right-sided pleural effusions. Dictated by: Dictated on workstation # [id number] Dict: 02/09/22 1002 Trans: 02/09/22 1008 [id number] Interpreted by: PETE SIMEON DO Electronically signed by: PETE SIMEON DO 02/09/22 1008 Critical Care Note Critical Care Start Time: 08:56 Progress 1038 - Patient was experiencing an unstable tachycardia, likely atrial fibrillation with RVR. He was hypotensive, hypoxic, and experiencing altered mental status. IV fluid bolus of nearly 1 L did not correct the hypotension. In consultation with Dr. Sal, decision was made to provide emergent synchronized cardioversion and attempt to convert the arrhythmia. Patient was lightly sedated with fentanyl 25 mcg IV and Versed 2 mg IV. Low doses were used due to his unstable vital signs. We then attempted synchronized cardioversion x3 at 100 J, 150 J, and 200 J. Cardioversion was not successful. Dr. Sal was again consulted and advised amiodarone 300 mg bolus followed by drip as well as digoxin 0.25 mg IV. These medications have been administered. Patient is still experiencing hypotension with systolic blood pressures in the 80s. Heart rate has improved considerably to 113 bpm on the last EKG. Patient was anticoagulated with Lovenox 70 mg subcu. The most recent EKG at 1030 demonstrated atrial tachycardia. His cancer syndrome is difficult to distinguish from sepsis. Septic work-up has also been pursued. Influenza and COVID-19 swabs were negative. Blood cultures and lactic acid were drawn. Lactic acid was mildly elevated. Meropenem is being administered for initial antibiotic therapy. D-dimer is markedly elevated. CT angiogram may be consider ed after hemodynamically stable. I discussed the situation with Dr. Sotelo as hospitalist on duty today. He has suggested I discussed transfer with patient and his due to the complex nature of his multiple pathologies. Dr. Pal believes consultation with a cardiothoracic surgical team is warranted. I will discuss this option with patient and family. Greater than 30 minutes of critical care time has been dedicated to this patient, mostly with bedside care, but also in consultation with specialist, review of chart, managing orders and medications, and discussing plan and preferences with patient and his . 12:33 - Although heart rate has improved significantly on present interventions, we have still struggled with hypotension despite fluid resuscitation with 2 L. Further fluid resuscitation will be performed cautiously as he has history of heart failure and tends to third space fluid in his right chest cavity. Respiratory status is stable. I discussed with Dr. Sal who recommended starting pressor therapy with dopamine or Levophed. Levophed drip was initiated. Systolic blood pressure is now in the 110s. Transfer to [facility] is not possible as both [facility] facilities are on ICU diversion. However, patient is willing to transfer to [facility], and they have ICU bed capacity. Transfer was excepted by Dr. Conway. Departure Impression Primary Impression: Atrial fibrillation with RVR Additional Impressions: Cardiogenic shock Lung cancer Qualified Codes: C34.91 - Malignant neoplasm of unspecified part of right bronchus or lung Acute and chronic respiratory failure Elevated d-dimer Possible sepsis Disposition: ADMITTED INPATIENT Condition: Improved Departure-Patient Inst. Referrals: SOPHIA JACKSON MD (PCP/Family) Primary Care Physician EDGAR ZHANG MD Feb 09, 2022 10:24
[2022-02-09] MEDS ORDERED: MEROPENEM 1,000 MG in NS (IVPB) 100 ML IV ONE (10:30)
--- NOTE | 2022-02-09 11:56 | Tele-ICU Progress Note ---
Subjective Date Seen by a Provider: Feb 09, 2022 Subjective/Events-last exam This virtual visit was conducted using real time audio/video. Thank you for asking us to see this patient for respiratory insufficiency due to afib/rvr/sepsis. Recent events: Failed cardioversion and Amiod begun. PMH:St IV lung CA on immunotherapy, 3LPM home O2, hypothyroid, previous Afib, complex R hydropneumothorax, CAD/stents. SH: smoking history: former FH: Non-contributory ROS: per HPI PE: Afib O2 sat 92% on 6 LPM NC. HEENT: No obvious masses, adenopathy or JVD. Chest: clear to auscultation. CV: Irreg. 100-120 S1 S2 No murmur or added sounds. Abd: Non-tender. Bowel sounds Y. : Unremarkable. 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 No obvious focal findings. Extremities: 1+edema. Capillary refill < 3 seconds. Skin: unremarkable. Results: Elevated WCC 19, BUN 29, Lactate 2.19. Decreased HB11.9. CXR: Hyperinflated, increased R opacification. Available chart/ vitals / labs / images reviewed. Video assessment done using teleICU camera, rest of exam as per RN. A/P: Respiratory insufficiency: Continue present management with O2,. Will add Duonebs Monitor for increasing oxygenation needs and/or need for intubation. Critical Care: critically ill patient. Cont.Amiod., abx, Javier, dig. Discussed with LIANET Oliveros. Asked RN to reach out to eICU if any questions or concerns later. Time spent with patient/coordination of care with other health professionals (mins): 20 Sepsis Event Evaluation Height, Weight, BMI Height: 6'0.00" Weight: 233lbs. 0oz. 105.164173ic; 22.00 BMI Method:Stated Focused Exam Lactate Level 02/09/22 09:49: Lactic Acid Level 2.19*H Lactic Acid Level Laboratory Tests Test 02/09/22 09:49 Lactic Acid Level 2.19 MMOL/L (0.50-2.00) *H Exam Exam Patient acknowledged, consented, and participated in this virtual visit which was conducted using real time audio/video Vital Signs Date Time Temp Pulse Resp B/P (MAP) Pulse Ox O2 Delivery O2 Flow Rate FiO2 02/09/22 09:49 158 85/60 02/09/22 08:55 37.4 140 19 89/48 (62) 92 OxyMask 6.00 02/09/22 08:55 92 OxyMask 6.00 Height & Weight Height: 6'0.00" Weight: 233lbs. 0oz. 105.672993db; 22.00 BMI Method:Stated General Appearance: Mild Distress Respiratory: Decreased Breath Sounds Cardiovascular: Irregularly Irregular Capillary Refill: Less Than 3 Seconds Peripheral Pulses: 1+ Femoral (L), 1+ Dorsalis Pedis (R) (See free text) Results Lab Laboratory Tests 02/09/22 09:06 Assessment/Plan Assessment/Plan See free text. Critical Care: Critically Ill Patient CASSIUS RAMÍREZ MD Feb 09, 2022 11:56
[2022-02-09] MEDS ORDERED: RT-ALBUTEROL/IPRATROPIUM 3 ML (DUONEB) VIAL INH PRN (12:00)
[2022-02-09] MEDS ORDERED: NOREPINEPHRINE 8 MG/250 ML 250 ML IV ONE (12:01)
[2022-02-09] MEDS ORDERED: NOREPINEPHRINE 8 MG/250 ML 250 ML IV SCH (12:15)
[2022-02-09 13:02] VITALS: BP 90/67
== END 2022-02-09 13:37 | disposition other institution (70) ==
LOC: EDUNIT# 08:55 → ER 08:56
DX: I48.20 Chronic atrial fibrillation, unspecified (principal); C34.91 Malignant neoplasm of unspecified part of right bronchus or lung; J96.21 Acute and chronic respiratory failure with hypoxia; R57.0 Cardiogenic shock; R79.1 Abnormal coagulation profile; J44.9 Chronic obstructive pulmonary disease, unspecified; I10 Essential (primary) hypertension; Z88.6 Allergy status to analgesic agent; Z92.21 Personal history of antineoplastic chemotherapy; Z92.3 Personal history of irradiation; Z20.822 Contact with and (suspected) exposure to COVID-19
CPT/HCPCS: 36415; 71045; 80053; 83605; 83735; 83874; 84145; 84439; 84443; 84484; 85007; 85027; 85379; 85610; 85730; 86141; 87040; 87077; 87636; 93005; 93041